=== PATIENT | female | born 1995 | race Caucasian/White ===

== ENCOUNTER → 2018-01-24 10:33 | Outpatient (CLI) | payer MEDICAID, SELFPAY ==
[2018-01-24 13:57] LABS: Hemoglobin A1c 5.6 % (4.2-6.3)
[2018-01-24 14:01] LABS: Follicle Stimulating Hormone 5.9 mIU/mL; Free T3 3.1 pg/mL (2.18-3.98); Glucose 86 mg/dL (74-106); Luteinizing Hormone 2.1 mIU/mL; Prolactin 15.2 ng/mL; T4 Free Direct 0.96 ng/dL (0.76-1.46); Thyroid Stim Hormone (TSH) 2.37 uIU/mL (0.358-3.74)
[2018-01-27 11:09] LABS: HPV Reflexed? NOT INDICATED
== END ==
PROVIDERS: Visit Provider Obstetrics & Gynecology
DX: N92.5 Other specified irregular menstruation (principal); Z12.72 Encounter for screening for malignant neoplasm of vagina
CPT/HCPCS: 36415; 82947; 83001; 83002; 83036; 84146; 84439; 84443; 84481; 88175; G0145

== ENCOUNTER → 2018-10-08 16:19 | Outpatient (CLI) | payer SELFPAY ==
[2018-10-08 17:31] LABS: Thyroid Stim Hormone (TSH) 3.19 uIU/mL (0.358-3.74)
== END ==
PROVIDERS: Visit Provider Obstetrics & Gynecology
DX: N92.6 Irregular menstruation, unspecified (principal)
CPT/HCPCS: 36415; 84443

== ENCOUNTER → 2019-01-30 09:28 | Outpatient (CLI) | payer SELFPAY | LOC: MFPLAB 09:28 → WOBLAB 02-01 16:32 | PROVIDERS: Visit Provider Obstetrics & Gynecology | DX: Z12.4 Encounter for screening for malignant neoplasm of cervix (principal) | CPT/HCPCS: 88175; G0145 ==

== ENCOUNTER → 2019-12-25 | Outpatient (CLI) | payer OTHER, SELFPAY ==
[2019-12-31 07:44] LABS: Chlamydia By Nucleic Acid AMP Negative (Negative)
[2019-12-31 08:03] LABS: Gonococcus By Nucleic Acid AMP Negative (Negative)
[2019-12-31 16:02] LABS: HPV Reflexed? NOT INDICATED
== END | disposition home or self-care (01) ==
LOC: LABSPEC 14:39
PROVIDERS: Visit Provider Obstetrics & Gynecology
DX: N39.0 Urinary tract infection, site not specified (principal); R10.30 Lower abdominal pain, unspecified; Z11.3 Encounter for screening for infections with a predominantly sexual mode of transmission; Z12.4 Encounter for screening for malignant neoplasm of cervix
CPT/HCPCS: 87086; 87088; 87491; 87591; 88175; G0145

== ENCOUNTER → 2021-11-24 | Outpatient (CLI) | payer SELFPAY | END | disposition home or self-care (01) | LOC: LABSPEC 16:06 | PROVIDERS: Visit Provider Obstetrics & Gynecology | DX: N39.0 Urinary tract infection, site not specified (principal) | CPT/HCPCS: 87086; 87088 ==

== ENCOUNTER → 2022-05-24 | Outpatient (CLI) | payer SELFPAY ==
[2022-05-31 13:38] LABS: HPV Reflexed? NOT INDICATED
== END | disposition home or self-care (01) ==
PROVIDERS: Visit Provider Obstetrics & Gynecology
DX: Z12.4 Encounter for screening for malignant neoplasm of cervix (principal)
CPT/HCPCS: 88175; G0145

== ENCOUNTER 2024-12-09 13:38 | Day surgery (SDC) | payer OTHER, SELFPAY ==
--- OUTSIDE RECORDS SUMMARY | 2024-10-11 05:23 | XMS RPT_ITS | CCD ---
Author Organization [facility] Care Team Providers Care Dial Lathe Operator Name Role Phone HOUSE JOSS JOHNSON Unavailable Unavailable NO REFERRING DR Unavailable Unavailable ZARAA, ADEL Unavailable Unavailable BRYANT, BRUCE Unavailable Unavailable BRYANT, BRUCE GALDINO Unavailable Unavailable ZARAA, ADEL SALENA Unavailable Unavailable Fabian CHIRINOS, Andrzej Narvaez Unavailable Dejon CHIRINOS, Dr. Gregory Unavailable [phone] Psychology Provider Unavailable Unavailable [facility] U navailable Jarad COMMERCIAL ILLUSTRATOR, Chari Unavailable Aristeo COMMERCIAL ILLUSTRATOR, Emmy Aceves Unavailable Unavailable Israel COMMERCIAL ILLUSTRATOR, Jeffrey Unavailable Unavailable Slick CHIRINOS, Jose Hernandez Unavailable Nickolas MOSCOSO, Galina Naylor Unavailable [phone] Niru MOSCOSO, Gilles Aceves Unavailable [phone] Greyson COMMERCIAL ILLUSTRATOR, Gayle Unavailable Unavailable Villa ANDERSEN, Galina Hernandez Unavailable Unavaila ble Megan COMMERCIAL ILLUSTRATOR, Sonali Unavailable Unavailable Yousuf COMMERCIAL ILLUSTRATOR, Aristeo Unavailable Unavailable Vamsi ANDERSEN, Ava Rodriguez Unavailable Unavailable Levar COMMERCIAL ILLUSTRATOR, Almita Unavailable Unavailable Hoang MOSCOSO, Sheridan Aguilar Unavailable Taj COMMERCIAL ILLUSTRATOR, Kelsea Velasco Unavailable Unavailab joe Sutton COMMERCIAL ILLUSTRATOR, Jenelle Snyder Unavailable Unavailab joe Gaxiola MD, Ashkan Hernandez Unavailable Hien Monroe Unavailable Unavailable Vess COMMERCIAL ILLUSTRATOR, Kandi L Unavailable Unavailable Wengerd COMMERCIAL ILLUSTRATOR, Shanda Unavailable Unavailabl e Marc COMMERCIAL ILLUSTRATOR, America N Unavailable Unavaila ble Zaugg COMMERCIAL ILLUSTRATOR, Yennifer Unavailable Unavailable Unavailable Unavailable Unavailable Primary Care Provider Unavailabl e Unavailable Primary Care Provider Unavailabl e Satinder CHIRINOS, Anju Primary Care Provider [phone] PATTI RAMOS DO Primary Care Unavailable PATTI RAMOS DO Admitting Unavailable PATTI RAMOS DO Attending Unavailable VINCENZO TIDWELL DO Attending Unavailable VINCENZO TIDWELL DO Primary Care Unavailable VINCENZO TIDWELL DO Admitting Unavailable KANCHERLA Attending Unavailable KANCHERLA Primary Care Unavailable KANAMEYALA Admitting Unavailable PATTI RAMOS DO Primary Care Unavailable PATTI RAMOS DO Admitting Unavailable PATTI RAMOS DO Attending Unavailable RAJAN, ANJU Primary Care Unavailable CHAR HENSLEY Referring Unavailable ASIF WALLACE Attending Unavailable RAJAN, ANJU Primary Care Unavailable HAURY, CHRISTOPHER Referring Unavailable RAJAN, ANJU Primary Care Unavailable YENNIFER PRUITT Attending Unavailable RAJAN, ANJU Primary Care Unavailable HAURY, CHRISTOPHER Referring Unavailable RAJAN, ANJU Primary Care Unavailable YENNIFER PRUITT Referring Unavailable RAJAN, ANJU Primary Care Unavailable SELF Referring Unavailable UMA TINSLEY Attending Unavailable RAJAN, ANJU Primary Care Unavailable FOX ABEL Attending Unavailable RAJAN, ANJU Primary Care Unavailable WISWELLSOUMYAA Referring Unavailable RAJAN, ANJU Primary Care Unavailable HAURY, CHRISTOPHER Attending Unavailable RAJAN, ANJU Primary Care Unavailable MARCI PULIDO Attending Unava ilable RAJAN, ANJU Primary Care Unavailable MARCI PULIDO Referring Unava ilable DUNIA GONGORA Attending Unavailable RAJAN, ANJU Primary Care Unavailable FOX ABEL Attending Unavailable SATINDER, ANJU Primary Care Unavailable MARCI PULIDO Attending Unava ilable RAJAN, ANJU Primary Care Unavailable FOX ABEL Attending Unavailable EVELYN FOX Referring Unavailable RAJAN, ANJU Primary Care Unavailable WISWELLFOX Attending Unavailable RAJAN, ANJU Primary Care Unavailable FOX ABEL Attending Unavailable RAJAN, ANJU Primary Care Unavailable MARCI PULIDO Attending Unava ilable RAJAN, ANJU Primary Care Unavailable SELF Referring Unavailable RADHA BUSCH Attending Unavailable RAJAN, ANJU Primary Care Unavailable GRAHAM GREEN Attending Unavailabl e Care Physician, No Primary Primary Care Unava ilable Johnson Phillip Attending Unavailable Johnson Phillip Attending Unavailable MARCI PULIDO Primary Care Unavail able Care Physician, No Primary Primary Care Unava ilable Johnson Phillip Attending Unavailable Care Physician, No Primary Primary Care Unava ilable Johnson Phillip Attending Unavailable Care Physician, No Primary Primary Care Unava ilable Johnson Phillip Attending Unavailable MARCI PULIDO Primary Care Unavail able Fox Abel Attending Unavailable Fox Abel Referring Unavailable Anju Rajan Primary Care Unavailable Fox Abel Attending Unavailable Fox Abel Referring Unavailable Medications Current Medications Medication Drug Class(es) Dates Sig (Normalized) Sig (Original) acetaminophen 500 mg oral capsule (20 sources) Acetaminophen 50 0 mg cap Take by mouth. Active take 2 tablets by mouth three ti mes daily Tylenol 325 MG Oral Tablet ; 2 tabs three times daily (325 MG) Status: Inactive 24 hr buPROPion hydrochloride 150 mg extended release oral tablet (20 sources) Aminoketone Start: 09-12-2023 take 1 tablet by mouth once daily in the morning buPROPion XL (WELLBUTRIN XL) 150 mg 24 hr tablet Take 150 mg by mouth every morning. 09/12/2023 Active Start: 07-15-2020 End: 03-29-2023 buPROPion HCL SR 200 mg tabl et,12 hr sustained-release ; 1 (one) Tablet bid for 0 days Quantity: 60 {Tablet} Refills: 5 Ordered: 29-Mar-2023 BELKIS Rubi Start: 15-Jul-2020 End: 29-Mar-2023 Status: Inactive hydrOXYzine pamoate 25 mg oral capsule (20 sources) Antihistamine Start: 06-27-2023 hydrOXYzine pa moate (VISTARIL) 25 mg capsule 06/27/2023 Active norethindrone acetate 5 mg oral tablet (20 sources) Start: 09-19-2024 norethindrone (AYGESTIN) 5 mg tablet Indications: DUB (dysfunctional uterine bleeding) Take 1 tablet by mouth as directed. one by mouth tid x 3 days, bid x 3 days, then daily 50 tablet 09/19/2024 Active Start: 08-02-2024 End: 09-17-2024 norethindrone (AYGESTIN) 5 m g tablet Indications: DUB (dysfunctional uterine bleeding) Take 1 tablet by mouth as directed. one by mouth tid x 3 days, bid x 3 days, then daily 50 tablet 08/02/2024 09/17/2024 Discontinued Start: 11-27-2023 End: 04-25-2024 norethindrone (AYGESTIN) 5 m g tablet Indications: Abnormal uterine bleeding 1 tab 3x/day until bleeding stops. 1 tab 2x/day x 2 days. 1 tab daily x 5 days 35 tablet 12/29/2023 04/25/2024 Discontinued (Other) omeprazole 20 mg delayed release oral capsule (20 sources) Proton Pump Inhibitor Start: 04-05-2024 End: 07-03-2024 take 1 capsule by mouth once daily omeprazole (PRILOSEC) 20 mg capsule Indications: Gastroesophageal reflux disease, unspecified whether esophagitis present TAKE ONE CAPSULE BY MOUTH ONCE DAILY 30 capsule 3 07/03/2024 Active Start: 09-27-2023 End: 03-28-2024 take 1 capsule by mouth once daily omeprazole (PRILOSEC) 20 mg capsule Indications: Gastroesophageal reflux disease, unspecified whether esophagitis present Take 1 capsule by mouth once daily. 30 capsule 2 12/29/2023 03/28/2024 Active phentermine hydrochloride 37.5 mg oral tablet (20 sources) Sympathomimetic Amine Anorectic Start: 06-18-2024 End: 10-30-2024 take 45-49.9 tablets by mouth once daily Phentermine HCl 37.5 mg tablet Indications: Class 3 severe obesity with body mass index (BMI) of 45.0 to 49.9 in adult, unspecified obesity type, unspecified whether serious comorbidity present (HCC) Take 1 tablet by mouth once daily for 30 days. 30 tablet 09/30/2024 10/30/2024 Active sertraline 100 mg oral tablet (20 sources) Serotonin Reuptake Inhibitor take 1 tablet by mouth twice daily sertraline (ZOLOFT) 100 mg tablet Take 100 mg by mouth two times a day. Active take 1 tablet by mouth once lindy y sertraline (ZOLOFT) 100 mg tablet Take 100 mg by mouth once daily. 0 Active Comment on above: Take 100 mg by mouth once daily. traZODone hydrochloride 50 mg oral tablet (20 sources) Serotonin Reuptake Inhibitor take 1 tablet by mouth once daily at bedtime traZODone (DESYREL) 50 mg tablet Take 50 mg by mouth daily at bedtime. Active trospium chloride 20 mg oral tablet (20 sources) Cholinergic Muscarinic Antagonist Start: 06-19-19 End: 07-17-19 take 1 tablet by mouth twice daily trospium (SANCTURA) 20 mg tablet Indications: Mixed stress and urge urinary incontinence , Urinary urgency Take 1 tablet by mouth two times a day. 60 tablet 3 07/16/2024 Active Completed/Discontinued Medications Medication Drug Class(es) Dates Sig (Normalized) Sig (Original) [id number] 200 actuat albuterol 0.09 mg/actuat metered dose inhaler (2 sources) beta2-Adrenergic Agonist Albuterol 90 MCG/ACT Inhalation Aerosol Solution ; as directed (90 MCG/ACT) Status: Inactive amoxicillin 875 mg / clavulanate 125 mg oral tablet (2 sources) Penicillin-class Antibacterial Start: 01-26-2017 End: 02-05-2017 take 1 tablet by mouth twice daily at mealtime Augmentin 875-125 MG Oral Tablet ; 1 Tab two times daily for 10 days Quantity: 20 {Tablet} Refills: 0 Ordered: 26-Jan-2017 DANIS Olmos Start: 26-Jan-2017 End: 05-Feb-2017 Status: Inactive Comments: Take with food Comment on above: Take with food azithromycin 500 mg oral tablet (4 sources) Macrolide Antimicrobial Start: 02-08-2019 End: 02-11-2019 take 1 tablet by mouth once daily Azithromycin 500 MG Oral Tablet ; 1 (one) Tablet daily for 3 days Quantity: 3 {Tablet} Refills: 0 Ordered: 25-Feb-2019 MD Jose Kruger Start: 08-Feb-2019 End: 11-Feb-2019 Status: Inactive Start: 11-27-2017 End: 02-06-2018 Zithromax Z-Woo 250 MG Oral Tablet ; 2 (two) Tabs Tabs day one, then one daily for 4 days for 0 days Quantity: 1 {Package} Refills: 0 Ordered: 06-Feb-2018 BELKIS Sutton Jenelle Snyder Start: 27-Nov-2017 End: 06-Feb-2018 Status: Inactive benzonatate 100 mg oral capsule (2 sources) Non-narcotic Antitussive Start: 02-25-2019 End: 03-18-2019 take 1 capsule by mouth three times daily as needed Tessalon Perles 100 MG Oral Capsule ; 1 (one) Cap three times daily as needed for cough for 0 days Quantity: 30 {Capsule} Refills: 0 Ordered: 18-Mar-2019 GANESH Driver Start: 25-Feb-2019 End: 18-Mar-2019 Status: Inactive Comments: Medication taken as needed. swallow whole Comment on above: Medication taken as needed. swallow whole cephalexin 500 mg oral capsule (2 sources) Cephalosporin Antibacterial Start: 08-24-2018 End: 09-03-2018 take 2 capsules by mouth twice daily Cephalexin 500 MG Oral Capsule ; 2 (two) Capsule bid for 10 days Quantity: 40 {Capsule} Refills: 0 Ordered: 24-Aug-2018 MD Andrzej Peralta Start: 24-Aug-2018 End: 03-Sep-2018 Status: Inactive codeine phosphate 2 mg/ml / promethazine hydrochloride 1.25 mg/ml oral solution (2 sources) Opioid Agonist, Phenothiazine Start: 02-08-2019 End: 02-25-2019 take 10 mL by mouth every four hours as needed for cough Promethazine-Code ine 6.25-10 MG/5ML Oral Syrup ; 10 (ten) Milliliter every 4 hours prn cough for 0 days Quantity: 120 {Milliliter} Refills: 1 Ordered: 25-Feb-2019 BELKIS Bruner Start: 08-Feb-2019 End: 25-Feb-2019 Status: Inactive Desogestrel / Ethinyl Estradiol (5 sources) Progestin, Estrogen Start: 01-08-2024 End: 04-25-2024 take 1 tablet by mouth once daily, then take 0.15 tablet by mouth once Desogestrel-Ethin yl Estradiol (APRI) 0.15-0.03 mg per tablet Take 1 tablet by mouth once daily. 30 tablet 5 01/08/2024 04/25/2024 Discontinued (Other) Start: 01-08-2024 take 1 tablet by sara th once daily, then take 0.15 tablet by mouth once Desogestrel-Ethinyl Estradiol (APRI) 0.15-0.03 mg per tablet Take 1 tablet by mouth once daily. 30 tablet 5 01/08/2024 Active ergocalciferol 1.25 mg oral capsule (14 sources) Provitamin D2 Compound Start: 06-21-2023 End: 04-25-2024 take 1 capsule by mouth every week ergocalciferol 50,000 unit capsule (VITAMIN D2, DRISDOL) Indications: Vitamin D deficiency Take 1 capsule by mouth one time a week. 12 capsule 1 06/21/2023 04/25/2024 Discontinued (Other) Ethinyl Estradiol / Norethindrone (2 sources) Estrogen Start: 08-21-2015 End: 08-24-2016 take 1 tablet by mouth once daily Loestrin 1/20 (21) 1-20 MG-MCG Oral Tablet ; 1 (one) Tablet Tablet qd for 0 days Quantity: 1 {Package} Refills: 12 Ordered: 24-Aug-2016 BELKIS Sutton Jenelle Snyder Start: 21-Aug-2015 End: 24-Aug-2016 Status: Inactive Ethinyl Estradiol / norgestimate (14 sources) Progestin, Estrogen Start: 04-24-2023 End: 09-27-2023 take 1 tablet by mouth once norgestimate 0.25 mg-ethinyl estradiol 35 mcg 0.25-35 mg-mcg per tablet Take 1 tablet by mouth every afternoon. 90 tablet 3 04/24/2023 09/27/2023 Discontinued Start: 04-24-2023 take 1 tablet by mouth once no rgestimate 0.25 mg-ethinyl estradiol 35 mcg 0.25-35 mg-mcg per tablet Take 1 tablet by mouth every afternoon. 90 tablet 3 04/24/2023 Active Start: 04-10-2023 End: 04-24-2023 take 1 tablet by mouth once norgestimate 0.25 mg-ethin yl estradiol 35 mcg 0.25-35 mg-mcg per tablet Take 1 tablet by mouth every afternoon. 28 tablet 0 04/10/2023 04/24/2023 Discontinued take 1 tablet by sara th once daily Sprintec 28 0.25-35 MG-MCG Oral Tablet ; 1 daily for 3 months (0.25-35 MG-MCG) Status: Inactive Comments: prescribed by Dr. Field Comment on above: prescribed by Dr. Wilbert hyde Take 1 tablet by sara th every afternoon. 24 hr fesoterodine fumarate 8 mg extended release oral tablet (2 sources) take 1 tablet by mouth once daily Toviaz 8 MG Oral Tablet Extended Release 24 Hour ; 1 daily (8 MG) Status: Inactive fluconazole 100 mg oral tablet (4 sources) Azole Antifungal Start: 01-25-2016 End: 02-01-2016 take 1 tablet by mouth once daily Diflucan 100 MG Oral Tablet ; 1 Tablet daily for 7 days Quantity: 7 {Tablet} Refills: 0 Ordered: 10-Feb-2016 MD Andrzej Peralta Start: 25-Jan-2016 End: 01-Feb-2016 Status: Inactive Start: 02-03-2015 End: 02-04-2015 DIFLUCAN, 150MG (Oral Tablet ) ; 1 Tablet single dose for 1 days Quantity: 1 {Tablet} Refills: 0 Ordered: 03-Feb-2015 MD Andrzej Peralta Start: 03-Feb-2015 End: 04-Feb-2015 Status: Inactive levoFLOXacin 500 mg oral tablet (2 sources) Quinolone Antimicrobial Start: 02-10-2017 End: 02-20-2017 take 1 tablet by mouth once daily Levaquin 500 MG Oral Tablet ; 1 (one) Tablet qd for 10 days Quantity: 10 {Tablet} Refills: 0 Ordered: 10-Feb-2017 MD Andrzej Peralta Start: 10-Feb-2017 End: 20-Feb-2017 Status: Inactive levonorgestrel 0.149115 mg/hr intrauterine system (20 sources) Progestin, Progestin-containi ng Intrauterine Device Start: 06-20-2023 End: 06-18-2031 levonorgestrel (MIRENA) 21 mcg/24 hours (8 yrs) 52 mg IUD 1 Each by INTRAUTERINE route as directed. 1 Each 06/20/2023 08/02/2024 Discontinued Comment on above: 1 Each by INTRAUTERI NE route as directed. methylphenidate hydrochloride 20 mg oral tablet (2 sources) Central Nervous System Stimulant take 1 tablet by mouth three times daily Ritalin 20 MG Oral Tablet ; 1 three times daily (20 MG) Status: Inactive 24 hr mirabegron 25 mg extended release oral tablet (7 sources) beta3-Adrenergic Agonist Start: 05-17-2023 End: 09-27-2023 take 1 tablet by mouth once daily mirabegron (MYRBETRIQ) 25 mg Tb24 Take 1 tablet by mouth once daily. 30 tablet 3 05/17/2023 09/27/2023 Discontinued Comment on above: Take 1 tablet by sara once daily. naproxen sodium 550 mg oral tablet (2 sources) Nonsteroidal Anti-inflammatory Drug take 1 tablet by mouth twice daily Naproxen Sodium 550 MG Oral Tablet ; 1 two times daily (550 MG) Status: Inactive oseltamivir 75 mg oral capsule (2 sources) Neuraminidase Inhibitor Start: 03-29-2023 End: 04-03-2023 Tamiflu 75 mg capsule ; 1 (one) capsule bid for 5 days Quantity: 10 {Capsule} Refills: 0 Ordered: 29-Mar-2023 MD Andrzej Peralta Start: 29-Mar-2023 End: 03-Apr-2023 Status: Inactive 24 hr oxybutynin chloride 5 mg extended release oral tablet (1 source) Cholinergic Muscarinic Antagonist End: 04-24-2023 take 1 tablet by mouth once daily oxybutynin XL (DITROPAN XL) 5 mg 24 hr tablet Take 5 mg by mouth once daily. 0 04/24/2023 Discontinued (Discontinued by Patient) Comment on above: Take 5 mg by mouth o nce daily. PARoxetine hydrochloride 20 mg oral tablet (2 sources) Serotonin Reuptake Inhibitor Start: 11-18-2016 End: 01-26-2017 take 1 tablet by mouth once daily PARoxetine HCl 20 MG Oral Tablet ; 1 (one) Tablet Tablet qd for 0 days Quantity: 30 {Tablet} Refills: 5 Ordered: 26-Jan-2017 GANESH Agustin Ava Michael Start: 18-Nov-2016 End: 26-Jan-2017 Status: Inactive 12 hr pseudoephedrine hydrochloride 120 mg extended release oral tablet (2 sources) alpha-Adrenergic Agonist Start: 12-24-2013 End: 12-30-2013 take 1 tablet by mouth twice daily as needed for congestion PSEUDOEPHEDRINE HCL ER, 120MG (Oral Tablet Extended Release 12 Hour) ; 1 (one) Tablet two times daily PRN congestion for 6 days Quantity: 12 {Tablet} Refills: 0 Ordered: 24-Dec-2013 MD Jose Kruger Start: 24-Dec-2013 End: 30-Dec-2013 Status: Inactive sulfacetamide sodium 100 mg/ml ophthalmic solution (2 sources) Sulfonamide Antibacterial Start: 07-06-2010 End: 04-01-2011 take 1-2 drop(s) into the eye(s) four times daily BLEPH-10, 10% (Ophthalmic Solution) ; 1-2 drops four times daily for 0 days Quantity: 5 {Milliliter} Refills: 0 Ordered: 01-Apr-2011 BELKIS Abraham Start: 06-Jul-2010 End: 01-Apr-2011 Status: Inactive triamcinolone acetonide 1 mg/ml topical cream (2 sources) Corticosteroid Start: 12-15-2015 End: 08-24-2016 Triamcinolone Acetonide 0.1 % External Cream ; 1 (one) Application(s) Application(s) two times daily for 0 days Quantity: 80 {gram(s)_tube} Refills: 0 Ordered: 24-Aug-2016 BELKIS Sutton Start: 15-Dec-2015 End: 24-Aug-2016 Status: Inactive 24 hr venlafaxine 37.5 mg extended release oral tablet (4 sources) Serotonin and Norepinephrine Reuptake Inhibitor Start: 12-21-2016 End: 12-31-2016 take 1 tablet by mouth once daily Venlafaxine HCl ER 37.5 MG Oral Tablet Extended Release 24 Hour ; 1 (one) Tablet ER 24HR qd for 10 days Quantity: 10 {Tablet} Refills: 0 Ordered: 17-Jan-2017 MD Andrzej Peralta Start: 21-Dec-2016 End: 31-Dec-2016 Status: Inactive Start: 12-21-2016 End: 08-30-2017 take 1 tablet by mouth every twenty-four hours, then take 1 tablet by mouth once daily Venlafaxine HCl ER 75 MG Oral Tablet Extended Release 24 Hour ; 1 (one) Tablet ER 24HR Tablet ER 24HR qd for 0 days Quantity: 30 {Tablet} Refills: 5 Ordered: 30-Aug-2017 BELKIS Sutton Start: 21-Dec-2016 End: 30-Aug-2017 Status: Inactive Problems Active Problems Problem Classification Problem Date Documented Date Episodic/Chronic Acute bronchitis (3 sources) Acute bronchitis; Translations: [Acute bronchitis, unspecified] 02-25-2019 Episodic Anxiety disorders (20 sources) Anxiety; Translations: [Anxiety disorder, unspecified] Onset: 06-13-2023 03-29-2023 Chronic Chronic obstructive pulmonary disease and bronchiectasis (5 sources) Bronchitis; Translations: [Bronchitis, not specified as acute or chronic] 02-25-2019 Episodic Contraceptive and procreative management (11 sources) Patient encounter status; Translations: [Encounter for other contraceptive management] Onset: 01-08-2024 06-12-2023 Episodic Developmental disorders (20 sources) Developmental academic disorder; Translations: [Developmental disorder of scholastic skills, unspecified] Onset: 09-27-2023 09-27-2023 Chronic E Codes: Natural/environment (3 sources) Insect bite - wound; Translations: [Bitten or stung by nonvenomous insect and other nonvenomous arthropods, initial encounter] 12-15-2015 Episodic Endometriosis (2 sources) Uterine adenomyosis; Translations: [Adenomyosis] 06-12-2023 Chronic Esophageal disorders (20 sources) Gastroesophageal reflux disease; Translations: [Gastro-esophageal reflux disease without esophagitis] Onset: 06-14-2023 06-14-2023 Chronic Fever of unknown origin (2 sources) Fever; Translations: [Fever, unspecified] 02-06-2018 Episodic Genitourinary symptoms and ill-defined conditions (20 sources) Urinary incontinence; Translations: [Unspecified urinary incontinence] Onset: 09-27-2023 03-29-2023 Chronic Genitourinary symptoms and ill-defined conditions (13 sources) Urinary symptoms ; Translations: [Unspecified symptoms and signs involving the genitourinary system] 07-24-2018 Episodic Headache; including migraine (20 sources) Refractory migraine; Translations: [Migraine, unspecified, intractable, without status migrainosus] Onset: 06-14-2023 06-14-2023 Chronic Immunizations and screening for infectious disease (6 sources) Screening examination for venereal disease; Translations: [Patient encounter status] 02-25-2019 Episodic Inflammation; infection of eye (except that caused by tuberculosis or sexually transmitteddisease) (6 sources) Acute conjunctivitis; Translations: [Unspecified acute conjunctivitis, unspecified eye] 02-25-2019 Episodic Influenza (3 sources) Influenza due to Influenza A virus; Translations: [Influenza due to other identified influenza virus with other respiratory manifestations] 03-29-2023 Episodic Malaise and fatigue (4 sources) Malaise and fatigue; Translations: [Other malaise] 02-25-2019 Episodic Menstrual disorders (5 sources) Primary physiologic amenorrhea; Translations: [Primary amenorrhea] Onset: 01-08-2024 08-24-2016 Chronic Mood disorders (9 sources) Recurrent major depressive episodes, moderate ; Translations: [Major depressive disorder, recurrent, moderate] Onset: 09-10-2024 03-29-2023 Chronic Mood disorders (1 source) Mood disorders; Translations: [Anxiety and depression] Onset: 06-13-2023 Noninfectious gastroenteritis (3 sources) Gastroenteritis; Translations: [Noninfective gastroenteritis and colitis, unspecified] 12-07-2022 Episodic Nutritional deficiencies (20 sources) Vitamin D deficiency; Translations: [Vitamin D deficiency, unspecified] Onset: 06-21-2023 06-21-2023 Chronic Other and unspecified benign neoplasm (2 sources) Melanocytic nevus; Translations: [Melanocytic nevi, unspecified] 04-24-2023 Episodic Other female genital disorders (18 sources) Abnormal uterine bleeding; Translations: [Abnormal uterine and vaginal bleeding, unspecified] 04-24-2023 Chronic Other female genital disorders (1 source) Other specified abnormal uterine and vaginal bleeding; Translations: [DUB (dysfunctional uterine bleeding)] Onset: 08-05-2024 Chronic Other female genital disorders (1 source) Abnormal uterine and vaginal bleeding, unspecified; Translations: [Abnormal uterine bleeding] Onset: 11-30-2023 Chronic Other hereditary and degenerative nervous system conditions (1 source) Restless legs; Translations: [Restless legs syndrome] 11-24-2023 Chronic Other hereditary and degenerative nervous system conditions (1 source) Restless legs syndrome; Translations: [RLS (restless legs syndrome)] Onset: 11-24-2023 Chronic Other injuries and conditions due to external causes (3 sources) Injury of lower extremity; Translations: [Unspecified injury of unspecified lower leg, initial encounter] 03-29-2023 Episodic Other lower respiratory disease (9 sources) Cough; Translations: [Cough] 03-18-2019 Episodic Other lower respiratory disease (1 source) Snoring; Translations: [Snoring] 11-24-2023 Episodic Other lower respiratory disease (1 source) Apnea; Translations: [Apnea, not elsewhere classified] 11-24-2023 Episodic Other non-traumatic joint disorders (5 sources) Pain in wrist; Translations: [Pain in right wrist] 02-25-2019 Episodic Other non-traumatic joint disorders (3 sources) Pain in unspecified knee; Translations: [Pain in joint, lower leg] 02-25-2019 Episodic Other nutritional; endocrine; and metabolic disorders (6 sources) Body mass index 40+ - severely obese; Translations: [Body mass index (BMI) 40.0-44.9, adult] 03-29-2023 Chronic Other nutritional; endocrine; and metabolic disorders (20 sources) Severe obesity; Translations: [Morbid (severe) obesity due to excess calories] Onset: 06-14-2023 06-14-2023 Chronic Other nutritional; endocrine; and metabolic disorders (3 sources) Body mass index (BMI) 45.0-49.9, adult; Translations: [Class 3 severe obesity with body mass index (BMI) of 45.0 to 49.9 in adult (HCC)] Onset: 06-14-2023 Chronic Other nutritional; endocrine; and metabolic disorders (1 source) Morbid (severe) obesity due to excess calories; Translations: [Class 3 severe obesity with body mass index (BMI) of 45.0 to 49.9 in adult, unspecified obesity type, unspecified whether serious comorbidity present (HCC)] Onset: 06-14-2023 Chronic Other nutritional; endocrine; and metabolic disorders (6 sources) Developmental delay; Translations: [Unspecified lack of expected normal physiological development in childhood] 03-29-2023 Episodic Other screening for suspected conditions (not mental disorders or infectious disease) (10 sources) Screening status; Translations: [Encounter for screening for diabetes mellitus] 02-25-2019 Episodic Other skin disorders (1 source) Skin lesion; Translations: [Disorder of the skin and subcutaneous tissue, unspecified] 10-20-2023 Episodic Other upper respiratory infections (20 sources) Acute sinusitis; Translations: [Acute sinusitis, unspecified] 02-25-2019 Episodic Residual codes; unclassified (5 sources) Daytime somnolence; Translations: [Other hypersomnia] 03-29-2023 Chronic Residual codes; unclassified (20 sources) Obstructive sleep apnea syndrome; Translations: [Obstructive sleep apnea (adult) (pediatric)] Onset: 09-27-2023 06-20-2023 Chronic Residual codes; unclassified (1 source) Dream enactment behavior; 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 disorder] 11-24-2023 Chronic Residual codes; unclassified (1 source) Obstructive sleep apnea (adult) (pediatric); Translations: [BISHNU (obstructive sleep apnea)] Onset: 09-27-2023 Chronic Residual codes; unclassified (1 source) Other hypersomnia; Translations: [Excessive daytime sleepiness] Onset: 11-24-2023 Chronic Residual codes; unclassified (1 source) REM sleep behavior disorder; Translations: [Dream enactment behavior] Onset: 11-24-2023 Chronic Residual codes; unclassified (3 sources) Influenza vaccination declined; Translations: [Immunization not carried out because of patient refusal] 02-25-2019 Episodic Residual codes; unclassified (3 sources) Edema of lower extremity; Translations: [Localized edema] 03-29-2023 Episodic Residual codes; unclassified (1 source) Frequent night waking; Translations: [Insomnia, unspecified] 11-24-2023 Episodic Residual codes; unclassified (1 source) Insomnia; Translations: [Insomnia, unspecified] 06-18-2024 Episodic Spondylosis; intervertebral disc disorders; other back problems (1 source) Other intervertebral disc displacement, lumbar region; Translations: [Other intervertebral disc displacement, lumbar region] Onset: 10-16-2023 Chronic Sprains and strains (15 sources) Sprain of elbow and forearm; Translations: [Unspecified sprain of unspecified elbow, initial encounter] 02-25-2019 Episodic Unclassified (2 sources) Edema - The onset of the edema has been acute and has been occurring in a continuous pattern for 4 months . The course of the edema has been unchanging. It affects both lower extremities. The symptoms have not been relieved by any method. Note for Edema: reviewed by [facility] 01-24-2020 Unclassified (2 sources) [ADDITIONAL REASON] Follow up for chronic condition - The patient is here for follow-up of depression. The patient always takes the prescribed medications. No side effects noted. The patient has an active lifestyle but no regular exercise program. The patient states that depression has worsened (patient recently saw Dr. Field and had depression screening done that showed increase in depression from previous times, follow up with PCP. States no suicidal thoughts/attempts. Patient states sleeping more.). Note for Chronic condition follow-up: reviewed by [facility] 01-24-2020 Unclassified (1 source) Follow up from hospital stay - Name of Hospital: [facility]. Date of Admission: 03/14/2019. Date of Discharge: same day. The patient was hospitalized for Contusion of right leg. No new medications were prescribed (instructed to take Ibuprofen or Tylenol PRN for pain). Patient did not have any consultations ordered while in the hospital. No post hospital therapies were ordered. Patient was discharged to home. Current Symptoms: continues to have pain of right foot/ankle, bruises present on the right lower leg. Note for Follow up from hospital stay: reviewed by [facility] 03-18-2019 Unclassified (1 source) [ADDITIONAL REASON] Transition into care - The patient is transitioning into care from an emergency room ([facility] 03/14/2019) and a summary of care was reviewed. 03-18-2019 Unclassified (2 sources) [ADDITIONAL REASON] Cold Symptoms - Symptoms include runny nose, sore throat, dry cough (is productive at times, feels short of breath), fever, chills, general malaise and headache (from coughing). The onset was 5 day(s) ago. The symptoms occur constantly. The patient describes this as worsening. Current treatment includes non-prescription cold medication and cough suppressants (took leftover cough medication). Note for Upper respiratory infection: Has vomited also. reviewed by [facility] 03-18-2019 Unclassified (1 source) Follow up consultation - The patient is here to follow-up after Emergency Room/Urgent Care ([facility]. Diagnosis: Reactive Airway Disease. Was given Albuterol Inhaler and course of Prednisone.) on : (05/22/16.). Current symptoms include cough. Note for Consultation follow-up: pt said has been exposed to mold in new home. moved there in september and sx started [place] [facility] was given albuterol inhaler and prenisone BID 3 days. neither helped with sx reviewed by [facility] 05-26-2017 Unclassified (1 source) [ADDITIONAL REASON] Transition into care - The patient is transitioning into care from an emergency room and a summary of care was reviewed. 05-26-2017 Unclassified (2 sources) Follow up for chronic condition - The patient is here for follow-up of anxiety. The patient always takes the prescribed medications. No side effects noted. The patient has low activity level and no regular exercise program. The patient states that mood is unchanged. Note for Chronic condition follow-up: patient said medication doesnt seem to be working, takes med at night says it makes pt very sleepy. patient wanting to know about thyroid issues, says she cant seem to stay on a diet plan and was concerned that indicates a thyroid problem 12-21-2016 Unclassified (2 sources) control (initial visit) - The patient's motivation for contraception is the prevention of (LMP 07/20/15 and periods are irregular. Pt is sexually active and currently having unprotected sex and last sexual encounter was about 2 weeks ago. Urine test was negative.). The patient is requesting oral contraceptives. No previous methods of contraception have been used. Previous pregnancies: none. Previous abortions/miscarriages : none. The patient reports symptoms of menstrual irregularities, while she denies breast discharge, headaches, jaundice, overdue menses, vaginal bleeding or vaginal discharge. Note for Contraception: reviewed by [facility] 08-21-2015 Unclassified (2 sources) Form completion physical - The patient feels well with no complaints and has good energy level. 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 Note for Form completion physical: -Has a form for mental competency determination. guardianship determination, father is in with her today 08-29-2012 Unclassified (1 source) Transition into care - The patient is transitioning into care from an emergency room ([facility] 03/14/2019) and a summary of care was reviewed. 03-18-2019 Unclassified (1 source) [ADDITIONAL REASON] Follow up from hospital stay - Name of Hospital: [facility]. Date of Admission: 03/14/2019. Date of Discharge: same day. The patient was hospitalized for Contusion of right leg. No new medications were prescribed (instructed to take Ibuprofen or Tylenol PRN for pain). Patient did not have any consultations ordered while in the hospital. No post hospital therapies were ordered. Patient was discharged to home. Current Symptoms: continues to have pain of right foot/ankle, bruises present on the right lower leg. Note for Follow up from hospital stay: reviewed by [facility] 03-18-2019 Unclassified (1 source) Transition into care - The patient is transitioning into care from an emergency room and a summary of care was reviewed. 05-26-2017 Unclassified (1 source) [ADDITIONAL REASON] Follow up consultation - The patient is here to follow-up after Emergency Room/Urgent Care ([facility]. Diagnosis: Reactive Airway Disease. Was given Albuterol Inhaler and course of Prednisone.) on : (05/22/16.). Current symptoms include cough. Note for Consultation follow-up: pt said has been exposed to mold in new home. moved there in september and sx started in [facility] was given albuterol inhaler and prenisone BID 3 days. neither helped with sx reviewed by [facility] 05-26-2017 Unclassified (1 source) Pre-Op Visit Onset: 09-30-2024 Unclassified (1 source) Class 3 severe obesity with body mass index (BMI) of 45.0 to 49.9 in adult (HCC); Translations: [Class 3 severe obesity with body mass index (BMI) of 45.0 to 49.9 in adult (HCC)] Onset: 06-14-2023 Unclassified (1 source) Class 3 severe obesity with body mass index (BMI) of 45.0 to 49.9 in adult, unspecified obesity type, unspecified whether serious comorbidity present; Translations: [Class 3 severe obesity with body mass index (BMI) of 45.0 to 49.9 in adult, unspecified obesity type, unspecified whether serious comorbidity present] Onset: 07-16-2024 Unclassified (1 source) Adenomyosis; Translations: [Adenomyosis] Onset: 01-08-2024 Unclassified (1 source) Class 3 severe obesity with body mass index (BMI) of 45.0 to 49.9 in adult, unspecified obesity type, unspecified whether serious comorbidity present (HCC); Translations: [Class 3 severe obesity with body mass index (BMI) of 45.0 to 49.9 in adult, unspecified obesity type, unspecified whether serious comorbidity present (HCC)] Onset: 06-14-2023 Past or Other Problems Problem Classification Problem Date Documented Date Episodic/Chronic Headache, including migraine (1 source) Headache; Translations: [HEADACHE] Onset: 09-30-2016 Episodic Leukemias (2 sources) Leukemias 02-08-2010 Other and unspecified benign neoplasm (1 source) Melanocytic nevi, unspecified; Translations: [Melanocytic nevus, unspecified location] Onset: 01-08-2024 Episodic Other lower respiratory disease (1 source) Snoring; Translations: [Snoring] Onset: 11-24-2023 Episodic Other lower respiratory disease (1 source) Apnea, not elsewhere classified; Translations: [Witnessed apneic spells] Onset: 11-24-2023 Episodic Other nervous system disorders (20 sources) Speech and language disorder; Translations: [Unspecified speech disturbances] Onset: 09-27-2023 09-27-2023 Episodic Other non-traumatic joint disorders (2 sources) Pain in right hip; Translations: [Pain in right hip] Onset: 10-16-2023 Episodic Residual codes; unclassified (1 source) Insomnia, unspecified; Translations: [Frequent nocturnal awakening] Onset: 11-24-2023 Episodic Unclassified (3 sources) Altered mental status, unspecified; Translations: [ALTERED MENTAL STATUS UN] Onset: 09-30-2016 Episodic Unclassified (2 sources) Cold Symptoms - Symptoms include nasal congestion, runny nose, ear pain, sore throat, dry cough, productive cough (also vomiting), general malaise (very weak), headache and facial pain. The onset was gradual 3 day(s) ago. The symptoms occur constantly. The patient describes this as mild and worsening. Current treatment includes non-prescription cold medication (nyquil, alkaselzer plus) and acetaminophen (just before she came in). The patient has been exposed to an individual with an upper respiratory infection ( and mother have bronchitis). Note for Upper respiratory infection: reviewed by [facility] 03-29-2023 Unclassified (2 sources) Gastroenteritis - The history today is reported by the patient's mother. Onset was 2 day(s) ago. Onset followed contact with illness. Symptoms include diarrhea and vomiting. The diarrhea has been brown, mucousy and watery. The diarrhea frequency has been 5 time(s) a day. Vomiting has occurred 2 time(s) a day. The liquid intake has consisted of water. The symptoms are described as moderate in severity and worsening. Associated symptoms include fatigue and headache. Current treatment includes an antiemetic. Note for Gastroenteritis: reviewed by [facility] 12-07-2022 Unclassified (2 sources) Cold Symptoms - Symptoms include sneezing, nasal congestion, runny nose (real bad for last week), scratchy throat, wheezing (for last 2 months.), general malaise and headache (3 days), but do not include ear pain, dry cough, fever (unsure) or chills. The onset was gradual 1 week(s) ago. The symptoms occur constantly. The patient describes this as mild and worsening. Current treatment includes inhaler. Risk factors do not include child in daycare or smoking. The patient has not been exposed to an individual with a cough, an individual with an upper respiratory infection, an individual with similar symptoms, an individual with strep or secondhand smoke. Patient denies history of seasonal allergies, recurrent sinusitis, recurrent strep pharyngitis, asthma, tonsillectomy or recurrent ear infections. Note for Upper respiratory infection: also has loss of taste/smell since last monday, 6 days ago. 02-25-2021 Unclassified (2 sources) Cough - The onset of the cough has been acute and has been occurring in a persistent pattern for 18 hours. The course has been constant. The cough is characterized as dry. The cough occurs all the time. Associated symptoms include sore throat, while there is no runny nose, sinus discharge, sinus pain or sinus pressure. Note for Cough: reviewed by [facility] 02-25-2019 Unclassified (2 sources) Cold Symptoms - Symptoms include nasal congestion, runny nose, sore throat, scratchy throat, hoarseness, dry cough and wheezing, but do not include sneezing, ear pain, ear fullness, fever, chills, headache or facial pain. The onset was 2 week(s) ago. The patient describes this as unchanged. The patient is not currently being treated for this problem. Note for Upper respiratory infection: Cough started today. 02-08-2019 Unclassified (2 sources) Cold Symptoms - Symptoms include nasal congestion, runny nose, sore throat, dry cough (some shortness of breath with walking), productive cough and headache, but do not include fever. The onset was sudden 5 day(s) ago. The symptoms occur constantly. The patient describes this as worsening. Current treatment includes non-prescription cold medication and Vitamin C, Vicks Vapor Rub. Risk factors do not include smoking. The patient has been exposed to an individual with an upper respiratory infection (Aunt). Note for Upper respiratory infection: reviewed by [facility] 08-24-2018 Unclassified (2 sources) control (initial visit) - The patient's motivation for contraception is the prevention of . The patient is requesting oral contraceptives (3 years ago). Previous methods of contraception have included: oral contraceptives (was on 3 months, kept forgetting to take medication). Previous pregnancies: none. Previous abortions/miscarriage s: none. The patient reports symptoms of headaches. There is no STD history pertinent to this complaint. Note for Contraception : Complains of bladder control for a couple of years. Has been taking OTC AZO daily for 6 to 7 months. reviewed by [facility] 07-25-2018 Unclassified (2 sources) Wrist pain - The pain is in the right wrist and is described as being located in the entire wrist. The onset of the wrist pain has been acute and has been occurring in an intermittent pattern for 2 days. The course has been increasing. The wrist pain is characterized as a moderate dull aching. Aggravating factors include physical activity and any movement. Note for Wrist pain: -No apparent injury. She was helping her mother move her aunt. She has not tried pain reliever or ice. 02-21-2018 Unclassified (2 sources) Cold Symptoms - Symptoms include ear pain (bilateral), ear fullness, sore throat, fever, chills, general malaise and headache, but do not include sneezing, nasal congestion, runny nose, dry cough or productive cough. The onset was sudden 2 day(s) ago. The symptoms occur constantly. The patient describes this as moderate in severity and worsening. Current treatment includes acetaminophen. Note for Upper respiratory infection: Also complains of nausea and vomiting. reviewed by [facility] 02-06-2018 Unclassified (2 sources) Cold Symptoms - Symptoms include runny nose, scratchy throat, hoarseness, dry cough and headache, but do not include sneezing, nasal congestion, ear pain, fever, chills or general malaise. The onset was sudden 1 week(s) ago. The symptoms occur constantly. The patient describes this as moderate in severity and worsening. The patient is not currently being treated for this problem. Note for Upper respiratory infection: reviewed by [facility] 11-27-2017 Unclassified (2 sources) Well Adult, female - The patient feels well with minor complaints (continues with cough and runny), has decreased energy level and is sleeping well. The first day of the last menstrual period was : (08-12-17). The patient is not using any method of contraception at this time. The patient exercises daily (walks on treadmill). The patient sleeps 9 hours per night. Note for Well Adult, female: Work physical. reviewed by [facility] 09-13-2017 Unclassified (2 sources) Cold Symptoms - Symptoms include sore throat and dry cough, but do not include sneezing, nasal congestion, runny nose, ear pain or fever. The onset was sudden 2 week(s) ago. The symptoms occur intermittently. The patient describes this as moderate in severity and worsening. 08-30-2017 Unclassified (2 sources) Wrist pain - The pain is in the left wrist and is described as being located in the radial aspect of wrist. The onset of the wrist pain has been sudden following an incident not at work and has been occurring in a persistent pattern for 2 days. The course has been worsening. The wrist pain is characterized as a moderate dull aching. There are no relieving factors. Note for Wrist pain: Pt fell getting out the shower. 06-09-2017 Unclassified (2 sources) Cold Symptoms - Symptoms include runny nose, sore throat (she feels its from coughing. Chest and ribs hurt from coughing so much. PO 99%. Pt did not get flu shot this year.), dry cough, general malaise and headache, but do not include wheezing (but feels SOB.) or fever (and temperature today 98.9). The onset was gradual 3 day(s) ago. The patient describes this as worsening. Current treatment includes non-prescription cold medication (VICKS to chest and Nyquil.). Risk factors do not include smoking. Note for Upper respiratory infection: reviewed by [facility] 05-01-2017 Unclassified (2 sources) Cold Symptoms - Symptoms include nasal congestion, runny nose, sore throat, dry cough, fever, chills and headache. The onset was sudden 1 day(s) ago. The symptoms occur constantly. The patient describes this as moderate in severity and worsening. The patient is not currently being treated for this problem. Risk factors do not include smoking. The patient has been exposed to an individual with similar symptoms. Note for Upper respiratory infection: reviewed by [facility] 04-03-2017 Unclassified (2 sources) Cold Symptoms - Symptoms include nasal congestion, runny nose, purulent discharge, ear fullness, scratchy throat, dry cough (chest discomfort), productive cough and headache, but do not include sneezing, ear pain, wheezing, fever or general malaise. The onset was gradual 1 week(s) ago. The symptoms occur constantly. The patient describes this as moderate in severity and worsening. Current treatment includes non-prescription cold medication and cough suppressants. Risk factors do not include smoking. The patient has not been exposed to an individual with similar symptoms. Patient denies history of seasonal allergies, recurrent sinusitis, asthma, tonsillectomy or recurrent ear infections. 01-26-2017 Unclassified (2 sources) Follow up consultation - The patient is here to follow-up after hospitalization ([facility] with mental status change, headaches.) on : (09-30-16 to 10-03-16). Note for Consultation follow-up: She had an thorough eval w LP as well as MRI and no abnormlaities were noted. ER doc noted that she couldn't answer basic questions but did answer some very complex ones . This hx as well as lack of other physical findings makes anxiety d/o likely. 10-24-2016 Unclassified (2 sources) [ADDITIONAL REASON] Transition into care - The patient is transitioning into care from a hospital and a summary of care was reviewed. 10-24-2016 Unclassified (2 sources) Follow up consultation - The patient is here to follow-up after Emergency Room/Urgent Care (with vaginal bleeding. Stopped oral control sometime last year, kept forgetting to take it. Hasn't had a peroid since 05-06-16. Also complained of bilateral hip and rib pain. Was given a prescription for Naproxen 550mg twice a day for pain. Pain continues with no improvement. Continues with heavy vaginal bleeding. Is changing pad every hour.) on : (08-22-16). Note for Consultation follow-up: reviewed by [facility] 08-24-2016 Unclassified (2 sources) UTI - Symptoms include dysuria, urinary frequency, urinary urgency, flank pain (both sides) and abdominal pain (all across abdomen.). There is no radiation. Onset was gradual 3 day(s) ago. There is no known event that preceded symptom onset. The patient describes this as worsening. Symptoms are not relieved by phenazopyridine, cranberry juice or non-opioid analgesics. Associated symptoms include nausea (and headache.), urinary hesitancy and vaginal discharge (creamy substance.), but do not include fever (and temp today 98.9), chills or vomiting. Note for UTI: Has had 2 UIT's since Jan 2015. She was here Nov with same sx but did NOT have UTI. 01-25-2016 Unclassified (2 sources) Rash - The onset of the rash has been acute and has been occurring in a persistent pattern for 4 days. The course has been increasing. The rash is characterized as red. The rash was first seen on the back. It spread to the upper extremity and the lower extremity. There has been associated itching and pain. Note for Rash: reviewed by [facility] 12-15-2015 Unclassified (2 sources) [ADDITIONAL REASON] UTI - Symptoms include dysuria, urinary frequency, urinary urgency and abdominal pain. Onset was sudden 1 week(s) ago. The symptoms occur constantly. The patient describes this as moderate in severity and worsening. Note for UTI: Was treated last week for UTI and was treated with Augmentin 875mg. Symptoms improved for a few days. reviewed by [facility] 12-15-2015 Unclassified (2 sources) Well Adult, female - The patient feels well with minor complaints (Pt here today for [employer] work physical. Only concern is ongoing bilateral knee pain which she has been seen before for this. States pain is on lateral aspect of knees and has been going on for couple years. 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 The first day of the last menstrual period was : (07/20/15). The patient is not using any method of contraception at this time. The patient has a balanced diet and takes no supplemental vitamins & iron. The patient exercises none (but is and will be walking a lot with her job.). The patient sleeps 6 hours per night. Note for Well Adult, female: Her main concern is depression.,She admits to a high degree of family stress. She tried cutting arm recently but admits this was niot a serious attempt on her life ( minimal scratches noted on arm today ). She denies suicidal ideation but would like to explore options for help. 07-31-2015 Unclassified (2 sources) UTI - Symptoms include dysuria, urinary frequency and urinary urgency, but do not include flank pain, abdominal pain or back pain. Onset was sudden 1 week(s) ago. The symptoms occur constantly. The patient describes this as moderate in severity and worsening. Associated symptoms do not include fever, chills, nausea or vomiting. Note for UTI: No recent diet changes. No previous UTI.She descibes pain w urination and a;lso has pain just from clothes touching perineum and with friction from walking 02-03-2015 Unclassified (2 sources) Cold Symptoms - Symptoms include runny nose (drainage is green), sore throat and dry cough, but do not include nasal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 hysterectomy at age 29 thanks Gab Campbell RN 09/19/2024 3:04 PM Signed Me TG (See [employer] message sent to Pt today) 09/19/24 3:00 PM Left message for Pt informing her that [employer] message would me sent and asked that she reply or call the office. GANESH Tobin Tara, RN 09/24/2024 3:17 PM Signed [employer] message sent to Pt on 09/19/24 (see 09/17/24 refill encounter) and Pt read on 09/19/24). Gab Campbell RN Allergies As of Date: 09/19/2024 (No Known Allergies) Date Reviewed: 09/11/2024 Reviewed by: Gab Platt MA - Fully Assessed Reason for Visit: Patient Question [1477] Prescriptions as of 09/24/2024 - norethindrone (AYGESTIN) 5 mg tablet Take 1 tablet by mouth as directed. one by mouth tid x 3 days, bid x 3 days, then daily - Phentermine HCl 37.5 mg tablet Take 1 tablet by mouth once daily for 30 days. - trospium (SANCTURA) 20 mg tablet Take 1 tablet by mouth two times a day. - omeprazole (PRILOSEC) 20 mg capsule TAKE ONE CAPSULE BY MOUTH ONCE DAILY - traZODone (DESYREL) 50 mg tablet Take 50 mg by mouth daily at bedtime. - buPROPion XL (WELLBUTRIN XL) 150 mg 24 hr tablet Take 150 mg by mouth every morning. - hydrOXYzine pamoate (VISTARIL) 25 mg capsule - Acetaminophen 500 mg cap Take by mouth. - sertraline (ZOLOFT) 100 mg tablet Take 100 mg by mouth two times a day. Problem List As Of Date 09/19/2024 Noted Resolved Anxiety and depression [F41.9, F32.A] 06/13/2023 Gastroesophageal reflux disease [K21.9] 06/14/2023 Intractable migraine without status migrainosus*06/14/2023 Class 3 severe obesity with body mass index (BM*06/14/2023 Vitamin D deficiency [E55.9] 06/21/2023 BISHNU (obstructive sleep apnea) [G47.33] 09/27/2023 Learning disability [F81.9] 09/27/2023 Speech impediment [R47.9] 09/27/2023 Mixed stress and urge urinary incontinence [N39*09/27/2023 Encounter Status:Closed by GAB CAMPBELL on 09/24/24 Normal [facility] CNOVon 09-11-2024 CNOV Office Visit (FAMDNA ) ----- ERICJEFFREY ([id number]) 1995 F Date Time Provider Department 09/11/24 7:00 AM RADHA BUSCH During your visit today, we recorded the following information about you: Temperature Pulse Respiration Blood pressure 97.2 degrees 92/minute 16/minute 112/82 Weight Height 131.8 kg 1.717 m Radha Busch MD 09/11/2024 7:27 AM Signed Jeffrey Diamond is a 29 year old female presenting for Follow Up/pre-op clearance Weight Loss Management: - Currently taking phentermine, - Weight decreased from 318 lbs in May to 290 lbs currently. - Engages in regular physical activity through work, which involves constant walking. - Denies new side effects from phentermine; has a history of sleep issues prior to medication. - Requests refill for phentermine. Hysterectomy: - Scheduled for next month at [facility]. - Indication for surgery is abnormal uterine bleeding. - Currently taking medication to manage bleeding, providing significant relief. - Has a pre-op phone call with the hospital and an in-person appointment with the OB performing the surgery. Anxiety and Depression: - Managed with Zoloft, trazodone, Wellbutrin, and hydroxyzine PRN. - Recently saw psychiatrist yesterday. - Reports stability on current medications. GERD: - Managed with omeprazole daily. - Reports occasional heartburn, with an episode last night. Urinary Issues/Incontinence - Taking Sanctura, reports effective management of symptoms. Sleep Apnea: - Suspects sleep apnea, reports lifelong history of breathing cessation during sleep. - No current use of CPAP. - Last appointment for sleep apnea evaluation was a few years ago, which was canceled. HISTORIES: PAST MEDICAL HISTORY Diagnosis Date Anxiety and depression GERD (gastroesophageal reflux disease) Learning disability Sleep apnea Speech impediment Vitamin D deficiency 05/2023 PAST SURGICAL HISTORY Procedure Laterality Date INSERTION OF IUD 06/2023 PAST SURGICAL HISTORY OF extraction of wisdom teeth FAMILY HISTORY Problem Relation Age of Onset Heart Attack Mother 60 No Known Problems Sister No Known Problems Brother Obesity Paternal Grandmother Social History: Social History Tobacco Use Smoking status: Never Passive exposure: Never Smokeless tobacco: Never Vaping Use Vaping status: Never Used Substance Use Topics Alcohol use: Yes Comment: ocassioanaly Drug use: Never Social History Socioeconomic History Marital status: Spouse name: Daniel Number of children: 0 Years of education: 12 Highest education level: High school graduate Occupational History 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 Other Topics Concerns: Sleep Concern: Yes Stress Concern: No Weight Concern: Yes Special Diet: No Exercise: Yes walking Seat Belt: Yes Social Drivers of Health Financial Resource Strain: Patient Declined (09/22/2023) Overall Financial Resource Strain (CARDIA) Difficulty of Paying Living Expenses: Patient declined Food Insecurity: Patient Declined (09/22/2023) Hunger Vital Sign Worried About Running Out of Food in the Last Year: Patient declined Ran Out of Food in the Last Year: Patient declined Transportation Needs: Unknown (09/22/2023) PRAPARE - Transportation Lack of Transportation (Medical): No Physical Activity: Insufficiently Active (09/22/2023) Exercise Vital Sign Days of Exercise per Week: 7 days Minutes of Exercise per Session: 10 min Stress: Stress Concern Present (09/22/2023) [employer] [place] [employer] - Occupational Stress Questionnaire Feeling of Stress : Very much Social Connections: Unknown (09/22/2023) Social Connection and Isolation Panel [NHANES] Frequency of Communication with Friends and Family: Once a week Frequency of Social Gatherings with Friends and Family: Once a week Attends Sabianism Services: Patient declined Active Member of Clubs or Organizations: No Attends Club or Organization Meetings: Patient declined Marital Status: Housing Stability: Low Risk (09/22/2023) Housing Stability Vital Sign Unable to Pay for Housing in the Last Year: No Number of Places Lived in the Last Year: 1 Unstable Housing in the Last Year: No Allergies: ALLERGIES No Known Allergies Medications: norethindrone (AYGESTIN) 5 mg tablet Take 1 tablet by mouth as directed. one by mouth tid x 3 days, bid x 3 days, then daily trospium (SANCTURA) 20 mg tablet Take 1 tablet by mouth two times a day. omeprazole (PRILOSEC) 20 mg cap (more content not included)... Normal [facility] 09-11-2024 CNP[facility] Telephone (FAMDNA) ----- JEFFREY DIAMOND ([id number]) 1995 F Date Time Provider Department 09/11/24 RADHA BUSHC During your visit today, we recorded the following information about you: Aure La 09/11/2024 7:29 AM Signed Patient had appt with Dr. Busch this morning. Check out notes state that patient needs virtual appt with Dr. Rajan in one month. Dr. Rajan does not have any openings or 1/2 day release appointments until November. Patient is scheduled with Graham in 1 month for now. Is this okay? Or is there somewhere we can schedule this with Dr. Rajan? Please advise, Thank you Anju Rajan MD 09/18/2024 9:02 PM Signed Ok for f/u with Graham Allergies As of Date: 09/11/2024 (No Known Allergies) Date Reviewed: 09/11/2024 Reviewed by: Gab Platt MA - Fully Assessed Reason for Visit: Appointment [186] Prescriptions as of 09/18/2024 - Phentermine HCl 37.5 mg tablet Take 1 tablet by mouth once daily for 30 days. - norethindrone (AYGESTIN) 5 mg tablet Take 1 tablet by mouth as directed. one by mouth tid x 3 days, bid x 3 days, then daily - trospium (SANCTURA) 20 mg tablet Take 1 tablet by mouth two times a day. - omeprazole (PRILOSEC) 20 mg capsule TAKE ONE CAPSULE BY MOUTH ONCE DAILY - traZODone (DESYREL) 50 mg tablet Take 50 mg by mouth daily at bedtime. - buPROPion XL (WELLBUTRIN XL) 150 mg 24 hr tablet Take 150 mg by mouth every morning. - hydrOXYzine pamoate (VISTARIL) 25 mg capsule - Acetaminophen 500 mg cap Take by mouth. - sertraline (ZOLOFT) 100 mg tablet Take 100 mg by mouth two times a day. Problem List As Of Date 09/11/2024 Noted Resolved Anxiety and depression [F41.9, F32.A] 06/13/2023 Gastroesophageal reflux disease [K21.9] 06/14/2023 Intractable migraine without status migrainosus*06/14/2023 Class 3 severe obesity with body mass index (BM*06/14/2023 Vitamin D deficiency [E55.9] 06/21/2023 BISHNU (obstructive sleep apnea) [G47.33] 09/27/2023 Learning disability [F81.9] 09/27/2023 Speech impediment [R47.9] 09/27/2023 Mixed stress and urge urinary incontinence [N39*09/27/2023 Encounter Status:Closed by AURE LA on 09/11/24 [facility] 09-10-2024 AB[facility] Telephone (OBGYWM) ----- JEFFREY DIAMOND ([id number]) 1995 F Date Time Provider Department 09/10/24 FOX ABEL During your visit today, we recorded the following information about you: aGb Campbell RN 09/10/2024 8:55 AM Signed Pt calls stating she has surgery scheduled with SW 10/11/24 and was advised to get surgical clearance from PCP; However, states she is unable to get in with PCP until next year. Advised Pt that this RN would transfer her to that office and suggested she ask to see provider who has soonest availability. Pt voiced understanding. Pt will call our office back if she is unable to get in with PCP sooner to see what SW would like Pt to do. GANESH Tobin Tara, RN 09/10/2024 5:13 PM Signed Appt with Family Practice in [place] on 09/11/24 since talking with patient this morning- appt note has been updated with pre-op added/surgical clearance with Dr. Busch. Gab Campbell RN Allergies As of Date: 09/10/2024 (No Known Allergies) Date Reviewed: 08/13/2024 Reviewed by: Marci Pulido APRN.[employer] - Fully Assessed Prescriptions as of 09/10/2024 - Phentermine HCl 37.5 mg tablet Take 1 tablet by mouth once daily for 30 days. - norethindrone (AYGESTIN) 5 mg tablet Take 1 tablet by mouth as directed. one by mouth tid x 3 days, bid x 3 days, then daily - trospium (SANCTURA) 20 mg tablet Take 1 tablet by mouth two times a day. - omeprazole (PRILOSEC) 20 mg capsule TAKE ONE CAPSULE BY MOUTH ONCE DAILY - traZODone (DESYREL) 50 mg tablet Take 50 mg by mouth daily at bedtime. - buPROPion XL (WELLBUTRIN XL) 150 mg 24 hr tablet Take 150 mg by mouth every morning. - hydrOXYzine pamoate (VISTARIL) 25 mg capsule - Acetaminophen 500 mg cap Take by mouth. - sertraline (ZOLOFT) 100 mg tablet Take 100 mg by mouth two times a day. Problem List As Of Date 09/10/2024 Noted Resolved Anxiety and depression [F41.9, F32.A] 06/13/2023 Gastroesophageal reflux disease [K21.9] 06/14/2023 Intractable migraine without status migrainosus*06/14/2023 Class 3 severe obesity with body mass index (BM*06/14/2023 Vitamin D deficiency [E55.9] 06/21/2023 BISHNU (obstructive sleep apnea) [G47.33] 09/27/2023 Learning disability [F81.9] 09/27/2023 Speech impediment [R47.9] 09/27/2023 Mixed stress and urge urinary incontinence [N39*09/27/2023 Encounter Status:Closed by GAB CAMPBELL on 09/10/24 Normal [facility] MR/BMS.BPon 09-10-2024 MR/[place] [address] OFFICE VISIT Date of Service: 09/10/24 MR#: [id number] Acct: [id number] Name: JEFFREY DIAMOND JULIANNA Rep #: [id number] : 1995 Provider: Dr. Johnson Dean se, DO Age/Sex: 29/F [place] [facility] [place]: Signed Intake Vital Signs 04/25/24 08:25 09/10/24 07:48 Height 5 ft 11 in 5 ft 11 in Weight: 310 lb 291 lb BMI 43.2 40.6 BP 130/67 H 123/89 H Blood Pressure Location Lt brachial Lt brachial Position Sitting Sitting Respiration 16 16 Pulse 84 106 H Pulse Source Monitor Monitor BP Intake Visit Reasons: follow up Accompanied by: Self Allergies No Known Allergies Allergy (Verified 09/10/24 07:51) Medications ???Medication ???Instructions ???Recorded ???Confirmed ???Type omeprazole 20 mg capsule,delayed 20 mg PO QDAY 12/07/23 09/10/24 Hi story release bupropion HCl 150 mg 24 hr tablet, 150 mg PO QAM #90 tabs 07/03/24 09/10/24 Rx extended release hydroxyzine pamoate 25 mg capsule 25 mg PO TID PRN anxiety #270 cap s 07/03/24 09/10/24 Rx (Vistaril) sertraline 100 mg tablet 200 mg (2 x 100 mg) PO DAILY #180 07/03/24 09/10/24 Rx TABLETS trazodone 50 mg tablet 50 mg PO QHS PRN sleep #90 tabs 09/10/24 Rx phentermine 37.5 mg tablet 37.5 mg PO DAILY 07/19/24 09/10/24 History trospium 20 mg tablet 20 mg PO BID 07/19/24 09/10/24 His tory norethindrone acetate 5 mg tablet mg PO 09/10/24 09/10/24 History [facility] Medical History (Updated 07/19/24 @ 13:29 by Maia Sibley) Wears contact lenses Wears glasses Depression Marijuana use Skin tear History of speech problem Heartburn Non-smoker Sleep apnea Grief MDD (major depressive disorder) PTSD (post-traumatic stress disorder) Pneumonia H/O emotional problems Bone fracture Family History Other Anxiety CVA (cerebral vascular accident) Cancer Depression Diabetes Hypertension Parkinson disease Thyroid disorder Social History Smoking Status: Never smoker alcohol intake: never substance use type: does not use what type of physical activity do you participate in: walking HPI History of Present Illness History provided by: patient HPI: Jeffrey Diamond is a 29 year old female who presents today for follow up evaluation. Patient reports that she has been busy at work. Still working at [employer] and has been enjoying. Has still been talking with someone on [employer] but has not gona again to visit them. Had a panic attack in June and subsequently went to the emergency room. Describes suddenly having sensation of feeling like she was dying and went to [facility]. Per report, she had a medical workup and Jeffrey thinks it was just a panic attack. Has been having some mini panic attack type symptoms since that time. Is scheduled to have a full hysterectomy next month through [facility]. Sleep has been pretty good lately which she attributes to being so tired from work. Relationship with brother has continued to be somewhat better. Her father recently had a mini stroke when he was in [facility], but she doesn't have much of a relationship with him. Has been taking phentermine since June of this year. This does somewhat coincide with around the time she experienced worsening anxiety. Does feel somewhat depressed, having not read any books for the last 3 months which she states is an indicator of her mood. Plans to go to the beach in December with her fake step mom who she elaborates is a family friend. Describes benefit with medications; feeling like they do help mitigate mood symptoms. Review of Systems Constitutional Reports: change in weight (weight loss) and fatigue Eyes Denies: change in vision or blurry vision Ears, Nose, Mouth, Throat Denies: throat pain or neck pain Cardiovascular Denies: chest pain or dyspnea Respiratory Denies: dyspnea or wheezing Gastrointestinal Denies: heartburn, diarrhea or change in bowel habits Genitourinary Denies: dysuria or urinary frequency Musculoskeletal Reports: back pain; Denies: neck pain Integumentary/Breast Denies: rash or new lesions Neurological Denies: headache(s) or confusion Endocrine Reports: fatigue Hematologic/Lymphatic Reports: easy bruising Allergic/Immunologic Denies: wheezing Exam Mental Status Exam - Psych Appearance adequately groomed and obese Attitude cooperative Activity/Motor Behavior MSE activity/motor behavior finding no adventitious movements and appropriate eye contact Speech regular rate, regular volume, regular prosody and other (Spoken with somewhat of a lisp) Mood other (up and down) Affect full range Thought Process linear and coherent Thought Cont (more content not included)... Normal [facility] CBC panel Auto (Bld)on 08-05 Erythrocyte distribution width (RBC) [Ratio] 12.9 % 11.5 - 15.0 % [facility] Hematocrit (Bld) [Volume fraction] 39.9 % 36.0 - 46.0 % [facility] Hemoglobin (Bld) [Mass/Vol] 12.8 g/dL 11.5 - 15.5 g/dL [facility] Interpretation and review of laboratory results Abnormal [facility] MCH (RBC) [Entitic mass] 26.7 pg 26.0 - 34.0 pg [facility] MCHC (RBC) [Mass/Vol] 32.1 g/dL 30.5 - 36.0 g/dL [facility] MCV (RBC) [Entitic vol] 83.1 fL 80.0 - 100.0 fL [facility] Nucleated RBC (Bld) [#/Vol] NINF [facility] Platelet mean volume (Bld) [Entitic vol] 8.9 fL Low 9.0 - 12.7 fL [facility] Platelets (Bld) [#/Vol] 256 10*3/uL [facility] RBC (Bld) [#/Vol] 4.8 10*6/uL 3.90 - 5.2 0 m/uL [facility] WBC (Bld) [#/Vol] 9.6 10*3/uL [facility] Erythrocyte distribution width (RBC) [Ratio] 12.9 % Normal 11.5-15.0 [facility] Comment on above: Order Comment: Speci men Type: BLOOD SPECIMENOrdering Facility: [facility] Address: [address] [place] [address] Performed By: #### 5 8410-2 ####[facility] IMP[facility] POINTPROSPERDavid [id number] [address] OF [facility] Hematocrit (Bld) [Volume fraction] 39.9 % Normal 36.0-46.0 [facility] Comment on above: Order Comment: Speci saul Type: BLOOD SPECIMENOrdering Facility: [facility] Address: [address] [place] [address] Performed By: #### 5 8410-2 ####[facility] IMPERIAL POINTDUNCAN [id number] [place] [address] [place] Hemoglobin (Bld) [Mass/Vol] 12.8 g/dL Normal 11.5-15.5 [facility] Comment on above: Order Comment: Speci men Type: BLOOD SPECIMENOrdering Facility: [facility] Address: [address] [place] [address] Performed By: #### 5 8410-2 ####[facility] IMPERIAL POINTNCLI [id number] [place] [address] [place] MCH (RBC) [Entitic mass] 26.7 pg Normal 26.0-34.0 [facility] Comment on above: Order Comment: Speci men Type: BLOOD SPECIMENOrdering Facility: [facility] Address: [address] [place] [address] Performed By: #### 5 8410-2 ####[facility]INTNC[facility] [id number] [place] [address] [place] MCHC (RBC) [Mass/Vol] 32.1 g/dL Normal 30.5-36.0 [facility] Comment on above: Order Comment: Speci men Type: BLOOD SPECIMENOrdering Facility: [facility] Address: [address] [place] [address] Performed By: #### 5 8410-2 ####[facility] [id number] [place] [address] [place] MCV (RBC) [Entitic vol] 83.1 fL Normal 80.0-100.0 [facility] Comment on above: Order Comment: Speci men Type: BLOOD SPECIMENOrdering Facility: [facility] Address: [address] [place] [address] Performed By: #### 5 8410-2 ####[facility] [id number] [place] [address] [place] Nucleated RBC (Bld) [#/Vol] 10*3/uL Normal <0.01 [facility] Comment on above: Order Comment: Speci men Type: BLOOD SPECIMENOrdering Facility: [facility] Address: [address] [place] [address] Performed By: #### 5 8410-2 ####[facility] [id number] [place] [address] [place] Platelet mean volume (Bld) [Entitic vol] 8.9 fL Low 9.0-12.7 [facility] Comment on above: Order Comment: Speci men Type: BLOOD SPECIMENOrdering Facility: [facility] Address: [address] [place] [address] Performed By: #### 5 8410-2 ####[facility] LUCA ADILSONNCLIA [id number] [place] [address] [facility] [place] Platelets (Bld) [#/Vol] 256 10*3/uL Normal 150-400 [facility] Comment on above: Order Comment: Speci men Type: BLOOD SPECIMENOrdering Facility: [facility] Address: [address] [place] [address] Performed By: #### 5 8410-2 ####[facility] MINALTaylorNCLIA [id number] [place] [address] [place] RBC (Bld) [#/Vol] 4.80 10*6/uL Normal 3.90-5.20 [facility] Comment on above: Order Comment: Speci men Type: BLOOD SPECIMENOrdering Facility: [facility] Address: [address] [place] [address] Performed By: #### 5 8410-2 ####[facility] IMPERIAL POINTNCLIA [id number] [place] [address] [place] WBC (Bld) [#/Vol] 9.60 10*3/uL Normal 3.70-11.00 [facility] Comment on above: Order Comment: Speci men Type: BLOOD SPECIMENOrdering Facility: [facility] Address: [address] [place] [address] Performed By: #### 5 8410-2 ####[facility] IMPERIAL POINTNCLIA [id number] [address] CNOVon 08-05-2024 CNOV Office Visit (OBGYWM ) ----- JEFFREY DIAMOND ([id number]) 1995 F Date Time Provider Department 08/05/24 2:50 PM FOX ABEL OBGYWRod During your visit today, we recorded the following information about you: Blood pressure Weight 106/70 137 kg Fox Abel MD 08/09/2024 12:59 PM Addendum Jeffrey Diamond is a 28 year old female who presents for follow up. HPI: Still having daily vaginal bleeding. She is having to change a pad q 2-3 hours. No lightheadedness or dizziness. Still desires a hysterectomy. Sexually active. Started the Aygestin today but took it on her way into the office. OB History Gravida1 Para0 Term0 Preterm0 AB1 Living0 SAB0 IAB0 Ectopic0 Multiple0 Live Births0 [employer] History LMP: 06/10/2024 (Within Days), Having periods Age at Menarche: Age at First : Age at Menopause: [employer] History Comments: Sexual Activity: Yes; Male Contraception: I.U.D. PAST MEDICAL HISTORY Diagnosis Date Anxiety and depression GERD (gastroesophageal reflux disease) Learning disability Sleep apnea Speech impediment Vitamin D deficiency 05/2023 PAST SURGICAL HISTORY Procedure Laterality Date INSERTION OF IUD 06/2023 PAST SURGICAL HISTORY OF extraction of wisdom teeth FAMILY HISTORY Problem Relation Age of Onset Heart Attack Mother 60 No Known Problems Sister No Known Problems Brother Obesity Paternal Grandmother Social History Tobacco Use Smoking status: Never Passive exposure: Never Smokeless tobacco: Never Vaping Use Vaping status: Never Used Substance Use Topics Alcohol use: Yes Comment: ocassioanaly Drug use: Never Current Outpatient Medications Medication Sig norethindrone (AYGESTIN) 5 mg tablet Take 1 tablet by mouth as directed. one by mouth tid x 3 days, bid x 3 days, then daily Phentermine HCl 37.5 mg tablet Take 1 tablet by mouth once daily for 30 days. trospium (SANCTURA) 20 mg tablet Take 1 tablet by mouth two times a day. omeprazole (PRILOSEC) 20 mg capsule TAKE ONE CAPSULE BY MOUTH ONCE DAILY traZODone (DESYREL) 50 mg tablet Take 50 mg by mouth daily at bedtime. buPROPion XL (WELLBUTRIN XL) 150 mg 24 hr tablet Take 150 mg by mouth every morning. hydrOXYzine pamoate (VISTARIL) 25 mg capsule Acetaminophen 500 mg cap Take by mouth. sertraline (ZOLOFT) 100 mg tablet Take 100 mg by mouth two times a day. No current facility-administered medications for this visit. Allergies As of Date: 08/05/2024 (No Known Allergies) Fully Assessed 08/05/2024 REVIEW OF SYSTEMS Expanded ROS: N/A Allergies and current medication updated:Yes SENSITIVE EXAM: Sensitive exam not performed. EXAM: BP 106/70 Wt 302 lb (137.0kg) LMP 06/10/2024 GENERAL: pleasant, female in no apparent distress HEENT: Normocephalic and atraumatic NECK: full range of motion CHEST: Normal inspiratory effort NEURO: exam grossly non-focal EXTREMITIES: normal ASSESSMENT AND PLAN: Assessment AND Plan DUB (dysfunctional uterine bleeding) Orders: COMPLETE BLOOD COUNT; Future Check CBC today. Discussed with patient to take Aygestin TID x 3 days, BID x 3 days and then once daily. Reviewed bleeding pre cautions and reasons to call. Patient states she took 3 pills at once today, and did not understand instructions. Reviewed instructions with her again. Patient does not desire future and desires hysterectomy. Discussed may need [facility] referral based on BMI and will discuss with partners. Discussed needs clearance from PCP prior to any surgical intervention. EMB in process. Fox Abel DO Medical Decision Making: Problems: Moderate: 1+ chronic illnesses with change Data: Unique test(s) ordered: 1 Risk: Minimal: Minimal risk from testing/treatment Medical Decision Making Level: 2 - Straightforward Allergies As of Date: 08/05/2024 (No Known Allergies) Date Reviewed: 08/05/2024 Reviewed by: Sonali Jacobson MA - Fully Assessed Reason for Visit: Contraception [26] Primary Visit Diagnosis:DUB (dysfunctional uterine bleeding) [N93.8] Order(s):COMPLETE BLOOD COUNT [SQCBC] Order #: [id number] FUTURE Prescriptions as of 08/09/2024 - norethindrone (AYGESTIN) 5 mg tablet Take 1 tablet by mouth as directed. one by mouth tid x 3 days, bid x 3 days, then daily - Phentermine HCl 37.5 mg tablet Take 1 tablet by mouth once daily for 30 days. - trospium (SANCTURA) 20 mg tablet Take 1 tablet by mouth two times a day. - omeprazole (PRILOSEC) 20 mg capsule TAKE ONE CAPSULE BY MOUTH ONCE DAILY - traZODone (DESYREL) 50 mg tablet Take 50 mg by mouth daily at bedtime. - buPROPion XL (WELLBUTRIN XL) 150 mg 24 hr tablet Take 150 mg by mouth every morning. - hydrOXYzine pamoate (VISTARIL) 25 mg capsule - Acetaminophen 500 mg cap Take by mouth. - sertraline (ZOLOFT) 100 mg tablet Take 100 mg by mouth two times a day. Problem List As Of Date (more content not included)... Normal [facility] CNOVon 08-02-2024 CNOV Office Visit (OBGYWM ) ----- JEFFREY DIAMOND ([id number]) 1995 F Date Time Provider Department 08/02/24 11:40 AM FOX ABEL During your visit today, we recorded the following information about you: Blood pressure Weight 120/82 138.6 kg Fox Abel MD 08/02/2024 3:08 PM Signed Help Desk Support Specialist offered: Patient accepts, visit chaperoned by Sonali Jacobson MA. Jeffrey presents for removal of IUD due to irregular bleeding. Jeffrey desires IUD removal due to irregular bleeding for 1 year with the IUD. She was scheduled for a hysteroscopy, DANMA, IUD removal however forgot to stop her weight loss medication prior to surgery. Surgery for today was cancelled and she came into the office for below procedure. Jeffrey desires a hysterectomy. She states she has had irregular bleeding with the control pill and with the IUD. UNIVERSAL PROTOCOL / SAFETY CHECKLIST Procedure to be Performed: IUD Removal Sign In: A Moment of CARE was completed. Appropriate PPE (Personal Protective Equipment) worn by all providers involved with the procedure. Special equipment not required. Patient/Surrogate Stated/Verified: Patient name, Date of , Relevant allergies, and The intended procedure Time Out: Relevant labs, photos, and/or imaging studies have been reviewed. Intended patient and procedure match the source document(s) (e.g. consent, HANDP, associated studies [imaging, pathology]) match the intended patient and procedure. Consent obtained and matches the intended procedure. Yes. Correct side/site is not applicable. Medications required for this procedure are verified. Fire risk assessed and is not applicable. Implants: are not applicable. Sign Out: Specimens are all correctly labeled and sent. All instruments, equipment, possible retained foreign bodies are accounted for. Yes. The post-procedure plan of care has been communicated to the patient or surrogate. PROCEDURE: Speculum placed in vagina, IUD string visualized and grasped with ring forceps. ASSESSMENT/PLAN: IUD removed without difficulty, intact, and patient tolerated procedure well. Contraception plans: Patient undecided. Schedule follow up. Fox DO Jeffrey Abel is a 28 year old who presents today for an endometrial biopsy for abnormal uterine bleeding. test: negative UNIVERSAL PROTOCOL / SAFETY CHECKLIST Procedure to be Performed: Endometrial Biopsy with Possible Endosee Sign In: A Moment of CARE was completed. Appropriate PPE (Personal Protective Equipment) worn by all providers involved with the procedure. Special equipment not required. Patient/Surrogate Stated/Verified: Patient name, Date of , Relevant allergies, and The intended procedure Time Out: Relevant labs, photos, and/or imaging studies have been reviewed. Intended patient and procedure match the source document(s) (e.g. consent, HANDP, associated studies [imaging, pathology]) match the intended patient and procedure. Consent obtained and matches the intended procedure. Yes. Correct side/site is not applicable. Medications required for this procedure are verified. are not applicable. Fire risk assessed and is not applicable. Implants: are not applicable. Sign Out: Specimens are all correctly labeled and sent. All instruments, equipment, possible retained foreign bodies are accounted for. Yes. The post-procedure plan of care has been communicated to the patient or surrogate. PROCEDURE: EXTERNAL GENITALIA: Normal in appearance without lesions VAGINA: Normal in appearance without lesions BIOPSY: Speculum placed into the vagina with excellent visualization of the cervix. Cervix cleaned with betadine. Anterior lip of cervix grasped with single toothed tenaculum. Uterus sounded to 7 cm. Pipelle inserted into the uterus without difficulty and endometrial biopsy obtained. Procedure Summary: Patient tolerated procedure well. ASSESSMENT: abnormal uterine bleeding PLAN: Specimens labeled and sent to Pathology. Will notify patient of results in 1-2 weeks. Post-procedure instructions reviewed and written material given to the patient. DO Jeffrey Madrigal presents for hysteroscopy. Indication: Irregular Bleeding. Age: [age] year old LMP: Patient's last menstrual period was 06/10/2024 (within days). Contraception: Mirena IUD test: negative VS: BP 120/82 Wt 305 lb 9.6 oz (138.6kg) LMP 06/10/2024 UNIVERSAL PROTOCOL / SAFETY CHECKLIST Procedure to be Performed: Endosee Sign In: A Moment of CARE was completed. Appropriate PPE (Personal Protective Equipment) worn by all providers involved with the procedure. Special equipment not required. Patient/Surrogate Stated/Verified: Patient name, Date of , Relevant allergies, and The intended procedure Time Out: Relevant labs, photos, and/or imag (more content not included)... [facility] JEFFREY DIAMOND ([id number]) 1995 F Date Time Provider Department 08/02/24 FOX ABEL OBGYWM During your visit today, we recorded the following information about you: Fox Abel MD 08/02/2024 8:47 AM Signed Patient is scheduled for surgery today for [facility]. Recommended yesterday that we just proceed with in office IUD removal, EMB, Endosee. Patient was not sure if she completed PAT yesterday and had been taking Phentermine. Patient was instructed to call [facility] and discussed that surgery may be cancelled as she has not been holding her Phentermine. Patient called [facility] in waiting room and was told she completed it. Would recommend cancelling surgery today as patient has been taking Phentermine and typically hold it for 3 days. She can come into office today for EMB with Endosee and IUD removal if she can tolerate it Arielle Hahn RN 08/02/2024 9:04 AM Signed Patient notified and voiced understanding of below. Patient agreeable to come into the office to attempt IUD removal, EMB and endosee. [facility] called and surgery cancelled. Please file order for IUD removal and EMB. Arielle Hahn RN Allergies As of Date: 08/02/2024 (No Known Allergies) Date Reviewed: 08/01/2024 Reviewed by: Fox Abel MD - Fully Assessed Reason for Visit: Patient Update [1234] Primary Visit Diagnosis:Encounter for IUD removal [Z30.432] Other Visit Diagnoses:DUB (dysfunctional uterine bleeding) [N93.8] Abnormal uterine bleeding (AUB) [N93.9] Order(s):REMOVE INTRAUTERINE DEVICE [1079953] Order #: [id number] ENDOMETRIAL BIOPSY [1993105] Order #: [id number] Prescriptions as of 08/02/2024 - Phentermine HCl 37.5 mg tablet Take 1 tablet by mouth once daily for 30 days. - trospium (SANCTURA) 20 mg tablet Take 1 tablet by mouth two times a day. - omeprazole (PRILOSEC) 20 mg capsule TAKE ONE CAPSULE BY MOUTH ONCE DAILY - traZODone (DESYREL) 50 mg tablet Take 50 mg by mouth daily at bedtime. - buPROPion XL (WELLBUTRIN XL) 150 mg 24 hr tablet Take 150 mg by mouth every morning. - hydrOXYzine pamoate (VISTARIL) 25 mg capsule - Acetaminophen 500 mg cap Take by mouth. - levonorgestrel (MIRENA) 21 mcg/24 hours (8 yrs) 52 mg IUD 1 Each by INTRAUTERINE route as directed. - sertraline (ZOLOFT) 100 mg tablet Take 100 mg by mouth two times a day. Problem List As Of Date 08/02/2024 Noted Resolved Anxiety and depression [F41.9, F32.A] 06/13/2023 Gastroesophageal reflux disease [K21.9] 06/14/2023 Intractable migraine without status migrainosus*06/14/2023 Class 3 severe obesity with body mass index (BM*06/14/2023 Vitamin D deficiency [E55.9] 06/21/2023 BISHNU (obstructive sleep apnea) [G47.33] 09/27/2023 Learning disability [F81.9] 09/27/2023 Speech impediment [R47.9] 09/27/2023 Mixed stress and urge urinary incontinence [N39*09/27/2023 Encounter Status:Closed by ARIELLE HAHN on 08/02/24 Normal [facility] Pathology biopsy report Paul (Tiss)on 08-02-2024 AP DISCLAIMER Normal [facility] Comment on above: Order Comment: Speci men Type: TISSUE SPECIMENOrdering Facility: [facility] Address: [address] [place] [address] Result Comment: Marie charles Developed Test (LDT) Disclaimer: Performance characteristics of immunohistochemical, immunofluorescent, and chromogenic in-situ hybridization tests have been determined by the performing laboratory within [facility] Pathology and Laboratory Medicine Department ([facility], [facility], [facility], [facility], [facility], [facility], or [facility]) in a manner consistent with CLIA requirements. One or more of these tests may not have been cleared or approved by the FDA. [facility] is regulated under CLIA as qualified to perform high-complexity testing. These tests are used for clinical purposes. These should not be regarded as investigational or for research. Positive and negative controls stain appropriately. Performed By: #### 6 6121-5 ####[facility] [id number] [place] [address] [place] CASE REPORT Normal [facility] Comment on above: Order Comment: Speci men Type: TISSUE SPECIMENOrdering Facility: [facility] Address: [address] [place] [address] Result Comment: Surg ica Pathology Report Case: [id number] Authorizing Provider: Fox Abel MD Collected: 08/02/2024 12:37 PM Ordering Location: OB/Gynecology Received: 08/02/2024 05:03 PM Pathologist: Emelina Zepeda MD Specimen: Endometrium, Biopsy Performed By: #### 6 6121-5 ####[facility] [id number] [address] [place] [address] [place] CLINICAL HISTORY DUB Normal [facility] Comment on above: Order Comment: Speci men Type: TISSUE SPECIMENOrdering Facility: [facility] Address: [address] [place] [address] Performed By: #### 6 6121-5 ####[facility] [id number] [address] [place] [address] [place] FINAL DIAGNOSIS Normal [facility] Comment on above: Order Comment: Speci men Type: TISSUE SPECIMENOrdering Facility: [facility] Address: [address] [place] [address] Result Comment: A. E ndometrium, biopsy: - Benign endometrium with changes consistent with exogenous progestin effect. - Fragments of benign endocervical epithelium. at 1236 EDT Performed By: #### 6 6121-5 ####[facility] [id number] [place] [address] [place] FINAL PERFORMING LAB Normal [facility] Comment on above: Order Comment: Speci men Type: TISSUE SPECIMENOrdering Facility: [facility] Address: [address] [place] [address] Result Comment: Diag nostic interpretation performed at: [facility], [address] [place] [address] CLIA# [id number] Photonics Technician: Trenton Hunter MD Performed By: #### 6 6121-5 ####[facility] [id number] [address] [address] [place] GROSS DESCRIPTION Normal [facility] Comment on above: Order Comment: Speci men Type: TISSUE SPECIMENOrdering Facility: [facility] Address: [address] [place], [place] [address] Result Comment: A. E ndometrium, Biopsy Received in formalin are multiple brown-carver, soft feathery segments of tissue mixed with hemorrhagic material aggregating to 2.4 x 1.7 x 0.4 cm. Totally submitted in one cassette. CL August 03, 2024 3:53 AM Gross examination performed at [facility], [address] [place] [address] Performed By: #### 6 6121-5 ####[facility] [id number] [address] [place] ,Urineon 08-02-2024 Beta HCG ( test) Ql (U) Normal [facility] Comment on above: Result Comment: SDC CANCELLED Performed By: #### L 400.7600 #### [facility] [address] [facility] [place] [place], [address] INTERNAL QC OK? Normal [facility] Comment on above: Result Comment: SDC CANCELLED Performed By: #### L 400.7600 #### [facility] [address] [facility] [place], [address] RECORD KIT LOT# Normal [facility] Comment on above: Result Comment: SDC CANCELLED Performed By: #### L 400.7600 #### [facility] [address] [facility] [place] [place], [address] UA DIP,URINE HCG (POC)on Beta HCG ( test) Ql (U) Negative Negative [facility] Comment on above: Location:[facility], [address], [place], [address] Senior Partner (POCT) Internal QC OK [facility] Location:[facility], [address], [place], [address] [facility] POINT OF CARE [facility] CNOVon 08-01-2024 CNOV Office Visit (OBGYWM ) ----- JEFFREY DIAMOND ([id number]) 1995 F Date Time Provider Department 08/01/24 10:20 AM FOX ABEL During your visit today, we recorded the following information about you: Pulse Respiration Blood pressure Weight 82/minute 16/minute 116/80 140.1 kg Height 1.717 m Fox Abel MD 08/01/2024 12:37 PM Signed DATE OF SERVICE: August 01, 2024 PROBLEM: pre op, DUB, IUD in place DIAGNOSIS: as above PAST SURGICAL HISTORY: PAST SURGICAL HISTORY Procedure Laterality Date INSERTION OF IUD 06/2023 PAST SURGICAL HISTORY OF extraction of wisdom teeth PAST MEDICAL HISTORY: PAST MEDICAL HISTORY Diagnosis Date Anxiety and depression GERD (gastroesophageal reflux disease) Learning disability Sleep apnea Speech impediment Vitamin D deficiency 05/2023 SUBJECTIVE: Patient doing well and offers no new complaints. No persistent CP. Currently no CP, SOB, syncope. Did go to the ER with CP and workup was negative. She attributes this all to stress from upcoming surgery. She has since been asymptomatic. SOCIAL HISTORY: Social History Tobacco Use Smoking status: Never Passive exposure: Never Smokeless tobacco: Never Vaping Use Vaping status: Never Used Substance Use Topics Alcohol use: Yes Comment: ocassioanaly Drug use: Never ALLERGIES No Known Allergies Current Outpatient Medications on File Prior to Visit Medication Sig Phentermine HCl 37.5 mg tablet Take 1 tablet by mouth once daily for 30 days. trospium (SANCTURA) 20 mg tablet Take 1 tablet by mouth two times a day. omeprazole (PRILOSEC) 20 mg capsule TAKE ONE CAPSULE BY MOUTH ONCE DAILY traZODone (DESYREL) 50 mg tablet Take 50 mg by mouth daily at bedtime. buPROPion XL (WELLBUTRIN XL) 150 mg 24 hr tablet Take 150 mg by mouth every morning. hydrOXYzine pamoate (VISTARIL) 25 mg capsule Acetaminophen 500 mg cap Take by mouth. levonorgestrel (MIRENA) 21 mcg/24 hours (8 yrs) 52 mg IUD 1 Each by INTRAUTERINE route as directed. sertraline (ZOLOFT) 100 mg tablet Take 100 mg by mouth two times a day. No current facility-administered medications on file prior to visit. OBJECTIVE: VITALS: BP 116/80 Pulse 82 Resp 16 Ht 171.7 cm (5' 7.58) Wt (!) 140.1 kg (308 lb 12.8 oz) LMP 06/10/2024 (Within Days) BMI 47.54 kg/m? HEENT: Normocephalic, atraumatic, Mucus membranes moist without lesions. SKIN: No lesions. CHEST: Clear to auscultation. No wheezes or rales. Good air exchange. HEART: Regular rate and rhythm No S3 or S4. No gallops or rubs. BACK: Nontender. LOWER EXTREMITIES: There was no pitting edema and no skin changes. ASSESSMENT: pre op PLAN: 1) Discussed r/b/a IUD removal, hysteroscopy, DANDC. Recommend in office IUD removal, Endosee and EMB. Patient states in office procedures are painful for her and she would like to proceed to OR. Discussed importance of pre admission testing, and number given for her to call today. Discussed surgery could be cancelled if she does not complete PAT. The rationale for the proposed surgery was discussed in addition to risks, benefits, and alternatives. General pre- and post-operative care was reviewed. Questions were answered. After discussion, the patient indicated a desire to proceed with the planned surgery. Fox Abel DO Medical Decision Making: Problems: Moderate: 1+ chronic illnesses with change Risk: Moderate: Decision on minor surgery w/ risk factors Medical Decision Making Level: 4 - Moderate Allergies As of Date: 08/01/2024 (No Known Allergies) Date Reviewed: 08/01/2024 Reviewed by: Fox Abel MD - Fully Assessed Reason for Visit: Pre-Op Visit [1235] Primary Visit Diagnosis:DUB (dysfunctional uterine bleeding) [N93.8] Other Visit Diagnoses:IUD (intrauterine device) in place [Z97.5] Visit for pre-operative examination [Z01.818] Prescriptions as of 08/01/2024 - Phentermine HCl 37.5 mg tablet Take 1 tablet by mouth once daily for 30 days. - trospium (SANCTURA) 20 mg tablet Take 1 tablet by mouth two times a day. - omeprazole (PRILOSEC) 20 mg capsule TAKE ONE CAPSULE BY MOUTH ONCE DAILY - traZODone (DESYREL) 50 mg tablet Take 50 mg by mouth daily at bedtime. - buPROPion XL (WELLBUTRIN XL) 150 mg 24 hr tablet Take 150 mg by mouth every morning. - hydrOXYzine pamoate (VISTARIL) 25 mg capsule - Acetaminophen 500 mg cap Take by mouth. - levonorgestrel (MIRENA) 21 mcg/24 hours (8 yrs) 52 mg IUD 1 Each by INTRAUTERINE route as directed. - sertraline (ZOLOFT) 100 mg tablet Take 100 mg by mouth two times a day. Problem List As Of Date 08/01/2024 Noted Resolved Anxiety and depression [F41.9, F32.A] 06/13/2023 Gastroesophageal reflux disease [K21.9] 06/14/2023 Intractable migraine without status migrainosus*06/14/2023 Class 3 severe obesity with body mass index (BM*06/14/2023 Vitamin D deficiency [E55.9 (more content not included)... Normal [facility] HISTORY PHYSICALon HISTORY PHYSICAL HNO ID: [id number] Author: FOX ABEL MD Service: ? Author Type: Physician Type: H&P Filed: 08/01/2024 12:37 Note Text: DATE OF SERVICE: August 01, 2024 PROBLEM: pre op, DUB, IUD in place DIAGNOSIS: as above PAST SURGICAL HISTORY: PAST SURGICAL HISTORY Procedure Laterality Date INSERTION OF IUD 06/2023 PAST SURGICAL HISTORY OF extraction of wisdom teeth PAST MEDICAL HISTORY: PAST MEDICAL HISTORY Diagnosis Date Anxiety and depression GERD (gastroesophageal reflux disease) Learning disability Sleep apnea Speech impediment Vitamin D deficiency 05/2023 SUBJECTIVE: Patient doing well and offers no new complaints. No persistent CP. Currently no CP, SOB, syncope. Did go to the ER with CP and workup was negative. She attributes this all to stress from upcoming surgery. She has since been asymptomatic. SOCIAL HISTORY: Social History Tobacco Use Smoking status: Never Passive exposure: Never Smokeless tobacco: Never Vaping Use Vaping status: Never Used Substance Use Topics Alcohol use: Yes Comment: ocassioanaly Drug use: Never ALLERGIES No Known Allergies Current Outpatient Medications on File Prior to Visit Medication Sig Phentermine HCl 37.5 mg tablet Take 1 tablet by mouth once daily for 30 days. trospium (SANCTURA) 20 mg tablet Take 1 tablet by mouth two times a day. omeprazole (PRILOSEC) 20 mg capsule TAKE ONE CAPSULE BY MOUTH ONCE DAILY traZODone (DESYREL) 50 mg tablet Take 50 mg by mouth daily at bedtime. buPROPion XL (WELLBUTRIN XL) 150 mg 24 hr tablet Take 150 mg by mouth every morning. hydrOXYzine pamoate (VISTARIL) 25 mg capsule Acetaminophen 500 mg cap Take by mouth. levonorgestrel (MIRENA) 21 mcg/24 hours (8 yrs) 52 mg IUD 1 Each by INTRAUTERINE route as directed. sertraline (ZOLOFT) 100 mg tablet Take 100 mg by mouth two times a day. No current facility-administered medications on file prior to visit. OBJECTIVE: VITALS: BP 116/80 Pulse 82 Resp 16 Ht 171.7 cm (5' 7.58) Wt (!) 140.1 kg (308 lb 12.8 oz) LMP 06/10/2024 (Within Days) BMI 47.54 kg/m? HEENT: Normocephalic, atraumatic, Mucus membranes moist without lesions. SKIN: No lesions. CHEST: Clear to auscultation. No wheezes or rales. Good air exchange. HEART: Regular rate and rhythm No S3 or S4. No gallops or rubs. BACK: Nontender. LOWER EXTREMITIES: There was no pitting edema and no skin changes. ASSESSMENT: pre op PLAN: 1) Discussed r/b/a IUD removal, hysteroscopy, DANDC. Recommend in office IUD removal, Endosee and EMB. Patient states in office procedures are painful for her and she would like to proceed to OR. Discussed importance of pre admission testing, and number given for her to call today. Discussed surgery could be cancelled if she does not complete PAT. The rationale for the proposed surgery was discussed in addition to risks, benefits, and alternatives. General pre- and post-operative care was reviewed. Questions were answered. After discussion, the patient indicated a desire to proceed with the planned surgery. Fox Abel, Medical Decision Making: Problems: Moderate: 1+ chronic illnesses with change Risk: Moderate: Decision on minor surgery w/ risk factors Medical Decision Making Level: 4 - Moderate Normal [facility] 07-24-2024 [facility] Telephone (OBGYWM) ----- JEFFREY DIAMOND ([id number]) 1995 F Date Time Provider Department 07/24/24 FOX ABEL OBGYWM During your visit today, we recorded the following information about you: Dione Sanchez RN 07/24/2024 12:59 PM Signed Patient currently scheduled for hysteroscopy, DANDC, IUD removal 08/02/24. Patient called in to reschedule pre op appointment and also let provider know she did go to [place] [facility] for chest pain earlier this week. Asking if she can still proceed with surgery. Requested ER records from [place]. Aware is back in tomorrow. GANESH Agosto Jennifer, RN 07/24/2024 1:38 PM Signed [place] [facility] records to to review. GANESH Dyson Sara, MD 07/26/2024 1:55 PM Signed ER records reviewed. Ok to proceed with surgery as long as symptoms are not persistent or worsening Arielle Hahn RN 07/26/2024 2:10 PM Signed Patient notified and voiced understanding. Denies persistent or worsening symptoms. Arielle Hahn RN Allergies As of Date: 07/24/2024 (No Known Allergies) Date Reviewed: 07/16/2024 Reviewed by: Marci Pulido APRN.[employer] - Fully Assessed Reason for Visit: Patient Update [1234] Prescriptions as of 07/26/2024 - Phentermine HCl 37.5 mg tablet Take 1 tablet by mouth once daily for 30 days. - trospium (SANCTURA) 20 mg tablet Take 1 tablet by mouth two times a day. - omeprazole (PRILOSEC) 20 mg capsule TAKE ONE CAPSULE BY MOUTH ONCE DAILY - traZODone (DESYREL) 50 mg tablet Take 50 mg by mouth daily at bedtime. - buPROPion XL (WELLBUTRIN XL) 150 mg 24 hr tablet Take 150 mg by mouth every morning. - hydrOXYzine pamoate (VISTARIL) 25 mg capsule - Acetaminophen 500 mg cap Take by mouth. - levonorgestrel (MIRENA) 21 mcg/24 hours (8 yrs) 52 mg IUD 1 Each by INTRAUTERINE route as directed. - sertraline (ZOLOFT) 100 mg tablet Take 100 mg by mouth two times a day. Problem List As Of Date 07/24/2024 Noted Resolved Anxiety and depression [F41.9, F32.A] 06/13/2023 Gastroesophageal reflux disease [K21.9] 06/14/2023 Intractable migraine without status migrainosus*06/14/2023 Class 3 severe obesity with body mass index (BM*06/14/2023 Vitamin D deficiency [E55.9] 06/21/2023 BISHNU (obstructive sleep apnea) [G47.33] 09/27/2023 Learning disability [F81.9] 09/27/2023 Speech impediment [R47.9] 09/27/2023 Mixed stress and urge urinary incontinence [N39*09/27/2023 Encounter Status:Closed by ARIELLE HAHN on 07/26/24 Normal [facility] ED MED ADMINISTRATION DETAIL on 07-22-2024 ED MED ADMINISTRATION DETAIL [employer] Salesperson Medication Administration Record [address] [place] [address] [id number] 07/21/2024 Patient: JEFFREY DIAMOND Sex: Female : 1995 Age: 28y MEASUREMENTS: Wt: 138.8 kg, Ht/Rogelio: 71.0 in, BMI: 42.68 ALLERGIES: No known drug allergies Medication Ordered Medication Administration Date/Time Aspirin PO Chew 22:29 07/21 Aspirin PO Chew 324 mg given. Allergies verified and Given 324 mg (NOW x1) confirmed 5 rights. Information reviewed with patient including 22:29 07/21/2024 reason for taking this medication. Verbalizes understanding. - Megan Garcia R.N. 22:30 Megan Garcia R.N. Scanned KetorOLAC 23:16 0504 KetorOLAC (Toradol) IVP 30 mg given over 1 Given (Toradol) IVP 30 mg minute(s) via Site# 1. Allergies verified and confirmed 5 rights. IV 23:16 07/21/2024 (NOW x1) patency established. IV site checked: no pain, redness, or swelling. Megan Garcia R.N. IV flushed thoroughly pre-medication administration. Information Scanned reviewed with patient including reason for taking this medication. Verbalizes understanding. (10/10 cp upper chest sharp, constant). - 23:18 Megan Garcia R.N. KetorOLAC 00:21 05 KetorOLAC (Toradol) IVP 15 mg given via Site# 1. Given (Toradol) IVP 15 mg Allergies verified and confirmed 5 rights. IV patency established. IV 00:21 07/22/2024 (NOW x1) site checked: no pain, redness, or swelling. IV flushed thoroughly Ann Pinto R.N. pre-medication administration. Information reviewed with patient Scanned including reason for taking this medication, signs of allergic reaction and precautions. Verbalizes understanding. (chest pain 10/10). Medication Wastage: 15 mg wasted. - 00:24 Ann Pinto R.N. 1 of 1 Normal [facility] ED NURSES CLINICAL NOTEon ED NURSES CLINICAL NOTE Nurse Narrative Nurse Clinical Narrative [address] [place] [address] [id number] 07/21/2024 21:49:00 Patient: JEFFREY DIAMOND Sex: Female : 1995 Age: 28y Disposition: Discharge to Home Disposition Decision Time: 00:50 07/22/2024 Departure Time: 01:00 07/22/2024 TRIAGE Arrived by private vehicle. Historian: (patient). Primary physician ([facility]). Triage time: 21:57 07/21/2024. Chief Complaint: CHEST PAIN. This started today. Onset. (1999). ( Mid chest radiating over to left side of chest. Bilateral arm numbness and numbness to face from her nose upward.). The patient has had difficulty breathing and nausea. -- 22:04 07/21/24 EDT Khadijah Lambert R.N. Acuity: LEVEL 3. 22:07/21/24. SEPSIS SCREEN: NEGATIVE. SIRS criteria negative: heart rate greater than 90. -- :07/21/24 SUMIT Lambert R.N. 22:07/21/24. BP: 150/110 MAP: 123. HR: 92. RR: 16. O2 saturation: 100% on room air. Temperature: 97.6 F. Pain level now 10/10. Describes the pain as pressure and throbbing. (Chest). -- 22:07/21/24 SUMIT Lambert R.N. Measurements: 22:07/21/24 Wt: 138.8 kg, Ht/Rogelio: 71.0 in, BMI: 42.68 -- :07/21/24 SUMIT Lambert R.N. 1 of 5 Nurse Narrative Medications: bupropion HCl XL 150 mg 24 hr tablet, extended release: TAKE ONE TABLET BY MOUTH EVERY MORNING -- :07/21/24 SUMIT Lambert R.N. trospium 20 mg tablet: TAKE ONE TABLET BY MOUTH TWICE DAILY -- :07/21/24 SUMIT Lambert R.N. trazodone 50 mg tablet: TAKE ONE TABLET BY MOUTH AT BEDTIME NEEDED for SLEEP -- 07/21/24 SUMIT Lambert R.N. omeprazole 20 mg capsule,delayed release: TAKE ONE CAPSULE BY MOUTH ONCE DAILY -- :07/21/24 SUMIT Lambert R.N. phentermine 37.5 mg tablet: TAKE ONE TABLET BY MOUTH ONCE DAILY -- 22:07/21/24 SUMIT Lambert R.N. sertraline 100 mg tablet: TAKE TWO TABLETS BY MOUTH DAILY -- :07/21/24 SUMIT Lambert R.N. trazodone 50 mg tablet: TAKE ONE TABLET BY MOUTH AT BEDTIME NEEDED for SLEEP -- :07/21/24 SUMIT Lambert R.N. omeprazole 20 mg capsule,delayed release: TAKE ONE CAPSULE BY MOUTH ONCE DAILY -- :07/21/24 SUMIT Lambert R.N. phentermine 37.5 mg tablet: TAKE ONE TABLET BY MOUTH ONCE DAILY -- 22:07/21/24 SUMIT Lambert R.N. hydroxyzine pamoate 25 mg capsule: TAKE ONE CAPSULE BY MOUTH THREE TIMES DAILY NEEDED FOR ANXIETY -- 22:07/21/24 SUMIT Lambert R.N. bupropion HCl XL 150 mg 24 hr tablet, extended release: TAKE ONE TABLET BY MOUTH EVERY MORNING -- :07/21/24 SUMIT Lambert R.N. trospium 20 mg tablet: TAKE ONE TABLET BY MOUTH TWICE DAILY -- :07/21/24 SUMIT Lambert R.N. hydroxyzine pamoate 25 mg capsule: TAKE ONE CAPSULE BY MOUTH THREE TIMES DAILY NEEDED FOR ANXIETY -- :07/21/24 SUMIT Lambert R.N. sertraline 100 mg tablet: TAKE TWO TABLETS BY MOUTH DAILY -- :07/21/24 SUMIT Lambert R.N. Allergies: no known drug allergies -- 22:00 07/21/24 SUMIT Lambert R.N. Problems: Migraine Headache -- :07/21/24 SUMIT Lambert R.N. 2 of 5 Nurse Narrative ADDITIONAL SURGERIES: Dental Surgery -- 22:07/21/24 SUMIT Lambert R.N. History 22:09 07/21/24. PAST MEDICAL HX: Other immunizations: up-to-date. Denies current . SOCIAL HX: Never smoker. No alcohol use or drug use. The patient has not traveled outside the [place] Infectious disease exposure: No infectious disease exposure. ABUSE ASSESSMENT: The patient answered yes to the question(s) Do you feel safe in your home? and no to the question(s) Are you afraid to go home?. SELF HARM ASSESSMENT: Self harm assessment was performed. The patient answered no to the question(s) Have you recently felt down, depressed, or hopeless? and Do you have thoughts of harming or killing yourself?. FALL RISK ASSESSMENT: Fall risk assessment completed. No risk factors identified. -- 22:11 07/21/24 EDT Khadijah Lambert R.N. Interventions 22:09 07/21/24. Advanced care plan discussed with patient. Patient does not have advanced directive. -- 22:11 07/21/24 EDT Khadijah Lambert R.N. PHYSICAL ASSESSMENT 22:38 07/21/24. Ambulatory to room. Patient gowned. GENERAL / NEURO / PSYCH: Alert. Oriented X 4. Appears anxious. HEENT: Mucous membranes are pink. RESPIRATORY: Respirations not labored. Chest nontender. Breath sounds within normal limits. CVS: Normal sinus rhythm noted. Heart sounds within normal limits. Pulses within normal limits. Capillary refill less than 2 seconds. GI / : Abdomen soft and nontender. 3 of 5 Nurse Narrative EXTREMITIES: No lower extremity edema. SKIN: Skin is warm and dry. Normal skin turgor. Skin is non-tender. -- 22:38 07/21/24 EDT Megan Garcia R.N. NURSING PROGRESS NOTES 21:57 07/21/24. Sit (more content not included)... Normal [facility] ED ORDER SHEET (CPOE ONLY)on 07-22-2024 ED ORDER SHEET (CPOE ONLY) Order Sheet Order Sheet [address] [place] [address] [id number] 07/21/2024 Patient: JEFFREY DIAMOND Sex: Female : 1995 Age: 28y MEASUREMENTS: Wt: 138.8 kg, Ht/Rogelio: 71.0 in, BMI: 42.68 ALLERGIES: No known drug allergies MEDICATION/IV/DRIP/FLUID ORDERS Order Description Priority Entered Acknowledged Completed Aspirin PO [id number] mg (NOW 22:23 07/21/2024 22:25 22:30 x1) Patti Ramos D.O. 07/21/2024 07/21/2024 Daphnie Hodge R.N. Reason for ordering with alerts: Clinical consideration given --22:23 07/21/2024 Patti Ramos D.O. KetorOLAC (Toradol) IVP30 mg 23:01 07/21/2024 23:14 23:18 (NOW x1) Patti Ramos D.O. 07/21/2024 07/21/2024 Daphnie Hodge, RMarkNMark Reason for ordering with alerts: Clinical consideration given --23:01 07/21/2024 Patti Ramos D.O. KetorOLAC (Toradol) IVP15 mg 00:05 07/22/2024 00:24 (NOW x1) Patti Ramos D.O. 07/22/2024 Ann Pinto R.N. Reason for ordering with alerts: Clinical consideration given --00:05 07/22/2024 Patti Ramos D.O. 1 of 3 Order Sheet LAB ORDERS Order Description Priority Entered Acknowledged Collected Completed CBC w Diff Stat Stat 22:23 07/21/2024 22:25 07/21/2024 22:26 07/21/2024 Ashli Garcia R.N. Anne Rutt, R.N. BNP Stat Stat 22:23 07/21/2024 22:25 07/21/2024 22:26 07/21/2024 Ashli Garcia R.N. Anne Rutt, R.NMark CMP Stat Stat 22:23 07/21/2024 22:25 07/21/2024 22:26 07/21/2024 Ashli Garcia R.N. Anne Rutt, R.N. D-Dimer Stat Stat 22:23 07/21/2024 22:25 07/21/2024 22:26 07/21/2024 Ashli Garcia R.N. Anne Rutt, R.N. EKG - ED Stat Stat 22:23 07/21/2024 22:25 07/21/2024 22:26 07/21/2024 Ashli Garcia R.N. Anne Rutt, R.N. Troponin-I Protocol Stat 22:23 07/21/2024 22:25 07/21/2024 22:26 07/21/2024 (STAT 1hr) (Sched: q1h Ashli Garcia R.N. Megan Rutt, R.N. X2); Stat 1 of 2 Troponin-I Protocol Stat 22:23 07/21/2024 23:35 07/21/2024 00:45 07/22/2024 (STAT 1hr) (Sched: q1h Ashli Garcia, Daphnie Garcia, R.N. X2); Stat 2 of 2 HCG, Qual Serum Stat Stat 22:23 07/21/2024 22:25 07/21/2024 22:26 07/21/2024 Ashli Garcia, Daphnie Garcia R.N. Lipase Stat Stat 22:27 07/21/2024 22:32 07/21/2024 22:32 07/21/2024 Ashli Garcia, Daphnie Garcia, R.N. 2 of 3 Order Sheet DIAGNOSTIC STUDY ORDERS Order Description Priority Entered Acknowledged Completed Chest 1V Stat Stat 22:23 07/21/2024 22:25 23:35 Patti Ramos D.O. 07/21/2024 07/21/2024 Daphnie Hodge, R.N. Reason for Study: Chest Pain STAFF ORDERS Order Description Priority Entered Acknowledged Collected Completed Engineering Specialist Technician 22:23 07/21/2024 22:25 07/21/2024 22:26 07/21/2024 Ashli Garcia R.N. Anne Rutt, R.N. Vital signs every 15 22:23 07/21/2024 22:25 07/21/2024 22:26 07/21/2024 minutes Ashli Garcia R.N. Anne Rutt RMarkN. IV Saline Lock 22:23 07/21/2024 22:25 07/21/2024 22:26 07/21/2024 Ashli Garcia R.N. Anne Rutt, R.N. Oxygen titrate to 92% 22:23 07/21/2024 22:25 07/21/2024 22:26 07/21/2024 Ashli Garcia R.N. Anne Rutt, R.N. Obtain Old EKG 22:23 07/21/2024 22:25 07/21/2024 22:26 07/21/2024 Ashli Garcia R.N. Anne Rutt, R.N. Vitals - Orthostatic 22:23 07/21/2024 22:25 07/21/2024 23:14 07/21/2024 Ashli Garcia R.N. Anne Rutt, R.N. [Electronically signed by Patti Ramos D.O. (07/22/2024 01:55 EDT)] 3 of 3 Normal [facility] ED PHYSICIAN CLINICAL REPORT on 07-22-2024 ED PHYSICIAN CLINICAL REPORT Narrative Physician Clinical Narrative [address] [address] [id number] 07/21/2024 21:49:00 Patient: JEFFREY DIAMOND Sex: Female : 1995 Age: 28y Disposition: Discharge to Home Disposition Decision Time: 00:50 07/22/2024 Departure Time: 01:00 07/22/2024 Measurements Wt: 138.8 kg, Ht/Rogelio: 71.0 in, BMI: 42.68 Initial Vital Sign Measured Time BP MAP HR RR O2Sat ETCO2 Temp Pain GCS RTS 22:09 07/21/2024 150/110 123 92 16 100% RA 97.6 F 10 Time Seen: 22:06 07/21/2024. Arrived- By private vehicle. Historian- patient. HISTORY OF PRESENT ILLNESS Chief Complaint: CHEST PAIN. It is described as located in the central chest area and radiating to the left chest. This started today and is still present. At its maximum, severity described as moderate. When seen in the E.D., severity described as mild. (Bilateral arm numbness. Intermittent dizziness.). The patient has had difficulty breathing. Similar symptoms previously. None. Recent medical care: Not recently seen/assessed. REVIEW OF SYSTEMS of 11 Narrative SKIN: No skin rash. : No difficulty with urination. GI: No abdominal pain or black stools. MUSCULOSKELETAL: No joint pain. THROAT: No sore throat. NEUROLOGICAL: No fainting episodes or headache. CVS: No pedal edema or calf pain. RESPIRATORY: No cough. CONSTITUTIONAL: No fever or chills. ENDO/HEME/LYMPH: No enlarged lymph nodes. EYES: No blurred vision. PAST HISTORY See nurses notes. Migraine Headache Surgeries: Dental Surgery Medications: bupropion HCl XL 150 mg 24 hr tablet, extended release: TAKE ONE TABLET BY MOUTH EVERY MORNING bupropion HCl XL 150 mg 24 hr tablet, extended release: TAKE ONE TABLET BY MOUTH EVERY MORNING hydroxyzine pamoate 25 mg capsule: TAKE ONE CAPSULE BY MOUTH THREE TIMES DAILY NEEDED FOR ANXIETY hydroxyzine pamoate 25 mg capsule: TAKE ONE CAPSULE BY MOUTH THREE TIMES DAILY NEEDED FOR ANXIETY omeprazole 20 mg capsule,delayed release: TAKE ONE CAPSULE BY MOUTH ONCE DAILY omeprazole 20 mg capsule,delayed release: TAKE ONE CAPSULE BY MOUTH ONCE DAILY phentermine 37.5 mg tablet: TAKE ONE TABLET BY MOUTH ONCE DAILY phentermine 37.5 mg tablet: TAKE ONE TABLET BY MOUTH ONCE DAILY sertraline 100 mg tablet: TAKE TWO TABLETS BY MOUTH DAILY sertraline 100 mg tablet: TAKE TWO TABLETS BY MOUTH DAILY trazodone 50 mg tablet: TAKE ONE TABLET BY MOUTH AT BEDTIME NEEDED for SLEEP trazodone 50 mg tablet: TAKE ONE TABLET BY MOUTH AT BEDTIME NEEDED for SLEEP trospium 20 mg tablet: TAKE ONE TABLET BY MOUTH TWICE DAILY trospium 20 mg tablet: TAKE ONE TABLET BY MOUTH TWICE DAILY Allergies: no known drug allergies SOCIAL HISTORY Never smoker. No alcohol use or drug use. 2 of 11 Narrative ADDITIONAL NOTES The nursing notes have been reviewed. PHYSICAL EXAM Appearance: Alert. Oriented X3. No acute distress. Eyes: Pupils equal, round and reactive to light. ENT: Nose normal. Pharynx normal. Neck: Normal inspection. Neck supple. CVS: Normal heart rate and rhythm. Heart sounds normal. Pulses normal. Respiratory: No respiratory distress. Chest pain reproducible with palpation of the anterior chest wall and with deep breathing. Breath sounds normal. Abdomen: Soft and nontender. Bowel sounds normal. No organomegaly. No mass. Skin: Skin warm and dry. No rash. Extremities: Extremities exhibit normal ROM. No lower extremity edema. Neuro: Oriented X 3. No motor deficit. No sensory deficit. LABS, X-RAYS, AND EKG 12-LEAD EKG: EKG time: 21:53 07/21/2024. Normal sinus rhythm. Rate: 91. Normal P waves. Normal QRS complex. Normal ST and T waves. The study has been interpreted contemporaneously by me. The EKG appears to be a good tracing. Artifact present. Interpretation time: 21:54 07/21/2024. Chest X-ray: No acute disease. Views: PA. Technique: good. The X-rays were independently viewed by me. Interpretation time: 00:29 07/22/2024. Laboratory Tests: CBC + DIFF Final OUMAR: 07/21/2024 22:00:00 EDT MsgRcvd: 07/21/2024 22:53 EDT Lab Test Result Reference Status Received Comments 07/21/2024 22:53 CBC-COMPLETE CBC + DIFF Final EDT BLOOD COUNT 3 of 11 Narrative Lab Test Result Reference Status Received Comments 07/21/2024 22:53 WBC 9.3 x 10/UL 4.5 - 10.8 Final EDT 07/21/2024 22:53 RBC 4.52 x 10/UL 4.10 - 5.30 Final EDT 07/21/2024 22:53 HEMOGLOBIN 12.4 g/dl 12.0 - 16.0 Final EDT 07/21/2024 22:53 HEMATOCRIT 37.2 % 34.0 - 46.0 Final EDT 07/21/2024 22:53 MCV 82 fl 80 - 99 Final EDT 07/21/2024 22:53 MCH 27 pg 27 - 33 Final EDT 07/21/2024 22:53 MCHC 33 X10 3 32 - 36 Final EDT 07/21/2024 22:53 RDW/CV 14.5 % 12.0 - 15.6 Final EDT 07/21/2024 22:53 PLATELET 320 x10/UL 150 - 450 Final EDT 07/21/2024 22: (more content not included)... Normal [facility] ED [facility] [address] [place] [address] [id number] 07/21/2024 Patient: JEFFREY DIAMOND Sex: Female : 1995 Age: 28y Facility Professional Category Item Description Code Code Quantity Fee Total Nurse/E/M EMERGENCY 356616 1 $0.00 $0.00 DEPT VISIT HIGH SEVERITYFUNCJ (99495-43) Nurse/IV/IM/Infusions IVP initial (90979) 369753 1 $0.00 $0.00 Nurse/IV/IM/Infusions IVP same med 806218 1 $0.00 $0.00 (31 min apart) (04516) Grand $0.00 Total Providers Patti Ramos D.O. Chief Complaint CHEST PAIN. Principal Diagnosis 1 of 2 Superbill Atypical chest pain ICD-10 Codes R07.89: Other chest pain 2 of 2 Normal [facility] ED VISIT SUMMARYon ED VISIT SUMMARY Visit Overview Visit Overview [address] [address] [id number] 07/21/2024 Patient: JEFFREY DIAMOND Sex: Female : 1995 Age: 28y 07/22/2024 01:55 AM EDT ED Arrival:21:49 07/21/2024 EDT Status:not Recent Travel:no Language:eng Adv Directive:No Isolation Status: Ethnicity:N Fall Risk:no risk Infectious Disease Exposure:no Measurements:5'11 / 180.3 Self-Harm Status:risk Sepsis Screen:negative cm 306.0 lb / 138.8 kg Chief Complaint:CHEST PAIN, (2000), ([facility]), and (Mid chest radiating over to left side of chest. Bilateral arm numbness and numbness to face from her nose upward.) ALLERGIES No Known Drug Allergies HOME MEDICATIONS bupropion HCl XL 150 mg 24 hr tablet, extended release: TAKE ONE TABLET BY MOUTH EVERY MORNING 1 4 Visit Overview bupropion HCl XL 150 mg 24 hr tablet, extended release: TAKE ONE TABLET BY MOUTH EVERY MORNING hydroxyzine pamoate 25 mg capsule: TAKE ONE CAPSULE BY MOUTH THREE TIMES DAILY NEEDED FOR ANXIETY hydroxyzine pamoate 25 mg capsule: TAKE ONE CAPSULE BY MOUTH THREE TIMES DAILY NEEDED FOR ANXIETY omeprazole 20 mg capsule,delayed release: TAKE ONE CAPSULE BY MOUTH ONCE DAILY omeprazole 20 mg capsule,delayed release: TAKE ONE CAPSULE BY MOUTH ONCE DAILY phentermine 37.5 mg tablet: TAKE ONE TABLET BY MOUTH ONCE DAILY phentermine 37.5 mg tablet: TAKE ONE TABLET BY MOUTH ONCE DAILY sertraline 100 mg tablet: TAKE TWO TABLETS BY MOUTH DAILY sertraline 100 mg tablet: TAKE TWO TABLETS BY MOUTH DAILY trazodone 50 mg tablet: TAKE ONE TABLET BY MOUTH AT BEDTIME NEEDED for SLEEP trazodone 50 mg tablet: TAKE ONE TABLET BY MOUTH AT BEDTIME NEEDED for SLEEP trospium 20 mg tablet: TAKE ONE TABLET BY MOUTH TWICE DAILY trospium 20 mg tablet: TAKE ONE TABLET BY MOUTH TWICE DAILY PAST MEDICAL HISTORY / PROBLEMS Migraine Headache Other immunizations: up-to-date See nurses notes PAST SURGICAL HISTORY Dental Surgery SOCIAL HISTORY Smoking status: No Alcohol use: No Drug use: No ED COURSE MEDICATIONS GIVEN IN EMERGENCY DEPARTMENT 22:29 07/21/24 Aspirin PO Chew 324 mg 23:16 07/21/24 KetorOLAC (Toradol) IVP 30 mg over 1 minute(s) 2 of 4 Visit Overview 00:21 07/22/24 KetorOLAC (Toradol) IVP 15 mg IV SITE INFORMATION INTAKE OUTPUT REASSESMENT (most recent) 22:38 07/21/24. Ambulatory to room. Patient gowned. GENERAL / NEURO / PSYCH: Alert. Oriented X 4. Appears anxious. HEENT: Mucous membranes are pink. RESPIRATORY: Respirations not labored. Chest nontender. Breath sounds within normal limits. CVS: Normal sinus rhythm noted. Heart sounds within normal limits. Pulses within normal limits. Capillary refill less than 2 seconds. GI / : Abdomen soft and nontender. EXTREMITIES: No lower extremity edema. SKIN: Skin is warm and dry. Normal skin turgor. Skin is non-tender. VITAL SIGNS First Vitals Last Vitals Temp 22:07/21/24 97.6 F Temp 00:07/22/24 97.5 F BP 22:07/21/24 150/110 BP 00:07/22/24 HR 22:07/21/24 92 HR 00:07/22/24 RR 22:07/21/24 16 RR 00:07/22/24 O2 Sat 22:07/21/24 100% RA O2 Sat 00:25 Pain 22:09 07/21/24 10 Pain 00:58 07/22/24 ETCO2 22:09 07/21/24 ETCO2 00:58 07/22/24 GCS 22:09 07/21/24 GCS 00:58 07/22/24 RTS 22:09 07/21/24 RTS 00:58 07/22/24 PROCEDURES NURSING INTERVENTIONS LABS / STUDIES LABS / STUDIES ORDERED BNP CBC w Diff Chest 1V CMP 3 of 4 Visit Overview D-Dimer EKG - ED HCG, Qual Serum Lipase Troponin-I Protocol (STAT 1hr) Troponin-I Protocol (STAT 1hr) CLINICAL IMPRESSION ATYPICAL CHEST PAIN 4 of 4 Normal [facility] ED VITALS FLOW SHEETon 07-22 ED VITALS FLOW SHEET Vitals Vital Sign Flow Sheet [address] [address] [id number] 07/21/2024 Patient: JEFFREY DIAMOND Sex: Female : 1995 Age: 28y Measurements Wt: 138.8 kg, Ht/Rogelio: 71.0 in, BMI: 42.68 Measured Time BP MAP HR RR O2Sat ETCO2 Temp Pain GCS RTS 00:58 07/22/2024 97.5 F 23:05 07/21/2024 127/73 91 (Orthostatic lying) 23:06 07/21/2024 127/89 102 (Orthostatic sitting) 23:07 07/21/2024 127/87 100 (Orthostatic standing) 22:09 07/21/2024 150/110 123 92 16 100% RA 97.6 F 10 1 of 1 Normal [facility] TROPONINon 07-22-2024 HS TROPONIN <4.0 Normal 0.0 - 51.4 [facility] Comment on above: Performed By: #### [id number] #### [facility],[address] [place] [id number] CBC + DIFFon 07-21-2024 Baso # 0.04 x10EE3/UL Normal 0.00 - 0.10 [facility] Comment on above: Performed By: #### 2 [id number] #### [facility],[address] [place] [address] [id number] Basophils/100 WBC (Bld) 0.4 % Normal 0.0 - 2.0 [facility] Comment on above: Performed By: #### 2 [id number] #### [facility],[address] [place] [address] CBC + DIFF Normal [facility] Comment on above: Result Comment: CBC- COMPLETE BLOOD COUNT Performed By: #### [id number] #### [facility],[address] [place] [address] EO # 0.10 x10EE3/UL Normal 0.00 - 0.50 [facility] Comment on above: Performed By: #### 2 [id number] #### [facility],[address] [place] [address] Eosinophils/100 WBC (Bld) 1.0 % Normal 0.0 - 7.0 [facility] Comment on above: Performed By: #### 2 [id number] #### [facility],[address] [place] [address] Erythrocyte distribution width (RBC) [Ratio] 14.5 % Normal 12.0 - 15.6 [facility] Comment on above: Performed By: #### 2 [id number] #### [facility],[address] [place] [address] Hematocrit (Bld) [Volume fraction] 37.2 % Normal 34.0 - 46.0 [facility] Comment on above: Performed By: #### 2 [id number] #### [facility],[address] [place], [place] [id number] Hemoglobin (Bld) [Mass/Vol] 12.4 g/dL Normal 12.0 - 16.0 [facility] Comment on above: Performed By: #### 2 06515 #### [facility],[address] [place] [address] Lymph # 2.52 x10EE3/UL Normal 0.80 - 2.80 [facility] Comment on above: Performed By: #### 2 97489 #### [facility],[address] [place] [address] 03523 Lymphocytes/100 WBC (Bld) 27.1 % Normal 20.0 - 45.0 [facility] Comment on above: Performed By: #### 2 18809 #### [facility],[address] [place] [address] 32165 MANUAL DIFF N/A Normal [facility] Comment on above: Performed By: #### 2 43568 #### [facility],[address] [place] [address] 33046 MCH (RBC) [Entitic mass] 27 pg Normal 27 - 33 [facility] Comment on above: Performed By: #### 2 41871 #### [facility],[address] [place] [address] 18672 MCHC 33 X10 3 Normal 32 - 36 [facility] Comment on above: Performed By: #### 2 47343 #### [facility],[address] [place] [address] 19717 MCV (RBC) [Entitic vol] 82 fL Normal 80 - 99 [facility] Comment on above: Performed By: #### 2 27209 #### [facility],[address] [place] [address] 98664 Isabela # 0.49 x10EE3/UL Normal 0.20 - 1.00 [facility] Comment on above: Performed By: #### 2 53943 #### [facility],[address] [place] [address] 73460 MONOS % 5.3 % Normal 0.0 - 10.0 [facility] Comment on above: Performed By: #### 2 85473 #### [facility],[address] [place] [address] 10942 Morphology Paul (Bld) [Interp] N/A Normal [facility] Comment on above: Performed By: #### 2 94969 #### [facility],[address] [place] [address] 05231 Neut # 6.16 x10EE3/UL Normal 1.50 - 7.10 [facility] Comment on above: Performed By: #### 2 62791 #### [facility],[address] [place] [address] 13510 Neutrophils/100 WBC (Bld) 66.2 % Normal 46.0 - 76.0 [facility] Comment on above: Performed By: #### 2 73047 #### [facility],[address] [place] [address] 13715 PLATELET 320 x10EE3/UL Normal 150 - 450 [facility] Comment on above: Performed By: #### 2 19387 #### [facility],[address] [place] [address] 45294 Platelet mean volume (Bld) [Entitic vol] 7.2 fL Normal 6.6 - 10.5 [facility] Comment on above: Result Comment: AUTO MATED DIFFERENTIAL Performed By: #### 2 71065 #### [facility],[address] [place] [address] 50124 RBC 4.52 x 10EE6/UL Normal 4.10 - 5.30 [facility] Comment on above: Performed By: #### 2 79201 #### [facility],[address] [place] [address] 21065 WBC 9.3 x 10EE3/UL Normal 4.5 - 10.8 [facility] Comment on above: Performed By: #### 2 85003 #### [facility],[address] [place] [address] 25882 CHEST 1 VIEWon 07-21-2024 CHEST 1 VIEW [place] [address] Patient: JEFFREY DIAMONDMark Phone#: : [phone] Age: 28 Gender: F Pt. Type: ER Account: [id number] Location: [id number] Ordering: PATTI RAMOS Exam Date: 07/21/2024/23:33 Family Phys: Charge Code: [id number] Physician: Rankin Order #: [id number] Dose#: PROCEDURE: X-RAY CHEST 1 VIEW COMPARISON: None. INDICATIONS: Chest pain. FINDINGS: Study limited by patient body habitus. LUNGS: Normal. No significant pulmonary parenchymal abnormalities. VASCULATURE: Normal. Unremarkable pulmonary vasculature. CARDIAC: Normal. No cardiac silhouette abnormality or cardiomegaly. MEDIASTINUM: Normal. No visible mass or adenopathy. PLEURA: Normal. No effusion or pleural thickening. 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 OTHER: Monitoring leads project across the thorax CONCLUSION: No acute disease. Dictated by: Antonieta Wheeler MD on 07/22/2024 at 9:07 Approved by: Antonieta Wheeler MD on 07/22/2024 at 9:08 Normal [facility] CMP with eGFRon 07-21-2024 AGE 28 years Normal [facility] Comment on above: Performed By: #### 2 02205 #### [address] [address] Albumin [Mass/Vol] 4.2 g/dL Normal 3.4 - 5.0 [facility] Comment on above: Performed By: #### 2 60296 #### [facility],[address] [place] [address] 71657 Albumin/Globulin [Mass ratio] 1.3 {ratio} Normal 0.9 - 1.6 [facility] Comment on above: Performed By: #### 2 68455 #### [facility],[address] [place] [address] 11658 ALK PHOS 77 U/L Normal 46 - 116 [facility] Comment on above: Performed By: #### 2 69266 #### [facility],[address] [place] [address] 34773 ALT [Catalytic activity/Vol] 32 U/L Normal 16 - 63 [facility] Comment on above: Performed By: #### 2 07524 #### [facility],[address] [place] [address] 01422 Anion gap [Moles/Vol] 14 mmol/L Normal 10 - 20 [facility] Comment on above: Performed By: #### 2 87158 #### [facility],[address] [place] [address] 39571 AST [Catalytic activity/Vol] 17 U/L Normal 13 - 39 [facility] Comment on above: Performed By: #### 2 27026 #### [facility],[address] [place] [address] 79461 B/C RATIO 13 ratio Normal 0 - 30 [facility] Comment on above: Performed By: #### 2 95645 #### [facility],[address] [place] [address] 15830 Bilirubin [Mass/Vol] 0.5 mg/dL Normal 0.2 - 1.0 [facility] Comment on above: Performed By: #### 2 28028 #### [facility],[address] [place] [address] 73424 Calcium [Mass/Vol] 9.1 mg/dL Normal 8.5 - 10.1 [facility] Comment on above: Performed By: #### 2 98636 #### [facility],[address] [place] [address] 84065 Chloride [Moles/Vol] 102 mmol/L Normal 98 - 107 [facility] Comment on above: Performed By: #### 2 53028 #### [facility],[address] [place] [address] 30282 CMP with eGFR Normal [facility] Comment on above: Result Comment: COMP REHENSIVE METABOLIC PANEL Performed By: #### 2 23219 #### [facility],[address] [place] [address] 35481 CO2 [Moles/Vol] 28.3 mmol/L Normal 21.0 - 32.0 [facility] Comment on above: Performed By: #### 2 61656 #### [facility],[address] [place] [address] 00872 Creatinine [Mass/Vol] 0.85 mg/dL Normal 0.55 - 1.02 [facility] Comment on above: Performed By: #### 2 85065 #### [facility],[address] [place] [address] 22172 GFR/1.73 sq M.predicted among non-blacks MDRD (S/P/Bld) [Vol rate/Area] mL/min/{1.73_m2} Normal 60 - 999 [facility] Comment on above: Performed By: #### 2 02198 #### [facility],[address] [place] [address] 96361 Result Comment: ACCO RDING TO THE NATIONAL KIDNEY DISEASE EDUCATION PROGRAM(NKDE), A NORMAL eGFR IS A VALUE GREATER THAN OR EQUAL TO 60 ML/MIN/1.73 SQ METERS. CHRONIC KIDNEY DISEASE: <60mL/MIN/1.73 SQ METERS KIDNEY FAILURE: <15mL/MIN/1.73 SQ METERS THIS TEST SHOULD ONLY BE USED FOR PATIENTS 18 YEARS OF AGE AND OLDER. Globulin (S) [Mass/Vol] 3.2 g/dL Normal 1.5 - 3.8 [facility] Comment on above: Performed By: #### 2 87274 #### [facility],[address] [place] [address] 33052 Glucose [Mass/Vol] 92 mg/dL Normal 74 - 106 [facility] Comment on above: Performed By: #### 2 21263 #### [facility],[address] [place] [address] 84478 Potassium [Moles/Vol] 3.0 mmol/L Low 3.5 - 5.1 [facility] Comment on above: Performed By: #### 2 68591 #### [facility],[address] [place] [address] 75385 Protein [Mass/Vol] 7.4 g/dL Normal 6.4 - 8.2 [facility] Comment on above: Performed By: #### 2 00521 #### [facility],[address] [place] [address] 91457 Sodium [Moles/Vol] 141 mmol/L Normal 136 - 145 [facility] Comment on above: Performed By: #### 2 58127 #### [facility],[address] [place] [address] 97301 Urea nitrogen [Mass/Vol] 11 mg/dL Normal 7 - 18 [facility] Comment on above: Performed By: #### 2 72260 #### [facility],[address] [place] [address] 68977 D-DIMER, QUANTITATIVEon D-DIMER QUANT <200 Normal 0 - 230 [facility] Comment on above: Result Comment: ==== FOLLOWING RESULTS REPORTED IN ERROR DD] D-DIMER QUANT 208 <-- *Previously reported in error 07/21/24.2313.LZ . .ACLT Performed By: #### 2 66382 #### [facility],[address] [place] [address] 64871 D-DIMER, QUANTITATIVE Normal [facility] Comment on above: Result Comment: CORRECTED REPORT QUANT D-DIMER Performed By: #### 2 37716 #### [facility],[address] [place] [address] 58944 ERROR DUE TO QC ERROR;RPTD Normal [facility] Comment on above: Performed By: #### 2 30621 #### [facility],[address] [place] [address] 90485 LIPASEon 07-21-2024 Lipase [Catalytic activity/Vol] 15.0 U/L Normal 15.0 - 78.0 [facility] Comment on above: Result Comment: *PLE ASE NOTE THAT RANGES FOR LIPASE HAVE CHANGED OF 03/17/23 DUE TO AN ASSAY UPDATE BY THE CHECK SCALER.THE NEW ASSAY RANGE IS 6-250 U/L, WITH A REFERENCE RANGE OF 16-77 U/L. Performed By: #### 2 25938 #### [facility],[address] [place] [address] NT-proBNPon 07-21-2024 Natriuretic peptide B (Bld) [Mass/Vol] 142 pg/mL High 0 - 125 [facility] Comment on above: Performed By: #### 2 17546 #### [facility],[address] [place] [address] SERUM QUALon 07-21 EXTERNAL QC DONE? YES Normal [facility] Comment on above: Performed By: #### 2 02551 #### [facility],[address] [place] [address] INTERNAL QC PASS Normal [facility] Comment on above: Performed By: #### 2 45808 #### [facility],[address] [place] [address] SER Negative Normal NEGATIVE [facility] Comment on above: Performed By: #### 2 19930 #### [facility],[address] [place] [address] TROPONINon 07-21-2024 HS TROPONIN <4.0 Normal 0.0 - 51.4 [facility] Comment on above: Performed By: #### 2 37347 #### [facility],[address] [place] [address] CNOVon 07-16-2024 CNOV Office Visit (FAMDNA ) ----- JEFFREY DIAMOND ([id number]) 1995 F Date Time Provider Department 07/16/24 3:20 PM MARCI PULIDO During your visit today, we recorded the following information about you: Temperature Pulse Blood pressure Weight 97.5 degrees 93/minute 130/85 138.9 kg Marci Pulido, JERONIMO.[employer] 07/16/2024 3:26 PM Signed Patient presents with: Follow Up Weight Management: - Taking Adipex (phentermine); reports initial side effect of shakiness, attributed to concurrent consumption of [employer] energy drinks. - Lost 12 lbs in the past month; reports decreased appetite. - Diet: Primarily consumes one meal per day (lunch); significantly reduced portion sizes and eliminated snacking. - Exercise: Walks over 2 miles daily, including walking her dog. - Hydration: Drinks plenty of water. - Upcoming surgery scheduled for the of next month at [facility]. ROS: Constitutional: (+) weight loss PE: BP 130/85 Pulse 93 Temp 36.4 ?C (97.5 ?F) Wt (!) 138.9 kg (306 lb 1.7 oz) LMP 06/10/2024 (Within Days) SpO2 97% BMI 46.54 kg/m? GENERAL: NAD, alert and oriented LUNGS: Clear to auscultation bilaterally, no wheezes/rhonchi/rales. HEART: Regular rate and rhythm, no murmurs. No ectopy. EXTREMITIES: Normal, No deformities, No skin discoloration, No edema. NEURO: Awake, alert and oriented x3, cranial nerves II-XII grossly intact, normal gait, no involuntary motions Assessment and Plan: 1. Class 3 severe obesity with body mass index (BMI) of 45.0 to 49.9 in adult, unspecified obesity type, unspecified whether serious comorbidity present (E66.813) - Significant weight loss of 12 lbs in the last month with phentermine therapy; no major side effects reported. - Notable decrease in appetite; patient engaging in regular physical activity and consuming smaller portions. - Refilled phentermine prescription and transmitted to [facility]. - Scheduled follow-up in 4 weeks; patient to monitor weight at home and attend a virtual visit due to variable work schedule and upcoming surgery on the of next month. The patient consented to the use of [employer] software for draft documentation of the visit consistent with [facility]?s Notice of Privacy Practices. Marci Barron APRN.[facility] Patient Instructions: Continue taking Adipex (phentermine) as prescribed; the refill has been sent to [facility]. Maintain your current diet and exercise routine; continue with one main meal at lunch, minimal snacking, and daily walking. For your follow-up in 4 weeks, please schedule a virtual visit and weigh yourself at home before the appointment. Allergies As of Date: 07/16/2024 (No Known Allergies) Date Reviewed: 07/16/2024 Reviewed by: Marci Pulido APRN.[employer] - Fully Assessed Reason for Visit: Follow Up [171] Visit Diagnosis:Class 3 severe obesity with body mass index (BMI) of 45.0 to 49.9 in adult, unspecified obesity type, unspecified whether serious comorbidity present [E66.813, Z68.42] Order(s):Phentermine HCl 37.5 mg tabletTake 1 tablet by mouth once daily for 30 days.Disp: 30 tabletRfl: 0 Prescriptions as of 07/16/2024 - Phentermine HCl 37.5 mg tablet Take 1 tablet by mouth once daily for 30 days. - omeprazole (PRILOSEC) 20 mg capsule TAKE ONE CAPSULE BY MOUTH ONCE DAILY - trospium (SANCTURA) 20 mg tablet Take 1 tablet by mouth two times a day. - traZODone (DESYREL) 50 mg tablet Take 50 mg by mouth daily at bedtime. - buPROPion XL (WELLBUTRIN XL) 150 mg 24 hr tablet Take 150 mg by mouth every morning. - hydrOXYzine pamoate (VISTARIL) 25 mg capsule - Acetaminophen 500 mg cap Take by mouth. - levonorgestrel (MIRENA) 21 mcg/24 hours (8 yrs) 52 mg IUD 1 Each by INTRAUTERINE route as directed. - sertraline (ZOLOFT) 100 mg tablet Take 100 mg by mouth two times a day. Problem List As Of Date 07/16/2024 Noted Resolved Anxiety and depression [F41.9, F32.A] 06/13/2023 Gastroesophageal reflux disease [K21.9] 06/14/2023 Intractable migraine without status migrainosus*06/14/2023 Class 3 severe obesity with body mass index (BM*06/14/2023 Vitamin D deficiency [E55.9] 06/21/2023 BISHNU (obstructive sleep apnea) [G47.33] 09/27/2023 Learning disability [F81.9] 09/27/2023 Speech impediment [R47.9] 09/27/2023 Mixed stress and urge urinary incontinence [N39*09/27/2023 Prescriptions ordered this encounter Disp Refills Start End PHENTERMINE 37.5 MG TABLET 30 t* 0 07/16/2024 08/15/2024 Route: ORAL Sig: Take 1 tablet by mouth once daily for 30 days. Medications Discontinued During This Encounter Prescriptions - Phentermine HCl 37.5 mg tablet (Discontinued) Take 1 tablet by mouth once daily for 30 days. Level of Service: OFFICE/OUTPATIENT ESTABLISHED LOW MDM 20 MIN [95697] Additional (more content not included)... Normal [facility] CNOVon 06-28-2024 CNOV Office Visit (OBGYWM ) ----- JEFFREY DIAMOND ([id number]) 1995 F Date Time Provider Department 06/28/24 3:20 PM FOX ABEL OBGYWM During your visit today, we recorded the following information about you: Blood pressure Weight 120/80 140.4 kg Fox Abel MD 06/28/2024 3:44 PM Signed Jeffrey Diamond is a 28 year old female who presents for DUB. HPI: Here to discuss hysterectomy. She reports being on control pill in the past for years with no improvement in her bleeding. Stopped the control pill 02/2024 and she reports bleeding is daily since then. Changing a pad q 1 hour daily and she describes the bleeding as dark red with small clots. No pain or cramping. Menarche at age 10. Currently sexually active with . Not planning on future . From note 04/25/2024: Previously took continuous OCP with occasional breakthrough bleeding 04/24/23 Seen for heavy breakthrough bleeding. US showed adenomyosis and recommend changing to IUD. At that time declined because breakthrough bleeding decreased. 06/12/23 follow up for AUB and decided to get IUD. 06/20/23 IUD inserted 10/20/23 returned for heavy bleeding and asked for hysterectomy 11/27/23 Took Aygestin taper and no improvements 12/29/23 Took Aygestin taper and no improvements. 01/08/24 started Apri and no improvements Pelvic US 01/12/24: Indication breakthrough bleeding with IUD Impression Normal appearing anteverted uterus that measures 84 mm x 41 mm x 61 mm. Endometrium measures 7.3 mm. 3D rendering of the uterus confirms the proper location of the IUD within the endometrial cavity. Normal appearing right ovary. Left ovary contains a 33 x 30 x 37 mm unilocular simple cyst. No adnexal masses were observed. There is no free fluid visualized in the peritoneal cavity. Recommendations O-RADS 2 left ovarian simple cyst, almost certainly benign. No follow up imaging is needed. Pap test up to date and normal TSH and CBC completed Mirena IUD inserted 06/20/[address] OB History Gravida1 Para0 Term0 Preterm0 AB1 Living0 SAB0 IAB0 Ectopic0 Multiple0 Live Births0 [employer] History LMP: 06/10/2024 (Within Days), IUD Age at Menarche: Age at First : Age at Menopause: [employer] History Comments: Sexual Activity: Yes; Male Contraception: I.U.D. PAST MEDICAL HISTORY Diagnosis Date Anxiety and depression GERD (gastroesophageal reflux disease) Learning disability Sleep apnea Speech impediment Vitamin D deficiency 05/2023 PAST SURGICAL HISTORY Procedure Laterality Date INSERTION OF IUD 06/2023 PAST SURGICAL HISTORY OF extraction of wisdom teeth FAMILY HISTORY Problem Relation Age of Onset Heart Attack Mother 60 No Known Problems Sister No Known Problems Brother Obesity Paternal Grandmother Social History Tobacco Use Smoking status: Never Passive exposure: Never Smokeless tobacco: Never Vaping Use Vaping status: Never Used Substance Use Topics Alcohol use: Yes Comment: ocassioanaly Drug use: Never Current Outpatient Medications Medication Sig Phentermine HCl 37.5 mg tablet Take 1 tablet by mouth once daily for 30 days. trospium (SANCTURA) 20 mg tablet Take 1 tablet by mouth two times a day. traZODone (DESYREL) 50 mg tablet Take 50 mg by mouth daily at bedtime. buPROPion XL (WELLBUTRIN XL) 150 mg 24 hr tablet Take 150 mg by mouth every morning. hydrOXYzine pamoate (VISTARIL) 25 mg capsule Acetaminophen 500 mg cap Take by mouth. levonorgestrel (MIRENA) 21 mcg/24 hours (8 yrs) 52 mg IUD 1 Each by INTRAUTERINE route as directed. sertraline (ZOLOFT) 100 mg tablet Take 100 mg by mouth two times a day. omeprazole (PRILOSEC) 20 mg capsule Take 1 capsule by mouth once daily. No current facility-administered medications for this visit. Allergies As of Date: 06/28/2024 (No Known Allergies) Fully Assessed 06/28/2024 REVIEW OF SYSTEMS Expanded ROS: N/A Allergies and current medication updated:Yes SENSITIVE EXAM: Sensitive exam not performed. EXAM: BP 120/80 Wt 309 lb 9.6 oz (140.4kg) LMP 06/10/2024 GENERAL: pleasant, female in no apparent distress HEENT: Normocephalic and atraumatic NECK: full range of motion CHEST: Normal inspiratory effort NEURO: exam grossly non-focal EXTREMITIES: normal ASSESSMENT AND PLAN: Assessment AND Plan DUB (dysfunctional uterine bleeding) IUD (intrauterine device) in place Class 3 severe obesity with body mass index (BMI) of 45.0 to 49.9 in adult, unspecified obesity type, unspecified whether serious comorbidity present (HCC) DUB despite OCP and Mirena IUD. Discussed possible etiologies for irregular bleeding. Discussed risks with obesity. Recommend endometrial sampling given BMI 47 and continued irregular bleeding. Discussed r/b/a in office Endosee, IUD removal, EMB vs hysteroscopy, DANDC, IUD removal. Patient elec (more content not included)... Normal [facility] CNOVon 06-18-2024 CNOV Office Visit (UROLMD ) ----- JEFFREY DIAMOND ([id number]) 1995 F Date Time Provider Department 06/18/24 2:40 PM DUNIA GONGORA UROLUKAS During your visit today, we recorded the following information about you: Weight Height 144.2 kg 1.727 m Alex Eckert MA 06/18/2024 3:22 PM Signed 0 mL of urine in the bladder after voiding Dunia Gongora, [employer] 06/18/2024 3:22 PM Signed Jeffrey Diamond is a 28 year old female who presents today for evaluation of Patient presents with: Urinary Incontinence: Mixed stress and urge urinary incontinence CHIEF COMPLAINT AND HISTORY OF PRESENT ILLNESS CC: follow up 28 year old female with a history of anxiety, depression, urinary urgency, PRITI presents for follow up, she continues to have PRITI, no PFPT is near her home, mirabegron was too expensive, denies recent uti, gross hematuria. Leakage upon standing after voiding Denies prior urological surgeries Offered botox by a provider in [place] but insurance did not cover Denies constipation PVR 0 cc DTF:varies NTF:varies on fluid intake URGENCY:yes UUI:yes SLADE:yes STRAINING:at times COMPLETE EMPTYING:unsure PADS PER DAY: one padded underwear per day FLUID INTAKE: 2-3 liter per day Not working at this time Past Urological History: Stones:no Surgery:no Tumors:no Infections:no VITALS: Height 172.7 cm (5' 8), weight (!) 144.2 kg (318 lb), last menstrual period 06/10/2024. ALLERGIES: Patient has no known allergies. MEDICATIONS: Current Outpatient Medications Medication Sig Dispense Refill Phentermine HCl 37.5 mg tablet Take 1 tablet by mouth once daily for 30 days. 30 tablet 0 omeprazole (PRILOSEC) 20 mg capsule Take 1 capsule by mouth once daily. 30 capsule 0 traZODone (DESYREL) 50 mg tablet Take 50 mg by mouth daily at bedtime. buPROPion XL (WELLBUTRIN XL) 150 mg 24 hr tablet Take 150 mg by mouth every morning. hydrOXYzine pamoate (VISTARIL) 25 mg capsule Acetaminophen 500 mg cap Take by mouth. levonorgestrel (MIRENA) 21 mcg/24 hours (8 yrs) 52 mg IUD 1 Each by INTRAUTERINE route as directed. 1 Each 0 sertraline (ZOLOFT) 100 mg tablet Take 100 mg by mouth two times a day. No current facility-administered medications for this visit. SOCIAL HISTORY: Social History Tobacco Use Smoking status: Never Passive exposure: Never Smokeless tobacco: Never Vaping Use Vaping status: Never Used Substance Use Topics Alcohol use: Yes Comment: ocassioanaly Drug use: Never PAST MEDICAL HISTORY: PAST MEDICAL HISTORY Diagnosis Date Anxiety and depression GERD (gastroesophageal reflux disease) Learning disability Sleep apnea Speech impediment Vitamin D deficiency 05/2023 PAST SURGICAL HISTORY: PAST SURGICAL HISTORY Procedure Laterality Date INSERTION OF IUD 06/2023 PAST SURGICAL HISTORY OF extraction of wisdom teeth FAMILY HISTORY: FAMILY HISTORY Problem Relation Age of Onset Heart Attack Mother 60 No Known Problems Sister No Known Problems Brother Obesity Paternal Grandmother All histories reviewed on this date 06/18/2024: Yes REVIEW OF SYSTEMS: CONSTITUTIONAL: Patient reports no recent fever or weight loss ENDOCRINE: Negative for cold or heat intolerance, polyuria, polydipsia and goiter All other systems reviewed and are negative other than HPI. PHYSICAL EXAM: constitutional: appears healthy in no acute distress, overweight Extremities: Extremities normal. No deformities, edema, or skin discoloration. Good capillary refill. Neuro: Gait normal. Sensation grossly intact. RADIOLOGY REPORTS REVIEWED: Yes LAB RESULTS REVIEWED: Yes Latest Ref Rng 06/18/2024 GLUCOSE UA (POCT) Negative mg/dL Negative BILIRUBIN UA (POCT) Negative Negative KETONE UA (POCT) Negative mg/dL Negative SPECIFIC GRAVITY UA (POCT) 1.005 - 1.030 >=1.030 HEMOGLOBIN/BLOOD UA (POCT) Negative Negative PH UA (POCT) 4.5 - 8.0 6.0 PROTEIN UA (POCT) Negative mg/dL Negative UROBILINOGEN UA (POCT) Normal E.U./dL 0.2 NITRITE UA (POCT) Negative Negative LEUKOCYTES UA (POCT) Negative Negative COLOR UA (POCT) Yellow CLARITY UA (POCT) Slightly Cloudy IMAGING STUDIES INDEPENDENTLY REVIEWED: Yes OLD RECORDS REVIEWED: Yes: Extensive: No ASSESSMENT/PLAN: 1. Mixed stress and urge urinary incontinence - ICD9: 788.33, ICD10: N39.46 (primary diagnosis) -stopped mirabegron due to cost -start trospium 20 mg po bid, side effects discussed -PVR 0 cc -discussed bulkamid and bladder sling - UA DIP, URINE (POC) - BLADDER SCAN - TROSPIUM 20 MG TABLET 2. Urinary urgency - ICD9: 788.63, ICD10: R39.15 - TROSPIUM 20 MG TABLET Patient is instructed to schedule a follow up in 6 weeks ok for a virtual visit Dunia Gongora APRN.[employer] Referring Provider: MARCI PULIDO [[id number]] Allergies As of Date: 06/18/2024 (No Known Allergies) Date Reviewed: 06/18/2024 Reviewed by: Param (more content not included)... Normal [facility] Office Visit (FAMDNA ) ----- JEFFREY DIAMOND ([id number]) 1995 F Date Time Provider Department 06/18/24 1:00 PM MARCI PULIDO FAMDNA During your visit today, we recorded the following information about you: Temperature Pulse Respiration Blood pressure 98.1 degrees 69/minute 16/minute 131/80 Weight Height Last Period 144.4 kg 1.727 m 06/10/24 Taylor Shannon MA 06/18/2024 1:07 PM Signed Patient presents with: Weight Loss Bladder leakage Hepatitis B Vaccine(1 of 3 - 19+ 3-dose series) Never done Influenza Vaccine(1) due on 11/19/2023 Covid-19 Vaccine( season) due on 11/19/2023 Last 3 Encounter BP Readings: Date: BP: 06/18/2024 131/80 01/08/2024 128/78 11/24/2023 132/81 LDL Cholesterol (mg/dL) Date Value 06/20/2023 126 HBA1C: Hemoglobin A1C (%) Date Value 04/24/2023 5.4 No results found for: UALBCR, UPROT, UCR, UCRR, UALB Diabetic Foot and Retinal Eye Exam not Overdue Marci Pulido, JERONIMO.[employer] 06/18/2024 1:07 PM Signed Patient presents with: Weight Loss Bladder leakage Weight Loss Management: - Interested in starting phentermine for weight loss; friend reported positive results. - Currently taking Wellbutrin 150 mg daily. - Has made dietary changes over the past 3 years, including eliminating fast food, fried foods, and soda. - Drinks only water; previously consumed large amounts of Mountain Dew. 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 - Does not feel the need for additional nutritional counseling. Urinary Incontinence: - History of stress and urge incontinence; last seen by urology a few years ago. - No physical therapy due to lack of local services. - Interested in revisiting urology for further management. Can not complete pelvic floor PT in her region. Anxiety and Depression: - Managed by MH specialist. - Currently taking Zoloft 100 mg BID and trazodone 50 mg at bedtime. - Mood has been low recently; upcoming 1-year anniversary of mother's passing. - Scheduled follow-up with Dr. Welch next month; plans to see him sooner due to current emotional state. - No recent suicidal ideation or self-harm; has a support plan in place with friends. Bed Bug Bites: - Experiencing itching and scabbing from bed bug bites at home. - Bites disrupt sleep; often stays up reading until morning to avoid bites. - Previous extermination efforts were unsuccessful. ROS: Genitourinary: (+) urinary incontinence Skin: (+) itching, (+) scabs Psychiatric: (+) depression, (+) anxiety, (+) sleep disturbance PE: BP 131/80 Pulse 69 Temp 36.7 ?C (98.1 ?F) (Axillary) Resp 16 Ht 172.7 cm (5' 8) Wt (!) 144.4 kg (318 lb 5.5 oz) LMP 06/10/2024 (Within Days) SpO2 100% BMI 48.40 kg/m? GENERAL: NAD, alert and oriented. SKIN: Multiple small scabs noted on arms, no rash or skin lesions. No signs of infection. Assessment and Plan: 1. Mixed stress and urge urinary incontinence (N39.46) - Referred to urology for further evaluation and management. 2. Class 3 severe obesity with body mass index (BMI) of 45.0 to 49.9 in adult, unspecified obesity type, unspecified whether serious comorbidity present (HCC) (E66.813) - Initiated phentermine, to be taken once daily in the morning. - Educated on potential side effects including increased blood pressure, heart rate, anxiety, insomnia, dry mouth, constipation, and diarrhea. - Scheduled monthly follow-ups for the first 3 months to monitor weight loss, blood pressure, heart rate, and side effects. - Must achieve at least 5% weight loss of baseline weight within 3 months to continue medication. - Advised to inform mental health provider about starting phentermine and monitor mood closely. 3. Anxiety and depression (F41.9) - Currently managed with Wellbutrin 150 mg daily and Zoloft 100 mg twice daily. - Discussed potential increase in Wellbutrin dosage with mental health provider to aid in weight loss and improve mood. - Follow-up with mental health provider scheduled next month; advised to consider an earlier appointment if needed. - No recent suicidal ideation or self-harm; patient has a safety plan in place. 4. Insomnia, unspecified type (G47.00) - Currently taking trazodone 50 mg at bedtime. - Discussed potential worsening of insomnia with phentermine; advised to monitor and report any changes. 5. Bedbug bite, initial encounter (W57.XXXA) - Recommended svsj-fld-xqqujgv antihistamines such as Vinita or Zyrtec to reduce itching. - Advised use of [id number] cortisone cream to alleviate inflammatory response and itching. - Discussed the importance of treating the bedbug infestation; advised seeking a second opinion for pest control. The patient consented to the use of [employer] software for draft documentation of the visit consistent with [facility]?s Notice of Pr (more content not included)... Normal [facility] UA DIP, URINE (POC)on 2024 BILIRUBIN UA (POCT) Negative Negative [facility] CLARITY UA (POCT) Slightly Cloudy [facility] COLOR UA (POCT) Yellow [facility] GLUCOSE UA (POCT) Negative Negative mg/dL [facility] Hemoglobin Ql (U) Negative Negative [facility] KETONE UA (POCT) Negative Negative mg/dL [facility] LEUKOCYTES UA (POCT) Negative Negative [facility] NITRITE UA (POCT) Negative [facility] PH UA (POCT) 6 4.5 - 8.0 [facility] Protein Ql (U) Negative Negative mg/dL [facility] SPECIFIC GRAVITY UA (POCT) >=1.030 1.005 - 1.030 [facility] UROBILINOGEN UA (POCT) 0.2 Normal E.U./dL [facility] Location:[facility], [address], [place], [address] [place] [address] POINT OF CARE [facility] CNOVon 04-25-2024 CNOV Office Visit (OBGYWM ) ----- LEAJEFFREY HUA ([id number]) 1995 F Date Time Provider Department 04/25/24 2:45 PM UMA TINSLEY OBGYWM During your visit today, we recorded the following information about you: Weight 142.4 kg Uma Tinsley, JERONIMO.[employer] 04/25/2024 3:10 PM Signed Jeffrey Diamond is a 28 year old female who presents for continued bleeding HPI: still having bleeding daily, using pad and period underwear. When using a pad she needs to change it every hr due the pad being fully saturated. No cramping. She stopped taking OCP in February because there was no difference in the bleeding. Patient is still asking for a hysterectomy. She is not interested in carrying a herself. is 73 yo Previously took continuous OCP with occasional breakthrough bleeding 04/24/23 Seen for heavy breakthrough bleeding. US showed adenomyosis and recommend changing to IUD. At that time declined because breakthrough bleeding decreased. 06/12/23 follow up for AUB and decided to get IUD. 06/20/23 IUD inserted 10/20/23 returned for heavy bleeding and asked for hysterectomy 11/27/23 Took Aygestin taper and no improvements 12/29/23 Took Aygestin taper and no improvements. 01/08/24 started Apri and no improvements Seen Char Hensley on 06/13/33 for weight management but states she was upset since she was told to limit fried foods. Referral to bariatric clinic for surgical intervention, which she is interested in pursing, but uncertain if covered by current insurance. 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 PAST MEDICAL HISTORY Diagnosis Date Anxiety and depression GERD (gastroesophageal reflux disease) Learning disability Sleep apnea Speech impediment Vitamin D deficiency 05/2023 PAST SURGICAL HISTORY Procedure Laterality Date INSERTION OF IUD 06/2023 PAST SURGICAL HISTORY OF extraction of wisdom teeth FAMILY HISTORY Problem Relation Age of Onset Heart Attack Mother 60 No Known Problems Sister No Known Problems Brother Obesity Paternal Grandmother Social History Tobacco Use Smoking status: Never Passive exposure: Never Smokeless tobacco: Never Vaping Use Vaping status: Never Used Substance Use Topics Alcohol use: Yes Comment: ocassioanaly Drug use: Never Current Outpatient Medications Medication Sig omeprazole (PRILOSEC) 20 mg capsule Take 1 capsule by mouth once daily. traZODone (DESYREL) 50 mg tablet Take 50 mg by mouth daily at bedtime. buPROPion XL (WELLBUTRIN XL) 150 mg 24 hr tablet Take 150 mg by mouth every morning. hydrOXYzine pamoate (VISTARIL) 25 mg capsule Acetaminophen 500 mg cap Take by mouth. levonorgestrel (MIRENA) 21 mcg/24 hours (8 yrs) 52 mg IUD 1 Each by INTRAUTERINE route as directed. sertraline (ZOLOFT) 100 mg tablet Take 100 mg by mouth two times a day. No current facility-administered medications for this visit. Allergies As of Date: 04/25/2024 (No Known Allergies) Fully Assessed 04/25/2024 REVIEW OF SYSTEMS Abdomen: No bloating, early satiety, indigestion, or increased flatulence. No abdominal pain, nausea, vomiting, diarrhea, or constipation. Expanded ROS: N/A Allergies and current medication updated:Yes SENSITIVE EXAM: Sensitive exam not performed. EXAM: Wt 314 lb (142.4kg) LMP 01/01/2024 GENERAL: pleasant, female in no apparent distress HEENT: Normocephalic, atraumatic, mucus membranes moist, and no lesions CHEST: Normal inspiratory effort NEURO: alert and oriented x3,exam grossly non-focal EXTREMITIES: normal 01/12/24 Impression Normal appearing anteverted uterus that measures 84 mm x 41 mm x 61 mm. Endometrium measures 7.3 mm. 3D rendering of the uterus confirms the proper location of the IUD within the endometrial cavity. Normal appearing right ovary. Left ovary contains a 33 x 30 x 37 mm unilocular simple cyst. No adnexal masses were observed. There is no free fluid visualized in the peritoneal cavity. ASSESSMENT/PLAN: 1. Abnormal uterine bleeding (AUB) - ICD9: 626.9, ICD10: N93.9 Follow up with doctor to discuss possible hysteroscopy [facility] Tinsley, JERONIMO.[employer] Medical Decision Making: Problems: Low: Acute, uncomplicated illness or injury Risk: Low: Low risk from testing/treatment Medical Decision Making Level: 3 - Low Referring Provider: SELF [[id number]] Allergies As of Date: 04/25/2024 (No Known Allergies) Date Reviewed: 04/25/2024 Reviewed by: Nadia Perera MA - Fully Assessed Reason for Visit: Discussion [[id number]] Cmt: BLEEDING- STOPPED THE BIRTHCONTROL PILL IN FEBRUARY- WAS NOT HELPING Primary Visit Diagnosis:Abnormal uterine bleeding (AUB) [N93.9] Prescriptions as of (more content not included)... Normal [facility] MR/BMS.BPon 04-25-2024 MR/BMS.BP [address], [address] [place] [id number] OFFICE VISIT Date of Service: 04/25/24 MR#: [id number] Acct: [id number] Name: JEFFREY DIAMOND Rep #: [id number] : 1995 Provider: Dr. Johnson Dean se, DO Age/Sex: 28/F [place] [facility] [place]: Signed Intake Vital Signs 12/07/23 13:59 04/25/24 08:25 Height 5 ft 11 in 5 ft 11 in Weight: 317 lb 310 lb BMI 44.1 43.2 BP 120/87 H 130/67 H Blood Pressure Location Lt brachial Position Sitting Respiration 18 16 Pulse 82 84 Pulse Source Monitor Pulse Oximetry (%) 98 BP Intake Visit Reasons: Follow up Accompanied by: Self Allergies No Known Allergies Allergy (Verified 04/25/24 08:28) Medications ???Medication ???Instructions ???Recorded ???Confirmed ???Type omeprazole 20 mg capsule,delayed 20 mg PO QDAY 12/07/23 04/25/24 Hi story release bupropion HCl 150 mg 24 hr tablet, 150 mg PO QAM #90 tabs 04/25/24 04/25/24 Rx extended release hydroxyzine pamoate 25 mg capsule 25 mg PO TID PRN anxiety #270 cap s 04/25/24 04/25/24 Rx (Vistaril) sertraline 100 mg tablet 200 mg (2 x 100 mg) PO DAILY #180 04/25/24 04/25/24 Rx TABLETS trazodone 50 mg tablet 50 mg PO QHS PRN sleep #90 tabs 04/25/24 Rx PFSH Medical History Grief MDD (major depressive disorder) PTSD (post-traumatic stress disorder) Pneumonia H/O emotional problems Bone fracture Family History Other Anxiety CVA (cerebral vascular accident) Cancer Depression Diabetes Hypertension Parkinson disease Thyroid disorder Social History Smoking Status: Never smoker alcohol intake: never substance use type: does not use what type of physical activity do you participate in: walking HPI History of Present Illness History provided by: patient HPI: Jeffrey Diamond is a 28 year old female who presents today for follow up evaluation. Patient reports that she has been working at [employer] nearly every day. Recently even got a raise. Has been enjoying working there. Things have been doing better at home. Recently they got a side a side and has been enjoying riding it. Has been spending more time with her which has been a positive. Was sick most of the fall which has put a damper on her holidays. Sleep has been so-so. Has been having some difficulties with staying asleep. Part of this is secondary to sometimes working morning shift and sometimes afternoon shift. Has recently been talking to her brother and their relationship has been improving. Denies any SI/HI or AVH. Does have some regular anxiety. Does have some intermittent dreams that someone might be trying to kill her. Doesn't have any real concerns of safety. Does also worry about her health, specifically about something like having diabetes. Has been trying to improve her health by eating better and walking some more. Feels like medication has been helpful to this point. Denies any significant side effects. Has been taking hydroxyzine at work which helps manage her anxiety. Recently went to meet someone she met on [employer], and got 3 more states off her bucket list. Review of Systems Constitutional Reports: fatigue Eyes Denies: change in vision or blurry vision Ears, Nose, Mouth, Throat Denies: throat pain or neck pain Cardiovascular Denies: chest pain or dyspnea Respiratory Denies: dyspnea or wheezing Gastrointestinal Denies: heartburn, diarrhea or change in bowel habits Genitourinary Denies: dysuria or urinary frequency Musculoskeletal Reports: back pain; Denies: neck pain Integumentary/Breast Denies: rash or new lesions Neurological Denies: headache(s) or confusion Endocrine Reports: fatigue Hematologic/Lymphatic Reports: easy bruising Allergic/Immunologic Denies: wheezing Exam Mental Status Exam - Psych Appearance adequately groomed and obese Attitude withdrawn Activity/Motor Behavior MSE activity/motor behavior finding no adventitious movements and appropriate eye contact Speech regular rate, regular volume, regular prosody and other (Spoken with somewhat of a lisp) Mood other (up and down) Affect full range Thought Process linear and coherent Thought Content no delusions and no hallucinations Suicidal Ideation passive; Not active and No intent Homicidal Ideation none Attention intact Concentration intact Sensorium/Orientation awake, alert and oriented x3 Memory/Cognition impaired (likely lower than average for stated age) Insight fair Judgement questionable Assessment Plan Assessment Plan (1) PTSD (post-traumatic stress disorder): Plan: - Continue Wellbutrin and s (more content not included)... Normal [facility] 04-15-2024 ABILIO Telephone (OBGYWM) ----- JEFFREY DIAMOND ([id number]) 1995 F Date Time Provider Department 04/15/24 UMA TINSLEY OBHUBER During your visit today, we recorded the following information about you: Gab Campbell RN 04/15/2024 9:13 AM Signed Called Pt to reschedule appt for today as RM had to leave office this AM d/t medical emergency. Pt states she will check her work schedule and will call back to reschedule. Gab Campbell RN Allergies As of Date: 04/15/2024 (No Known Allergies) Date Reviewed: 01/08/2024 Reviewed by: Thiago Norman MA - Fully Assessed Reason for Visit: Appointment [[id number]] Prescriptions as of 04/15/2024 - omeprazole (PRILOSEC) 20 mg capsule Take 1 capsule by mouth once daily. - traZODone (DESYREL) 50 mg tablet Take 50 mg by mouth daily at bedtime. - Desogestrel-Ethinyl Estradiol (APRI) 0.15-0.03 mg per tablet Take 1 tablet by mouth once daily. - norethindrone (AYGESTIN) 5 mg tablet 1 tab 3x/day until bleeding stops. 1 tab 2x/day x 2 days. 1 tab daily x 5 days - buPROPion XL (WELLBUTRIN XL) 150 mg 24 hr tablet Take 150 mg by mouth every morning. - hydrOXYzine pamoate (VISTARIL) 25 mg capsule - Acetaminophen 500 mg cap Take by mouth. - ergocalciferol 50,000 unit capsule (VITAMIN D2, DRISDOL) Take 1 capsule by mouth one time a week. - levonorgestrel (MIRENA) 21 mcg/24 hours (8 yrs) 52 mg IUD 1 Each by INTRAUTERINE route as directed. - sertraline (ZOLOFT) 100 mg tablet Take 100 mg by mouth two times a day. Problem List As Of Date 04/15/2024 Noted Resolved Anxiety and depression [F41.9, F32.A] 06/13/2023 Gastroesophageal reflux disease [K21.9] 06/14/2023 Intractable migraine without status migrainosus*06/14/2023 Class 3 severe obesity with body mass index (BM*06/14/2023 Vitamin D deficiency [E55.9] 06/21/2023 BISHNU (obstructive sleep apnea) [G47.33] 09/27/2023 Learning disability [F81.9] 09/27/2023 Speech impediment [R47.9] 09/27/2023 Mixed stress and urge urinary incontinence [N39*09/27/2023 Encounter Status:Closed by DIONE SANCHEZ on 04/15/24 Normal [facility] US [facility] 01-15-2024 Indication breakthrough bleeding with IUD Impression Normal appearing anteverted uterus that measures 84 mm x 41 mm x 61 mm. Endometrium measures 7.3 mm. 3D rendering of the uterus confirms the proper location of the IUD within the endometrial cavity. Normal appearing right ovary. Left ovary contains a 33 x 30 x 37 mm unilocular simple cyst. No adnexal masses were observed. There is no free fluid visualized in the peritoneal cavity. Recommendations O-RADS 2 left ovarian simple cyst, almost certainly benign. No follow up imaging is needed. Menstrual History Cycle: LMP date not known Method Transabdominal, transvaginal, 3D ultrasound examination, Color Doppler examination. View: Adequate visualization Uterus Uterus: Visualized Uterus position: anteverted Description of uterine malformations: none Myometrium: normal Endometrium: normal Cervix details: cystic lesions identified suggesting superficial Nabothian cysts Uterus length 84 mm Uterus width 61 mm Uterus height 41 mm Uterus Vol 111.6 cm Endometrial thickness, total 7.3 mm Fibroids: No fibroids identified Polyps: No polyps identified IUCD Position control IUCD type: Mirena intrauterine system. Location: positioned correctly at the fundus of the uterus Right Ovary Rt ovary: Visualized Rt ovary morphology: premenopausal normal follicular Rt ovary D1 18 mm Rt ovary D2 12 mm Rt ovary D3 28 mm Rt ovary Vol 3.1 cm Left Ovary Lt ovary: Visualized Lt ovary D1 43 mm Lt ovary D2 34 mm Lt ovary D3 43 mm Lt ovary Vol 32.9 cm Lt ovarian cyst(s): Cysts identified Lt ovarian cyst D1 33 mm Lt ovarian cyst D2 30 mm Lt ovarian cyst D3 37 mm Lt ovarian cyst mean 33.3 mm Lt ovarian cyst vol 19.179 cm Lt ovarian cyst findings: Unilocular simple cyst Cul de Sac Visualized. no free fluid visualized Performed By: Ban Richards RDMS Read By: Eunice Rondon M.D. MATERNAL MEDICINE [facility] US [facility] 01-12-2024 Radiology Study observation (narrative) [facility] CNOVon 01-08-2024 CNOV Office Visit (OBGYWM ) ----- JEFFREY DIAMOND ([id number]) 1995 F Date Time Provider Department 01/08/24 9:30 AM YENNIFER PRUITT OBALEEWRod During your visit today, we recorded the following information about you: Blood pressure Weight Last Period 128/78 142.9 kg 01/01/24 Yennifer Pruitt APRN.CNM 01/08/2024 3:43 PM Signed Help Desk Support Specialist offered: Patient declines. Jeffrey Diamond is a 28 year old female who presents for problem visit breakthrough bleeding with Mirena HPI: Mirena placed 06/20/23. Continued heavy bleeding. Not bleeding. Bleeding 1- 2 weeks at a time. Bleeding is heavy during this time and fills a pad saturated within 15 minutes and lasts for the duration of bleeding. Intermittent cramping but not pain. Was supposed to see physician but rescheduled. States had miscarriage in the past and was told in the ED that she wouldn't be able to have children. Asking about hysterectomy. Denies concerns with STD, and declines testing. Has migraines but no Aura. Seen Char Hensley on 06/13/33 for weight management but states she was upset since she was told to limit fried foods. Referral to bariatric clinic for surgical intervention, which she is interested in pursing, but uncertain if covered by current insurance. Previously took continuous OCP with occasional breakthrough bleeding 04/24/23 Seen for heavy breakthrough bleeding. US showed adenomyosis and recommend changing to IUD. At that time declined because breakthrough bleeding decreased. 06/12/23 follow up for AUB and decided to get IUD. 06/20/23 IUD inserted 10/20/23 returned for heavy bleeding and asked for hysterectomy 11/27/23 Took Aygestin taper and no improvements 12/29/23 Took Aygestin taper and no improvements. 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 PAST MEDICAL HISTORY Diagnosis Date Anxiety and depression GERD (gastroesophageal reflux disease) Learning disability Sleep apnea Speech impediment Vitamin D deficiency 05/2023 PAST SURGICAL HISTORY Procedure Laterality Date PAST SURGICAL HISTORY OF extraction of wisdom teeth FAMILY HISTORY Problem Relation Age of Onset No Known Problems Mother No Known Problems Sister No Known Problems Brother Obesity Paternal Grandmother Social History Tobacco Use Smoking status: Never Passive exposure: Never Smokeless tobacco: Never Vaping Use Vaping status: Never Used Substance Use Topics Alcohol use: Yes Comment: ocassioanaly Drug use: Never Current Outpatient Medications Medication Sig traZODone (DESYREL) 50 mg tablet Take 50 mg by mouth daily at bedtime. omeprazole (PRILOSEC) 20 mg capsule Take 1 capsule by mouth once daily. norethindrone (AYGESTIN) 5 mg tablet 1 tab 3x/day until bleeding stops. 1 tab 2x/day x 2 days. 1 tab daily x 5 days buPROPion XL (WELLBUTRIN XL) 150 mg 24 hr tablet Take 150 mg by mouth every morning. hydrOXYzine pamoate (VISTARIL) 25 mg capsule Acetaminophen 500 mg cap Take by mouth. levonorgestrel (MIRENA) 21 mcg/24 hours (8 yrs) 52 mg IUD 1 Each by INTRAUTERINE route as directed. sertraline (ZOLOFT) 100 mg tablet Take 100 mg by mouth two times a day. ergocalciferol 50,000 unit capsule (VITAMIN D2, DRISDOL) Take 1 capsule by mouth one time a week. (Patient not taking: Reported on 01/08/2024) No current facility-administered medications for this visit. Allergies As of Date: 01/08/2024 (No Known Allergies) Fully Assessed 01/08/2024 REVIEW OF SYSTEMS Abdomen: No bloating, early satiety, indigestion, or increased flatulence. No abdominal pain, nausea, vomiting, diarrhea, or constipation. Bladder: No dysuria, gross hematuria, urinary frequency, urinary urgency, or incontinence. Breast: No breast lumps, nipple d/c, overlying skin changes, redness or skin retraction. Expanded ROS: N/A Allergies and current medication updated:Yes SENSITIVE EXAM: The sensitive examination was discussed with the Patient or Patient's Authorized Forming Operator. As applicable, any other physician, advance practice provider, medical student, or other health professional student that will be observing or involved in the sensitive examination for educational or training purposes was discussed with the Patient or Authorized Forming Operator. The Patient or Authorized Forming Operator has agreed to proceed with the sensitive examination. (Sensitive examination includes inspection and/or palpation of the breasts, pelvis, prostate and anorectal regions). EXAM: BP 128/78 Wt 315 lb (142.9kg) LMP 01/01/2024 GENERAL: pleasant, female in no apparent distress HEENT: Normocephalic and atraumatic NECK: Supple and full range of motion (more content not included)... [facility] JEFFREY DIAMOND ([id number]) 1995 F Date Time Provider Department 01/08/24 YENNIFER PRUITT During your visit today, we recorded the following information about you: Yennifer Pruitt APRN.CNM 01/08/2024 11:32 AM Signed Can you please call patient and let her know I would like her to get pelvic ultrasound to confirm IUD position. Then I would like her to try adding combined control pill to see if this will help the breakthrough bleeding for 4-6 months. If she is open to this I will send the prescription to the pharmacy. Thanks, AUDELIA Villasenor Tara, RN 01/08/2024 11:59 AM Signed Pt notified. Pt open to getting pelvic u/s completed as well as trying OCP-[place] [facility] [place]. Transferred to [facility] to get pelvic u/s scheduled. GANESH Tobin Jessica, APRN.CNM 01/08/2024 12:49 PM Signed Will try Apri for 4 cycles. Previously on Sprintec with issues. Will add Apri to Mirena and see if decreased bleeding. Thanks, AUDELIA Villasenor Tara, RN 01/08/2024 1:53 PM Signed Left message for patient that since we were unable to reach her via phone [employer] message would be sent and to call the office if she has any questions/concerns. Gab Campbell RN Allergies As of Date: 01/08/2024 (No Known Allergies) Date Reviewed: 01/08/2024 Reviewed by: Thiago Norman MA - Fully Assessed Reason for Visit: Need for Pelvic u/s [Other] Order(s):Desogestrel-Ethi nyl Estradiol (APRI) 0.15-0.03 mg per tabletTake 1 tablet by mouth once daily.Disp: 30 tabletRfl: 5 Prescriptions as of 01/08/2024 - traZODone (DESYREL) 50 mg tablet Take 50 mg by mouth daily at bedtime. - Desogestrel-Ethinyl Estradiol (APRI) 0.15-0.03 mg per tablet Take 1 tablet by mouth once daily. - omeprazole (PRILOSEC) 20 mg capsule Take 1 capsule by mouth once daily. - norethindrone (AYGESTIN) 5 mg tablet 1 tab 3x/day until bleeding stops. 1 tab 2x/day x 2 days. 1 tab daily x 5 days - buPROPion XL (WELLBUTRIN XL) 150 mg 24 hr tablet Take 150 mg by mouth every morning. - hydrOXYzine pamoate (VISTARIL) 25 mg capsule - Acetaminophen 500 mg cap Take by mouth. - ergocalciferol 50,000 unit capsule (VITAMIN D2, DRISDOL) Take 1 capsule by mouth one time a week. - levonorgestrel (MIRENA) 21 mcg/24 hours (8 yrs) 52 mg IUD 1 Each by INTRAUTERINE route as directed. - sertraline (ZOLOFT) 100 mg tablet Take 100 mg by mouth two times a day. Problem List As Of Date 01/08/2024 Noted Resolved Anxiety and depression [F41.9, F32.A] 06/13/2023 Gastroesophageal reflux disease [K21.9] 06/14/2023 Intractable migraine without status migrainosus*06/14/2023 Class 3 severe obesity with body mass index (BM*06/14/2023 Vitamin D deficiency [E55.9] 06/21/2023 BISHNU (obstructive sleep apnea) [G47.33] 09/27/2023 Learning disability [F81.9] 09/27/2023 Speech impediment [R47.9] 09/27/2023 Mixed stress and urge urinary incontinence [N39*09/27/2023 Prescriptions ordered this encounter Disp Refills Start End APRI 0.15 MG-0.03 MG TABLET 30 t* 5 01/08/2024 Route: ORAL Sig: Take 1 tablet by mouth once daily. Encounter Status:Closed by GAB CAMPBELL on 01/08/24 [facility] MR/BMS.BPon 12-07-2023 MR/BMS.BP [address], [place] [address] OFFICE VISIT Date of Service: 12/07/23 MR#: [id number] Acct: [id number] Name: JEFFREY DIAMOND David Rep #: [id number] : 1995 Provider: Dr. Johnson Dean se, DO Age/Sex: 28/F [place] [facility] [place]: Signed Intake Vital Signs 10/18/23 08:57 12/07/23 13:56 12/07/23 13:59 Height 5 ft 11 in 5 ft 5 ft 11 in Weight: 108 lb 317 lb BMI 21.1 44.1 BP 125/82 H 120/87 H Respiration 15 18 Pulse 96 82 Pulse Oximetry (%) 100 98 BP Intake Visit Reasons: 2 M FU Accompanied by: Self Allergies No Known Allergies Allergy (Verified 12/07/23 14:18) Medications ???Medication ???Instructions ???Recorded ???Confirmed ???Type acetaminophen 500 mg oral powder 500 mg PO Q6H PRN 12/07/23 12/07/23 History packet (Tylenol Extra Strength) bupropion HCl 150 mg tablet,12 hr 150 mg PO QAM 12/07/23 12/07/23 History sustained-release (Wellbutrin SR) cholecalciferol (vitamin D3) 50 50 mcg PO QDAY 12/07/23 12/07/23 History mcg (2,000 unit) capsule hydroxyzine pamoate 25 mg capsule 25 mg PO QHS 12/07/23 12/07/23 History (Vistaril) omeprazole 20 mg capsule,delayed 20 mg PO QDAY 12/07/23 12/07/23 History release sertraline 100 mg tablet (Zoloft) 100 mg PO QDAY 12/07/23 12/07/23 History PFSH Medical History Grief MDD (major depressive disorder) PTSD (post-traumatic stress disorder) Pneumonia H/O emotional problems Bone fracture Family History Other Anxiety CVA (cerebral vascular accident) Cancer Depression Diabetes Hypertension Parkinson disease Thyroid disorder Social History Smoking Status: Never smoker alcohol intake: never substance use type: does not use what type of physical activity do you participate in: walking HPI History of Present Illness History provided by: patient HPI: Jeffrey Diamond is a 28 year old female who presents today for follow up evaluation. 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 Has been enjoying new job. Things have been up and down. Still missing mom. Having trouble with sleep, getting to bed around 5 am and up around 10 am. Will stay up late painting on her iPad or reading. has been spending more time with essentially a girlfriend and has been staying there a couple times per week. He frequently insults her or belittles her. Part of the reason for getting a new job is to help support herself. Has not seen dad or step mom since her birthday. Still see's her friend Cinthia at [facility] regularly. Denies any SI/HI or AVH. Denies any thoughts of self harm. Has gained about 17 lbs in a month. Has been eating more uncrustables. Has been having panic attacks somewhat regularly. Review of Systems Constitutional Reports: fatigue Eyes Denies: change in vision or blurry vision Ears, Nose, Mouth, Throat Denies: throat pain or neck pain Cardiovascular Reports: chest pain (with anxiety); Denies: dyspnea Respiratory Denies: dyspnea or wheezing Gastrointestinal Denies: heartburn, diarrhea or change in bowel habits Genitourinary Denies: dysuria or urinary frequency Musculoskeletal Reports: back pain; Denies: neck pain Integumentary/Breast Denies: rash or new lesions Neurological Denies: headache(s) or confusion Endocrine Reports: fatigue Hematologic/Lymphatic Reports: easy bruising Allergic/Immunologic Denies: wheezing Exam Mental Status Exam - Psych Appearance adequately groomed and obese Attitude withdrawn Activity/Motor Behavior MSE activity/motor behavior finding no adventitious movements and appropriate eye contact Speech regular rate, regular volume, regular prosody and other (Spoken with somewhat of a lisp) Mood sad Affect full range Thought Process linear and coherent Thought Content no delusions and no hallucinations Suicidal Ideation passive; Not active and No intent Homicidal Ideation none Attention intact Concentration intact Sensorium/Orientation awake, alert and oriented x3 Memory/Cognition impaired (likely lower than average for stated age) Insight fair Judgement fair Assessment Plan Assessment Plan (1) PTSD (post-traumatic stress disorder): Plan: - Continue Wellbutrin and sertraline as previously prescribed ??? Additional psychotherapy as below (2) MDD (major depressive disorder): Plan: ??? See above Visit Details Comments: Spent 25 minutes outside of [facility] providing additional psychotherapy today. Again discussed patient's current psychosocial s (more content not included)... Normal [facility] CBC panel Auto (Bld)on 11-29 Erythrocyte distribution width (RBC) [Ratio] 12.5 % Normal 11.5-15.0 [facility] Comment on above: Order Comment: Speci men Type: BLOOD SPECIMENOrdering Facility: [facility] Address: [address] [id number] Performed By: #### 5 8410-2 ####[facility] MILLTOWNCLIA [id number] [place]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 IMPRESSION: Within normal limits for the patient's age as described above. Normal [facility] TSH Reflexon 09-30-2016 Thyroid stimulating hormone (TSH) 4.160 uIU/mL High 0.358-3.740 [facility] Comment on above: Result Comment: Free T4 reflexed if TSH is less than or greater than the reference range. Performed By: #### T SHR ####[place] [address] Laboratory - Chemistry and C hemistry - challengeon 08-24-2016 Beta HCG ( test) Ql (U) Negative Normal [facility].; [facility]. Laboratory - Chemistry and C hemistry - challengeon 08-23-2016 TSH Qn 1.97 m[IU]/L Normal 0.34 - 5.60 {uIU/ml} [facility].; [facility]. Laboratory - Chemistry and C hemistry - challengeon 01-25-2016 Bilirubin Ql (U) Negative Normal [facility].; [facility]. Ketones Ql (U) Negative Normal [facility].; [facility]. pH (U) 5.5 [pH] Normal [facility].; [facility]. Specific gravity (U) [Rel density] >=1.030 Normal [facility]. Urobilinogen Qn (U) 0.2 mg/dL Normal [facility]. Laboratory - Hematology and Cell countson 01-25-2016 Hemoglobin Ql (U) Trace, non-hemolyzed Abnormal [employer]; [facility]. Laboratory - Microbiology an d Antimicrobial susceptibilityon 01-25-2016 Bacteria identified Cx Nom (U) CULTURE URINE Normal [employer]; [facility]. Laboratory - Specimen inform ationon 01-25-2016 Appearance (U) Cloudy Abnormal [facility].; [facility]. Color (U) Yellow Normal [employer]; [facility]. Laboratory - Urinalysison Glucose Test strip (U) [Mass/Vol] Negative Normal [facility] [employer].; [facility]. Leukocyte esterase Test strip Ql (U) Negative Normal [facility].; [employer], [employer]. Nitrite Ql (U) Negative Normal [facility].; [employer], [employer]. Protein Ql (U) Negative Normal [facility].; [facility]. Laboratory - Chemistry and C hemistry - challengeon 12-15-2015 Bilirubin Ql (U) Negative Normal [employer].; [employer]. Ketones Ql (U) Negative Normal [employer].; [facility]. pH (U) 5.5 [pH] Normal [employer].; [employer], [employer]. Specific gravity (U) [Rel density] 1.025 Normal [employer].; [facility]. Urobilinogen Qn (U) .2 mg/dL Normal [facility].; [facility]. Laboratory - Hematology and Cell countson 12-15-2015 Hemoglobin Ql (U) Negative Normal [employer].; [facility]. Laboratory - Specimen inform ationon 12-15-2015 Appearance (U) Cloudy Abnormal [employer].; [employer], [employer]. Color (U) yellow Normal [employer].; [facility]. Laboratory - Urinalysison Glucose Test strip (U) [Mass/Vol] Negative Normal [employer].; [employer], [employer]. Leukocyte esterase Test strip Ql (U) small Abnormal [facility] [employer].; [employer], [employer]. Nitrite Ql (U) Negative Normal [employer].; [employer], [employer]. Protein Ql (U) Negative Normal [employer].; [employer], [employer]. Laboratory - Chemistry and C hemistry - challengeon 08-21-2015 Beta HCG ( test) Ql (U) Negative Normal [employer].; [employer]. Bilirubin Ql (U) Negative Normal [facility].; [facility]. Ketones Ql (U) Negative Normal [facility].; [facility]. pH (U) 5.5 [pH] Normal [facility].; [facility]. Specific gravity (U) [Rel density] 1.030 Abnormal [facility].; [facility]. Urobilinogen Qn (U) 0.2 mg/dL Normal [facility].; [facility]. Laboratory - Cytologyon Microscopic observation Cyto stain Nom (Cvx) Normal [employer].; [facility]. Laboratory - Hematology and Cell countson 08-21-2015 Hemoglobin Ql (U) Negative Normal [facility].; [facility]. Laboratory - Specimen inform ationon 08-21-2015 Appearance (U) Clear Normal [facility].; [facility]. Color (U) Yellow Normal [facility].; [facility]. Laboratory - Urinalysison Glucose Test strip (U) [Mass/Vol] Negative Normal [facility].; [facility]. Leukocyte esterase Test strip Ql (U) Negative Normal [facility].; [facility]. Nitrite Ql (U) Negative Normal [facility].; [facility]. Protein Ql (U) Negative Normal [facility].; [facility]. Laboratory - Chemistry and C hemistry - challengeon 02-03-2015 Bilirubin Ql (U) Negative Normal [facility].; [facility]. Ketones Ql (U) Negative Normal [facility].; [facility]. pH (U) 6.0 [pH] Normal [facility].; [facility]. Specific gravity (U) [Rel density] 1.010 Normal [facility].; [facility]ire. Urobilinogen Qn (U) .2 mg/dL Normal [facility].; [facility]. Laboratory - Hematology and Cell countson 02-03-2015 Hemoglobin Ql (U) Negative Normal [employer].; [facility]. Laboratory - Specimen inform ationon 02-03-2015 Appearance (U) Clear Normal [place] [facility] [employer].; [employer]. Color (U) yellow Normal [facility] [employer].; [facility]. Laboratory - Urinalysison Glucose Test strip (U) [Mass/Vol] Negative Normal [employer].; [facility]. Leukocyte esterase Test strip Ql (U) Negative Normal [employer].; [employer]. Nitrite Ql (U) Negative Normal [employer].; [employer]. Protein Ql (U) Negative Normal [employer].; [facility]. Laboratory - Microbiology an d Antimicrobial susceptibilityon 12-24-2013 S. pyogenes Ag EIA Ql (Throat) Negative Normal [facility].; [facility]. Laboratory - Chemistry and C hemistry - challengeon 08-29-2012 Albumin [Mass/Vol] 4.7 g/dL Normal 3.6 - 5.1 g/dL [place] [facility].; [employer], [employer]. Albumin/Globulin [Mass ratio] 1.8 {ratio} Normal 1.0 - 2.5 [place] [facility] [employer].; [employer]. ALP [Catalytic activity/Vol] 64 U/L Normal 47 - 176 U/L [facility].; [employer]. ALT [Catalytic activity/Vol] 11 U/L Normal 5 - 32 U/L [facility].; [employer]. AST [Catalytic activity/Vol] 14 U/L Normal 12 - 32 U/L [employer].; [employer]. Bilirubin [Mass/Vol] 0.5 mg/dL Normal 0.2 - 1 .1 mg/dL [facility].; [employer]. Calcium [Mass/Vol] 9.6 mg/dL Normal 8.9 - 10. 4 mg/dL [facility].; [employer]. Chloride [Moles/Vol] 107 mmol/L Normal 98 - 11 0 mmol/L [facility].; [facility], [facility]. CO2 [Moles/Vol] 23 mmol/L Normal 19 - 30 mmol/L [facility].; [facility], [facility] Creatinine [Mass/Vol] 0.69 mg/dL Normal 0.50 - 1.00 mg/dL [facility], [facility].; [facility], [facility] GFR/1.73 sq M.predicted among blacks MDRD (S/P/Bld) [Vol rate/Area] SEE NOTE Normal [facility], [facility].; [facility], [facility]. GFR/1.73 sq M.predicted MDRD (S/P/Bld) [Vol rate/Area] SEE NOTE Normal [facility], [facility].; [place] [facility], [facility]. Globulin (S) [Mass/Vol] 2.7 g/dL Normal 2.0 - 3.8 g/dL [facility].; [facility], [facility]. Glucose [Mass/Vol] 81 mg/dL Normal 65 - 99 mg/dL [facility].; [facility], [facility]. Potassium [Moles/Vol] 4.3 mmol/L Normal 3.8 - 5.1 mmol/L [facility].; [facility], [facility]. Protein [Mass/Vol] 7.4 g/dL Normal 6.3 - 8.2 g/dL [facility], [facility].; [facility], [facility]. Sodium [Moles/Vol] 140 mmol/L Normal 135 - 146 mmol/L [facility].; [place] [facility], [facility]. TSH Qn 1.52 m[IU]/L Normal 0.50 - 4.30 {mIU/L} [facility].; [facility], [facility]. Urea nitrogen [Mass/Vol] 16 mg/dL Normal 7 - 20 mg/dL [facility], [facility].; [facility], [facility]. Urea nitrogen/Creatinine [Mass ratio] 22.6 mg/mg Abnormal 6 - 22 [facility].; [place] [facility], [facility] Laboratory - Hematology and Cell countson 08-29-2012 Erythrocyte distribution width (RBC) [Ratio] 16.0 % Abnormal 11.0 - 15.0 % [facility].; [facility] Hematocrit (Bld) [Volume fraction] 36.8 % Normal 34.0 - 46.0 % [facility]; [facility], [facility] Hemoglobin (Bld) [Mass/Vol] 12.1 g/dL Normal 11.5 - 15.3 g/dL [facility]; [facility] MCH (RBC) [Entitic mass] 28.0 pg Normal 25.0 - 35.0 PG [facility]; [facility] MCHC (RBC) [Mass/Vol] 32.9 g/dL Normal 31.0 - 36.0 g/dL [facility]; [facility], [facility]. MCV (RBC) [Entitic vol] 85.0 fL Normal 78.0 - 98.0 fL [facility]; [facility] Platelets (Bld) [#/Vol] 169 10*3/uL Normal 140 - 400 10*3/uL [facility]; [facility] [facility] RBC (Bld) [#/Vol] 4.33 10*6/uL Normal 3.80 - 5.1 0 10*6/uL [facility], [facility]. WBC (Bld) [#/Vol] 5.3 10*3/uL Normal 4.5 - 13.0 10*3/uL [facility].; [place] [facility] - Microbiology an d Antimicrobial susceptibilityon 04-01-2011 Bacteria identified Anaer cx Nom (Unsp spec) SEE NOTE Normal [facility]; [facility]. Bacteria identified Cx Nom (Unsp spec) SEE NOTE Normal [facility]; [facility]. HIV 1+2 Ab IA Ql Non-Reactive Normal [facility]; [place] [facility] Microscopic observation Gram stain Nom (Unsp spec) SEE NOTE Normal [facility]; [facility] - Specimen inform ationon 04-01-2011 Specimen source Nom (Unsp spec) WOUND-ORAL/PHARYNGEAL Normal [facility] - Chemistry and C hemistry - challengeon 02-08-2010 Albumin [Mass/Vol] 4.8 g/dL Normal 3.6 - 5.1 g/dL [facility], [facility]. Albumin/Globulin [Mass ratio] 1.9 {ratio} Normal 1.0 - 2.1 [facility], [facility]. ALP [Catalytic activity/Vol] 66 U/L Normal 41 - 244 U/L [facility], [facility]. ALT [Catalytic activity/Vol] 9 U/L Normal 6 - 19 U/L [facility], [facility]. AST [Catalytic activity/Vol] 13 U/L Normal 12 - 32 U/L [facility], [facility]. Bilirubin [Mass/Vol] 0.5 mg/dL Normal 0.2 - 1 .1 mg/dL [facility].; [facility]. Calcium [Mass/Vol] 10.1 mg/dL Normal 8.9 - 10. 4 mg/dL [facility], [facility].; [facility], [facility]. Chloride [Moles/Vol] 105 mmol/L Normal 98 - 11 0 mmol/L [facility], [facility]. CO2 [Moles/Vol] 24 mmol/L Normal 21 - 33 mmol/L [facility].; [facility], [facility]. Creatinine [Mass/Vol] 0.63 mg/dL Normal 0.54 - 0.95 mg/dL [facility].; [facility], [facility]. GFR/1.73 sq M.predicted among blacks MDRD (S/P/Bld) [Vol rate/Area] SEE NOTE Normal [facility], [facility].; [facility], [facility]. GFR/1.73 sq M.predicted MDRD (S/P/Bld) [Vol rate/Area] SEE NOTE Normal [facility], [facility].; [facility], [facility]. Globulin (S) [Mass/Vol] 2.4 g/dL Normal 2.0 - 3.8 g/dL [facility].; [facility]. Glucose [Mass/Vol] 81 mg/dL Normal 65 - 99 mg/dL [facility].; [facility], [facility]. Potassium [Moles/Vol] 3.9 mmol/L Normal 3.8 - 5.1 mmol/L [facility] Protein [Mass/Vol] 7.2 g/dL Normal 6.3 - 8.2 g/dL [facility].; [facility], [facility] Sodium [Moles/Vol] 140 mmol/L Normal 135 - 146 mmol/L [facility].; [facility]. TSH Qn 2.17 m[IU]/L Normal 0.50 - 4.30 {mIU/L} [facility], [facility] Urea nitrogen [Mass/Vol] 12 mg/dL Normal 7 - 20 mg/dL [facility].; [facility], [facility]. Urea nitrogen/Creatinine [Mass ratio] 18.3 mg/mg Normal 6 - 22 [facility].; [facility] - Hematology and Cell countson 02-08-2010 Basophils (Bld) [#/Vol] 30 {Cells}/uL Normal 0 - 200 {Cells}/uL [facility].; [facility], [facility]. Basophils/100 WBC (Bld) 0 % Normal 0 - 2 % [facility].; [facility], [facility]. Eosinophils (Bld) [#/Vol] 260 {Cells}/uL Normal 15 - 500 {Cells}/uL [facility].; [facility] Eosinophils/100 WBC (Bld) 4 % Normal 0 - 6 % [facility].; [facility], [facility] Erythrocyte distribution width (RBC) [Ratio] 13.7 % Normal 11.0 - 15.0 % [facility].; [place] [facility] Hematocrit (Bld) [Volume fraction] 37.3 % Normal 34.0 - 46.0 % [facility].; [facility], [facility] Hemoglobin (Bld) [Mass/Vol] 12.5 g/dL Normal 11.5 - 15.3 g/dL [facility], [facility].; [facility], [facility]. Lymphocytes (Bld) [#/Vol] 2030 {Cells}/uL Normal 1200 - 5200 {Cells}/uL [facility], [facility].; [facility] Lymphocytes/100 WBC (Bld) 28 % Normal 20 - 60 % [facility], [facility].; [facility], [facility]. MCH (RBC) [Entitic mass] 30.2 pg Normal 25.0 - 35.0 PG [facility], [facility].; [facility], [facility]. MCHC (RBC) [Mass/Vol] 33.6 g/dL Normal 31.0 - 36.0 g/dL [facility], [facility].; [facility], [facility]. MCV (RBC) [Entitic vol] 89.8 fL Normal 78.0 - 98.0 fL [facility], [facility].; [facility], [facility]. Monocytes (Bld) [#/Vol] 500 {Cells}/uL Normal 200 - 900 {Cells}/uL [facility].; [facility], [facility]. Monocytes/100 WBC (Bld) 7 % Normal 0 - 10 % [facility].; [facility], [facility]. Neutrophils (Bld) [#/Vol] 4360 {Cells}/uL Normal 1800 - 8000 {Cells}/uL [facility], [facility].; [place] [employer] Neutrophils/100 WBC (Bld) 61 % Normal 40 - 70 % [facility], [facility].; [facility], [facility]. Platelets (Bld) [#/Vol] 163 10*3/uL Normal 140 - 400 10*3/uL [facility], [facility].; [place] [employer] Platelets LM Ql (Bld) NORMAL Normal [facility].; [facility], [facility]. RBC (Bld) [#/Vol] 4.16 10*6/uL Normal 3.80 - 5.1 0 10*6/uL [facility], [facility].; [place] [employer] RBC morphology finding Nom (Bld) NORMAL Normal [facility], [facility].; [facility] WBC (Bld) [#/Vol] 7.2 10*3/uL Normal 4.5 - 13.0 10*3/uL [facility], [facility].; [facility], [facility]. Culture, urine Bacteria identified Cx Nom (U) Mixed Gram Pos & Gram Neg [facility] Work Phone: Vital Signs Date Time Vital Sign Value Performing Clinician Facility 09-30-2024 15:30-0400 Body height 172.7 cm Fox Abel MD Work Phone: [facility] 09-30-2024 15:30-0400 Body mass index (BMI) [Ratio] 43.43 kg/m2 Fox Abel MD Work Phone: [facility] 09-30-2024 15:30-0400 Body weight 129.55 kg Fox Abel MD Work Phone: [facility] 09-30-2024 15:30-0400 Diastolic blood pressure 84 mm[Hg] Fox Abel MD Work Phone: [facility] 09-30-2024 15:30-0400 Heart rate 86 /min Fox Abel MD Work Phone: [facility] 09-30-2024 15:30-0400 Respiratory rate 20 /min Fox Abel MD Work Phone: [facility] 09-30-2024 15:30-0400 Systolic blood pressure 120 mm[Hg] Fox Abel MD Work Phone: [facility] 09-11-2024 06:59-0400 Body height 171.7 cm Radha Busch MD Work Phone: [facility] 09-11-2024 06:59-0400 Body mass index (BMI) [Ratio] 44.73 kg/m2 Radha Busch MD Work Phone: [facility] 09-11-2024 06:59-0400 Body temperature 97.2 [degF] Radha Busch MD Work Phone: [facility] 09-11-2024 06:59-0400 Body weight 131.8 kg Radha Busch MD Work Phone: [facility] 09-11-2024 06:59-0400 Diastolic blood pressure 82 mm[Hg] Radha Busch MD Work Phone: [facility] 09-11-2024 06:59-0400 Heart rate 92 /min Radha Busch MD Work Phone: [facility] 09-11-2024 06:59-0400 Respiratory rate 16 /min Radha Busch MD Work Phone: [facility] 09-11-2024 06:59-0400 SaO2% (BldA) [Mass fraction] 98 % Radha Busch MD Work Phone: [facility] 09-11-2024 06:59-0400 Systolic blood pressure 112 mm[Hg] Radha Busch MD Work Phone: [facility] 08-13-2024 13:23-0400 Body mass index (BMI) [Ratio] 46.18 kg/m2 Marci Barron [employer] Work Phone: [facility] 08-13-2024 13:23-0400 Body weight 136.08 kg Marci Barron [employer] Work Phone: [facility] 08-05-2024 14:55-0400 Body mass index (BMI) [Ratio] 46.49 kg/m2 Fox Abel MD Work Phone: [facility] 08-05-2024 14:55-0400 Body weight 136.99 kg Fox Abel MD Work Phone: [facility] 08-05-2024 14:55-0400 Diastolic blood pressure 70 mm[Hg] Fox Abel MD Work Phone: [facility] 08-05-2024 14:55-0400 Systolic blood pressure 106 mm[Hg] Fox Abel MD Work Phone: [facility] 08-02-2024 11:56-0400 Body mass index (BMI) [Ratio] 47.05 kg/m2 Fox Abel MD Work Phone: [facility] 08-02-2024 11:56-0400 Body weight 138.62 kg Fox Abel MD Work Phone: [facility] 08-02-2024 11:56-0400 Diastolic blood pressure 82 mm[Hg] Fox Abel MD Work Phone: [facility] 08-02-2024 11:56-0400 Systolic blood pressure 120 mm[Hg] Fox Abel MD Work Phone: [facility] 08-01-2024 10:13-0400 Body height 171.7 cm Fox Abel MD Work Phone: [facility] 08-01-2024 10:13-0400 Body mass index (BMI) [Ratio] 47.54 kg/m2 Fox Abel MD Work Phone: [facility] 08-01-2024 10:13-0400 Body weight 140.07 kg Fox Abel MD Work Phone: [facility] 08-01-2024 10:13-0400 Diastolic blood pressure 80 mm[Hg] Fox Abel MD Work Phone: [facility] 08-01-2024 10:13-0400 Heart rate 82 /min Fox Abel MD Work Phone: [facility] 08-01-2024 10:13-0400 Respiratory rate 16 /min Fox Abel MD Work Phone: [facility] 08-01-2024 10:13-0400 Systolic blood pressure 116 mm[Hg] Fox Abel MD Work Phone: [facility] 07-16-2024 15:15-0400 Body mass index (BMI) [Ratio] 46.54 kg/m2 Marci Barron APRN.[employer] Work Phone: [facility] 07-16-2024 15:15-0400 Body temperature 97.5 [degF] Marci Barron APRN.[employer] Work Phone: [facility] 07-16-2024 15:15-0400 Body weight 138.85 kg Marci Barron [employer] Work Phone: [facility] 07-16-2024 15:15-0400 Diastolic blood pressure 85 mm[Hg] Marci Barron [employer] Work Phone: [facility] 07-16-2024 15:15-0400 Heart rate 93 /min Marci Barron [employer] Work Phone: [facility] 07-16-2024 15:15-0400 SaO2% (BldA) [Mass fraction] 97 % Marci Barron [employer] Work Phone: [facility] 07-16-2024 15:15-0400 Systolic blood pressure 130 mm[Hg] Marci Barron [employer] Work Phone: [facility] 06-28-2024 15:09-0400 Body mass index (BMI) [Ratio] 47.07 kg/m2 Fox Abel MD Work Phone: [facility] 06-28-2024 15:09-0400 Body weight 140.43 kg Fox Abel MD Work Phone: [facility] 06-28-2024 15:09-0400 Diastolic blood pressure 80 mm[Hg] Fox Abel MD Work Phone: [facility] 06-28-2024 15:09-0400 Systolic blood pressure 120 mm[Hg] Fox Abel MD Work Phone: [facility] 06-18-2024 14:23-0400 Body height 172.7 cm Dunia Gongora [employer] Work Phone: [facility] 06-18-2024 14:23-0400 Body mass index (BMI) [Ratio] 48.35 kg/m2 Dunia Gongora [employer] Work Phone: [facility] 06-18-2024 14:23-0400 Body weight 144.24 kg Dunia Gongora [employer] Work Phone: [facility] 06-18-2024 12:39-0400 Body height 172.7 cm Marci Barron [employer] Work Phone: [facility] 06-18-2024 12:39-0400 Body mass index (BMI) [Ratio] 48.4 kg/m2 Marci Barron [employer] Work Phone: [facility] 06-18-2024 12:39-0400 Body temperature 98.1 [degF] Marci Barron [employer] Work Phone: [facility] 06-18-2024 12:39-0400 Body weight 144.4 kg Marci Barron [employer] Work Phone: [facility] 06-18-2024 12:39-0400 Diastolic blood pressure 80 mm[Hg] Marci Barron [employer] Work Phone: [facility] 06-18-2024 12:39-0400 Heart rate 69 /min Marci Barron [employer] Work Phone: [facility] 06-18-2024 12:39-0400 Respiratory rate 16 /min Marci Barron [employer] Work Phone: [facility] 06-18-2024 12:39-0400 SaO2% (BldA) [Mass fraction] 100 % Marci Barron [employer] Work Phone: [facility] 06-18-2024 12:39-0400 Systolic blood pressure 131 mm[Hg] Marci Barron [employer] Work Phone: [facility] 04-25-2024 14:32-0500 Body mass index (BMI) [Ratio] 48.45 kg/m2 Uma Tinsley [employer] Work Phone: [facility] 04-25-2024 14:32-0500 Body weight 142.43 kg Uma Tinsley [employer] Work Phone: [facility] Comment on above: per pt 01-08-2024 09:26-0400 Body mass index (BMI) [Ratio] 48.61 kg/m2 Yennifer Pruitt [employer].CNM Work Phone: [facility] 01-08-2024 09:26-0400 Body weight 142.88 kg Yennifer Pruitt [employer].CNM Work Phone: [facility] 01-08-2024 09:26-0400 Diastolic blood pressure 78 mm[Hg] Yennifer Pruitt [employer].CNM Work Phone: [facility] 01-08-2024 09:26-0400 Systolic blood pressure 128 mm[Hg] Yennifer Pruitt [employer].CNM Work Phone: [facility] 11-24-2023 15:01-0400 Body mass index (BMI) [Ratio] 47.46 kg/m2 Asif Madison [employer] Work Phone: [facility] 11-24-2023 15:01-0400 Body weight 139.5 kg Asif Madison [employer] Work Phone: [facility] 11-24-2023 15:01-0400 Diastolic blood pressure 81 mm[Hg] Asif Madison [employer] Work Phone: [facility] 11-24-2023 15:01-0400 Heart rate 92 /min Asif Madison [employer] Work Phone: [facility] 11-24-2023 15:01-0400 Respiratory rate 16 /min Asif Madison [employer] Work Phone: [facility] 11-24-2023 15:01-0400 SaO2% (BldA) [Mass fraction] 98 % Asif Madison [employer] Work Phone: [facility] 11-24-2023 15:01-0400 Systolic blood pressure 132 mm[Hg] Asif Wallace APRN.CNP Work Phone: [facility] 09-27-2023 08:37-0400 Body height 171.5 cm Anju Rajan MD Work Phone: [facility] 09-27-2023 08:37-0400 Body mass index (BMI) [Ratio] 46.91 kg/m2 Anju Rajan MD Work Phone: [facility] 09-27-2023 08:37-0400 Body temperature 98.1 [degF] Anju Rajan MD Work Phone: [facility] 09-27-2023 08:37-0400 Body weight 137.9 kg Anju Rajan MD Work Phone: [facility] 09-27-2023 08:37-0400 Diastolic blood pressure 81 mm[Hg] Anju Rajan MD Work Phone: [facility] 09-27-2023 08:37-0400 Heart rate 79 /min Anju Rajan MD Work Phone: [facility] 09-27-2023 08:37-0400 Respiratory rate 16 /min Anju Rajan MD Work Phone: [facility] 09-27-2023 08:37-0400 SaO2% (BldA) [Mass fraction] 96 % Anju Rajan MD Work Phone: [facility] 09-27-2023 08:37-0400 Systolic blood pressure 118 mm[Hg] Anju Rajan MD Work Phone: [facility] 06-20-2023 10:42-0400 Body height 171.[address] [facility] 06-20-2023 10:42-0400 Body weight 135.[address] [facility] 06-20-2023 10:07-0400 Body weight 135.63 kg Asif Roman MD Work Phone: [facility] 06-20-2023 10:07-0400 Diastolic blood pressure 80 mm[Hg] Asif Roman MD Work Phone: [facility] 06-20-2023 10:07-0400 Heart rate 75 /min Asif Roman MD Work Phone: [facility] 06-20-2023 10:07-0400 SaO2% (BldA) [Mass fraction] 99 % Asif Roman MD Work Phone: [facility] 06-20-2023 10:07-0400 Systolic blood pressure 126 mm[Hg] Asif Roman MD Work Phone: [facility] 06-12-2023 15:01-0400 Body weight 135.9 kg Christopher Haury [employer] Work Phone: [facility] 06-12-2023 15:01-0400 Diastolic blood pressure 80 mm[Hg] Christopher Haury [employer] Work Phone: [facility] 06-12-2023 15:01-0400 Systolic blood pressure 120 mm[Hg] Christopher Haury [employer] Work Phone: [facility] 05-17-2023 13:46-0500 Body height 171.5 cm Dunia Coyner [employer] Work Phone: [facility] 05-17-2023 13:46-0500 Body weight 134.72 kg Dunia Coyner [employer] Work Phone: [facility] 04-24-2023 12:32-0500 Body height 172.1 cm Christopher Haury [employer] Work Phone: [facility] 04-24-2023 12:32-0500 Body weight 132.9 kg Christopher Haury [employer] Work Phone: [facility] 04-24-2023 12:32-0500 Diastolic blood pressure 64 mm[Hg] Christopher Haury [employer] Work Phone: [facility] 04-24-2023 12:32-0500 Systolic blood pressure 100 mm[Hg] Christopher Haury [employer] Work Phone: [facility] 03-29-2023 11:05-0500 Body height 173.99 cm Gayel Rubi LPN [facility], [facility].; [facility]. 03-29-2023 11:05-0500 Body mass index (BMI) [Ratio] 43.3 kg/m2 Gayle Rubi LPN [facility], [facility].; [facility], [facility]. 03-29-2023 11:05-0500 Body surface area Derived from formula 2.4 m2 Gayle Rubi LPN [facility], [facility].; [facility], [facility]. 03-29-2023 11:05-0500 Body temperature 100.9 [degF] Gayle Rubi LPN [facility], [facility].; [place] [employer] Comment on above: Method: Tympanic 03-29-2023 11:05-0500 Body weight 131.09 kg Gayle Rubi LPN [facility], [facility].; [place] [facility] 03-29-2023 11:05-0500 Diastolic blood pressure 72 mm[Hg] Gayle Rubi LPN [facility].; [place] [employer]. Comment on above: Patient Position: Sitting; Cuff Location : Left Arm; Cuff Size: Standard 03-29-2023 11:05-0500 Heart rate 128 /min Gayle Rubi LPN [facility], [facility].; [employer] Comment on above: Pattern: Regular 03-29-2023 11:05-0500 Inhaled oxygen concentration 20 % Gayle Rubi LPN [facility], [facility].; [employer] Comment on above: Room air 03-29-2023 11:05-0500 SaO2% (BldA) [Mass fraction] 97 % Gayle Rubi [employer]CIAL [employer] [facility], [facility].; [place] [employer]. 03-29-2023 11:05-0500 Systolic blood pressure 113 mm[Hg] Gayle Rubi LPN [facility], [facility].; [employer], [employer]. Comment on above: Patient Position: Sitting; Cuff Location : Left Arm; Cuff Size: Standard 12-07-2022 11:09-0400 Body temperature 97.3 [degF] Aristeo To LPN [facility], [facility].; [facility], [facility]. 12-07-2022 11: Body weight 138.8 kg [facility].; [facility], [employer]. 12-07-2022 11:090400 Diastolic blood pressure 75 mm[Hg] Aristeo To [facility], [facility].; [facility], [employer]. Comment on above: Patient Position: Sitting; Cuff Location : Left Arm; Cuff Size: Standard 12-07-2022 11: Heart rate 77 /min Aristeo To [facility], [facility].; [facility], [employer]. Comment on above: Pattern: Regular 12-07-2022 11:09040 Inhaled oxygen concentration 20 % Aristeo To [facility], [facility].; [facility], [employer]. Comment on above: Room air 12-07-2022 11:040 SaO2% (BldA) [Mass fraction] 98 % Aristeo To [facility], [facility].; [facility], [employer]. 12-07-2022 11:09040 Systolic blood pressure 110 mm[Hg] [facility], [facility].; [facility], [employer]. Comment on above: Patient Position: Sitting; Cuff Location : Left Arm; Cuff Size: Standard 02-25-2021 13:050 Body height 173.99 cm Andrzej Peralta MD Work Phone: [facility].; [facility] [employer] 02-25-2021 13:050 Body mass index (BMI) [Ratio] 44.5 kg/m2 Andrzej Peralta MD Work Phone: [facility].; [place] [facility] 02-25-2021 13:050 Body surface area Derived from formula 2.43 m2 Andrzej Peralta MD Work Phone: [facility].; [place] [facility] 02-25-2021 13:050 Body temperature 98.7 [degF] Andrzej Peralta MD Work Phone: [facility]; [employer]. Comment on above: Method: Tympanic 02-25-2021 13:19-0500 Body weight 134.72 kg Andrzej Peralta MD Work Phone: [facility]; [employer]. 02-25-2021 13:19-0500 Diastolic blood pressure 55 mm[Hg] Andrzej Peralta MD Work Phone: [place] [facility]; [employer]. Comment on above: Patient Position: Sitting; Cuff Location : Left Arm; Cuff Size: Standard 02-25-2021 13:19-0500 Heart rate 73 /min Andrzej Peralta MD Work Phone: [place] [facility]; [employer]. Comment on above: Pattern: Regular 02-25-2021 13:19-0500 Inhaled oxygen concentration 20 % Andrzej Peralta MD Work Phone: [place] [facility]; [employer]. Comment on above: Room air 02-25-2021 13:19-0500 SaO2% (BldA) [Mass fraction] 96 % Andrzej Peralta MD Work Phone: [place] [facility]; [employer]. 02-25-2021 13:19-0500 Systolic blood pressure 105 mm[Hg] Andrzej Peralta MD Work Phone: [place] [facility]; [employer]. Comment on above: Patient Position: Sitting; Cuff Location : Left Arm; Cuff Size: Standard 01-24-2020 09:00-0500 Body height 173.99 cm Sonali Guzman LPN [facility].; [employer]. 01-24-2020 09:00-0500 Body mass index (BMI) [Ratio] 43.45 kg/m2 Sonali Guzman LPN [facility], Inc.; [employer]. 01-24-2020 09:00-0500 Body surface area Derived from formula 2.41 m2 Sonali Guzman LPN [facility], [facility].; [facility], [facility]. 01-24-2020 09:00-0500 Body temperature 97.9 [degF] Sonali Meaganmichael [facility].; [facility], Inc[facility] 01-24-2020 09:00-0500 Body weight 131.54 kg Sonali Meaganmichael [facility], [facility].; [place] [employer] 01-24-2020 09:00-0500 Diastolic blood pressure 80 mm[Hg] Sonali Tomaszjalil [facility].; [place] [employer], [employer]. Comment on above: Patient Position: Sitting; Cuff Location : Left Arm; Cuff Size: Standard 01-24-2020 09:00-0500 Heart rate 109 /min [facility]onal[facility], [facility].; [facility] [employer], [employer]. Comment on above: Pattern: Regular 01-24-2020 09:00-0500 Systolic blood pressure 117 mm[Hg] Sonali Plainfieldneldamichael [facility].; [place] [facility], [facility] Comment on above: Patient Position: Sitting; Cuff Location : Left Arm; Cuff Size: Standard 03-18-2019 13:20-0500 Body height 173.99 cm Andrzej Peralta MD Work Phone: [facility].; [place] [employer] 03-18-2019 13:20-0500 Body temperature 100.1 [degF] Andrzej Peralta MD Work Phone: [facility].; [place] [employer]. Comment on above: Method: Tympanic 03-18-2019 13:20-0500 Diastolic blood pressure 83 mm[Hg] Andrzej Peralta MD Work Phone: [facility].; [place] [employer]. Comment on above: Patient Position: Sitting; Cuff Location : Left Arm; Cuff Size: Large 03-18-2019 13:20-0500 Heart rate 90 /min Andrzej Peralta MD Work Phone: [facility] HospitalPre[facility].; [employer]. Comment on above: Pattern: Regular 03-18-2019 13:20-0500 Inhaled oxygen concentration 20 % Andrzej Peralta MD Work Phone: [employer].; [employer]. Comment on above: Room air 03-18-2019 13:20-0500 SaO2% (BldA) [Mass fraction] 98 % Andrzej Peralta MD Work Phone: [employer].; [employer]. 03-18-2019 13:20-0500 Systolic blood pressure 113 mm[Hg] Andrzej Peralta MD Work Phone: [employer].; [employer]. Comment on above: Patient Position: Sitting; Cuff Location : Left Arm; Cuff Size: Large 02-25-2019 15:31-0500 Body height 173.99 cm Yennifer Mottelvis COMMERCIAL ILLUSTRATOR [employer], [employer].; [employer]. 02-25-2019 15:31-0500 Body mass index (BMI) [Ratio] 42.1 kg/m2 Yennifernicholas Mottelvis COMMERCIAL ILLUSTRATOR [employer], [employer].; [employer]. 02-25-2019 15:31-0500 Body surface area Derived from formula 2.37 m2 Yennifernicholas Mottelvis COMMERCIAL ILLUSTRATOR [employer], [employer].; [employer]. 02-25-2019 15:31-0500 Body temperature 99.5 [degF] Yennifernicholas Mottelvis COMMERCIAL ILLUSTRATOR [employer], [employer].; [employer]. Comment on above: Method: Tympanic 02-25-2019 15:31-0500 Body weight 127.46 kg Yennifer Zohreh TAMAYO [employer]. 02-25-2019 15:31-0500 Diastolic blood pressure 81 mm[Hg] Yennifer Zohreh COMMERCIAL ILLUSTRATOR [employer], [employer].; [employer]. Comment on above: Patient Position: Sitting; Cuff Location : Left Arm; Cuff Size: Standard 02-25-2019 15:31-0500 Heart rate 93 /min Yennifer Bruner LPN [employer]. Comment on above: Pattern: Regular 02-25-2019 15:31-0500 Inhaled oxygen concentration 20 % Yennifer Bruner LPN [facility] [employer], [employer]. Comment on above: Room air 02-25-2019 15:31-0500 SaO2% (BldA) [Mass fraction] 97 % Yennifer Bruner [facility] [employer], [employer]. 02-25-2019 15:31-0500 Systolic blood pressure 125 mm[Hg] Yennifer Bruner LPN [employer]. Comment on above: Patient Position: Sitting; Cuff Location : Left Arm; Cuff Size: Standard 02-08-2019 16:09-0500 Body height 173.99 cm Yennifer Bruner COMMERCIAL ILLUSTRATOR [employer], [employer]. 02-08-2019 16:09-0500 Body mass index (BMI) [Ratio] 41.8 kg/m2 [facility]ennifer [facility]er [facility] [employer], [employer]. 02-08-2019 16:09-0500 Body surface area Derived from formula 2.37 m2 Yennifer Bruner COMMERCIAL ILLUSTRATOR [facility] [employer], [employer]. 02-08-2019 16:09-0500 Body temperature 99.9 [degF] Yennifer Bruner [facility], [employer].; [employer], [employer]. Comment on above: Method: Tympanic 02-08-2019 16:09-0500 Body weight 126.55 kg Yennifer Bruner COMMERCIAL ILLUSTRATOR [employer], [employer]. 02-08-2019 16:09-0500 Diastolic blood pressure 81 mm[Hg] Yennifer Bruner LPN [employer], [employer].; [employer]. Comment on above: Patient Position: Sitting; Cuff Location : Left Arm; Cuff Size: Standard 02-08-2019 16:09-0500 Heart rate 101 /min Yennifer Bruner LPN [employer]. Comment on above: Pattern: Regular 02-08-2019 16:09-0500 Inhaled oxygen concentration 20 % Yennifer Bruner COMMERCIAL ILLUSTRATOR [employer], [employer].; [employer]. Comment on above: Room air 02-08-2019 16:09-0500 SaO2% (BldA) [Mass fraction] 96 % Yennifer Bruner LPN [employer].; [employer]. 02-08-2019 16:09-0500 Systolic blood pressure 117 mm[Hg] Yennifer Bruner LPN [employer].; [employer]. Comment on above: Patient Position: Sitting; Cuff Location : Left Arm; Cuff Size: Standard 08-24-2018 09:29-0400 Body height 173.99 cm Galina Driver RN [employer].; [employer]. 08-24-2018 09:29-0400 Body mass index (BMI) [Ratio] 41.35 kg/m2 Galina Driver RN [employer].; [employer]. 08-24-2018 09:290400 Body surface area Derived from formula 2.36 m2 Galina Driver RN [employer].; [employer]. 08-24-2018 09:29-0400 Body temperature 99.2 [degF] Galina Driver RN [employer].; [employer]. Comment on above: Method: Tympanic 08-24-2018 09:290400 Body weight 125.19 kg Galina Driver RN [employer].; [employer]. 08-24-2018 09:29-0400 Diastolic blood pressure 85 mm[Hg] Galina Driver RN [employer].; [employer]. Comment on above: Patient Position: Sitting; Cuff Location : Left Arm; Cuff Size: Large 08-24-2018 09:29-0400 Heart rate 88 /min Galina Driver RN [employer].; [employer]. Comment on above: Pattern: Regular 08-24-2018 09:29-0400 Inhaled oxygen concentration 20 % Galina Driver RN [employer].; [employer]. Comment on above: Room air 08-24-2018 09:29-0400 SaO2% (BldA) [Mass fraction] 99 % Galina Driver RN [place] [employer], [employer].; [employer]. 08-24-2018 09:29-0400 Systolic blood pressure 119 mm[Hg] Galina Driver RN [place] [facility], [employer].; [employer]. Comment on above: Patient Position: Sitting; Cuff Location : Left Arm; Cuff Size: Large 07-25-2018 08:49-0400 Body height 173.99 cm Jenelle Sutton LPN [place] [facility], [employer].; [employer]. 07-25-2018 08:49-0400 Body mass index (BMI) [Ratio] 41.35 kg/m2 JoannaLillian Sutton LPN [employer], [employer].; [employer]. 07-25-2018 08:49-0400 Body surface area Derived from formula 2.36 m2 Joanna Herman COMMERCIAL ILLUSTRATOR [facility], [employer].; [employer]. 07-25-2018 08:49-0400 Body weight 125.19 kg Jenelle Sutton LPN [employer], [employer].; [employer]. 07-25-2018 08:49-0400 Diastolic blood pressure 75 mm[Hg] Jenelle Sutton LPN [facility], [employer].; [employer]. Comment on above: Patient Position: Sitting; Cuff Location : Left Arm; Cuff Size: Large 07-25-2018 08:49-0400 Heart rate 63 /min Jenelle Sutton LPN [facility], [employer].; [employer]. Comment on above: Pattern: Regular 07-25-2018 08:49-0400 Systolic blood pressure 111 mm[Hg] JoannaLillian Sutton COMMERCIAL ILLUSTRATOR [employer], [employer].; [employer]. Comment on above: Patient Position: Sitting; Cuff Location : Left Arm; Cuff Size: Large 02-21-2018 16:28-0500 Body height 173.99 cm Chari Abraham BELKIS Work Phone: [employer].; [employer]. 02-21-2018 16:28-0500 Body mass index (BMI) [Ratio] 41.06 kg/m2 Chari Abraham LPN Work Phone: [employer].; [employer]. 02-21-2018 16:28-0500 Body surface area Derived from formula 2.35 m2 Chari Abraham LPN Work Phone: [employer].; [employer]. 02-21-2018 16:28-0500 Body weight 124.29 kg Chari Abraham LPN Work Phone: [employer].; [employer]. 02-21-2018 16:28-0500 Diastolic blood pressure 79 mm[Hg] Chari Abraham LPN Work Phone: [employer].; [employer]. Comment on above: Patient Position: Sitting; Cuff Location : Left Arm; Cuff Size: Large 02-21-2018 16:28-0500 Heart rate 68 /min Chari Abraham LPN Work Phone: [employer]; [employer]. Comment on above: Pattern: Regular 02-21-2018 16:28-0500 Systolic blood pressure 117 mm[Hg] Chari Abraham LPN Work Phone: [employer].; [employer]. Comment on above: Patient Position: Sitting; Cuff Location : Left Arm; Cuff Size: Large 02-06-2018 10:33-0500 Body height 173.99 cm [facility] [employer]. 02-06-2018 10:33-0500 Body mass index (BMI) [Ratio] 41.2 kg/m2 [facility].; [employer]. 02-06-2018 10:33-0500 Body surface area Derived from formula 2.35 m2 [facility], [employer].; [employer]. 02-06-2018 10:33-0500 Body temperature 101.6 [degF] [facility].; [employer]. Comment on above: Method: Tympanic 02-06-2018 10:33-0500 Body weight 124.74 kg Jenelle Sutton COMMERCIAL ILLUSTRATOR [facility], [facility].; [employer]. 02-06-2018 10:33-0500 Diastolic blood pressure 78 mm[Hg] Jenelle Sutton [facility], [facility].; [employer]. Comment on above: Patient Position: Sitting; Cuff Location : Left Arm; Cuff Size: Large 02-06-2018 10:33-0500 Heart rate 118 /min Jenelle Sutton [facility], [facility].; [employer]. Comment on above: Pattern: Regular 02-06-2018 10:33-0500 Inhaled oxygen concentration 20 % JoannaLillian Sutton [facility], [facility].; [employer]. Comment on above: Room air 02-06-2018 10:33-0500 SaO2% (BldA) [Mass fraction] 97 % Joanna Herman [facility], [facility].; [employer]. 02-06-2018 10:33-0500 Systolic blood pressure 128 mm[Hg] Jenelle Sutton [facility], [employer].; [employer], [employer]. Comment on above: Patient Position: Sitting; Cuff Location : Left Arm; Cuff Size: Large 11-27-2017 13:38-0400 Body height 173.99 cm Jenelle Sutton [facility], [facility].; [employer]. 11-27-2017 13:38-0400 Body mass index (BMI) [Ratio] 41.06 kg/m2 Joanna Herman [facility], [facility].; [employer], [employer]. 11-27-2017 13:38-0400 Body surface area Derived from formula 2.35 m2 [facility] Herman [facility], [facility].; [employer], [employer]. 11-27-2017 13:38-0400 Body temperature 99.5 [degF] JoannaLillian Sutton [facility], [employer].; [employer]. Comment on above: Method: Tympanic 11-27-2017 13:38-0400 Body weight 124.29 kg Jenelle Sutton COMMERCIAL ILLUSTRATOR [facility], [facility].; [employer], [employer]. 11-27-2017 13:38-0400 Diastolic blood pressure 70 mm[Hg] Jenelle Sutton LPN [facility], [facility].; [employer]. Comment on above: Patient Position: Sitting; Cuff Location : Left Arm; Cuff Size: Large 11-27-2017 13:38-0400 Heart rate 112 /min Jenelle Sutton [facility], [facility].; [employer]. Comment on above: Pattern: Regular 11-27-2017 13:38-0400 Inhaled oxygen concentration 20 % JoannaLillian Sutton [facility], [facility].; [employer]. Comment on above: Room air 11-27-2017 13:38-0400 SaO2% (BldA) [Mass fraction] 98 % Jenelle Sutton [facility], [facility].; [employer], [employer]. 11-27-2017 13:38-0400 Systolic blood pressure 117 mm[Hg] Jenelle Sutton [facility], [facility].; [employer], [employer]. Comment on above: Patient Position: Sitting; Cuff Location : Left Arm; Cuff Size: Large 09-13-2017 10:49-0400 Body height 173.99 cm Jenelle Sutton COMMERCIAL ILLUSTRATOR [facility], [facility].; [employer], [employer]. 09-13-2017 10:49-0400 Body mass index (BMI) [Ratio] 41.35 kg/m2 Jenelle Sutton [facility], [facility].; [employer], [employer]. 09-13-2017 10:49-0400 Body surface area Derived from formula 2.36 m2 Joanna Herman [facility], [facility].; [employer]. 09-13-2017 10:49-0400 Body temperature 99.3 [degF] Jenelle Sutton [facility].; [employer]. Comment on above: Method: Tympanic 09-13-2017 10:49-0400 Body weight 125.19 kg Jenelle Sutton LPN [facility], [facility].; [employer]. 09-13-2017 10:49-0400 Diastolic blood pressure 69 mm[Hg] Jenelle Sutton [facility].; [employer]. Comment on above: Patient Position: Sitting; Cuff Location : Left Arm; Cuff Size: Large 09-13-2017 10:49-0400 Heart rate 65 /min Jenelle Sutton [facility], [facility].; [employer]. Comment on above: Pattern: Regular 09-13-2017 10:49-0400 Inhaled oxygen concentration 20 % [facility] Herman [facility], [facility].; [employer], [employer]. Comment on above: Room air 09-13-2017 10:49-0400 SaO2% (BldA) [Mass fraction] 97 % [facility] Herman [facility], [facility].; [employer], [employer]. 09-13-2017 10:49-0400 Systolic blood pressure 116 mm[Hg] Jenelle Sutton [facility].; [employer]. Comment on above: Patient Position: Sitting; Cuff Location : Left Arm; Cuff Size: Large 08-30-2017 10:55-0400 Body height 173.99 cm Jenelle Sutton [facility], [facility].; [employer], [employer]. 08-30-2017 10:55-0400 Body mass index (BMI) [Ratio] 41.35 kg/m2 Joanna Herman [facility], [facility].; [employer]. 08-30-2017 10:55-0400 Body surface area Derived from formula 2.36 m2 [facility] Herman [facility], [facility].; [employer]. 08-30-2017 10:55-0400 Body temperature 98.4 [degF] JoannaLillian Sutton [facility].; [employer]. Comment on above: Method: Tympanic 08-30-2017 10:55-0400 Body weight 125.19 kg Jenelle Sutton [facility].; [employer]. 08-30-2017 10:55-0400 Diastolic blood pressure 72 mm[Hg] Jenelle Sutton BELKIS [facility].; [employer]. Comment on above: Patient Position: Sitting; Cuff Location : Left Arm; Cuff Size: Large 08-30-2017 10:55-0400 Heart rate 72 /min Jenelle Snyder Herman COMMERCIAL ILLUSTRATOR [facility].; [employer]. Comment on above: Pattern: Regular 08-30-2017 10:55-0400 Inhaled oxygen concentration 20 % Joanna [place] [facility], [facility].; [employer], [employer]. Comment on above: Room air 08-30-2017 10:55-0400 SaO2% (BldA) [Mass fraction] 98 % Jenelle Powersuckey COMMERCIAL ILLUSTRATOR [facility], [facility].; [employer]. 08-30-2017 10:55-0400 Systolic blood pressure 147 mm[Hg] Jenelle Sutton COMMERCIAL ILLUSTRATOR [place] [facility].; [employer]. Comment on above: Patient Position: Sitting; Cuff Location : Left Arm; Cuff Size: Large 06-07-2017 08:00-0400 Body height 173.99 cm Kelsea Vang [facility], [facility].; [employer]. 06-07-2017 08:00-0400 Body mass index (BMI) [Ratio] 40.76 kg/m2 Kelsea Vang [facility], [facility].; [employer]. 06-07-2017 08:00-0400 Body surface area Derived from formula 2.34 m2 Kelsea Vang COMMERCIAL ILLUSTRATOR [place] [facility].; [employer]. 06-07-2017 08:00-0400 Body weight 123.38 kg Kelsea Vang [facility], [facility].; [employer]. 06-07-2017 08:00-0400 Diastolic blood pressure 71 mm[Hg] Kelsea Vang COMMERCIAL ILLUSTRATOR [place] [facility].; [employer]. Comment on above: Patient Position: Sitting; Cuff Location : Right Arm; Cuff Size: Standard 06-07-2017 08:00-0400 Heart rate 64 /min Kelsea Duenaslabach [facility] [employer]. Comment on above: Pattern: Regular 06-07-2017 08:00-0400 Systolic blood pressure 116 mm[Hg] Kelsea Duenaslabach [facility] [employer] Comment on above: Patient Position: Sitting; Cuff Location : Right Arm; Cuff Size: Standard 05-26-2017 09:37-0500 Body height 173.99 cm Jeffrey Wood LPN [facility] [employer]. 05-26-2017 09:37-0500 Body mass index (BMI) [Ratio] 41.35 kg/m2 Jeffrey Wood [facility] [employer] 05-26-2017 09:37-0500 Body surface area Derived from formula 2.36 m2 Jeffrey Wood COMMERCIAL ILLUSTRATOR [facility] [employer] 05-26-2017 09:37-0500 Body temperature 98 [degF] Jeffrey [facility] [employer]. 05-26-2017 09:37-0500 Body weight 125.19 kg Jeffrey Wood [facility] [employer] 05-26-2017 09:37-0500 Inhaled oxygen concentration 20 % Jeffrey Wood [facility].; [employer]. Comment on above: Room air 05-26-2017 09:37-0500 SaO2% (BldA) [Mass fraction] 97 % Jeffrey Wood LPN [employer]. 05-01-2017 14:52-0500 Body temperature 98.9 [degF] Emmy Alberts [facility] [employer] 05-01-2017 14:52-0500 Body weight 122.02 kg Emmy Alberts COMMERCIAL ILLUSTRATOR [facility] [employer]. 05-01-2017 14:52-0500 Diastolic blood pressure 71 mm[Hg] Emmy Alberts COMMERCIAL ILLUSTRATOR [facility], [facility].; [employer]. Comment on above: Patient Position: Sitting; Cuff Location : Left Arm; Cuff Size: Standard 05-01-2017 14:52-0500 Heart rate 94 /min [facility]isteo [facility] [employer], [employer]. Comment on above: Pattern: Regular 05-01-2017 14:52-0500 Inhaled oxygen concentration 20 % Emmy E Aristeo [facility], [facility].; [employer]. Comment on above: Room air 05-01-2017 14:52-0500 SaO2% (BldA) [Mass fraction] 99 % Emmy Alberts [facility], [facility].; [employer], [employer]. 05-01-2017 14:52-0500 Systolic blood pressure 104 mm[Hg] Emmy E Aristeo [facility], [facility].; [employer], [employer]. Comment on above: Patient Position: Sitting; Cuff Location : Left Arm; Cuff Size: Standard 04-03-2017 15:35-0500 Body height 173.99 cm Jeffrey Wood LPN [facility], [facility].; [employer], [employer]. 04-03-2017 15:35-0500 Body mass index (BMI) [Ratio] 40.46 kg/m2 Jeffrey Wood [facility].; [employer], [employer]. 04-03-2017 15:35-0500 Body surface area Derived from formula 2.33 m2 Jeffrey Wood [facility].; [employer], [employer]. 04-03-2017 15:35-0500 Body temperature 99 [degF] Jeffrey Wood [facility].; [employer], [employer]. 04-03-2017 15:35-0500 Body weight 122.47 kg Jeffrey Wood COMMERCIAL ILLUSTRATOR [facility], [facility].; [employer], [employer]. 04-03-2017 15:35-0500 Inhaled oxygen concentration 20 % Jeffrey Wood [facility], [facility].; [employer], [employer]. Comment on above: Room air 04-03-2017 15:35-0500 SaO2% (BldA) [Mass fraction] 98 % Jeffrey Wood [facility].; [employer]. 01-26-2017 14:44-0500 Body height 173.99 cm Ava Agustin RN [facility] [employer].; [employer]. 01-26-2017 14:44-0500 Body mass index (BMI) [Ratio] 40.13 kg/m2 Ava Agustin RN [employer].; [employer]. 01-26-2017 14:44-0500 Body surface area Derived from formula 2.33 m2 Ava Agustin RN [employer].; [employer]. 01-26-2017 14:44-0500 Body temperature 99.2 [degF] Ava Agustin RN [employer].; [employer]. Comment on above: Method: Tympanic 01-26-2017 14:44-0500 Body weight 121.47 kg Ava Agustin RN [employer].; [employer]. 01-26-2017 14:44-0500 Diastolic blood pressure 79 mm[Hg] Ava Agustin RN [employer].; [employer]. Comment on above: Patient Position: Sitting; Cuff Location : Left Arm; Cuff Size: Standard 01-26-2017 14:44-0500 Heart rate 93 /min Ava Agustin RN [employer].; [employer]. Comment on above: Pattern: Regular 01-26-2017 14:44-0500 Inhaled oxygen concentration 20 % Ava Agustin RN [employer].; [employer]. Comment on above: Room air 01-26-2017 14:44-0500 SaO2% (BldA) [Mass fraction] 98 % Ava Agustin RN [employer].; [employer]. 01-26-2017 14:44-0500 Systolic blood pressure 135 mm[Hg] Ava Agustin RN [employer].; [employer]. Comment on above: Patient Position: Sitting; Cuff Location : Left Arm; Cuff Size: Standard 12-21-2016 10:44-0400 Body weight 118.39 kg Jeffrey Wood LPN [facility] 12-21-2016 10:44-0400 Diastolic blood pressure 78 mm[Hg] Jeffrey Wood BELKIS [facility] [employer], [employer]. Comment on above: Patient Position: Sitting; Cuff Location : Left Arm; Cuff Size: Standard 12-21-2016 10:44-0400 Heart rate 76 /min Jeffrey Israel TAMAYO [facility] [employer], [employer] Comment on above: Pattern: Regular 12-21-2016 10:44-0400 Systolic blood pressure 114 mm[Hg] Jeffrey Wood BELKIS [facility] [employer], [employer]. Comment on above: Patient Position: Sitting; Cuff Location : Left Arm; Cuff Size: Standard 10-24-2016 10:27-0400 Body height 173.99 cm Jenelle Sutton BELKIS [facility] [employer], [employer] 10-24-2016 10:27-0400 Body mass index (BMI) [Ratio] 38.66 kg/m2 Jenelle Snyder Herman [facility] [employer], [employer] 10-24-2016 10:27-0400 Body surface area Derived from formula 2.29 m2 Joanna Herman COMMERCIAL ILLUSTRATOR [facility] [employer], [employer] 10-24-2016 10:27-0400 Body weight 117.03 kg Jenelle Powersuckey BELKSI [facility] [employer], [employer] 10-24-2016 10:27-0400 Diastolic blood pressure 77 mm[Hg] Jenelle Snyder [place] BELKIS [facility] [employer], [employer]. Comment on above: Patient Position: Sitting; Cuff Location : Left Arm; Cuff Size: Large 10-24-2016 10:27-0400 Heart rate 90 /min Jenelle Powersuckey COMMERCIAL ILLUSTRATOR [facility] [employer], [employer]. Comment on above: Pattern: Regular 10-24-2016 10:27-0400 Systolic blood pressure 122 mm[Hg] Jenelle Powersuckey BELKIS [facility] [employer], [employer]. Comment on above: Patient Position: Sitting; Cuff Location : Left Arm; Cuff Size: Large 08-24-2016 07:27-0400 Body height 173.99 cm Jenelle Sutton COMMERCIAL ILLUSTRATOR [facility] [employer], [employer]. 08-24-2016 07:27-0400 Body mass index (BMI) [Ratio] 38.21 kg/m2 Jenelle Sutton [facility] [employer], [employer]. 08-24-2016 07:27-0400 Body surface area Derived from formula 2.28 m2 Jenelle Sutton COMMERCIAL ILLUSTRATOR [facility] [employer], [employer]. 08-24-2016 07:27-0400 Body weight 115.67 kg Jenelle Sutton COMMERCIAL ILLUSTRATOR [facility] [employer], [employer]. 08-24-2016 07:27-0400 Diastolic blood pressure 88 mm[Hg] Jenelle Sutton [facility] [employer], [employer]. Comment on above: Patient Position: Sitting; Cuff Location : Left Arm; Cuff Size: Large 08-24-2016 07:27-0400 Heart rate 65 /min Jenelle Sutton [facility] [employer], [employer]. Comment on above: Pattern: Regular 08-24-2016 07:27-0400 Systolic blood pressure 126 mm[Hg] Jenelle Sutton [facility] [employer], [employer]. Comment on above: Patient Position: Sitting; Cuff Location : Left Arm; Cuff Size: Large 01-25-2016 15:27-0500 Body temperature 98.9 [degF] Emmy Alberts [facility] [employer], [employer]. 01-25-2016 15:27-0500 Body weight 111.59 kg Emmy Alberts [facility] [employer], [employer]. 01-25-2016 15:27-0500 Diastolic blood pressure 81 mm[Hg] Emmy Alberts [facility] [employer], [employer]. Comment on above: Patient Position: Sitting; Cuff Location : Left Arm; Cuff Size: Standard 01-25-2016 15:27-0500 Heart rate 101 /min Emmy Yola Aristeo COMMERCIAL ILLUSTRATOR [facility], [employer]. Comment on above: Pattern: Regular 01-25-2016 15:27-0500 Systolic blood pressure 124 mm[Hg] Emmy Yola Aristeo [facility], [employer]. Comment on above: Patient Position: Sitting; Cuff Location : Left Arm; Cuff Size: Standard 12-15-2015 10:42-0400 Body height 173.99 cm Jenelle Sutton [facility], [employer]. 12-15-2015 10:42-0400 Body mass index (BMI) [Ratio] 36.56 kg/m2 Joanna Herman [facility], [facility].; [place] [facility], [employer]. 12-15-2015 10:42-0400 Body surface area Derived from formula 2.24 m2 [facility] Herman [facility], [facility].; [place] [facility], [employer]. 12-15-2015 10:42-0400 Body temperature 99 [degF] JoannaLillian Sutton [facility] [employer], [employer]. Comment on above: Method: Tympanic 12-15-2015 10:42-0400 Body weight 110.68 kg Jenelle Sutton [facility] 12-15-2015 10:42-0400 Diastolic blood pressure 75 mm[Hg] JoannaLillian Sutton [facility] [employer], [employer]. Comment on above: Patient Position: Sitting; Cuff Location : Left Arm; Cuff Size: Large 12-15-2015 10:42-0400 Heart rate 109 /min JoannaLillian uStton [facility] [employer], [employer]. Comment on above: Pattern: Regular 12-15-2015 10:42-0400 Systolic blood pressure 124 mm[Hg] Jenelle Sutton [facility] [employer]. Comment on above: Patient Position: Sitting; Cuff Location : Left Arm; Cuff Size: Large 08-21-2015 14:44-0400 Body weight 98.43 kg Emmy Alberts BELKIS [place] [facility] [employer], [employer]. 08-21-2015 14:44-0400 Diastolic blood pressure 68 mm[Hg] Emmy Alberts BELKIS [facility] [employer], [employer]. Comment on above: Patient Position: Sitting; Cuff Location : Left Arm; Cuff Size: Standard 08-21-2015 14:44-0400 Heart rate 64 /min Emmy Alberts BELKIS [facility] [employer], [employer]. Comment on above: Pattern: Regular 08-21-2015 14:44-0400 Systolic blood pressure 103 mm[Hg] Emmy Alberts COMMERCIAL ILLUSTRATOR [place] [facility] [employer], [employer]. Comment on above: Patient Position: Sitting; Cuff Location : Left Arm; Cuff Size: Standard 07-31-2015 08:09-0400 Body height 173.99 cm Emmy Yola Alberts LPN [facility] [employer] 07-31-2015 08:09-0400 Body mass index (BMI) [Ratio] 31.17 kg/m2 Emmy Alberts BELKIS [facility] [employer], [employer]. 07-31-2015 08:09-0400 Body surface area Derived from formula 2.09 m2 Emmy Yola Alberts LPN [facility] [employer], [employer]. 07-31-2015 08:09-0400 Body weight 94.35 kg Emmyjacinto Alberts BELKIS [facility] [employer], [employer] 07-31-2015 08:09-0400 Diastolic blood pressure 65 mm[Hg] Emmyjacinto Alberts BELKIS [place] [facility] [employer], [employer]. Comment on above: Patient Position: Sitting; Cuff Location : Left Arm; Cuff Size: Standard 07-31-2015 08:09-0400 Heart rate 71 /min Emmy Alberts BELKIS [facility] [employer]. Comment on above: Pattern: Regular 07-31-2015 08:09-0400 Systolic blood pressure 115 mm[Hg] Emmy Aceves Aristeo BELKIS [facility] [employer]. Comment on above: Patient Position: Sitting; Cuff Location : Left Arm; Cuff Size: Standard 02-03-2015 08:24-0500 Body height 173.99 cm Jenelle Sutton COMMERCIAL ILLUSTRATOR [facility], [employer]. 02-03-2015 08:24-0500 Body mass index (BMI) [Ratio] 30.87 kg/m2 Jenelle Sutton [facility] [place] [facility] 02-03-2015 08:24-0500 Body surface area Derived from formula 2.08 m2 Jenelle Sutton [facility], [facility].; [facility], [employer]. 02-03-2015 08:24-0500 Body temperature 97.9 [degF] Jenelle Sutton [facility], [facility].; [employer], [employer]. Comment on above: Method: Tympanic 02-03-2015 08:24-0500 Body weight 93.44 kg Jenelle Sutton [facility] 02-03-2015 08:24-0500 Diastolic blood pressure 75 mm[Hg] Jenelle Sutton [facility] [employer], [employer]. Comment on above: Patient Position: Sitting; Cuff Location : Left Arm; Cuff Size: Large 02-03-2015 08:24-0500 Heart rate 74 /min Jenelle Sutton [facility] [employer], [employer]. Comment on above: Pattern: Regular 02-03-2015 08:24-0500 Systolic blood pressure 117 mm[Hg] Jenelle Sutton [facility] [employer], [employer]. Comment on above: Patient Position: Sitting; Cuff Location : Left Arm; Cuff Size: Large 12-25-2014 10:54-0400 Body height 173.99 cm Shanda Hatch COMMERCIAL ILLUSTRATOR [facility] [employer], [employer]. 12-25-2014 10:54-0400 Body mass index (BMI) [Ratio] 30.02 kg/m2 Shanda Hatch [facility] [employer], [employer]. 12-25-2014 10:54-0400 Body surface area Derived from formula 2.06 m2 [facility].; [place] [facility], [employer]. 12-25-2014 10:54-0400 Body temperature 99.4 [degF] Shanda Atkinsvinijamie [facility], [facility].; [employer], [employer]. Comment on above: Method: Tympanic 12-25-2014 10:54-0400 Body weight 90.89 kg Shanda Welazaro [facility], [facility].; [employer]. 12-25-2014 10:54-0400 Diastolic blood pressure 75 mm[Hg] Shanda Welazaro [facility], [facility].; [place] [employer], [employer]. Comment on above: Patient Position: Sitting; Cuff Location : Left Arm; Cuff Size: Standard 12-25-2014 10:54-0400 Heart rate 68 /min Shanda Wilbertlazaro [facility], [facility].; [place] [employer]. Comment on above: Pattern: Regular 12-25-2014 10:54-0400 Inhaled oxygen concentration 20 % Shanda Welazaro [facility], [facility].; [employer], [employer]. Comment on above: Room air 12-25-2014 10:54-0400 SaO2% (BldA) [Mass fraction] 99 % Shanda Welazaro [facility], [facility].; [employer], [employer]. 12-25-2014 10:54-0400 Systolic blood pressure 111 mm[Hg] Shanda Welazaro [facility], [facility].; [employer]. Comment on above: Patient Position: Sitting; Cuff Location : Left Arm; Cuff Size: Standard 12-24-2013 15:34-0400 Body height 173.99 cm America Tran LPN [facility], [facility].; [place] [employer]. 12-24-2013 15:34-0400 Body mass index (BMI) [Percentile] Per age and sex 90 % America Tran [facility] [place] [employer]. 12-24-2013 15:34-0400 Body mass index (BMI) [Ratio] 27.87 kg/m2 America Tran COMMERCIAL ILLUSTRATOR [facility] [employer], [employer] 12-24-2013 15:34-0400 Body surface area Derived from formula 1.99 m2 America Tran COMMERCIAL ILLUSTRATOR [facility] [employer], [employer] 12-24-2013 15:34-0400 Body temperature 99.1 [degF] America Tran COMMERCIAL ILLUSTRATOR [place] [employer], [employer].; [employer], [employer]. Comment on above: Method: Tympanic 12-24-2013 15:34-0400 Body weight 84.37 kg [facility] [employer], [employer] 08-29-2012 09:55-0400 Body height 173.99 cm Chari Abraham COMMERCIAL ILLUSTRATOR Work Phone: [employer].; [employer], [employer]. 08-29-2012 09:55-0400 Body mass index (BMI) [Percentile] Per age and sex 89 % Chari Jarad COMMERCIAL ILLUSTRATOR Work Phone: [employer].; [employer], [employer] 08-29-2012 09:55-0400 Body mass index (BMI) [Ratio] 26.97 kg/m2 Chari Abraham COMMERCIAL ILLUSTRATOR Work Phone: [employer].; [employer], [employer] 08-29-2012 09:55-0400 Body surface area Derived from formula 1.96 m2 Chari Jarad COMMERCIAL ILLUSTRATOR Work Phone: [employer].; [employer], [employer]. 08-29-2012 09:55-0400 Body weight 81.65 kg Chari Jarad COMMERCIAL ILLUSTRATOR Work Phone: [employer].; [employer], [employer]. 08-29-2012 09:55-0400 Diastolic blood pressure 60 mm[Hg] Chari Jarad COMMERCIAL ILLUSTRATOR Work Phone: [employer].; [employer]. Comment on above: Patient Position: Sitting; Cuff Location : Left Arm; Cuff Size: Standard 08-29-2012 09:55-0400 Heart rate 50 /min Chari Abraham LPN Work Phone: [facility], [employer].; [employer]. Comment on above: Pattern: Regular 08-29-2012 09:55-0400 Systolic blood pressure 106 mm[Hg] Chari Abraham LPN Work Phone: [facility], [employer].; [employer]. Comment on above: Patient Position: Sitting; Cuff Location : Left Arm; Cuff Size: Standard 05-20-2011 14:21-0500 Body height 172.72 cm Emmy Alberts LPN [facility] [employer], [employer]. 05-20-2011 14:21-0500 Body mass index (BMI) [Percentile] Per age and sex 88 % Emmy Alberts LPN [facility] [employer], [employer]. 05-20-2011 14:21-0500 Body mass index (BMI) [Ratio] 25.7 kg/m2 Emmy Alberts LPN [facility], [facility].; [employer], [employer]. 05-20-2011 14:21-0500 Body surface area Derived from formula 1.9 m2 Emmy Alberts LPN [facility] [employer], [employer]. 05-20-2011 14:21-0500 Body temperature 98.4 [degF] Emmy Alberts LPN [facility] [employer], [employer]. 05-20-2011 14:21-0500 Body weight 76.66 kg Emmy Alberts LPN [place] [facility], [facility].; [employer], [employer]. 04-01-2011 10:50-0500 Body height 173.99 cm Chari Abraham COMMERCIAL ILLUSTRATOR Work Phone: [employer], [employer].; [employer]. 04-01-2011 10:50-0500 Body mass index (BMI) [Percentile] Per age and sex 88 % Chari Abraham LPN Work Phone: [facility], [employer].; [employer]. 04-01-2011 10:50-0500 Body mass index (BMI) [Ratio] 25.92 kg/m2 Chari Abraham LPN Work Phone: [employer].; [employer]. 04-01-2011 10:50-0500 Body surface area Derived from formula 1.93 m2 Chari Abraham LPN Work Phone: [employer].; [employer]. 04-01-2011 10:50-0500 Body weight 78.47 kg Chari Abraham LPN Work Phone: [employer].; [employer]. 04-01-2011 10:50-0500 Diastolic blood pressure 68 mm[Hg] Chari Abraham LPN Work Phone: [employer].; [employer]. Comment on above: Patient Position: Sitting; Cuff Location : Left Arm; Cuff Size: Standard 04-01-2011 10:50-0500 Heart rate 58 /min Chari Abraham LPN Work Phone: [employer]; [employer]. Comment on above: Pattern: Regular 04-01-2011 10:50-0500 Systolic blood pressure 110 mm[Hg] Chari Abraham LPN Work Phone: [employer].; [employer]. Comment on above: Patient Position: Sitting; Cuff Location : Left Arm; Cuff Size: Standard 07-06-2010 08:06-0400 Body height 170.18 cm Neilee L Vess COMMERCIAL ILLUSTRATOR [employer].; [employer]. 07-06-2010 08:06-0400 Body mass index (BMI) [Percentile] Per age and sex 87 % Neilee L Vess COMMERCIAL ILLUSTRATOR [employer].; [employer]. 07-06-2010 08:06-0400 Body mass index (BMI) [Ratio] 25.06 kg/m2 Neilee L Vess COMMERCIAL ILLUSTRATOR [employer].; [employer]. 07-06-2010 08:06-0400 Body surface area Derived from formula 1.84 m2 Neilee L Vess COMMERCIAL ILLUSTRATOR [place] [facility], [facility].; [employer]. 07-06-2010 08:06-0400 Body temperature 97.5 [degF] Dalyilee L Vess COMMERCIAL ILLUSTRATOR [facility], [facility].; [employer], [employer]. 07-06-2010 08:06-0400 Body weight 72.58 kg Newendie L Vess COMMERCIAL ILLUSTRATOR [place] [facility], [facility].; [facility] [facility]. 04-01-2010 14:56-0500 Body weight 73.03 kg Neilee L Vess COMMERCIAL ILLUSTRATOR [facility], [facility].; [employer]. 04-01-2010 14:56-0500 Diastolic blood pressure 63 mm[Hg] Neilee L Vess COMMERCIAL ILLUSTRATOR [place] [facility].; [employer]. Comment on above: Patient Position: Sitting; Cuff Location : Left Arm; Cuff Size: Standard 04-01-2010 14:56-0500 Heart rate 59 /min Dalyilee L Vess COMMERCIAL ILLUSTRATOR [place] [facility], [employer].; [employer]. Comment on above: Pattern: Regular 04-01-2010 14:56-0500 Systolic blood pressure 114 mm[Hg] Neilee L Vess COMMERCIAL ILLUSTRATOR [facility]. Comment on above: Patient Position: Sitting; Cuff Location : Left Arm; Cuff Size: Standard 02-08-2010 15:09-0500 Body temperature 99 [degF] Kelsea Vang COMMERCIAL ILLUSTRATOR [place] [facility], [employer].; [employer]. Comment on above: Method: Tympanic 02-08-2010 15:09-0500 Body weight 72.12 kg Kelsea Vang LPN [place] [facility], [employer].; [employer]. 02-08-2010 15:09-0500 Diastolic blood pressure 71 mm[Hg] Kelsea Vang COMMERCIAL ILLUSTRATOR [facility].; [employer]. Comment on above: Patient Position: Sitting; Cuff Location : Left Arm; Cuff Size: Standard 02-08-2010 15:09-0500 Heart rate 67 /min Kelsea Vnag LPN [place] [facility] Comment on above: Pattern: Regular 02-08-2010 15:09-0500 Systolic blood pressure 107 mm[Hg] [facility], [employer].; [employer]. Comment on above: Patient Position: Sitting; Cuff Location : Left Arm; Cuff Size: Standard 12-08-2009 08:26-0400 Body height 146.05 cm Neilee L Vess COMMERCIAL ILLUSTRATOR [employer]. 12-08-2009 08:26-0400 Body mass index (BMI) [Percentile] Per age and sex 98 % Neilee L Vess COMMERCIAL ILLUSTRATOR [employer], [employer].; [employer]. 12-08-2009 08:26-0400 Body mass index (BMI) [Ratio] 33.39 kg/m2 Neilee L Vess COMMERCIAL ILLUSTRATOR [employer].; [employer]. 12-08-2009 08:26-0400 Body surface area Derived from formula 1.63 m2 Neilee L Vess COMMERCIAL ILLUSTRATOR [employer].; [employer]. 12-08-2009 08:26-0400 Body temperature 98.9 [degF] Tnilee L Vess COMMERCIAL ILLUSTRATOR [employer].; [employer]. Comment on above: Method: Tympanic 12-08-2009 08:26-0400 Body weight 71.22 kg Neilee L Vess COMMERCIAL ILLUSTRATOR [employer].; [employer]. Encounters Encounter Date Encounter Type Care Provider Facility Start: 10-11-2024 ambulatory Anju Rajan Facility:[facility] Start: 10-10-2024 Encounter for other preprocedural examination Fox Abel [facility] Start: 10-07-2024 End: 10-07-2024 ambulatory Fox Abel MD Work Phone: OB/Gynecology Start: 10-01-2024 End: 10-01-[address] [facility] Start: 09-30-2024 End: 09-30-2024 Patient encounter procedure Fox Abel MD Work Phone: OB/Gynecology Comment on above: DUB (dysfunctional u terine bleeding) (Primary Dx); Pre-op evaluation Start: 09-30-2024 End: 09-30-2024 Preprocedural examination done Fox Abel MD Work Phone: [facility] Start: 09-30-2024 End: 09-30-2024 ambulatory ANJU RAJAN Facility:[facility] Start: 09-30-2024 End: 10-01-2024 Telephone encounter Fox Abel MD Work Phone: OB/Gynecology Comment on above: Off Work note for dozier leo Start: 09-30-2024 End: 09-30-2024 Telemedicine consultation with patient Graham Mckeonos [employer] Work Phone: Internal [facility] Start: 09-30-2024 End: 09-30-2024 ambulatory Graham Mckeonos [employer] Work Phone: [facility] Comment on above: Class 3 severe obesi ty with body mass index (BMI) of 45.0 to 49.9 in adult, unspecified obesity type, unspecified whether serious comorbidity present (HCC) Start: 09-19-2024 End: 09-24-2024 Telephone encounter Fox Abel MD Work Phone: OB/Gynecology Comment on above: Patient Question Start: 09-18-2024 End: 09-18-2024 Admission to same day surgery center [facility]Gynecology Comment on above: surgery confirmation Start: 09-18-2024 End: 09-18-2024 E-mail encounter from caregiver [facility] OB/Gynecology Start: 09-17-2024 End: 09-19-2024 Refill Fox Abel MD Work Phone: OB/Gynecology Comment on above: Refill Request Start: 09-11-2024 End: 09-11-2024 Telephone encounter Radha Busch MD Work Phone: [facility] Comment on above: Appointment Start: 09-11-2024 End: 09-11-2024 Office outpatient visit 25 minutes Radha Busch MD Work Phone: [facility] Comment on above: Pre-op exam (Primary Dx); DUB (dysfunctional uterine bleeding); Class 3 severe obesity with body mass index (BMI) of 45.0 to 49.9 in adult (HCC); Anxiety and depression; Gastroesophageal reflux disease, unspecified whether esophagitis present; Mixed stress and urge urinary incontinence; Class 3 severe obesity with body mass index (BMI) of 45.0 to 49.9 in adult, unspecified obesity type, unspecified whether serious comorbidity present ([facility]); BISHNU (obstructive sleep apnea) Start: 09-11-2024 End: 09-11-2024 Preprocedural examination done Radha Busch MD Work Phone: [facility] Work Phone: Start: 09-11-2024 End: 09-11-2024 ambulatory ANJU RAJAN Facility:[facility] Start: 09-11-2024 Encounter for other preprocedural examination RADHA BUSCH [facility] Start: 09-10-2024 End: 09-10-2024 Telephone encounter Fox Abel MD Work Phone: OB/Gynecology Start: 09-10-2024 End: 09-10-2024 ambulatory Johnson Phillip [place] Start: 08-13-2024 End: 08-13-2024 ambulatory Marci Barron APRN.[employer] Work Phone: [facility] Comment on above: Class 3 severe obesi ty with body mass index (BMI) of 45.0 to 49.9 in adult, unspecified obesity type, unspecified whether serious comorbidity present Start: 08-13-2024 End: 08-13-2024 Telemedicine consultation with patient Marci Barron APRN.[employer] Work Phone: [facility] Start: 08-08-2024 End: 10-08-2024 Follow-up encounter Fox Abel MD Work Phone: OB/Gynecology Start: 08-05-2024 End: 08-05-2024 will RAJAN Facility:[facility] Start: 08-05-2024 End: 08-05-2024 Patient encounter procedure Fox Abel MD Work Phone: OB/Gynecology Comment on above: DUB (dysfunctional u terine bleeding) (Primary Dx) Start: 08-05-2024 End: 08-05-2024 ambulatory ANJU RAJAN Facility:[facility] Start: 08-05-2024 End: 10-05-2024 Follow-up encounter Fox Abel MD Work Phone: OB/Gynecology Start: 08-02-2024 End: 08-02-2024 Telephone encounter Fox Abel MD Work Phone: OB/Gynecology Comment on above: Patient Update Start: 08-02-2024 ambulatory MARCI BARRON Facility:[facility] Start: 08-02-2024 End: 08-02-2024 Patient encounter procedure Fox Abel MD Work Phone: OB/Gynecology Comment on above: DUB (dysfunctional u terine bleeding) (Primary Dx); Encounter for IUD removal; IUD (intrauterine device) in place Start: 08-02-2024 End: 08-02-2024 ambulatory FOX ABEL Facility:[facility] Start: 08-01-2024 End: 08-01-2024 Patient encounter procedure Fox Abel MD Work Phone: OB/Gynecology Comment on above: DUB (dysfunctional u terine bleeding) (Primary Dx); IUD (intrauterine device) in place; Visit for pre-operative examination Start: 08-01-2024 End: 08-01-2024 Preprocedural examination done Fox Abel MD Work Phone: [facility] Start: 08-01-2024 End: 08-01-2024 ambulatory ANJU RAJAN Facility:[facility] Start: 07-30-2024 ambulatory No Primary Car e Physician [place]: 07-24-2024 End: 07-26-2024 Telephone encounter Fox Abel MD Work Phone: OB/Gynecology Comment on above: Patient Update Start: 07-21-2024 End: 07-22-2024 Emergency department patient visit PATTI COUCH [facility] Start: 07-16-2024 End: 07-16-2024 Office outpatient visit 15 minutes Marci Barron [employer] Work Phone: [facility] Comment on above: Class 3 severe obesi ty with body mass index (BMI) of 45.0 to 49.9 in adult, unspecified obesity type, unspecified whether serious comorbidity present Start: 07-16-2024 End: 07-16-2024 Refill Dunia Gongora [employer] Work Phone: Urology Comment on above: Refill Request Start: 07-03-2024 End: 07-03-2024 Refill Azra Canada [employer] Work Phone: [facility] Comment on above: Refill Request Start: 06-28-2024 End: 06-28-2024 Patient encounter procedure Fox Abel MD Work Phone: OB/Gynecology Comment on above: DUB (dysfunctional u terine bleeding) (Primary Dx); IUD (intrauterine device) in place; Class 3 severe obesity with body mass index (BMI) of 45.0 to 49.9 in adult, unspecified obesity type, unspecified whether serious comorbidity present (HCC) Start: 06-28-2024 End: 06-28-2024 will RAJAN Facility:[facility] Start: 06-18-2024 End: 06-18-2024 will RAJAN Facility:[facility] Start: 06-18-2024 End: 06-18-2024 Office outpatient visit 25 minutes Marci Barron APRN.[facility] Work Phone: [facility] Comment on above: Mixed stress and urg e urinary incontinence (Primary Dx); Class 3 severe obesity with body mass index (BMI) of 45.0 to 49.9 in adult, unspecified obesity type, unspecified whether serious comorbidity present (HCC); Anxiety and depression; Insomnia, unspecified type; Bedbug bite, initial encounter Mixed stress and urg e urinary incontinence (Primary Dx); Urinary urgency Start: 05-27-2024 End: 05-28-2024 Refill Anju Rajan MD Work Phone: [facility] Comment on above: Refill Request Start: 04-29-2024 End: 04-30-2024 Refill Marci Barron APRN.CNP Work Phone: [facility] Comment on above: Refill Request Start: 04-25-2024 End: 04-25-2024 ambulatory ANJU RAJAN Facility:[facility] Start: 04-25-2024 End: 04-25-2024 Patient encounter procedure Uma Tinsley APRN.[employer] Work Phone: OB/Gynecology Comment on above: Abnormal uterine ble eding (AUB) (Primary Dx) Start: 04-25-2024 End: 04-25-2024 ambulatory No Primary Care Physician [facility] Start: 04-15-2024 End: 04-15-2024 Telephone encounter Uma Tinsley APRN.[employer] Work Phone: OB/Gynecology Comment on above: Appointment Start: 04-04-2024 End: 04-05-2024 Refill Marci Barron APRN.[employer] Work Phone: [facility] Comment on above: Refill Request Start: 01-12-2024 End: 01-12-2024 ambulatory Nuclear Radiologist [employer] Work Phone: OB/Gynecology Start: 01-12-2024 End: 01-12-2024 Patient encounter procedure Nuclear Radiologist [employer] Work Phone: OB/Gynecology Start: 01-08-2024 End: 01-08-2024 Telephone encounter Yennifer Pruitt APRN.[employer] Work Phone: OB/Gynecology Comment on above: Need for Pelvic u/s Start: 01-08-2024 End: 01-08-2024 ambulatory ANJU [facility] Facility:[facility] Start: 01-08-2024 End: 01-08-2024 Patient encounter procedure Yennifer Pruitt APRN.CNM Work Phone: OB/Gynecology Comment on above: Breakthrough bleedin g with IUD (Primary Dx); Adenomyosis; Class 3 severe obesity with body mass index (BMI) of 45.0 to 49.9 in adult, unspecified obesity type, unspecified whether serious comorbidity present (HCC); Melanocytic nevus, unspecified location Start: 12-29-2023 End: 12-29-2023 Refill Anju Rajan MD Work Phone: [facility] [place] Comment on above: Refill Request Start: 12-29-2023 End: 01-01-2024 Refill Anju Rajan MD Work Phone: [facility] [place] Comment on above: Refill Request Start: 12-07-2023 End: 12-07-2023 ambulatory No Primary Care Physician [place] Start: 11-30-2023 End: 11-30-2023 ambulatory ANJU RAJAN Facility:[facility] Start: 11-24-2023 End: 11-24-2023 Patient encounter procedure Asif Wallace APRN.[employer] Work Phone: Neurology Comment on above: Excessive daytime sl eepiness (Primary Dx); Dream enactment behavior; Snoring; Witnessed apneic spells; Frequent nocturnal awakening; RLS (restless legs syndrome); Class 3 severe obesity with body mass index (BMI) of 45.0 to 49.9 in adult, unspecified obesity type, unspecified whether serious comorbidity present (HCC) Start: 11-24-2023 End: 11-27-2023 ambulatory Christopher Landers APRN.[employer] Work Phone: OB/Gynecology Comment on above: Ruddy Start: 10-30-2023 End: 10-30-2023 ambulatory VINCENZO THOMAS [facility] Start: 10-20-2023 End: 10-20-2023 Patient encounter procedure Christopher Landers APRN.[employer] Work Phone: OB/Gynecology Comment on above: Abnormal uterine ble eding (Primary Dx); Skin lesion Start: 10-20-2023 End: 10-20-2023 ambulatory ANJU RAJAN Facility:[facility] Start: 10-18-2023 End: 10-18-2023 ambulatory No Primary Care Physician [facility] Start: 10-16-2023 End: 10-16-2023 [facility] Start: 09-27-2023 End: 09-27-2023 Office outpatient new 45 minutes Anju Rajan MD Work Phone: [facility] [place] Comment on above: Gastroesophageal ref lux disease, unspecified whether esophagitis present (Primary Dx); Anxiety and depression; Vitamin D deficiency; Class 3 severe obesity with body mass index (BMI) of 45.0 to 49.9 in adult, unspecified obesity type, unspecified whether serious comorbidity present (HCC); BISHNU (obstructive sleep apnea); Mixed stress and urge urinary incontinence Start: 08-16-2023 ambulatory Christopher DOSS RN.[employer] Work Phone: OB/Gynecology Comment on above: Back pain Start: 06-20-2023 End: 06-20-2023 Patient encounter procedure Asif Roman MD Work Phone: OB/Gynecology Comment on above: Encounter for IUD in sertion (Primary Dx) Start: 06-20-2023 End: 06-20-[address] OB/Gynecology Comment on above: Assessment; Patient Education Start: 06-12-2023 End: 06-12-2023 Patient encounter procedure Christopher Landers APRN.[employer] Work Phone: OB/Gynecology Comment on above: Encounter for other contraceptive management (Primary Dx); Adenomyosis; Need for vaccination Start: 06-12-2023 ambulatory Christopher DOSS RN.[employer] Work Phone: OB/Gynecology Comment on above: 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 Start: 05-17-2023 End: 05-17-2023 Patient encounter procedure Dunia Gongora APRN.[employer] Work Phone: Urology Comment on above: Mixed stress and urg e urinary incontinence (Primary Dx); Urinary urgency Start: 05-08-2023 Telephone encounter Christopher rodriguez APRN.CNP Work Phone: OB/Gynecology Comment on above: Results Start: 05-05-2023 End: 05-05-2023 Subsequent hospital visit by physician [facility] [employer] [facility] Work Phone: Radiology Comment on above: Abnormal uterine ble eding [N93.9] Start: 04-26-2023 Telephone encounter Christopher rodriguez APRN.CNP Work Phone: OB/Gynecology Comment on above: Results Start: 04-24-2023 End: 04-24-2023 Patient encounter procedure Christopher Landers APRN.[employer] Work Phone: OB/Gynecology Comment on above: Encounter for gyneco logical examination (general) (routine) with abnormal findings (Primary Dx); Screening for cervical cancer; Encounter for screening for human papillomavirus (HPV); Abnormal uterine bleeding; Mixed incontinence; Screening for STD (sexually transmitted disease); Melanocytic nevus, unspecified location Start: 04-24-2023 End: 04-24-2023 Patient encounter status Christopher Landers APRN.[employer] Work Phone: [facility] Work Phone: Start: 03-29-2023 End: 03-29-2023 Office outpatient visit 15 minutes Andrzej Peralta MD Work Phone: [facility] Start: 12-07-2022 End: 12-07-2022 Office outpatient visit 15 minutes Andrzej Peralta MD Work Phone: [employer] Start: 05-24-2022 End: 05-24-2022 ambulatory [facility] Work Phone: Start: 05-24-2022 End: 05-24-2022 Patient encounter procedure [facility] , Specimen Start: 11-24-2021 End: 11-24-2021 ambulatory [facility] Work Phone: Start: 11-24-2021 End: 11-24-2021 Patient encounter procedure [facility] , Specimen Start: 03-04-2021 End: 03-04-2021 Orders Andrzej Peralta MD Work Phone: [facility] Start: 02-25-2021 End: 02-25-2021 Office outpatient visit 10 minutes Andrzej Peralta MD Work Phone: [employer] Start: 01-24-2020 End: 01-24-2020 Patient encounter procedure Andrzej Peralta MD Work Phone: [employer] Start: 03-19-2019 End: 03-19-2019 Telephone follow-up Andrzej Peralta MD Work Phone: [facility] Start: 03-18-2019 End: 03-18-2019 Office outpatient visit 15 minutes Andrzej Peralta MD Work Phone: [facility]. Start: 02-25-2019 End: 02-25-2019 Office outpatient visit 15 minutes Andrzej Peralta MD Work Phone: [facility]. Start: 02-08-2019 End: 02-08-2019 Office outpatient visit 15 minutes Andrzej Peralta MD Work Phone: [facility]. Start: 11-06-2018 End: 11-06-2018 Telephone follow-up Andrzej Peralta MD Work Phone: [facility]. Start: 08-24-2018 End: 08-24-2018 Office outpatient visit 15 minutes Andrzej Peralta MD Work Phone: [facility]. Start: 07-25-2018 End: 07-25-2018 Office outpatient visit 15 minutes Andrzej Peralta MD Work Phone: [facility]. Start: 07-25-2018 End: 07-25-2018 Patient encounter status Andrzej Peralta MD Work Phone: [facility] [employer] Start: 02-22-2018 End: 02-22-2018 Orders Andrzej Peralta MD Work Phone: [facility]. Start: 02-22-2018 End: 02-22-2018 Phone Encounter Andrzej Peralta MD Work Phone: [facility]. Start: 02-21-2018 End: 02-21-2018 Patient encounter procedure Andrzej Peralta MD Work Phone: [facility]. Start: 02-06-2018 End: 02-06-2018 Office outpatient visit 15 minutes Andrzej Peralta MD Work Phone: [facility]. Start: 11-27-2017 End: 11-27-2017 Office outpatient visit 15 minutes Andrzej Peralta MD Work Phone: [facility]. Start: 09-13-2017 End: 09-13-2017 Office outpatient visit 15 minutes Andrzej Peralta MD Work Phone: [facility]. Start: 09-13-2017 End: 09-13-2017 Patient encounter status Andrzej Peralta MD Work Phone: [facility] [employer] Start: 08-30-2017 End: 08-30-2017 Office outpatient visit 15 minutes Andrzej Peralta MD Work Phone: [facility]. Start: 07-28-2017 End: 07-28-2017 Telephone follow-up Andrzej Peralta MD Work Phone: [facility]. Start: 06-15-2017 End: 06-15-2017 Orders Andrzej Peralta MD Work Phone: [facility]. Start: 06-07-2017 End: 06-09-2017 Office outpatient visit 15 minutes Andrzej Peralta MD Work Phone: [facility]. Start: 05-26-2017 End: 05-26-2017 Office outpatient visit 15 minutes Andrzej Peralta MD Work Phone: [facility]. Start: 05-25-2017 End: 05-25-2017 Telephone follow-up Andrzej Peralta MD Work Phone: [facility]. Start: 05-01-2017 End: 05-01-2017 Office outpatient visit 15 minutes Andrzej Peralta MD Work Phone: [facility]. Start: 04-03-2017 End: 04-03-2017 Office outpatient visit 15 minutes Andrzej Peralta MD Work Phone: [facility]. Start: 02-10-2017 End: 02-10-2017 Medication Andrzej Peralta MD Work Phone: [facility]. Start: 01-26-2017 End: 01-26-2017 Office outpatient visit 25 minutes Andrzej Peralta MD Work Phone: [facility]. Start: 12-21-2016 End: 12-21-2016 Office outpatient visit 15 minutes Andrzej Peralta MD Work Phone: [facility]. Start: 10-24-2016 End: 10-24-2016 Office outpatient visit 15 minutes Andrzej Peralta MD Work Phone: [facility]. Start: 09-30-2016 End: 10-03-2016 [facility] Facility:[facility] Start: 08-24-2016 End: 08-24-2016 Office outpatient visit 15 minutes Andrzej Peralta MD Work Phone: [facility]. Start: 01-25-2016 End: 01-25-2016 Orders Andrzej Peralta MD Work Phone: [facility]. Start: 01-25-2016 End: 01-25-2016 Office outpatient visit 15 minutes Andrzej Peralta MD Work Phone: [facility]. Start: 12-15-2015 End: 12-15-2015 Office outpatient visit 15 minutes Andrzej Peralta MD Work Phone: [facility]. Start: 08-21-2015 End: 08-21-2015 Office outpatient visit 15 minutes Andrzej Peralta MD Work Phone: [facility]. Start: 08-21-2015 End: 08-21-2015 Physical examination Andrzej Peralta MD Work Phone: [facility] [employer] Start: 07-31-2015 End: 07-31-2015 Office outpatient visit 15 minutes Andrzej Peralta MD Work Phone: [facility]. Start: 07-31-2015 End: 07-31-2015 Patient encounter status Andrzej Peralta MD Work Phone: [facility] [employer] Start: 02-03-2015 End: 02-03-2015 Office outpatient visit 15 minutes Andrzej Peralta MD Work Phone: [facility]. Start: 12-25-2014 End: 12-25-2014 Patient encounter procedure Andrzej Peralta MD Work Phone: [facility]. Start: 12-24-2013 End: 12-24-2013 Office outpatient visit 15 minutes Andrzej Peralta MD Work Phone: [facility] Start: 08-29-2012 End: 08-29-2012 Orders Andrzej Peralta MD Work Phone: [employer] Start: 08-29-2012 End: 08-29-2012 Patient encounter procedure Andrzej Peralta MD Work Phone: [employer] Start: 05-20-2011 End: 05-20-2011 Patient encounter procedure Andrzej Peralta MD Work Phone: [employer] Start: 04-01-2011 End: 04-01-2011 Patient encounter procedure Andrzej Peralta MD Work Phone: [facility] Start: 07-06-2010 End: 07-06-2010 Patient encounter procedure Andrzej Peralta MD Work Phone: [employer] Start: 04-01-2010 End: 04-01-2010 Patient encounter procedure Andrzej Peralta MD Work Phone: [facility] Start: 02-08-2010 End: 02-08-2010 Patient encounter procedure Andrzej Peralta MD Work Phone: [facility] Start: 12-08-2009 End: 12-08-2009 Patient encounter procedure Andrzej Peralta MD Work Phone: [facility] Patient encounter status Yennifer Bruner LP N [facility] Procedures Date Procedure Procedure Detail Performing Clinician Start: 08-02-2024 UA DIP,URINE HCG (POC) Fox Abel MD Work Phone: Start: 06-18-2024 Urnls dip stick/tabl et rgnt auto w/o microscopy Dunia Gongora [employer] Work Phone: Start: 01-12-2024 Us pelvic nonobstetr ic real-time image complete Yennifer Pruitt APRN.CNM Work Phone: Start: 06-20-2023 UA DIP,URINE HCG (POC) Kimberly Giron MD Work Phone: Start: 05-17-2023 Urnls dip stick/tabl et rgnt auto w/o microscopy Dunia Gongora [employer] Work Phone: Start: 07-25-2018 End: 07-25-2018 Depression screening Andrzej Peralta MD Work Phone: Start: 07-25-2018 End: 07-25-2018 Pos clin depres scrn f/u doc Andrzej Peralta MD Work Phone: Start: 02-22-2018 End: 03-29-2018 Who cock-up nonmolde pre ots Ashkan Gaxiola MD Work Phone: Start: 02-21-2018 End: 02-22-2018 Radex wrist complete minimum 3 views Ashkan Gaxiola MD Work Phone: Start: 06-15-2017 End: 06-19-2017 Radex wrist complete minimum 3 views Jose Kruger MD Work Phone: Start: 06-07-2017 End: 06-07-2017 Body mass index documented Jose Kruger MD Work Phone: Start: 06-07-2017 End: 06-12-2017 Radex wrist complete minimum 3 views Jose Kruger MD Work Phone: Start: 06-07-2017 End: 06-23-2017 Ct upper extremity w/o contrast material Jose Kruger MD Work Phone: Start: 01-26-2017 End: 01-26-2017 Body mass index documented Galina dewitt PA-C Work Phone: Start: 10-24-2016 End: 12-30-2016 Polysom 6/>yrs sleep 4/> addl kaley attnd Andrzej Peralta MD Work Phone: Start: 04-02-2010 End: 04-02-2010 Radex wrist 2 views Ashkan Naylor Work Phone: Start: 04-01-2010 End: 09-01-2010 Radex elbow complete minimum 3 views Ashkan Gaxiola MD Work Phone: Comment on above: right Urine culture Plan of Treatment Date Care Activity Detail Author Start: 06-11-2033 Urine microalbumin profile DTaP,Tdap,Td Vaccine (2 - Td or Tdap) [facility] Start: 04-24-2026 Screening for malign ant neoplasm of cervix [facility] Start: 11-18-2024 Influenza vaccination [facility] Start: 10-18-2024 End: 10-18-2024 Patient encounter procedure 10/18/2024 11:30 AM EDT Office Visit OB/Gynecology [address] [place] [address] Fox Abel MD [address] [facility] [place] [place] [address] 1 week post-op OB/Gynecology Comment on above: 1 week post-op Start: 09-30-2024 End: 09-30-2024 Patient encounter procedure 09/30/2024 3:40 PM EDT Office Visit OB/Gynecology [address] [place] [address] Fox Abel MD [address] [place] [address] surgery 10/11/24 OB/Gynecology Comment on above: surgery 10/11/24 Start: 09-30-2024 End: 09-30-2024 Follow-up encounter 09/30/2024 11:40 AM EDT [facility] [place] [address] [address] Graham Green APRN.[employer] [address] [place] [address] 1 mo follow up [facility] [place] Comment on above: 1 mo follow up Start: 09-11-2024 End: 09-11-2024 Patient encounter procedure 09/11/2024 7:00 AM EDT Office Visit Family Medicine [place] [address] [address] Radha Busch MD [address] [facility] [address] [place] [address] Follow-up and pre op [facility] [place] Comment on above: Follow-up and pre op Start: 08-13-2024 End: 08-13-2024 ambulatory 08/13/2024 1:20 PM EDT [facility] [address] [place] [address] Marci Pulido, [employer] [address] [place] [address] Return in about 4 weeks (around 08/13/2024) for Weight f/u, can be VV. [facility] [place] Comment on above: Return in about 4 we eks (around 08/13/2024) for Weight f/u, can be VV. Start: 08-09-2024 End: 08-09-2024 Patient encounter procedure 08/09/2024 2:00 PM EDT Office Visit OB/Gynecology [address] [place] [id number] Fox Abel MD [address] [place] [address] surgery 08/16 @[facility] OB/Gynecology Comment on above: surgery 08/16 @[facility] Start: 08-05-2024 End: 08-05-2024 Patient encounter procedure 08/05/2024 2:50 PM EDT Office Visit OB/Gynecology [address] [place] [id number] Fox Abel MD [address] [place] [id number] Discuss contraception OB/Gynecology Comment on above: Discuss contraceptio n Start: 08-01-2024 End: 08-01-2024 Patient encounter procedure 08/01/2024 10:20 AM EDT Office Visit OB/Gynecology [address] [place] [address] Fox Abel MD [address] [place], [place] [id number] surgery 08/02 @[facility] OB/Gynecology Comment on above: surgery 08/02 @[facility] Start: 07-25-2024 End: 07-25-2024 Patient encounter procedure 07/25/2024 2:00 PM EDT Office Visit OB/Gynecology [address] [place] [address] Fox Abel MD [address] [place], [place] [id number] surgery 08/02 @[facility] OB/Gynecology Comment on above: surgery 08/02 @[facility] Start: 07-16-2024 End: 07-16-2024 Patient encounter procedure 07/16/2024 3:20 PM EDT Office Visit [facility] [address] [address] Marci Pulido, [employer] [address] [place] [address] 4 week follow up [facility] Comment on above: 4 week follow up Start: 06-28-2024 End: 06-28-2024 Patient encounter procedure 06/28/2024 3:20 PM EDT Office Visit OB/Gynecology [address] [place], [place] [id number] Fox Abel MD [address] [place] [address] Consult for hysteroscopy D&C OB/Gynecology Comment on above: Consult for hysteros copy D&C Start: 05-13-2024 End: 05-13-2024 Patient encounter procedure 05/13/2024 4:00 PM EST Office Visit OB/Gynecology [address] [place], [place] [id number] Fox Abel MD [address] [place] [address] Consult for hysteroscopy D&C OB/Gynecology Comment on above: Consult for hysteros copy D&C Start: 04-25-2024 End: 04-25-2024 Patient encounter procedure 04/25/2024 2:45 PM EST Office Visit OB/Gynecology [address] [place] [address] Uma Tinsley APRN.[employer] [address] [place] [address] Bleeding OB/Gynecology Comment on above: Bleeding Start: 04-24-2024 End: 04-24-2024 Patient encounter procedure 04/24/2024 1:00 PM EST Office Visit OB/Gynecology [address] [place] [address] Christopher Landers APRN.[employer] [address] [place] [address] annual OB/Gynecology Comment on above: annual Start: 04-15-2024 End: 04-15-2024 Patient encounter procedure 04/15/2024 1:45 PM EST Office Visit OB/Gynecology [address] [place] [address] Uma Tinsley, [employer] [address] [place] [address] Bleeding OB/Gynecology Comment on above: Bleeding Start: 03-19-2024 End: 03-19-2024 Patient encounter procedure 03/19/2024 2:20 PM EST Office Visit [facility] [place] [address] [address] Anju Rajan MD [address] [place] [address] wellness [facility] [place] Comment on above: wellness Start: 02-22-2024 End: 02-22-2024 Patient encounter procedure 02/22/2024 2:00 PM EST Office Visit Dermatology [address] [place] [address] James Rock PA-C [address] [place], [place] [id number] Skin lesion [L98.9] Dermatology Comment on above: Skin lesion [L98.9] Start: 02-08-2024 End: 02-08-2024 Patient encounter procedure 02/08/2024 9:30 AM EST Office Visit Neurology [address] [place] [address] Asif Wallace, JERONIMO.[employer] [address] [place] [address] follow up after sleep study Neurology Comment on above: follow up after slee p study Start: 01-15-2024 End: 01-15-2024 Patient encounter procedure 01/15/2024 9:05 PM EDT Office Visit Neurology [address] [place] [address] Excessive daytime sleepiness [G47.19]; Class 3 severe obesity with body mass index (BMI) of 45.0 to 49.9 in adult, unspecified obesity type, unspecified whether serious comorbidity present (HCC) [E66.01, Z68.42]; Dream enactment behavior [G47.52]; Snoring [R06.83]; Witnessed apneic spells [R06.81]; Frequent nocturnal awakening [G47.00] Neurology Comment on above: Excessive daytime sl eepiness [G47.19]; Class 3 severe obesity with body mass index (BMI) of 45.0 to 49.9 in adult, unspecified obesity type, unspecified whether serious comorbidity present (HCC) [E66.01, Z68.42]; Dream enactment behavior [G47.52]; Snoring [R06.83]; Witnessed apneic spells [R06.81]; Frequent nocturnal awakening [G47.00] Start: 01-12-2024 End: 01-12-2024 ambulatory 01/12/2024 11:30 AM EDT Procedure OB/Gynecology [address] [place] [address] Remote, Nuclear Radiologist [employer] [address] [place] [address] ]Breakthrough bleeding with IUD [N92.1, Z97.5 OB/Gynecology Comment on above: ]Breakthrough bleedi ng with IUD [N92.1, Z97.5 Start: 01-08-2024 End: 01-07-2025 US Pelvis PELVIC US [facility] Anc Imaging Routine Breakthrough bleeding with IUD Expected: 01/08/2024, Expires: 01/07/2025 [facility] Work Phone: Comment on above: Expected: 01/08/2024 , Expires: 01/07/2025 Start: 01-05-2024 End: 01-05-2024 Patient encounter procedure 01/05/2024 11:10 AM EDT Office Visit OB/Gynecology [address] [place] [address] Fox Abel MD [address] [place] [address] Heavy bleeding plan of care OB/Gynecology Comment on above: Heavy bleeding plan of care Start: 11-28-2023 End: 11-28-2023 Follow-up encounter 11/28/2023 4:00 PM EDT [facility] [place] [address] [address] Anju Rajan MD [address] [place] [address] Return in about 2 months (around 11/28/2023) for Virtual ok follow up for GERD . [facility] [place] Comment on above: Return in about 2 mo nths (around 11/28/2023) for Virtual ok follow up for GERD . Start: 11-27-2023 End: 02-26-2024 CBC panel - Blood by Automated count COMPLETE BLOOD COUNT Lab Routine Abnormal uterine bleeding Expected: 11/27/2023, Expires: 02/26/2024 [facility] Work Phone: Comment on above: Expected: 11/27/2023 , Expires: 02/26/2024 Start: 11-24-2023 End: 11-24-2023 Patient encounter procedure 11/24/2023 3:00 PM EDT Office Visit Neurology [address] [facility] [place] [address] Asif Wallace, JERONIMO.[employer] [address] [place] [address] Observed sleep apnea [G47.30] Neurology Comment on above: Observed sleep apnea [G47.30] Start: 11-19-2023 Covid-19 Vaccine ( season) Covid-19 Vaccine ( season) [facility] Start: 11-19-2023 Covid-19 Vaccine ( season) Covid-19 Vaccine () [facility] Start: 11-19-2023 Influenza vaccination [facility] Start: 09-26-2023 End: 09-26-2023 ambulatory 09/26/2023 3:45 PM EDT Results Only [facility] [address] [place] [address] [facility] Start: 09-01-2023 End: 09-01-2023 Patient encounter procedure 09/01/2023 8:40 AM EDT Office Visit [facility] [place] [address] [address] Anju Rajan MD [address] [place] [address] primary care [facility] [place] Comment on above: primary care Start: 08-28-2023 End: 08-28-2023 Patient encounter procedure 08/28/2023 9:00 AM EDT Office Visit Neurology [address] [facility] [place] [address] Asif Wallace, JERONIMO.[employer] [address] [place] [address] Observed sleep apnea [G47.30] Neurology Comment on above: Observed sleep apnea [G47.30] Start: 04-24-2023 End: 07-24-2023 Hemoglobin A1c in Blood [facility] Work Phone: Comment on above: Expected: 04/24/2023 , Expires: 07/24/2023 Start: 04-24-2023 End: 07-24-2023 Hepatitis B virus core IgM Ab [Presence] in Serum [facility] Work Phone: Comment on above: Expected: 04/24/2023 , Expires: 07/24/2023 Start: 04-24-2023 End: 07-24-2023 HIV 1+2 Ab [Presence] in Serum or Plasma by Immunoassay [facility] Work Phone: Comment on above: Expected: 04/24/2023 , Expires: 07/24/2023 Start: 04-24-2023 End: 07-24-2023 SYPHILIS TOTAL W/REFLEX [facility] Work Phone: Comment on above: Expected: 04/24/2023 , Expires: 07/24/2023 Start: 04-24-2023 End: 07-24-2023 Thyrotropin [Units/volume] in Serum or Plasma [facility] Work Phone: Comment on above: Expected: 04/24/2023 , Expires: 07/24/2023 Start: 04-24-2023 End: 07-24-2023 Thyroxine (T4) free [Mass/volume] in Serum or Plasma [facility] Work Phone: Comment on above: Expected: 04/24/2023 , Expires: 07/24/2023 Start: 03-20-2023 Depression Assessment Depression Ass essment [facility] Start: 11-18-2022 Covid-19 Vaccine () Covid-19 Vaccine () [facility] Start: 11-18-2022 Influenza vaccination Influenza Vacc ine (#1) [facility] Start: 09-08-2015 Screening for malign ant neoplasm of cervix Pap Testing [facility] Start: 2013 Hepatitis B Vaccine (1 of 3 - 19+ 3-dose series) Hepatitis B Vaccine (1 of 3 - 19+ 3-dose series) [facility] Start: 2013 Urine microalbumin profile DTaP,Tdap,Td Vaccine (1 - Tdap) [facility] Start: 2012 Hepatitis C screening Hepatitis C Sc reening [facility] Start: 2012 HIV screening HIV Screening [facility] Start: 1994 Hepatitis B Vaccine (1 of 3 - 3-dose series) Hepatitis B Vaccine (1 of 3 - 3-dose series) [facility] BLADDER SCAN BLADDER SCAN Pro cedures Routine Mixed stress and urge urinary incontinence Ordered: 06/18/2024 [facility] Comment on above: Ordered: 06/18/2024 Chlamydia trachomatis+Neisseria gonorrhoeae DNA [Presence] in Unspecified specimen by JANAE with probe detection GONORRHEA/CHLAMYDIA NAAT Lab Routine Screening for STD (sexually transmitted disease) 04/24/2023 1:28 PM [employer] [facility] Work Phone: Endometrial bx w/wo endocervix bx w/o dilat spx ENDOMETRIAL BIOPSY Procedures Routine DUB (dysfunctional uterine bleeding) Abnormal uterine bleeding (AUB) Ordered: 08/02/2024 [facility] Comment on above: Ordered: 08/02/2024 Endometrial bx w/wo endocervix bx w/o dilat spx ENDOMETRIAL BIOPSY Procedures Routine DUB (dysfunctional uterine bleeding) Ordered: 08/02/2024 [facility] Comment on above: Ordered: 08/02/2024 Insertion intrauteri ne device iud INSERT INTRAUTERINE DEVICE Procedures Routine Encounter for other contraceptive management Adenomyosis Ordered: 06/12/2023 [facility] Work Phone: Comment on above: Ordered: 06/12/2023 PAP TEST PAP TEST Lab Gali pascal Encounter for gynecological examination (general) (routine) with abnormal findings Screening for cervical cancer Encounter for screening for human papillomavirus (HPV) 04/24/2023 1:28 PM [employer] [facility] Work Phone: End: 11-23-2024 Polysomnogram POLYSOMNOGRAM (PSG) Procedures Routine Excessive daytime sleepiness Class 3 severe obesity with body mass index (BMI) of 45.0 to 49.9 in adult, unspecified obesity type, unspecified whether serious comorbidity present (HCC) Dream enactment behavior Snoring Witnessed apneic spells Frequent nocturnal awakening 1 Occurrences starting 11/24/2023 until 11/23/2024 [facility] Work Phone: Comment on above: 1 Occurrences starti ng 11/24/2023 until 11/23/2024 Removal intrauterine device iud REMOVE INTRAUTERINE DEVICE Procedures Routine Encounter for IUD removal Ordered: 08/02/2024 [facility] Work Phone: Comment on above: Ordered: 08/02/2024 Removal intrauterine device iud REMOVE INTRAUTERINE DEVICE Procedures Routine Encounter for IUD removal Ordered: 08/02/2024 [facility] Work Phone: Comment on above: Ordered: 08/02/2024 Tissue Pathology bio psy report SURGICAL PATHOLOGY Lab Routine DUB (dysfunctional uterine bleeding) 08/02/2024 12:37 PM EDT [facility] TRICHOMONAS VAGINALI S NAAT TRICHOMONAS VAGINALIS NAAT Lab Routine Screening for STD (sexually transmitted disease) 04/24/2023 1:28 PM EST [facility] Work Phone: UA DIP, URINE (POC) UA DIP, URIN E (POC) Lab Routine Mixed stress and urge urinary incontinence Ordered: 06/18/2024 [facility] Work Phone: Comment on above: Ordered: 06/18/2024 US Pelvis transvaginal US FEMALE PELVIS TRANSVAG Radiology Routine Abnormal uterine bleeding 05/05/2023 12:32 PM EST [facility] Work Phone: End: 05-23-2024 Us transvaginal US FEMALE PELVIS TRANSVAG Radiology Routine Abnormal uterine bleeding 1 Occurrences starting 04/24/2023 until 05/23/2024 [facility] Work Phone: Comment on above: 1 Occurrences starti ng 04/24/2023 until 05/23/2024 COVID-Moderna (1 00 MCG/0.5 ML) Scheduled for Administration Intent [facility], [facility]. [facility] Immunizations Immunization Date Immunization Notes Care Provider Gely pham 06-12-2023 tetanus toxoid, redu mar diphtheria toxoid, and acellular pertussis vaccine, adsorbed Christopher Landers APRN.[employer] Work Phone: [facility] 01-29-2021 COVID-Moderna (100 MCG/0.5 ML) Andrzej Peralta MD Work Phone: [facility]; [facility] 05-01-2017 influenza, injectabl e, quadrivalent, contains preservative Andrzej Peralta MD Work Phone: [facility]; [facility] Comment on above: Site: Right DeltoidV IS Given: * Influenza - Inactivated (10/24/14) 05-01-2017 influenza virus vaccine, unspecified formulation Christopher Landers APRN.[employer] Work Phone: [facility] Payers Date Payer Category Payer Private Health Insurance [id number] 2024 Private Health Insurance [employer] [id number] 2024 Unknown [id number] 2023 Self-pay [id number] 2023 Unknown [id number] 2021 Government (not Medi care or Medicaid) [id number] 2021 Medicare [id number] 1994 Unknown [id number] 51 1994 Unknown [id number] 51 1994 Unknown [id number] 51 1994 Unknown [id number] 51 Private Health Insurance [facility] [id number] Unknown [id number] Unknown COMMERCIAL OTHER [id number] Unknown [id number] 62 Unknown [id number] 62 Unknown [id number] 62 Unknown [id number] 62 Unknown [id number] 62 Unknown [id number] 62 Unknown [id number] 62 Social History Date Type Detail Facility Tobacco smoking status SCIS Unknown if ever smoked [facility] Work Phone: Start: 1995 Sex Assigned At Female W [facility] Alcohol Use: Alcohol Use: ; None. [facility] [employer] Start: 04-24-2023 End: 06-20-2023 No Caffeine Use No Caffeine Use [facility] [employer] Tobacco Use: Tobacco Use: ; N ever smoker. [employer] Tobacco/Smoke Exposure: Tobacco/Smoke Exposure: ; Family members smoke outdoors only. [employer] Start: 04-24-2023 Never smoked tobacco [facility] Family members s moke outdoors only [employer]; [employer] Work Phone: Start: 04-24-2023 Tobacco use and exposure Smokeless tobacco non-user [facility] Start: 04-24-2023 End: 08-05-2024 Alcohol intake Current drinker of alcohol (finding) [facility] Start: 04-24-2023 End: 06-20-2023 Tobacco use panel [facility] Start: 04-24-2023 Education 13 [facility] Start: 04-24-2023 Alcohol Comment [facility] Start: 1995 Sex Assigned At Not on file C [facility] Adult Depression Screening Assessment 6 [facility] Has the Polyplus-transfection, oil, or water Roamler threatened to shut off services in your home in past 12Mo No [facility] Are you now , , , , never or living with a partner? [facility] How often to you hav e a drink containing alcohol? 2-4 times a month [facility] How often do you hav e 6 or more drinks on 1 occasion? Never [facility] Do you feel stress - tense, restless, nervous, or anxious, or unable to sleep at night because your mind is troubled all the time - these days [OSQ] Very much [facility] How often to you hav e a drink containing alcohol? Monthly or less [facility] How many standard drinks containing alcohol do you have on a typical day? 1 or 2 [facility] NEGATED: Highlighted rowStart: EDWARDOF History of tobacco use Passive smoker [facility] Functional Status Date Assessment Result Facility 09-29-2024 Total score [AUDIT-C] 1 09/30/19 25 8:50 PM EDT User, Allan [facility] 09-29-2024 How often to you hav e a drink containing alcohol? Monthly or less 09/29/2024 8:50 PM EDT User, Mychart Monthly or less [facility] 09-29-[address] inks containing alcohol do you have on a typical day? 1 or 2 09/29/2024 8:50 PM EDT User, Mychart 1 or 2 [facility] 09-29-2024 How often do you hav e 6 or more drinks on 1 occasion? Never 09/29/2024 8:50 PM EDT User, Mychart Never [facility] Clinical Notes 05-24-2022 to 10-07-2024 Fox Abel MD - 10/07/2024 5:49 PM EDTFox Abel MD - 09/30/2024 5:32 PM EDTFox Abel MD - 09/30/2024 5:32 PM EDTTelephone Encounter - Fox Abel MD - 09/30/2024 4:51 PM EDT Note Date & Type Note Facility 10-07-2024 Note HNO ID: [id number] Author: FOX ABEL MD Service: ? Author Type: Physician Type: Progress Notes Filed: 10/07/2024 17:53 Note Text: Patient wanted to discuss advanced directives rashaad operatively. Recommended that patient see her PCP for this. Patient received pre operative clearance through her PCP office. Message sent to PCP to see if advanced directives was discussed, and it was not at the time of her visit. Called placed to [facility] medical bioethics and discussed patient. They will call the patient to go over advanced directives further and provide assistance with this. They will call the patient 10/08/24 prior to surgery [facility] 10-07-2024 History of Presen t illness Narrative Patient wanted to discuss advanced directives rashaad operatively. Recommended that patient see her PCP for this. Patient received pre operative clearance through her PCP office. Message sent to PCP to see if advanced directives was discussed, and it was not at the time of her visit. Called placed to [facility] medical bioethics and discussed patient. They will call the patient to go over advanced directives further and provide assistance with this. They will call the patient 10/08/24 prior to surgery documented in this encounter [facility] 10-01-2024 Note HNO ID: [id number] Author: ?, ?, ? Service: ? Author Type: ? Type: Progress Notes Filed: 10/01/2024 09:48 Note Text: Called left LOUISA [facility] 09-30-2024 History and physical note DATE OF SERVICE: September 30, 2024 PROBLEM: DUB, failed medical management DIAGNOSIS: as above PAST SURGICAL HISTORY: PAST SURGICAL HISTORY Procedure Laterality Date INSERTION OF IUD 06/2023 PAST SURGICAL HISTORY OF extraction of wisdom teeth PAST MEDICAL HISTORY: PAST MEDICAL HISTORY Diagnosis Date Anxiety and depression GERD (gastroesophageal reflux disease) Learning disability Sleep apnea Speech impediment Vitamin D deficiency 05/2023 SUBJECTIVE: Patient states Aygestin daily initially controlled her bleeding but she is now again having irregular and bothersome bleeding for her. She strongly desires a hysterectomy. She states this is something she has wanted for awhile, and she feels she has researched her options well. She is 100% certain she does not desire to ever carry a . She does not want a of her own. She wishes to proceed with a hysterectomy. SOCIAL HISTORY: Social History Tobacco Use Smoking status: Never Passive exposure: Never Smokeless tobacco: Never Vaping Use Vaping status: Never Used Substance Use Topics Alcohol use: Yes Comment: ocassioanaly Drug use: Never ALLERGIES No Known Allergies Current Outpatient Medications on File Prior to Visit Medication Sig norethindrone (AYGESTIN) 5 mg tablet Take 1 tablet by mouth as directed. one by mouth tid x 3 days, bid x 3 days, then daily trospium (SANCTURA) 20 mg tablet Take 1 tablet by mouth two times a day. omeprazole (PRILOSEC) 20 mg capsule TAKE ONE CAPSULE BY MOUTH ONCE DAILY traZODone (DESYREL) 50 mg tablet Take 50 mg by mouth daily at bedtime. buPROPion XL (WELLBUTRIN XL) 150 mg 24 hr tablet Take 150 mg by mouth every morning. hydrOXYzine pamoate (VISTARIL) 25 mg capsule Acetaminophen 500 mg cap Take by mouth. sertraline (ZOLOFT) 100 mg tablet Take 100 mg by mouth two times a day. No current facility-administered medications on file prior to visit. Pelvic US: Impression Normal appearing anteverted uterus that measures 84 mm x 41 mm x 61 mm. Endometrium measures 7.3 mm. 3D rendering of the uterus confirms the proper location of the IUD within the endometrial cavity. Normal appearing right ovary. Left ovary contains a 33 x 30 x 37 mm unilocular simple cyst. No adnexal masses were observed. There is no free fluid visualized in the peritoneal cavity. Recommendations O-RADS 2 left ovarian simple cyst, almost certainly benign. No follow up imaging is needed. EMB: Component FINAL DIAGNOSIS A. Endometrium, biopsy: - Benign endometrium with changes consistent with exogenous progestin effect. - Fragments of benign endocervical epithelium. Pap normal 2023 OBJECTIVE: VITALS: BP 120/84 Pulse 86 Resp 20 Ht 172.7 cm (5' 8) Wt 129.5 kg (285 lb 9.6 oz) LMP 06/10/2024 (Within Days) BMI 43.43 kg/m HEENT: Normocephalic, atraumatic, Mucus membranes moist without lesions. SKIN: No lesions. CHEST: Clear to auscultation. No wheezes or rales. Good air exchange. HEART: Regular rate and rhythm No S3 or S4. No gallops or rubs. BACK: Nontender. ABDOMEN: Soft, non-tender, non-distended, no masses, no hepatosplenomegaly. LOWER EXTREMITIES: There was no pitting edema, no palpable cords and no skin changes. ASSESSMENT: pre op PLAN: 1) Patient continues to having irregular and bothersome bleeding despite medical management. She states she has wanted a hysterectomy for awhile, and this is something that she has thought about and researched for awhile. She strongly desires a hysterectomy and understands this procedure is removing her uterus. She understands she cannot carry a . She states she has always known she does not desire to carry a . She has received medical clearance from her PCP. Discussed r/b/a TLH, BS, cystoscopy in detail with patient. The rationale for the proposed surgery was discussed in addition to risks, benefits, and alternatives. General pre- and post-operative care was reviewed. Questions were answered. After discussion, the patient indicated a desire to proceed with the planned surgery. Fox Abel, Medical Decision Making: Problems: Moderate: 1+ chronic illnesses with change Risk: High: Decision on elective major surgery w/ risk factors Medical Decision Making Level: 4 - Moderate [facility] 09-30-2024 History and physical note DATE OF SERVICE: September 30, 2024 PROBLEM: DUB, failed medical management DIAGNOSIS: as above PAST SURGICAL HISTORY: PAST SURGICAL HISTORY Procedure Laterality Date INSERTION OF IUD 06/2023 PAST SURGICAL HISTORY OF extraction of wisdom teeth PAST MEDICAL HISTORY: PAST MEDICAL HISTORY Diagnosis Date Anxiety and depression GERD (gastroesophageal reflux disease) Learning disability Sleep apnea Speech impediment Vitamin D deficiency 05/2023 SUBJECTIVE: Patient states Aygestin daily initially controlled her bleeding but she is now again having irregular and bothersome bleeding for her. She strongly desires a hysterectomy. She states this is something she has wanted for awhile, and she feels she has researched her options well. She is 100% certain she does not desire to ever carry a . She does not want a of her own. She wishes to proceed with a hysterectomy. SOCIAL HISTORY: Social History Tobacco Use Smoking status: Never Passive exposure: Never Smokeless tobacco: Never Vaping Use Vaping status: Never Used Substance Use Topics Alcohol use: Yes Comment: ocassioanaly Drug use: Never ALLERGIES No Known Allergies Current Outpatient Medications on File Prior to Visit Medication Sig norethindrone (AYGESTIN) 5 mg tablet Take 1 tablet by mouth as directed. one by mouth tid x 3 days, bid x 3 days, then daily trospium (SANCTURA) 20 mg tablet Take 1 tablet by mouth two times a day. omeprazole (PRILOSEC) 20 mg capsule TAKE ONE CAPSULE BY MOUTH ONCE DAILY traZODone (DESYREL) 50 mg tablet Take 50 mg by mouth daily at bedtime. buPROPion XL (WELLBUTRIN XL) 150 mg 24 hr tablet Take 150 mg by mouth every morning. hydrOXYzine pamoate (VISTARIL) 25 mg capsule Acetaminophen 500 mg cap Take by mouth. sertraline (ZOLOFT) 100 mg tablet Take 100 mg by mouth two times a day. No current facility-administered medications on file prior to visit. Pelvic US: Impression Normal appearing anteverted uterus that measures 84 mm x 41 mm x 61 mm. Endometrium measures 7.3 mm. 3D rendering of the uterus confirms the proper location of the IUD within the endometrial cavity. Normal appearing right ovary. Left ovary contains a 33 x 30 x 37 mm unilocular simple cyst. No adnexal masses were observed. There is no free fluid visualized in the peritoneal cavity. Recommendations O-RADS 2 left ovarian simple cyst, almost certainly benign. No follow up imaging is needed. EMB: Component FINAL DIAGNOSIS A. Endometrium, biopsy: - Benign endometrium with changes consistent with exogenous progestin effect. - Fragments of benign endocervical epithelium. Pap normal 2023 OBJECTIVE: VITALS: BP 120/84 Pulse 86 Resp 20 Ht 172.7 cm (5' 8) Wt 129.5 kg (285 lb 9.6 oz) LMP 06/10/2024 (Within Days) BMI 43.43 kg/m HEENT: Normocephalic, atraumatic, Mucus membranes moist without lesions. SKIN: No lesions. CHEST: Clear to auscultation. No wheezes or rales. Good air exchange. HEART: Regular rate and rhythm No S3 or S4. No gallops or rubs. BACK: Nontender. ABDOMEN: Soft, non-tender, non-distended, no masses, no hepatosplenomegaly. LOWER EXTREMITIES: There was no pitting edema, no palpable cords and no skin changes. ASSESSMENT: pre op PLAN: 1) Patient continues to having irregular and bothersome bleeding despite medical management. She states she has wanted a hysterectomy for awhile, and this is something that she has thought about and researched for awhile. She strongly desires a hysterectomy and understands this procedure is removing her uterus. She understands she cannot carry a . She states she has always known she does not desire to carry a . She has received medical clearance from her PCP. Discussed r/b/a TLH, BS, cystoscopy in detail with patient. The rationale for the proposed surgery was discussed in addition to risks, benefits, and alternatives. General pre- and post-operative care was reviewed. Questions were answered. After discussion, the patient indicated a desire to proceed with the planned surgery. Fox Abel DO Medical Decision Making: Problems: Moderate: 1+ chronic illnesses with change Risk: High: Decision on elective major surgery w/ risk factors Medical Decision Making Level: 4 - Moderate documented in this encounter [facility] 09-30-2024 Telephone encounter Note Discussed with patient at visit today, and she was to talk with her employer. Recommend 6 weeks off if she cannot adhere to lifting restrictions of no lifting greater than 10 pounds. If employer is okay with her returning to work with lifting restrictions, can return to work at 3-4 weeks post op with restrictions of no lifting greater than 10 pounds. Then after her 6 week post op visit if she is doing well, will be able to return to work without restrictions. Also please notify patient to stop Phentermine 7 days before surgery. [facility] 09-30-2024 Miscellaneous Notes Discussed with patient at visit today, and she was to talk with her employer. Recommend 6 weeks off if she cannot adhere to lifting restrictions of no lifting greater than 10 pounds. If employer is okay with her returning to work with lifting restrictions, can return to work at 3-4 weeks post op with restrictions of no lifting greater than 10 pounds. Then after her 6 week post op visit if she is doing well, will be able to return to work without restrictions. Also please notify patient to stop Phentermine 7 days before surgery. Pt calls stating she needs a note faxed to her employer: [employer] # [phone] stating how long Pt will be off work with surgery & postop. Please advise and will draft letter to fax. Gab Campbell RN documented in this encounter [facility] 09-30-2024 Telephone encounter Note Pt calls stating she needs a note faxed to her employer: [employer] # [phone] stating how long Pt will be off work with surgery & postop. Please advise and will draft letter to fax. Gab Campbell RN [facility] 09-30-2024 Note HNO ID: [id number] Author: ?, ?, ? Service: ? Author Type: ? Type: Progress Notes Filed: 09/30/2024 13:15 Note Text: Mc sent [facility] 09-30-2024 History of Presen t illness Narrative Mc sent VIRTUAL VISIT PROGRESS NOTE This is a virtual visit using [employer] Video Visit. It required patient-provider interaction for the medical decision making as documented below. I have communicated my name and active licensure. The patient's identity and physical location were verified at the time of this visit. Either the patient or their legal textile designs sales representative has been informed of the risks and benefits of -- and alternatives to -- treatment through a remote evaluation and consents to proceed with the evaluation remotely. Jeffrey Diamond is a 29 year old female seen for follow up. Phentermine Tolerating well Denies CP, tachycardia,insomnia, palpitations Current weight 288 lbs Has upcoming surgery. HISTORY REVIEWED (electronic chart updated): PAST MEDICAL HISTORY Diagnosis Date Anxiety and depression GERD (gastroesophageal reflux disease) Learning disability Sleep apnea Speech impediment Vitamin D deficiency 05/2023 PAST SURGICAL HISTORY Procedure Laterality Date INSERTION OF IUD 06/2023 PAST SURGICAL HISTORY OF extraction of wisdom teeth FAMILY HISTORY Problem Relation Age of Onset Heart Attack Mother 60 No Known Problems Sister No Known Problems Brother Obesity Paternal Grandmother Social History Tobacco Use Smoking status: Never Passive exposure: Never Smokeless tobacco: Never Vaping Use Vaping status: Never Used Substance Use Topics Alcohol use: Yes Comment: ocassioanaly Drug use: Never Current Outpatient Medications Medication Sig Phentermine HCl 37.5 mg tablet Take 1 tablet by mouth once daily for 30 days. norethindrone (AYGESTIN) 5 mg tablet Take 1 tablet by mouth as directed. one by mouth tid x 3 days, bid x 3 days, then daily trospium (SANCTURA) 20 mg tablet Take 1 tablet by mouth two times a day. omeprazole (PRILOSEC) 20 mg capsule TAKE ONE CAPSULE BY MOUTH ONCE DAILY traZODone (DESYREL) 50 mg tablet Take 50 mg by mouth daily at bedtime. buPROPion XL (WELLBUTRIN XL) 150 mg 24 hr tablet Take 150 mg by mouth every morning. hydrOXYzine pamoate (VISTARIL) 25 mg capsule Acetaminophen 500 mg cap Take by mouth. sertraline (ZOLOFT) 100 mg tablet Take 100 mg by mouth two times a day. No current facility-administered medications for this visit. ALLERGIES No Known Allergies REVIEW OF SYSTEMS: GENERAL: feeling well without fatigue, no recent change in weight PHYSICAL EXAMINATION: VIDEO EXAM: (if completed, performed via video enabled technology) No exam performed. Speaking full clear sentences, well appearing ASSESSMENT: (E66.813, Z68.42) Class 3 severe obesity with body mass index (BMI) of 45.0 to 49.9 in adult, unspecified obesity type, unspecified whether serious comorbidity present (HCC) Morbid Obesity Class 3 PLAN: -Continue phentermine. Denies side effects. Advised to ask surgeon/anesthesia when should stop phentermine prior to surgery. Follow up in 3 months. Script sent. PDMP website checked and validated. All prescriptions have been APPROPRIATELY filled. No suspicious activity was identified. There are no Patient Instructions on file for this visit. I spent a total of 15 minutes on the date of the service which included preparing to see the patient, [id number] patient care, and completing clinical documentation Graham Green APRN.CNP documented in this encounter [facility] 09-30-2024 Note HNO ID: [id number] Author: GRAHAM GREEN APRN.CNP Service: ? Author Type: Nurse Practitioner Type: Progress Notes Filed: 09/30/2024 12:18 Note Text: VIRTUAL VISIT PROGRESS NOTE This is a virtual visit using [employer] and [employer] Video Visit. It required patient-provider interaction for the medical decision making as documented below. I have communicated my name and active licensure. The patient's identity and physical location were verified at the time of this visit. Either the patient or their legal textile designs sales representative has been informed of the risks and benefits of -- and alternatives to -- treatment through a remote evaluation and consents to proceed with the evaluation remotely. Jeffrey Diamond is a 29 year old female seen for follow up. Phentermine Tolerating well Denies CP, tachycardia,insomnia, palpitations Current weight 288 lbs Has upcoming surgery. HISTORY REVIEWED (electronic chart updated): PAST MEDICAL HISTORY Diagnosis Date Anxiety and depression GERD (gastroesophageal reflux disease) Learning disability Sleep apnea Speech impediment Vitamin D deficiency 05/2023 PAST SURGICAL HISTORY Procedure Laterality Date INSERTION OF IUD 06/2023 PAST SURGICAL HISTORY OF extraction of wisdom teeth FAMILY HISTORY Problem Relation Age of Onset Heart Attack Mother 60 No Known Problems Sister No Known Problems Brother Obesity Paternal Grandmother Social History Tobacco Use Smoking status: Never Passive exposure: Never Smokeless tobacco: Never Vaping Use Vaping status: Never Used Substance Use Topics Alcohol use: Yes Comment: ocassioanaly Drug use: Never Current Outpatient Medications Medication Sig Phentermine HCl 37.5 mg tablet Take 1 tablet by mouth once daily for 30 days. norethindrone (AYGESTIN) 5 mg tablet Take 1 tablet by mouth as directed. one by mouth tid x 3 days, bid x 3 days, then daily trospium (SANCTURA) 20 mg tablet Take 1 tablet by mouth two times a day. omeprazole (PRILOSEC) 20 mg capsule TAKE ONE CAPSULE BY MOUTH ONCE DAILY traZODone (DESYREL) 50 mg tablet Take 50 mg by mouth daily at bedtime. buPROPion XL (WELLBUTRIN XL) 150 mg 24 hr tablet Take 150 mg by mouth every morning. hydrOXYzine pamoate (VISTARIL) 25 mg capsule Acetaminophen 500 mg cap Take by mouth. sertraline (ZOLOFT) 100 mg tablet Take 100 mg by mouth two times a day. No current facility-administered medications for this visit. ALLERGIES No Known Allergies REVIEW OF SYSTEMS: GENERAL: feeling well without fatigue, no recent change in weight PHYSICAL EXAMINATION: VIDEO EXAM: (if completed, performed via video enabled technology) No exam performed. Speaking full clear sentences, well appearing ASSESSMENT: (E66.813, Z68.42) Class 3 severe obesity with body mass index (BMI) of 45.0 to 49.9 in adult, unspecified obesity type, unspecified whether serious comorbidity present (HCC) Morbid Obesity Class 3 PLAN: -Continue phentermine. Denies side effects. Advised to ask surgeon/anesthesia when should stop phentermine prior to surgery. Follow up in 3 months. Script sent. PDMP website checked and validated. All prescriptions have been APPROPRIATELY filled. No suspicious activity was identified. There are no Patient Instructions on file for this visit. I spent a total of 15 minutes on the date of the service which included preparing to see the patient, [id number] patient care, and completing clinical documentation Graham Green APRN.[employer] [facility] 09-24-2024 Telephone encounter Note Any[employer]eting[employer] message sent to Pt on 09/19/24 (see 09/17/24 refill encounter) and Pt read on 09/19/24). Gab Campbell RN [facility] 09-24-2024 Miscellaneous Notes Mychart message sent to Pt on 09/19/24 (see 09/17/24 refill encounter) and Pt read on 09/19/24). Gab Campbell RN Me TG (See mychart message sent to Pt today) 09/19/24 3:00 PM Left message for Pt informing her that [place] [employer] message would me sent and asked that she reply or call the office. Gab Campbell RN Fox Abel MD 09/19/24 2:45 PM Note Filed refill. Please check on patient's bleeding. If controlled with the Aygestin would recommend continuing Aygestin rather than proceeding with hysterectomy. Can even try to decrease dose to 2.5 mg once daily. If bleeding is controlled please schedule her for virtual visit with me to discuss continuing this medication rather than hysterectomy at age 29 thanks documented in this encounter [facility] 09-19-2024 Telephone encounter Note Me TG (See mychart message sent to Pt today) 09/19/24 3:00 PM Left message for Pt informing her that mychart message would me sent and asked that she reply or call the office. Gab Campbell RN [facility] 09-19-2024 Telephone encounter Note Fox Abel MD 09/19/24 2:45 PM Note Filed refill. Please check on patient's bleeding. If controlled with the Aygestin would recommend continuing Aygestin rather than proceeding with hysterectomy. Can even try to decrease dose to 2.5 mg once daily. If bleeding is controlled please schedule her for virtual visit with me to discuss continuing this medication rather than hysterectomy at age 29 thanks [facility] 09-19-2024 Telephone encounter Note Left message for Pt informing her that mychart message would me sent and asked that she reply or call the office. Gab Campbell RN [facility] 09-19-2024 Miscellaneous Notes Left message for Pt informing her that mychart message would me sent and asked that she reply or call the office. Gab Campbell RN Filed refill. Please check on patient's bleeding. If controlled with the Aygestin would recommend continuing Aygestin rather than proceeding with hysterectomy. Can even try to decrease dose to 2.5 mg once daily. If bleeding is controlled please schedule her for virtual visit with me to discuss continuing this medication rather than hysterectomy at age 29 thanks Patient has surgery on 09/30/24. Requested Prescriptions Refused Prescriptions Disp Refills norethindrone (AYGESTIN) 5 mg tablet 50 tablet 0 Sig: Take 1 tablet by mouth as directed. one by mouth tid x 3 days, bid x 3 days, then daily Next visit in this department: 09/30/2024 Shanda Fonseca RN documented in this encounter [facility] 09-19-2024 Telephone encounter Note Filed refill. Please check on patient's bleeding. If controlled with the Aygestin would recommend continuing Aygestin rather than proceeding with hysterectomy. Can even try to decrease dose to 2.5 mg once daily. If bleeding is controlled please schedule her for virtual visit with me to discuss continuing this medication rather than hysterectomy at age 29 thanks [facility] 09-17-2024 Telephone encounter Note Patient has surgery on 09/30/24. Requested Prescriptions Refused Prescriptions Disp Refills norethindrone (AYGESTIN) 5 mg tablet 50 tablet 0 Sig: Take 1 tablet by mouth as directed. one by mouth tid x 3 days, bid x 3 days, then daily Next visit in this department: 09/30/2024 Shanda Fonseca RN [facility] 09-11-2024 Telephone encounter Note Patient had appt with Dr. Busch this morning. Check out notes state that patient needs virtual appt with Dr. Rajan in one month. Dr. Rajan does not have any openings or 1/2 day release appointments until November. Patient is scheduled with Graham in 1 month for now. Is this okay? Or is there somewhere we can schedule this with Dr. Rajan? Please advise, Thank you [facility] 09-11-2024 Miscellaneous Notes Patient had appt with Dr. Busch this morning. Check out notes state that patient needs virtual appt with Dr. Rajan in one month. Dr. Rajan does not have any openings or 1/2 day release appointments until November. Patient is scheduled with Graham in 1 month for now. Is this okay? Or is there somewhere we can schedule this with Dr. Rajan? Please advise, Thank you documented in this encounter [facility] 09-11-2024 Instructions Radha Busch MD - 09/11/2024 7:19 AM EDT Ok for surgery Continue the phentermine Keep follow up with [employer] Follow-up with PCP in 1 month documented in this encounter [facility] 09-11-2024 Note HNO ID: [id number] Author: GAB PLATT MA Service: ? Author Type: Busgirl Type: Progress Notes Filed: 09/11/2024 07:27 Note Text: Hepatitis B Vaccine(1 of 3 - 19+ 3-dose series) Never done Covid-19 Vaccine( season) due on 11/19/2023 [facility] 09-11-2024 History of Presen t illness Narrative Hepatitis B Vaccine(1 of 3 - 19+ 3-dose series) Never done Covid-19 Vaccine() due on 11/19/2023 Jeffrey Diamond is a 29 year old female presenting for Follow Up/pre-op clearance Weight Loss Management: - Currently taking phentermine, - Weight decreased from 318 lbs in May to 290 lbs currently. - Engages in regular physical activity through work, which involves constant walking. - Denies new side effects from phentermine; has a history of sleep issues prior to medication. - Requests refill for phentermine. Hysterectomy: - Scheduled for next month at [facility]. - Indication for surgery is abnormal uterine bleeding. - Currently taking medication to manage bleeding, providing significant relief. - Has a pre-op phone call with the hospital and an in-person appointment with the OB performing the surgery. Anxiety and Depression: - Managed with Zoloft, trazodone, Wellbutrin, and hydroxyzine PRN. - Recently saw psychiatrist yesterday. - Reports stability on current medications. GERD: - Managed with omeprazole daily. - Reports occasional heartburn, with an episode last night. Urinary Issues/Incontinence - Taking Sanctura, reports effective management of symptoms. Sleep Apnea: - Suspects sleep apnea, reports lifelong history of breathing cessation during sleep. - No current use of CPAP. - Last appointment for sleep apnea evaluation was a few years ago, which was canceled. HISTORIES: PAST MEDICAL HISTORY Diagnosis Date Anxiety and depression GERD (gastroesophageal reflux disease) Learning disability Sleep apnea Speech impediment Vitamin D deficiency 05/2023 PAST SURGICAL HISTORY Procedure Laterality Date INSERTION OF IUD 06/2023 PAST SURGICAL HISTORY OF extraction of wisdom teeth FAMILY HISTORY Problem Relation Age of Onset Heart Attack Mother 60 No Known Problems Sister No Known Problems Brother Obesity Paternal Grandmother Social History: Social History Tobacco Use Smoking status: Never Passive exposure: Never Smokeless tobacco: Never Vaping Use Vaping status: Never Used Substance Use Topics Alcohol use: Yes Comment: ocassioanaly Drug use: Never Social History Socioeconomic History Marital status: Spouse name: aDniel Number of children: 0 Years of education: 12 Highest education level: High school graduate Occupational History 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 Other Topics Concerns: Sleep Concern: Yes Stress Concern: No Weight Concern: Yes Special Diet: No Exercise: Yes walking Seat Belt: Yes Social Drivers of Health Financial Resource Strain: Patient Declined (09/22/2023) Overall Financial Resource Strain (CARDIA) Difficulty of Paying Living Expenses: Patient declined Food Insecurity: Patient Declined (09/22/2023) Hunger Vital Sign Worried About Running Out of Food in the Last Year: Patient declined Ran Out of Food in the Last Year: Patient declined Transportation Needs: Unknown (09/22/2023) PRAPARE - Transportation Lack of Transportation (Medical): No Physical Activity: Insufficiently Active (09/22/2023) Exercise Vital Sign Days of Exercise per Week: 7 days Minutes of Exercise per Session: 10 min Stress: Stress Concern Present (09/22/2023) [employer] [place] [employer] - Occupational Stress Questionnaire Feeling of Stress : Very much Social Connections: Unknown (09/22/2023) Social Connection and Isolation Panel [NHANES] Frequency of Communication with Friends and Family: Once a week Frequency of Social Gatherings with Friends and Family: Once a week Attends Sabianism Services: Patient declined Active Member of Clubs or Organizations: No Attends Club or Organization Meetings: Patient declined Marital Status: Housing Stability: Low Risk (09/22/2023) Housing Stability Vital Sign Unable to Pay for Housing in the Last Year: No Number of Places Lived in the Last Year: 1 Unstable Housing in the Last Year: No Allergies: ALLERGIES No Known Allergies Medications: norethindrone (AYGESTIN) 5 mg tablet Take 1 tablet by mouth as directed. one by mouth tid x 3 days, bid x 3 days, then daily trospium (SANCTURA) 20 mg tablet Take 1 tablet by mouth two times a day. omeprazole (PRILOSEC) 20 mg capsule TAKE ONE CAPSULE BY MOUTH ONCE DAILY traZODone (DESYREL) 50 mg tablet Take 50 mg by mouth daily at bedtime. buPROPion XL (WELLBUTRIN XL) 150 mg 24 hr tablet Take 150 mg by mouth every morning. hydrOXYzine pamoate (VISTARIL) 25 mg capsule Acetaminophen 500 mg cap Take by mouth. sertraline (ZOLOFT) 100 mg tablet Take 100 mg by mouth two times a day. Phentermine HCl 37.5 mg tablet Take 1 tablet by mouth once daily for 30 days. REVIEW OF SYSTEMS Constitutional: (+) weight loss Cardiovascular: (-) chest pain, (-) palpitations Respiratory: (+) phlegm production, (+) sleep-related apneic episodes, (-) wheezing, (-) coughing, (-) shortness of breath Gastrointestinal: (-) heartburn, no diarrhea, no constipation, no blood in the stools Neurological: (+) lightheadedness no visual problems, no other neurologic complaints PHYSICAL EXAMINATION: BP 112/82 Pulse 92 Temp 36.2 C (97.2 F) Resp 16 Ht 171.7 cm (5' 7.58) Wt 131.8 kg (290 lb 9.1 oz) LMP 06/10/2024 (Within Days) SpO2 98% BMI 44.73 kg/m GENERAL: NAD, alert and oriented. SKIN: Unremarkable, no rash or skin lesions. HEAD: Normocephalic. OROPHARYNX: Lips, mucosa, and tongue normal, good dentition. No oral lesions noted. NECK: Supple, no lymphadenopathy, normal thyroid, no carotid bruits. LUNGS: Clear to auscultation bilaterally, no wheezes/rhonchi/rales. HEART: Regular rate and rhythm, no murmurs. No ectopy. abdomen: Soft, nondistended, bowel sounds are normal, no rebound, no guarding EXTREMITIES: Normal, no deformities, no skin discoloration, no edema. NEURO: Awake, alert and oriented x3 ASSESSMENT AND PLAN: 1. Pre-op exam (Z01.818) - Cleared for hysterectomy scheduled next month at [facility] by Dr. Dang Abel. - Cardiopulmonary examination normal; no evidence of respiratory distress or cardiac abnormalities. - Blood pressure within normal limits. - No additional pre-operative workup required at this time. 2. DUB (dysfunctional uterine bleeding) (N93.8) - Scheduled for hysterectomy next month. - Currently on medication to manage bleeding, providing temporary relief until surgery. 3. Class 3 severe obesity with body mass index (BMI) of 45.0 to 49.9 in adult ([facility]) (E66.813) 4. Class 3 severe obesity with body mass index (BMI) of 45.0 to 49.9 in adult, unspecified obesity type, unspecified whether serious comorbidity present ([facility]) (E66.813) - Significant weight loss achieved; current weight 291 lbs, down from 318 lbs in May. - Continue phentermine therapy; prescription refilled and sent to [facility]. - Advised to schedule a virtual follow-up appointment with Dr. Rajan in one month to monitor progress and manage refills. 5. Anxiety and depression (F41.9) - Stable on current medications: Zoloft, trazodone, Wellbutrin, and hydroxyzine prn. - Recent follow-up with psychiatrist confirmed stability. 6. Gastroesophageal reflux disease, unspecified whether esophagitis present (K21.9) - Managed with omeprazole daily; effective in controlling symptoms. 7. Mixed stress and urge urinary incontinence (N39.46) - Controlled with Sanctura; patient reports satisfactory symptom management. 8. BISHNU (obstructive sleep apnea) (G47.33) - History of sleep apnea with reported episodes of apnea during sleep. - No current CPAP use; patient has not followed up on this condition for several years. discussed further evaluation of CPAP but patient did not wish to pursue that at this time Continues to work on weight loss which should help Caution with anesthesia but patient still cleared for procedure Radha Busch MD Recording using [employer] software for draft documentation of the visit was discussed with the patient/authorized textile designs sales representative; all questions welcomed and answered. Patient/authorized textile designs sales representative agreed to proceed documented in this encounter [facility] 09-11-2024 Note HNO ID: [id number] Author: RADHA BUSCH MD Service: ? Author Type: Physician Type: Progress Notes Filed: 09/11/2024 07:27 Note Text: Jeffrey Diamond is a 29 year old female presenting for Follow Up/pre-op clearance Weight Loss Management: - Currently taking phentermine, - Weight decreased from 318 lbs in May to 290 lbs currently. - Engages in regular physical activity through work, which involves constant walking. - Denies new side effects from phentermine; has a history of sleep issues prior to medication. - Requests refill for phentermine. Hysterectomy: - Scheduled for next month at [facility]. - Indication for surgery is abnormal uterine bleeding. - Currently taking medication to manage bleeding, providing significant relief. - Has a pre-op phone call with the hospital and an in-person appointment with the OB performing the surgery. Anxiety and Depression: - Managed with Zoloft, trazodone, Wellbutrin, and hydroxyzine PRN. - Recently saw psychiatrist yesterday. - Reports stability on current medications. GERD: - Managed with omeprazole daily. - Reports occasional heartburn, with an episode last night. Urinary Issues/Incontinence - Taking Sanctura, reports effective management of symptoms. Sleep Apnea: - Suspects sleep apnea, reports lifelong history of breathing cessation during sleep. - No current use of CPAP. - Last appointment for sleep apnea evaluation was a few years ago, which was canceled. HISTORIES: PAST MEDICAL HISTORY Diagnosis Date Anxiety and depression GERD (gastroesophageal reflux disease) Learning disability Sleep apnea Speech impediment Vitamin D deficiency 05/2023 PAST SURGICAL HISTORY Procedure Laterality Date INSERTION OF IUD 06/2023 PAST SURGICAL HISTORY OF extraction of wisdom teeth FAMILY HISTORY Problem Relation Age of Onset Heart Attack Mother 60 No Known Problems Sister No Known Problems Brother Obesity Paternal Grandmother Social History: Social History Tobacco Use Smoking status: Never Passive exposure: Never Smokeless tobacco: Never Vaping Use Vaping status: Never Used Substance Use Topics Alcohol use: Yes Comment: ocassioanaly Drug use: Never Social History Socioeconomic History Marital status: Spouse name: Daniel Number of children: 0 Years of education: 12 Highest education level: High school graduate Occupational History 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 Other Topics Concerns: Sleep Concern: Yes Stress Concern: No Weight Concern: Yes Special Diet: No Exercise: Yes walking Seat Belt: Yes Social Drivers of Health Financial Resource Strain: Patient Declined (09/22/2023) Overall Financial Resource Strain (CARDIA) Difficulty of Paying Living Expenses: Patient declined Food Insecurity: Patient Declined (09/22/2023) Hunger Vital Sign Worried About Running Out of Food in the Last Year: Patient declined Ran Out of Food in the Last Year: Patient declined Transportation Needs: Unknown (09/22/2023) PRAPARE - Transportation Lack of Transportation (Medical): No Physical Activity: Insufficiently Active (09/22/2023) Exercise Vital Sign Days of Exercise per Week: 7 days Minutes of Exercise per Session: 10 min Stress: Stress Concern Present (09/22/2023) [employer] [place] [employer] - Occupational Stress Questionnaire Feeling of Stress : Very much Social Connections: Unknown (09/22/2023) Social Connection and Isolation Panel [NHANES] Frequency of Communication with Friends and Family: Once a week Frequency of Social Gatherings with Friends and Family: Once a week Attends Sabianism Services: Patient declined Active Member of Clubs or Organizations: No Attends Club or Organization Meetings: Patient declined Marital Status: Housing Stability: Low Risk (09/22/2023) Housing Stability Vital Sign Unable to Pay for Housing in the Last Year: No Number of Places Lived in the Last Year: 1 Unstable Housing in the Last Year: No Allergies: ALLERGIES No Known Allergies Medications: norethindrone (AYGESTIN) 5 mg tablet Take 1 tablet by mouth as directed. one by mouth tid x 3 days, bid x 3 days, then daily trospium (SANCTURA) 20 mg tablet Take 1 tablet by mouth two times a day. omeprazole (PRILOSEC) 20 mg capsule TAKE ONE CAPSULE BY MOUTH ONCE DAILY traZODone (DESYREL) 50 mg tablet Take 50 mg by mouth daily at bedtime. buPROPion XL (WELLBUTRIN XL) 150 mg 24 hr tablet Take 150 mg by mouth every morning. hydrOXYzine pamoate (VISTARIL) 25 mg capsule Acetaminophen 500 mg cap Take by mouth. sertraline (ZOLOFT) 1 (more content not included)... [facility] 09-10-2024 Telephone encounter Note Appt with Family Practice in [place] on 09/11/24 since talking with patient this morning- appt note has been updated with pre-op added/surgical clearance with Dr. Busch. Gab Campbell RN [facility] 09-10-2024 Miscellaneous Notes Appt with Family Practice in [place] on 09/11/24 since talking with patient this morning- appt note has been updated with pre-op added/surgical clearance with Dr. Busch. Gab Campbell RN Pt calls stating she has surgery scheduled with SW 10/11/24 and was advised to get surgical clearance from PCP; However, states she is unable to get in with PCP until next year. Advised Pt that this RN would transfer her to that office and suggested she ask to see provider who has soonest availability. Pt voiced understanding. Pt will call our office back if she is unable to get in with PCP sooner to see what SW would like Pt to do. Gab Campbell RN documented in this encounter [facility] 09-10-2024 Telephone encounter Note Pt calls stating she has surgery scheduled with SW 10/11/24 and was advised to get surgical clearance from PCP; However, states she is unable to get in with PCP until next year. Advised Pt that this RN would transfer her to that office and suggested she ask to see provider who has soonest availability. Pt voiced understanding. Pt will call our office back if she is unable to get in with PCP sooner to see what SW would like Pt to do. Gab Campbell RN [facility] 08-13-2024 Note HNO ID: [id number] Author: MARCI PULIDO APRN.[employer] Service: ? Author Type: Nurse Practitioner Type: Progress Notes Filed: 08/13/2024 13:27 Note Text: VIRTUAL VISIT PROGRESS NOTE This is a virtual visit using [employer] Video Visit. It required patient-provider interaction for the medical decision making as documented below. I have communicated my name and active licensure. The patient's identity and physical location were verified at the time of this visit. Either the patient or their legal textile designs sales representative has been informed of the risks and benefits of -- and alternatives to -- treatment through a remote evaluation and consents to proceed with the evaluation remotely. Jeffrey Diamond is a 28 year old female seen for adipex f/u. Current wt 300 lbs, lost 6 more lbs. Taking adipex daily. No med AE. Walking daily, eating more fruits, less fried food. HISTORY REVIEWED (electronic chart updated): PAST MEDICAL HISTORY Diagnosis Date Anxiety and depression GERD (gastroesophageal reflux disease) Learning disability Sleep apnea Speech impediment Vitamin D deficiency 05/2023 PAST SURGICAL HISTORY Procedure Laterality Date INSERTION OF IUD 06/2023 PAST SURGICAL HISTORY OF extraction of wisdom teeth FAMILY HISTORY Problem Relation Age of Onset Heart Attack Mother 60 No Known Problems Sister No Known Problems Brother Obesity Paternal Grandmother Social History Tobacco Use Smoking status: Never Passive exposure: Never Smokeless tobacco: Never Vaping Use Vaping status: Never Used Substance Use Topics Alcohol use: Yes Comment: ocassioanaly Drug use: Never Current Outpatient Medications Medication Sig norethindrone (AYGESTIN) 5 mg tablet Take 1 tablet by mouth as directed. one by mouth tid x 3 days, bid x 3 days, then daily Phentermine HCl 37.5 mg tablet Take 1 tablet by mouth once daily for 30 days. trospium (SANCTURA) 20 mg tablet Take 1 tablet by mouth two times a day. omeprazole (PRILOSEC) 20 mg capsule TAKE ONE CAPSULE BY MOUTH ONCE DAILY traZODone (DESYREL) 50 mg tablet Take 50 mg by mouth daily at bedtime. buPROPion XL (WELLBUTRIN XL) 150 mg 24 hr tablet Take 150 mg by mouth every morning. hydrOXYzine pamoate (VISTARIL) 25 mg capsule Acetaminophen 500 mg cap Take by mouth. sertraline (ZOLOFT) 100 mg tablet Take 100 mg by mouth two times a day. No current facility-administered medications for this visit. ALLERGIES No Known Allergies REVIEW OF SYSTEMS: As noted in HPI PHYSICAL EXAMINATION: VIDEO EXAM: (if completed, performed via video enabled technology) GENERAL: alert and appropriate, in no distress, well-hydrated, well nourished, and happy, smiling, interactive ASSESSMENT: (E66.813, Z68.42) Class 3 severe obesity with body mass index (BMI) of 45.0 to 49.9 in adult, unspecified obesity type, unspecified whether serious comorbidity present PLAN: Continue adipex Discussed diet, exercise, and weight loss F/u in 4 weeks There are no Patient Instructions on file for this visit. Marci Barron APRN.[facility] 08-13-2024 History of Presen t illness Narrative VIRTUAL VISIT PROGRESS NOTE This is a virtual visit using [employer] Video Visit. It required patient-provider interaction for the medical decision making as documented below. I have communicated my name and active licensure. The patient's identity and physical location were verified at the time of this visit. Either the patient or their legal textile designs sales representative has been informed of the risks and benefits of -- and alternatives to -- treatment through a remote evaluation and consents to proceed with the evaluation remotely. Jeffrey Diamond is a 28 year old female seen for adipex f/u. Current wt 300 lbs, lost 6 more lbs. Taking adipex daily. No med AE. Walking daily, eating more fruits, less fried food. HISTORY REVIEWED (electronic chart updated): PAST MEDICAL HISTORY Diagnosis Date Anxiety and depression GERD (gastroesophageal reflux disease) Learning disability Sleep apnea Speech impediment Vitamin D deficiency 05/2023 PAST SURGICAL HISTORY Procedure Laterality Date INSERTION OF IUD 06/2023 PAST SURGICAL HISTORY OF extraction of wisdom teeth FAMILY HISTORY Problem Relation Age of Onset Heart Attack Mother 60 No Known Problems Sister No Known Problems Brother Obesity Paternal Grandmother Social History Tobacco Use Smoking status: Never Passive exposure: Never Smokeless tobacco: Never Vaping Use Vaping status: Never Used Substance Use Topics Alcohol use: Yes Comment: ocassioanaly Drug use: Never Current Outpatient Medications Medication Sig norethindrone (AYGESTIN) 5 mg tablet Take 1 tablet by mouth as directed. one by mouth tid x 3 days, bid x 3 days, then daily Phentermine HCl 37.5 mg tablet Take 1 tablet by mouth once daily for 30 days. trospium (SANCTURA) 20 mg tablet Take 1 tablet by mouth two times a day. omeprazole (PRILOSEC) 20 mg capsule TAKE ONE CAPSULE BY MOUTH ONCE DAILY traZODone (DESYREL) 50 mg tablet Take 50 mg by mouth daily at bedtime. buPROPion XL (WELLBUTRIN XL) 150 mg 24 hr tablet Take 150 mg by mouth every morning. hydrOXYzine pamoate (VISTARIL) 25 mg capsule Acetaminophen 500 mg cap Take by mouth. sertraline (ZOLOFT) 100 mg tablet Take 100 mg by mouth two times a day. No current facility-administered medications for this visit. ALLERGIES No Known Allergies REVIEW OF SYSTEMS: As noted in HPI PHYSICAL EXAMINATION: VIDEO EXAM: (if completed, performed via video enabled technology) GENERAL: alert and appropriate, in no distress, well-hydrated, well nourished, and happy, smiling, interactive ASSESSMENT: (E66.813, Z68.42) Class 3 severe obesity with body mass index (BMI) of 45.0 to 49.9 in adult, unspecified obesity type, unspecified whether serious comorbidity present PLAN: Continue adipex Discussed diet, exercise, and weight loss F/u in 4 weeks There are no Patient Instructions on file for this visit. Marci Barron APRN.[employer] documented in this encounter [facility] 08-05-2024 Note HNO ID: [id number] Author: FOX ABEL MD Service: ? Author Type: Physician Type: Progress Notes Filed: 08/09/2024 12:59 Note Text: Jeffrey Diamond is a 28 year old female who presents for follow up. HPI: Still having daily vaginal bleeding. She is having to change a pad q 2-3 hours. No lightheadedness or dizziness. Still desires a hysterectomy. Sexually active. Started the Aygestin today but took it on her way into the office. OB History Gravida1 Para0 Term0 Preterm0 AB1 Living0 SAB0 IAB0 Ectopic0 Multiple0 Live Births0 [employer] History LMP: 06/10/2024 (Within Days), Having periods Age at Menarche: Age at First : Age at Menopause: [employer] History Comments: Sexual Activity: Yes; Male Contraception: I.U.D. PAST MEDICAL HISTORY Diagnosis Date Anxiety and depression GERD (gastroesophageal reflux disease) Learning disability Sleep apnea Speech impediment Vitamin D deficiency 05/2023 PAST SURGICAL HISTORY Procedure Laterality Date INSERTION OF IUD 06/2023 PAST SURGICAL HISTORY OF extraction of wisdom teeth FAMILY HISTORY Problem Relation Age of Onset Heart Attack Mother 60 No Known Problems Sister No Known Problems Brother Obesity Paternal Grandmother Social History Tobacco Use Smoking status: Never Passive exposure: Never Smokeless tobacco: Never Vaping Use Vaping status: Never Used Substance Use Topics Alcohol use: Yes Comment: ocassioanaly Drug use: Never Current Outpatient Medications Medication Sig norethindrone (AYGESTIN) 5 mg tablet Take 1 tablet by mouth as directed. one by mouth tid x 3 days, bid x 3 days, then daily Phentermine HCl 37.5 mg tablet Take 1 tablet by mouth once daily for 30 days. trospium (SANCTURA) 20 mg tablet Take 1 tablet by mouth two times a day. omeprazole (PRILOSEC) 20 mg capsule TAKE ONE CAPSULE BY MOUTH ONCE DAILY traZODone (DESYREL) 50 mg tablet Take 50 mg by mouth daily at bedtime. buPROPion XL (WELLBUTRIN XL) 150 mg 24 hr tablet Take 150 mg by mouth every morning. hydrOXYzine pamoate (VISTARIL) 25 mg capsule Acetaminophen 500 mg cap Take by mouth. sertraline (ZOLOFT) 100 mg tablet Take 100 mg by mouth two times a day. No current facility-administered medications for this visit. Allergies As of Date: 08/05/2024 (No Known Allergies) Fully Assessed 08/05/2024 REVIEW OF SYSTEMS Expanded ROS: N/A Allergies and current medication updated:Yes SENSITIVE EXAM: Sensitive exam not performed. EXAM: BP 106/70 Wt 302 lb (137.0kg) LMP 06/10/2024 GENERAL: pleasant, female in no apparent distress HEENT: Normocephalic and atraumatic NECK: full range of motion CHEST: Normal inspiratory effort NEURO: exam grossly non-focal EXTREMITIES: normal ASSESSMENT AND PLAN: Assessment AND Plan DUB (dysfunctional uterine bleeding) Orders: COMPLETE BLOOD COUNT; Future Check CBC today. Discussed with patient to take Aygestin TID x 3 days, BID x 3 days and then once daily. Reviewed bleeding pre cautions and reasons to call. Patient states she took 3 pills at once today, and did not understand instructions. Reviewed instructions with her again. Patient does not desire future and desires hysterectomy. Discussed may need M[facility] referral based on BMI and will discuss with partners. Discussed needs clearance from PCP prior to any surgical intervention. EMB in process. Fox Abel DO Medical Decision Making: Problems: Moderate: 1+ chronic illnesses with change Data: Unique test(s) ordered: 1 Risk: Minimal: Minimal risk from testing/treatment Medical Decision Making Level: 2 - Straightforward [facility] 08-05-2024 History of Presen t illness Narrative Jeffrey Diamond is a 28 year old female who presents for follow up. HPI: Still having daily vaginal bleeding. She is having to change a pad q 2-3 hours. No lightheadedness or dizziness. Still desires a hysterectomy. Sexually active. Started the Aygestin today but took it on her way into the office. OB History Gravida1 Para0 Term0 Preterm0 AB1 Living0 SAB0 IAB0 Ectopic0 Multiple0 Live Births0 [employer] History LMP: 06/10/2024 (Within Days), Having periods Age at Menarche: Age at First : Age at Menopause: [employer] History Comments: Sexual Activity: Yes; Male Contraception: I.U.D. PAST MEDICAL HISTORY Diagnosis Date Anxiety and depression GERD (gastroesophageal reflux disease) Learning disability Sleep apnea Speech impediment Vitamin D deficiency 05/2023 PAST SURGICAL HISTORY Procedure Laterality Date INSERTION OF IUD 06/2023 PAST SURGICAL HISTORY OF extraction of wisdom teeth FAMILY HISTORY Problem Relation Age of Onset Heart Attack Mother 60 No Known Problems Sister No Known Problems Brother Obesity Paternal Grandmother Social History Tobacco Use Smoking status: Never Passive exposure: Never Smokeless tobacco: Never Vaping Use Vaping status: Never Used Substance Use Topics Alcohol use: Yes Comment: ocassioanaly Drug use: Never Current Outpatient Medications Medication Sig norethindrone (AYGESTIN) 5 mg tablet Take 1 tablet by mouth as directed. one by mouth tid x 3 days, bid x 3 days, then daily Phentermine HCl 37.5 mg tablet Take 1 tablet by mouth once daily for 30 days. trospium (SANCTURA) 20 mg tablet Take 1 tablet by mouth two times a day. omeprazole (PRILOSEC) 20 mg capsule TAKE ONE CAPSULE BY MOUTH ONCE DAILY traZODone (DESYREL) 50 mg tablet Take 50 mg by mouth daily at bedtime. buPROPion XL (WELLBUTRIN XL) 150 mg 24 hr tablet Take 150 mg by mouth every morning. hydrOXYzine pamoate (VISTARIL) 25 mg capsule Acetaminophen 500 mg cap Take by mouth. sertraline (ZOLOFT) 100 mg tablet Take 100 mg by mouth two times a day. No current facility-administered medications for this visit. Allergies As of Date: 08/05/2024 (No Known Allergies) Fully Assessed 08/05/2024 REVIEW OF SYSTEMS Expanded ROS: N/A Allergies and current medication updated:Yes SENSITIVE EXAM: Sensitive exam not performed. EXAM: BP 106/70 Wt 302 lb (137.0kg) LMP 06/10/2024 GENERAL: pleasant, female in no apparent distress HEENT: Normocephalic and atraumatic NECK: full range of motion CHEST: Normal inspiratory effort NEURO: exam grossly non-focal EXTREMITIES: normal ASSESSMENT AND PLAN: Assessment & Plan DUB (dysfunctional uterine bleeding) Orders: COMPLETE BLOOD COUNT; Future Check CBC today. Discussed with patient to take Aygestin TID x 3 days, BID x 3 days and then once daily until surgical management. Reviewed bleeding pre cautions and reasons to call. Needs clearance from PCP. She does not desire to carry , and desires a hysterectomy for failed medical management. EMB results in process. Fox Abel DO Medical Decision Making: Problems: Moderate: 1+ chronic illnesses with change Data: Unique test(s) ordered: 1 Risk: Minimal: Minimal risk from testing/treatment Medical Decision Making Level: 2 - Straightforward documented in this encounter [facility] 08-02-2024 Note HNO ID: [id number] Author: FOX ABEL MD Service: ? Author Type: Physician Type: Progress Notes Filed: 08/02/2024 15:08 Note Text: Help Desk Support Specialist offered: Patient accepts, visit chaperoned by Sonali Jacobson MA. Jeffrey presents for removal of IUD due to irregular bleeding. Jeffrey desires IUD removal due to irregular bleeding for 1 year with the IUD. She was scheduled for a hysteroscopy, DANDC, IUD removal however forgot to stop her weight loss medication prior to surgery. Surgery for today was cancelled and she came into the office for below procedure. Jeffrey desires a hysterectomy. She states she has had irregular bleeding with the control pill and with the IUD. UNIVERSAL PROTOCOL / SAFETY CHECKLIST Procedure to be Performed: IUD Removal Sign In: A Moment of CARE was completed. Appropriate PPE (Personal Protective Equipment) worn by all providers involved with the procedure. Special equipment not required. Patient/Surrogate Stated/Verified: Patient name, Date of , Relevant allergies, and The intended procedure Time Out: Relevant labs, photos, and/or imaging studies have been reviewed. Intended patient and procedure match the source document(s) (e.g. consent, HANDP, associated studies [imaging, pathology]) match the intended patient and procedure. Consent obtained and matches the intended procedure. Yes. Correct side/site is not applicable. Medications required for this procedure are verified. Fire risk assessed and is not applicable. Implants: are not applicable. Sign Out: Specimens are all correctly labeled and sent. All instruments, equipment, possible retained foreign bodies are accounted for. Yes. The post-procedure plan of care has been communicated to the patient or surrogate. PROCEDURE: Speculum placed in vagina, IUD string visualized and grasped with ring forceps. ASSESSMENT/PLAN: IUD removed without difficulty, intact, and patient tolerated procedure well. Contraception plans: Patient undecided. Schedule follow up. Fox DO Jeffrey Abel is a 28 year old who presents today for an endometrial biopsy for abnormal uterine bleeding. test: negative UNIVERSAL PROTOCOL / SAFETY CHECKLIST Procedure to be Performed: Endometrial Biopsy with Possible Endosee Sign In: A Moment of CARE was completed. Appropriate PPE (Personal Protective Equipment) worn by all providers involved with the procedure. Special equipment not required. Patient/Surrogate Stated/Verified: Patient name, Date of , Relevant allergies, and The intended procedure Time Out: Relevant labs, photos, and/or imaging studies have been reviewed. Intended patient and procedure match the source document(s) (e.g. consent, HANDP, associated studies [imaging, pathology]) match the intended patient and procedure. Consent obtained and matches the intended procedure. Yes. Correct side/site is not applicable. Medications required for this procedure are verified. are not applicable. Fire risk assessed and is not applicable. Implants: are not applicable. Sign Out: Specimens are all correctly labeled and sent. All instruments, equipment, possible retained foreign bodies are accounted for. Yes. The post-procedure plan of care has been communicated to the patient or surrogate. PROCEDURE: EXTERNAL GENITALIA: Normal in appearance without lesions VAGINA: Normal in appearance without lesions BIOPSY: Speculum placed into the vagina with excellent visualization of the cervix. Cervix cleaned with betadine. Anterior lip of cervix grasped with single toothed tenaculum. Uterus sounded to 7 cm. Pipelle inserted into the uterus without difficulty and endometrial biopsy obtained. Procedure Summary: Patient tolerated procedure well. ASSESSMENT: abnormal uterine bleeding PLAN: Specimens labeled and sent to Pathology. Will notify patient of results in 1-2 weeks. Post-procedure instructions reviewed and written material given to the patient. Fox Abel DO Jeffrey Diamond presents for hysteroscopy. Indication: Irregular Bleeding. Age: [age] year old LMP: Patient's last menstrual period was 06/10/2024 (within days). Contraception: Mirena IUD test: negative VS: BP 120/82 Wt 305 lb 9.6 oz (138.6kg) LMP 06/10/2024 UNIVERSAL PROTOCOL / SAFETY CHECKLIST Procedure to be Performed: Endosee Sign In: A Moment of CARE was completed. Appropriate PPE (Personal Protective Equipment) worn by all providers involved with the procedure. Special equipment not required. Patient/Surrogate Stated/Verified: Patient name, Date of , Relevant allergies, and The intended procedure Time Out: Relevant labs, photos, and/or imaging studies have been reviewed. Intended patient and procedure match the source document(s) (e.g. consent, HANDP, associated studies [imaging, pathology]) match the intended patient and procedure. Consent obtained and matches t (more content not included)... [facility] 08-02-2024 History of Presen t illness Narrative Help Desk Support Specialist offered: Patient accepts, visit chaperoned by Sonali Jacobson MA. Jeffrey presents for removal of IUD due to irregular bleeding. Jeffrey desires IUD removal due to irregular bleeding for 1 year with the IUD. She was scheduled for a hysteroscopy, D&C, IUD removal however forgot to stop her weight loss medication prior to surgery. Surgery for today was cancelled and she came into the office for below procedure. Jeffrey desires a hysterectomy. She states she has had irregular bleeding with the control pill and with the IUD. UNIVERSAL PROTOCOL / SAFETY CHECKLIST Procedure to be Performed: IUD Removal Sign In: A Moment of CARE was completed. Appropriate PPE (Personal Protective Equipment) worn by all providers involved with the procedure. Special equipment not required. Patient/Surrogate Stated/Verified: Patient name, Date of , Relevant allergies, and The intended procedure Time Out: Relevant labs, photos, and/or imaging studies have been reviewed. Intended patient and procedure match the source document(s) (e.g. consent, H&P, associated studies [imaging, pathology]) match the intended patient and procedure. Consent obtained and matches the intended procedure. Yes. Correct side/site is not applicable. Medications required for this procedure are verified. Fire risk assessed and is not applicable. Implants: are not applicable. Sign Out: Specimens are all correctly labeled and sent. All instruments, equipment, possible retained foreign bodies are accounted for. Yes. The post-procedure plan of care has been communicated to the patient or surrogate. PROCEDURE: Speculum placed in vagina, IUD string visualized and grasped with ring forceps. ASSESSMENT/PLAN: IUD removed without difficulty, intact, and patient tolerated procedure well. Contraception plans: Patient undecided. Schedule follow up. Fox DO Jeffrey Abel is a 28 year old who presents today for an endometrial biopsy for abnormal uterine bleeding. test: negative UNIVERSAL PROTOCOL / SAFETY CHECKLIST Procedure to be Performed: Endometrial Biopsy with Possible Endosee Sign In: A Moment of CARE was completed. Appropriate PPE (Personal Protective Equipment) worn by all providers involved with the procedure. Special equipment not required. Patient/Surrogate Stated/Verified: Patient name, Date of , Relevant allergies, and The intended procedure Time Out: Relevant labs, photos, and/or imaging studies have been reviewed. Intended patient and procedure match the source document(s) (e.g. consent, H&P, associated studies [imaging, pathology]) match the intended patient and procedure. Consent obtained and matches the intended procedure. Yes. Correct side/site is not applicable. Medications required for this procedure are verified. are not applicable. Fire risk assessed and is not applicable. Implants: are not applicable. Sign Out: Specimens are all correctly labeled and sent. All instruments, equipment, possible retained foreign bodies are accounted for. Yes. The post-procedure plan of care has been communicated to the patient or surrogate. PROCEDURE: EXTERNAL GENITALIA: Normal in appearance without lesions VAGINA: Normal in appearance without lesions BIOPSY: Speculum placed into the vagina with excellent visualization of the cervix. Cervix cleaned with betadine. Anterior lip of cervix grasped with single toothed tenaculum. Uterus sounded to 7 cm. Pipelle inserted into the uterus without difficulty and endometrial biopsy obtained. Procedure Summary: Patient tolerated procedure well. ASSESSMENT: abnormal uterine bleeding PLAN: Specimens labeled and sent to Pathology. Will notify patient of results in 1-2 weeks. Post-procedure instructions reviewed and written material given to the patient. Fox Abel DO Jeffrey Diamond presents for hysteroscopy. Indication: Irregular Bleeding. Age: [age] year old LMP: Patient's last menstrual period was 06/10/2024 (within days). Contraception: Mirena IUD test: negative VS: BP 120/82 Wt 305 lb 9.6 oz (138.6kg) LMP 06/10/2024 UNIVERSAL PROTOCOL / SAFETY CHECKLIST Procedure to be Performed: Endosee Sign In: A Moment of CARE was completed. Appropriate PPE (Personal Protective Equipment) worn by all providers involved with the procedure. Special equipment not required. Patient/Surrogate Stated/Verified: Patient name, Date of , Relevant allergies, and The intended procedure Time Out: Relevant labs, photos, and/or imaging studies have been reviewed. Intended patient and procedure match the source document(s) (e.g. consent, H&P, associated studies [imaging, pathology]) match the intended patient and procedure. Consent obtained and matches the intended procedure. Yes. Correct side/site is not applicable. Medications required for this procedure are verified. Fire risk assessed and is not applicable. Implants: are not applicable. Sign Out: Specimens not collected. All instruments, equipment, possible retained foreign bodies are accounted for. Yes. The post-procedure plan of care has been communicated to the patient or surrogate. OBJECTIVE: Cervix cleaned with betadine. A single tooth tenaculum was used to grasp cervix. Cervix was dilated. Under sterile conditions, using 60 mL normal saline as distention, ENDOSEE hysteroscopy performed without incident. No endocervical lesions seen. Endometrial lining is normal. No intrauterine lesions. Tubal ostia visualized and normal. Endometrial biopsy performed. PROCEDURE SUMMARY: Patient tolerated procedure well. ASSESMENT: Irregular Bleeding with no lesions on hysteroscopy. PLAN: Patient requesting hysterectomy. Wait for pathology results. Discussed risks and recovery with a hysterectomy. Will need follow up appointment to discuss contraception prior to hysterectomy. Patient is undecided at this time. She understands she will need medical clearance prior to a hysterectomy. She brought DNR comfort care paperwork with her. Recommend that she discuss this further with her PCP. Fox Abel DO documented in this encounter [facility] 08-02-2024 Instructions Sonali Jacobson MA - 08/02/2024 11:34 AM EDT YOUR RECOVERY After your biopsy you may have: Vaginal bleeding (less than a normal menstrual period) Mild cramping Do NOT put anything in the vagina for 1 week after your endometrial biopsy. This includes: tampons douches and refraining from having sexual intercourse If you have any discomfort, you may take an over the counter pain medication (motrin, advil, ibuprofen, tylenol, etc). If this does not relieve your discomfort, contact the office. It is okay to wear a sanitary pad until the discharge and spotting stops. RISKS Although problems seldom occur with endometrial biopsies, there can be some complications. You may feel faint during and shortly after the procedure as well as have some bleeding after the procedure. There is also a risk of infection after the procedure. These complications are rare and can be easily treated. You should contact you doctor is you have any of the following: Heavy bleeding (more than your normal period) Bleeding with clots Severe abdominal pain Fever (more than 100.4F) Foul smelling vaginal discharge RESULTS We will have the results of your biopsy in 1-2 weeks. If you do not hear the results of your biopsy after 2 weeks, please contact the office for the results. If you have any additional questions or concerns please do not hesitate to contact the office. documented in this encounter [facility] 08-02-2024 Telephone encounter Note Patient notified and voiced understanding of below. Patient agreeable to come into the office to attempt IUD removal, EMB and endosee. [facility] called and surgery cancelled. Please file order for IUD removal and EMB. Arielle Hahn RN [facility] 08-02-2024 Miscellaneous Notes Patient notified and voiced understanding of below. Patient agreeable to come into the office to attempt IUD removal, EMB and endosee. [facility] called and surgery cancelled. Please file order for IUD removal and EMB. Arielle Hahn RN Patient is scheduled for surgery today for D&C. Recommended yesterday that we just proceed with in office IUD removal, EMB, Endosee. Patient was not sure if she completed PAT yesterday and had been taking Phentermine. Patient was instructed to call [facility] and discussed that surgery may be cancelled as she has not been holding her Phentermine. Patient called [facility] in waiting room and was told she completed it. Would recommend cancelling surgery today as patient has been taking Phentermine and typically hold it for 3 days. She can come into office today for EMB with Endosee and IUD removal if she can tolerate it documented in this encounter [facility] 08-02-2024 Telephone encounter Note Patient is scheduled for surgery today for D&C. Recommended yesterday that we just proceed with in office IUD removal, EMB, Endosee. Patient was not sure if she completed PAT yesterday and had been taking Phentermine. Patient was instructed to call [facility] and discussed that surgery may be cancelled as she has not been holding her Phentermine. Patient called [facility] in waiting room and was told she completed it. Would recommend cancelling surgery today as patient has been taking Phentermine and typically hold it for 3 days. She can come into office today for EMB with Endosee and IUD removal if she can tolerate it [facility] 08-01-2024 History and physical note DATE OF SERVICE: August 01, 2024 PROBLEM: pre op, DUB, IUD in place DIAGNOSIS: as above PAST SURGICAL HISTORY: PAST SURGICAL HISTORY Procedure Laterality Date INSERTION OF IUD 06/2023 PAST SURGICAL HISTORY OF extraction of wisdom teeth PAST MEDICAL HISTORY: PAST MEDICAL HISTORY Diagnosis Date Anxiety and depression GERD (gastroesophageal reflux disease) Learning disability Sleep apnea Speech impediment Vitamin D deficiency 05/2023 SUBJECTIVE: Patient doing well and offers no new complaints. No persistent CP. Currently no CP, SOB, syncope. Did go to the ER with CP and workup was negative. She attributes this all to stress from upcoming surgery. She has since been asymptomatic. SOCIAL HISTORY: Social History Tobacco Use Smoking status: Never Passive exposure: Never Smokeless tobacco: Never Vaping Use Vaping status: Never Used Substance Use Topics Alcohol use: Yes Comment: ocassioanaly Drug use: Never ALLERGIES No Known Allergies Current Outpatient Medications on File Prior to Visit Medication Sig Phentermine HCl 37.5 mg tablet Take 1 tablet by mouth once daily for 30 days. trospium (SANCTURA) 20 mg tablet Take 1 tablet by mouth two times a day. omeprazole (PRILOSEC) 20 mg capsule TAKE ONE CAPSULE BY MOUTH ONCE DAILY traZODone (DESYREL) 50 mg tablet Take 50 mg by mouth daily at bedtime. buPROPion XL (WELLBUTRIN XL) 150 mg 24 hr tablet Take 150 mg by mouth every morning. hydrOXYzine pamoate (VISTARIL) 25 mg capsule Acetaminophen 500 mg cap Take by mouth. levonorgestrel (MIRENA) 21 mcg/24 hours (8 yrs) 52 mg IUD 1 Each by INTRAUTERINE route as directed. sertraline (ZOLOFT) 100 mg tablet Take 100 mg by mouth two times a day. No current facility-administered medications on file prior to visit. OBJECTIVE: VITALS: BP 116/80 Pulse 82 Resp 16 Ht 171.7 cm (5' 7.58) Wt (!) 140.1 kg (308 lb 12.8 oz) LMP 06/10/2024 (Within Days) BMI 47.54 kg/m HEENT: Normocephalic, atraumatic, Mucus membranes moist without lesions. SKIN: No lesions. CHEST: Clear to auscultation. No wheezes or rales. Good air exchange. HEART: Regular rate and rhythm No S3 or S4. No gallops or rubs. BACK: Nontender. LOWER EXTREMITIES: There was no pitting edema and no skin changes. ASSESSMENT: pre op PLAN: 1) Discussed r/b/a IUD removal, hysteroscopy, D&C. Recommend in office IUD removal, Endosee and EMB. Patient states in office procedures are painful for her and she would like to proceed to OR. Discussed importance of pre admission testing, and number given for her to call today. Discussed surgery could be cancelled if she does not complete PAT. The rationale for the proposed surgery was discussed in addition to risks, benefits, and alternatives. General pre- and post-operative care was reviewed. Questions were answered. After discussion, the patient indicated a desire to proceed with the planned surgery. Fox Abel DO Medical Decision Making: Problems: Moderate: 1+ chronic illnesses with change Risk: Moderate: Decision on minor surgery w/ risk factors Medical Decision Making Level: 4 - Moderate [facility] 08-01-2024 History and physical note DATE OF SERVICE: August 01, 2024 PROBLEM: pre op, DUB, IUD in place DIAGNOSIS: as above PAST SURGICAL HISTORY: PAST SURGICAL HISTORY Procedure Laterality Date INSERTION OF IUD 06/2023 PAST SURGICAL HISTORY OF extraction of wisdom teeth PAST MEDICAL HISTORY: PAST MEDICAL HISTORY Diagnosis Date Anxiety and depression GERD (gastroesophageal reflux disease) Learning disability Sleep apnea Speech impediment Vitamin D deficiency 05/2023 SUBJECTIVE: Patient doing well and offers no new complaints. No persistent CP. Currently no CP, SOB, syncope. Did go to the ER with CP and workup was negative. She attributes this all to stress from upcoming surgery. She has since been asymptomatic. SOCIAL HISTORY: Social History Tobacco Use Smoking status: Never Passive exposure: Never Smokeless tobacco: Never Vaping Use Vaping status: Never Used Substance Use Topics Alcohol use: Yes Comment: ocassioanaly Drug use: Never ALLERGIES No Known Allergies Current Outpatient Medications on File Prior to Visit Medication Sig Phentermine HCl 37.5 mg tablet Take 1 tablet by mouth once daily for 30 days. trospium (SANCTURA) 20 mg tablet Take 1 tablet by mouth two times a day. omeprazole (PRILOSEC) 20 mg capsule TAKE ONE CAPSULE BY MOUTH ONCE DAILY traZODone (DESYREL) 50 mg tablet Take 50 mg by mouth daily at bedtime. buPROPion XL (WELLBUTRIN XL) 150 mg 24 hr tablet Take 150 mg by mouth every morning. hydrOXYzine pamoate (VISTARIL) 25 mg capsule Acetaminophen 500 mg cap Take by mouth. levonorgestrel (MIRENA) 21 mcg/24 hours (8 yrs) 52 mg IUD 1 Each by INTRAUTERINE route as directed. sertraline (ZOLOFT) 100 mg tablet Take 100 mg by mouth two times a day. No current facility-administered medications on file prior to visit. OBJECTIVE: VITALS: BP 116/80 Pulse 82 Resp 16 Ht 171.7 cm (5' 7.58) Wt (!) 140.1 kg (308 lb 12.8 oz) LMP 06/10/2024 (Within Days) BMI 47.54 kg/m HEENT: Normocephalic, atraumatic, Mucus membranes moist without lesions. SKIN: No lesions. CHEST: Clear to auscultation. No wheezes or rales. Good air exchange. HEART: Regular rate and rhythm No S3 or S4. No gallops or rubs. BACK: Nontender. LOWER EXTREMITIES: There was no pitting edema and no skin changes. ASSESSMENT: pre op PLAN: 1) Discussed r/b/a IUD removal, hysteroscopy, D&C. Recommend in office IUD removal, Endosee and EMB. Patient states in office procedures are painful for her and she would like to proceed to OR. Discussed importance of pre admission testing, and number given for her to call today. Discussed surgery could be cancelled if she does not complete PAT. The rationale for the proposed surgery was discussed in addition to risks, benefits, and alternatives. General pre- and post-operative care was reviewed. Questions were answered. After discussion, the patient indicated a desire to proceed with the planned surgery. Fox Abel DO Medical Decision Making: Problems: Moderate: 1+ chronic illnesses with change Risk: Moderate: Decision on minor surgery w/ risk factors Medical Decision Making Level: 4 - Moderate documented in this encounter [facility] 07-26-2024 Telephone encounter Note Patient notified and voiced understanding. Denies persistent or worsening symptoms. Arielle Hahn RN [facility] 07-26-2024 Miscellaneous Notes Patient notified and voiced understanding. Denies persistent or worsening symptoms. Arielle Hahn RN ER records reviewed. Ok to proceed with surgery as long as symptoms are not persistent or worsening [facility] to to [facility]. Shanda Fonseca RN Patient currently scheduled for hysteroscopy, D&C, IUD removal 08/02/24. Patient called in to reschedule pre op appointment and also let provider know she did go to [place] ER for chest pain earlier this week. Asking if she can still proceed with surgery. Requested ER records from [place]. Aware SW is back in tomorrow. Dione Sanchez RN documented in this encounter [facility] 07-26-2024 Telephone encounter Note ER records reviewed. Ok to proceed with surgery as long as symptoms are not persistent or worsening [facility] 07-24-2024 Telephone encounter Note [facility] to to review. Shanda Fonseca RN [facility] 07-24-2024 Telephone encounter Note Patient currently scheduled for hysteroscopy, D&C, IUD removal 08/02/24. Patient called in to reschedule pre op appointment and also let provider know she did go to [place] ER for chest pain earlier this week. Asking if she can still proceed with surgery. Requested ER records from [place]. Aware SW is back in tomorrow. Dione Sanchez RN [facility] 07-16-2024 Note HNO ID: [id number] Author: MARCI PULIDO APRN.[employer] Service: ? Author Type: Nurse Practitioner Type: Progress Notes Filed: 07/16/2024 15:26 Note Text: Patient presents with: Follow Up Weight Management: - Taking Adipex (phentermine); reports initial side effect of shakiness, attributed to concurrent consumption of [employer] energy drinks. - Lost 12 lbs in the past month; reports decreased appetite. - Diet: Primarily consumes one meal per day (lunch); significantly reduced portion sizes and eliminated snacking. - Exercise: Walks over 2 miles daily, including walking her dog. - Hydration: Drinks plenty of water. - Upcoming surgery scheduled for the next at [facility]. ROS: Constitutional: (+) weight loss PE: BP 130/85 Pulse 93 Temp 36.4 ?C (97.5 ?F) Wt (!) 138.9 kg (306 lb 1.7 oz) LMP 06/10/2024 (Within Days) SpO2 97% BMI 46.54 kg/m? GENERAL: NAD, alert and oriented LUNGS: Clear to auscultation bilaterally, no wheezes/rhonchi/rales. HEART: Regular rate and rhythm, no murmurs. No ectopy. EXTREMITIES: Normal, No deformities, No skin discoloration, No edema. NEURO: Awake, alert and oriented x3, cranial nerves II-XII grossly intact, normal gait, no involuntary motions Assessment and Plan: 1. Class 3 severe obesity with body mass index (BMI) of 45.0 to 49.9 in adult, unspecified obesity type, unspecified whether serious comorbidity present (E66.813) - Significant weight loss of 12 lbs in the last month with phentermine therapy; no major side effects reported. - Notable decrease in appetite; patient engaging in regular physical activity and consuming smaller portions. - Refilled phentermine prescription and transmitted to [facility]. - Scheduled follow-up in 4 weeks; patient to monitor weight at home and attend a virtual visit due to variable work schedule and upcoming surgery on the next month. The patient consented to the use of [employer] software for draft documentation of the visit consistent with [facility]?s Notice of Privacy Practices. Marci Barron APRN.[employer] Patient Instructions: Continue taking Adipex (phentermine) as prescribed; the refill has been sent to [facility]. Maintain your current diet and exercise routine; continue with one main meal at lunch, minimal snacking, and daily walking. For your follow-up in 4 weeks, please schedule a virtual visit and weigh yourself at home before the appointment. [facility] 07-16-2024 History of Presen t illness Narrative Patient presents with: Follow Up Weight Management: - Taking Adipex (phentermine); reports initial side effect of shakiness, attributed to concurrent consumption of [employer] energy drinks. - Lost 12 lbs in the past month; reports decreased appetite. - Diet: Primarily consumes one meal per day (lunch); significantly reduced portion sizes and eliminated snacking. - Exercise: Walks over 2 miles daily, including walking her dog. - Hydration: Drinks plenty of water. - Upcoming surgery scheduled for the of next month at [facility]. ROS: Constitutional: (+) weight loss PE: BP 130/85 Pulse 93 Temp 36.4 C (97.5 F) Wt (!) 138.9 kg (306 lb 1.7 oz) LMP 06/10/2024 (Within Days) SpO2 97% BMI 46.54 kg/m GENERAL: NAD, alert and oriented LUNGS: Clear to auscultation bilaterally, no wheezes/rhonchi/rales. HEART: Regular rate and rhythm, no murmurs. No ectopy. EXTREMITIES: Normal, No deformities, No skin discoloration, No edema. NEURO: Awake, alert and oriented x3, cranial nerves II-XII grossly intact, normal gait, no involuntary motions Assessment and Plan: 1. Class 3 severe obesity with body mass index (BMI) of 45.0 to 49.9 in adult, unspecified obesity type, unspecified whether serious comorbidity present (E66.813) - Significant weight loss of 12 lbs in the last month with phentermine therapy; no major side effects reported. - Notable decrease in appetite; patient engaging in regular physical activity and consuming smaller portions. - Refilled phentermine prescription and transmitted to [facility]. - Scheduled follow-up in 4 weeks; patient to monitor weight at home and attend a virtual visit due to variable work schedule and upcoming surgery on the of next month. The patient consented to the use of [employer] software for draft documentation of the visit consistent with [facility] s Notice of Privacy Practices. Marci Barron APRN.[facility] Patient Instructions: Continue taking Adipex (phentermine) as prescribed; the refill has been sent to [facility]. Maintain your current diet and exercise routine; continue with one main meal at lunch, minimal snacking, and daily walking. For your follow-up in 4 weeks, please schedule a virtual visit and weigh yourself at home before the appointment. documented in this encounter [facility] 07-03-2024 Telephone encounter Note Prescription Refill Information The patient has been identified by name and date of : Yes Caregiver verified no other encounters exist for this prescription request: Yes Caregiver confirmed with patient/requestor that no other refills are due, in the near future, with this provider at this time: Yes The last office visit in the department: 06/18/2024 Does the patient have a future office visit with this provider/department: Yes 07/16/2024 Requested Prescriptions Pending Prescriptions Disp Refills omeprazole (PRILOSEC) 20 mg capsule [Pharmacy Med Name: omeprazole 20 mg capsule,delayed release] 30 capsule 3 Sig: TAKE ONE CAPSULE BY MOUTH ONCE DAILY Mima Lin LPN July 03, 2024 2:27 PM [facility] 07-03-2024 Miscellaneous Notes Prescription Refill Information The patient has been identified by name and date of : Yes Caregiver verified no other encounters exist for this prescription request: Yes Caregiver confirmed with patient/requestor that no other refills are due, in the near future, with this provider at this time: Yes The last office visit in the department: 06/18/2024 Does the patient have a future office visit with this provider/department: Yes 07/16/2024 Requested Prescriptions Pending Prescriptions Disp Refills omeprazole (PRILOSEC) 20 mg capsule [Pharmacy Med Name: omeprazole 20 mg capsule,delayed release] 30 capsule 3 Sig: TAKE ONE CAPSULE BY MOUTH ONCE DAILY Mima Lin LPN July 03, 2024 2:27 PM documented in this encounter [facility] 06-28-2024 Note HNO ID: [id number] Author: FOX ABEL MD Service: ? Author Type: Physician Type: Progress Notes Filed: 06/28/2024 15:44 Note Text: Jeffrey Diamond is a 28 year old female who presents for DUB. HPI: Here to discuss hysterectomy. She reports being on control pill in the past for years with no improvement in her bleeding. Stopped the control pill 02/2024 and she reports bleeding is daily since then. Changing a pad q 1 hour daily and she describes the bleeding as dark red with small clots. No pain or cramping. Menarche at age 10. Currently sexually active with . Not planning on future . From note 04/25/2024: Previously took continuous OCP with occasional breakthrough bleeding 04/24/23 Seen for heavy breakthrough bleeding. US showed adenomyosis and recommend changing to IUD. At that time declined because breakthrough bleeding decreased. 06/12/23 follow up for AUB and decided to get IUD. 06/20/23 IUD inserted 10/20/23 returned for heavy bleeding and asked for hysterectomy 11/27/23 Took Aygestin taper and no improvements 12/29/23 Took Aygestin taper and no improvements. 01/08/24 started Apri and no improvements Pelvic US 01/12/24: Indication breakthrough bleeding with IUD Impression Normal appearing anteverted uterus that measures 84 mm x 41 mm x 61 mm. Endometrium measures 7.3 mm. 3D rendering of the uterus confirms the proper location of the IUD within the endometrial cavity. Normal appearing right ovary. Left ovary contains a 33 x 30 x 37 mm unilocular simple cyst. No adnexal masses were observed. There is no free fluid visualized in the peritoneal cavity. Recommendations O-RADS 2 left ovarian simple cyst, almost certainly benign. No follow up imaging is needed. Pap test up to date and normal TSH and CBC completed Mirena IUD inserted 06/20/[address] OB History Gravida1 Para0 Term0 Preterm0 AB1 Living0 SAB0 IAB0 Ectopic0 Multiple0 Live Births0 [employer] History LMP: 06/10/2024 (Within Days), IUD Age at Menarche: Age at First : Age at Menopause: [employer] History Comments: Sexual Activity: Yes; Male Contraception: I.U.D. PAST MEDICAL HISTORY Diagnosis Date Anxiety and depression GERD (gastroesophageal reflux disease) Learning disability Sleep apnea Speech impediment Vitamin D deficiency 05/2023 PAST SURGICAL HISTORY Procedure Laterality Date INSERTION OF IUD 06/2023 PAST SURGICAL HISTORY OF extraction of wisdom teeth FAMILY HISTORY Problem Relation Age of Onset Heart Attack Mother 60 No Known Problems Sister No Known Problems Brother Obesity Paternal Grandmother Social History Tobacco Use Smoking status: Never Passive exposure: Never Smokeless tobacco: Never Vaping Use Vaping status: Never Used Substance Use Topics Alcohol use: Yes Comment: ocassioanaly Drug use: Never Current Outpatient Medications Medication Sig Phentermine HCl 37.5 mg tablet Take 1 tablet by mouth once daily for 30 days. trospium (SANCTURA) 20 mg tablet Take 1 tablet by mouth two times a day. traZODone (DESYREL) 50 mg tablet Take 50 mg by mouth daily at bedtime. buPROPion XL (WELLBUTRIN XL) 150 mg 24 hr tablet Take 150 mg by mouth every morning. hydrOXYzine pamoate (VISTARIL) 25 mg capsule Acetaminophen 500 mg cap Take by mouth. levonorgestrel (MIRENA) 21 mcg/24 hours (8 yrs) 52 mg IUD 1 Each by INTRAUTERINE route as directed. sertraline (ZOLOFT) 100 mg tablet Take 100 mg by mouth two times a day. omeprazole (PRILOSEC) 20 mg capsule Take 1 capsule by mouth once daily. No current facility-administered medications for this visit. Allergies As of Date: 06/28/2024 (No Known Allergies) Fully Assessed 06/28/2024 REVIEW OF SYSTEMS Expanded ROS: N/A Allergies and current medication updated:Yes SENSITIVE EXAM: Sensitive exam not performed. EXAM: BP 120/80 Wt 309 lb 9.6 oz (140.4kg) LMP 06/10/2024 GENERAL: pleasant, female in no apparent distress HEENT: Normocephalic and atraumatic NECK: full range of motion CHEST: Normal inspiratory effort NEURO: exam grossly non-focal EXTREMITIES: normal ASSESSMENT AND PLAN: Assessment AND Plan DUB (dysfunctional uterine bleeding) IUD (intrauterine device) in place Class 3 severe obesity with body mass index (BMI) of 45.0 to 49.9 in adult, unspecified obesity type, unspecified whether serious comorbidity present (HCC) DUB despite OCP and Mirena IUD. Discussed possible etiologies for irregular bleeding. Discussed risks with obesity. Recommend endometrial sampling given BMI 47 and continued irregular bleeding. Discussed r/b/a in office Endosee, IUD removal, EMB vs hysteroscopy, DANDC, IUD removal. Patient elects for hospital procedure. Surgery sheet completed. Fox Abel, I spent 20 minutes in the visit, with more than 50% of the total [id number] time of the visit in counseling / coordination of care. [facility] 06-28-2024 History of Presen t illness Narrative Jeffrey Diamond is a 28 year old female who presents for DUB. HPI: Here to discuss hysterectomy. She reports being on control pill in the past for years with no improvement in her bleeding. Stopped the control pill 02/2024 and she reports bleeding is daily since then. Changing a pad q 1 hour daily and she describes the bleeding as dark red with small clots. No pain or cramping. Menarche at age 10. Currently sexually active with . Not planning on future . From note 04/25/2024: Previously took continuous OCP with occasional breakthrough bleeding 04/24/23 Seen for heavy breakthrough bleeding. US showed adenomyosis and recommend changing to IUD. At that time declined because breakthrough bleeding decreased. 06/12/23 follow up for AUB and decided to get IUD. 06/20/23 IUD inserted 10/20/23 returned for heavy bleeding and asked for hysterectomy 11/27/23 Took Aygestin taper and no improvements 12/29/23 Took Aygestin taper and no improvements. 01/08/24 started Apri and no improvements Pelvic US 01/12/24: Indication breakthrough bleeding with IUD Impression Normal appearing anteverted uterus that measures 84 mm x 41 mm x 61 mm. Endometrium measures 7.3 mm. 3D rendering of the uterus confirms the proper location of the IUD within the endometrial cavity. Normal appearing right ovary. Left ovary contains a 33 x 30 x 37 mm unilocular simple cyst. No adnexal masses were observed. There is no free fluid visualized in the peritoneal cavity. Recommendations O-RADS 2 left ovarian simple cyst, almost certainly benign. No follow up imaging is needed. Pap test up to date and normal TSH and CBC completed Mirena IUD inserted 06/20/[address] OB History Gravida1 Para0 Term0 Preterm0 AB1 Living0 SAB0 IAB0 Ectopic0 Multiple0 Live Births0 [employer] History LMP: 06/10/2024 (Within Days), IUD Age at Menarche: Age at First : Age at Menopause: [employer] History Comments: Sexual Activity: Yes; Male Contraception: I.U.D. PAST MEDICAL HISTORY Diagnosis Date Anxiety and depression GERD (gastroesophageal reflux disease) Learning disability Sleep apnea Speech impediment Vitamin D deficiency 05/2023 PAST SURGICAL HISTORY Procedure Laterality Date INSERTION OF IUD 06/2023 PAST SURGICAL HISTORY OF extraction of wisdom teeth FAMILY HISTORY Problem Relation Age of Onset Heart Attack Mother 60 No Known Problems Sister No Known Problems Brother Obesity Paternal Grandmother Social History Tobacco Use Smoking status: Never Passive exposure: Never Smokeless tobacco: Never Vaping Use Vaping status: Never Used Substance Use Topics Alcohol use: Yes Comment: ocassioanaly Drug use: Never Current Outpatient Medications Medication Sig Phentermine HCl 37.5 mg tablet Take 1 tablet by mouth once daily for 30 days. trospium (SANCTURA) 20 mg tablet Take 1 tablet by mouth two times a day. traZODone (DESYREL) 50 mg tablet Take 50 mg by mouth daily at bedtime. buPROPion XL (WELLBUTRIN XL) 150 mg 24 hr tablet Take 150 mg by mouth every morning. hydrOXYzine pamoate (VISTARIL) 25 mg capsule Acetaminophen 500 mg cap Take by mouth. levonorgestrel (MIRENA) 21 mcg/24 hours (8 yrs) 52 mg IUD 1 Each by INTRAUTERINE route as directed. sertraline (ZOLOFT) 100 mg tablet Take 100 mg by mouth two times a day. omeprazole (PRILOSEC) 20 mg capsule Take 1 capsule by mouth once daily. No current facility-administered medications for this visit. Allergies As of Date: 06/28/2024 (No Known Allergies) Fully Assessed 06/28/2024 REVIEW OF SYSTEMS Expanded ROS: N/A Allergies and current medication updated:Yes SENSITIVE EXAM: Sensitive exam not performed. EXAM: BP 120/80 Wt 309 lb 9.6 oz (140.4kg) LMP 06/10/2024 GENERAL: pleasant, female in no apparent distress HEENT: Normocephalic and atraumatic NECK: full range of motion CHEST: Normal inspiratory effort NEURO: exam grossly non-focal EXTREMITIES: normal ASSESSMENT AND PLAN: Assessment & Plan DUB (dysfunctional uterine bleeding) IUD (intrauterine device) in place Class 3 severe obesity with body mass index (BMI) of 45.0 to 49.9 in adult, unspecified obesity type, unspecified whether serious comorbidity present (HCC) DUB despite OCP and Mirena IUD. Discussed possible etiologies for irregular bleeding. Discussed risks with obesity. Recommend endometrial sampling given BMI 47 and continued irregular bleeding. Discussed r/b/a in office Endosee, IUD removal, EMB vs hysteroscopy, D&C, IUD removal. Patient elects for hospital procedure. Surgery sheet completed. Fox Abel, I spent 20 minutes in the visit, with more than 50% of the total wpbg-po-lkvy time of the visit in counseling / coordination of care. documented in this encounter [facility] 06-18-2024 Note HNO ID: [id number] Author: DUNIA GONGORA APRN.[employer] Service: ? Author Type: Nurse Practitioner Type: Progress Notes Filed: 06/18/2024 15:22 Note Text: Jeffrey Diamond is a 28 year old female who presents today for evaluation of Patient presents with: Urinary Incontinence: Mixed stress and urge urinary incontinence CHIEF COMPLAINT AND HISTORY OF PRESENT ILLNESS CC: follow up 28 year old female with a history of anxiety, depression, urinary urgency, PRITI presents for follow up, she continues to have PRITI, no PFPT is near her home, mirabegron was too expensive, denies recent uti, gross hematuria. Leakage upon standing after voiding Denies prior urological surgeries Offered botox by a provider in [place] but insurance did not cover Denies constipation PVR 0 cc DTF:varies NTF:varies on fluid intake URGENCY:yes UUI:yes SLADE:yes STRAINING:at times COMPLETE EMPTYING:unsure PADS PER DAY: one padded underwear per day FLUID INTAKE: 2-3 liter per day Not working at this time Past Urological History: Stones:no Surgery:no Tumors:no Infections:no VITALS: Height 172.7 cm (5' 8), weight (!) 144.2 kg (318 lb), last menstrual period 06/10/2024. ALLERGIES: Patient has no known allergies. MEDICATIONS: Current Outpatient Medications Medication Sig Dispense Refill Phentermine HCl 37.5 mg tablet Take 1 tablet by mouth once daily for 30 days. 30 tablet 0 omeprazole (PRILOSEC) 20 mg capsule Take 1 capsule by mouth once daily. 30 capsule 0 traZODone (DESYREL) 50 mg tablet Take 50 mg by mouth daily at bedtime. buPROPion XL (WELLBUTRIN XL) 150 mg 24 hr tablet Take 150 mg by mouth every morning. hydrOXYzine pamoate (VISTARIL) 25 mg capsule Acetaminophen 500 mg cap Take by mouth. levonorgestrel (MIRENA) 21 mcg/24 hours (8 yrs) 52 mg IUD 1 Each by INTRAUTERINE route as directed. 1 Each 0 sertraline (ZOLOFT) 100 mg tablet Take 100 mg by mouth two times a day. No current facility-administered medications for this visit. SOCIAL HISTORY: Social History Tobacco Use Smoking status: Never Passive exposure: Never Smokeless tobacco: Never Vaping Use Vaping status: Never Used Substance Use Topics Alcohol use: Yes Comment: ocassioanaly Drug use: Never PAST MEDICAL HISTORY: PAST MEDICAL HISTORY Diagnosis Date Anxiety and depression GERD (gastroesophageal reflux disease) Learning disability Sleep apnea Speech impediment Vitamin D deficiency 05/2023 PAST SURGICAL HISTORY: PAST SURGICAL HISTORY Procedure Laterality Date INSERTION OF IUD 06/2023 PAST SURGICAL HISTORY OF extraction of wisdom teeth FAMILY HISTORY: FAMILY HISTORY Problem Relation Age of Onset Heart Attack Mother 60 No Known Problems Sister No Known Problems Brother Obesity Paternal Grandmother All histories reviewed on this date 06/18/2024: Yes REVIEW OF SYSTEMS: CONSTITUTIONAL: Patient reports no recent fever or weight loss ENDOCRINE: Negative for cold or heat intolerance, polyuria, polydipsia and goiter All other systems reviewed and are negative other than HPI. PHYSICAL EXAM: constitutional: appears healthy in no acute distress, overweight Extremities: Extremities normal. No deformities, edema, or skin discoloration. Good capillary refill. Neuro: Gait normal. Sensation grossly intact. RADIOLOGY REPORTS REVIEWED: Yes LAB RESULTS REVIEWED: Yes Latest Ref Rng 06/18/2024 GLUCOSE UA (POCT) Negative mg/dL Negative BILIRUBIN UA (POCT) Negative Negative KETONE UA (POCT) Negative mg/dL Negative SPECIFIC GRAVITY UA (POCT) 1.005 - 1.030 >=1.030 HEMOGLOBIN/BLOOD UA (POCT) Negative Negative PH UA (POCT) 4.5 - 8.0 6.0 PROTEIN UA (POCT) Negative mg/dL Negative UROBILINOGEN UA (POCT) Normal E.U./dL 0.2 NITRITE UA (POCT) Negative Negative LEUKOCYTES UA (POCT) Negative Negative COLOR UA (POCT) Yellow CLARITY UA (POCT) Slightly Cloudy IMAGING STUDIES INDEPENDENTLY REVIEWED: Yes OLD RECORDS REVIEWED: Yes: Extensive: No ASSESSMENT/PLAN: 1. Mixed stress and urge urinary incontinence - ICD9: 788.33, ICD10: N39.46 (primary diagnosis) -stopped mirabegron due to cost -start trospium 20 mg po bid, side effects discussed -PVR 0 cc -discussed bulkamid and bladder sling - UA DIP, URINE (POC) - BLADDER SCAN - TROSPIUM 20 MG TABLET 2. Urinary urgency - ICD9: 788.63, ICD10: R39.15 - TROSPIUM 20 MG TABLET Patient is instructed to schedule a follow up in 6 weeks ok for a virtual visit Dunia Gongora APRN.[facility] 06-18-2024 History of Presen t illness Narrative Jeffrey Diamond is a 28 year old female who presents today for evaluation of Patient presents with: Urinary Incontinence: Mixed stress and urge urinary incontinence CHIEF COMPLAINT & HISTORY OF PRESENT ILLNESS CC: follow up 28 year old female with a history of anxiety, depression, urinary urgency, PRITI presents for follow up, she continues to have PRITI, no PFPT is near her home, mirabegron was too expensive, denies recent uti, gross hematuria. Leakage upon standing after voiding Denies prior urological surgeries Offered botox by a provider in [place] but insurance did not cover Denies constipation PVR 0 cc DTF:varies NTF:varies on fluid intake URGENCY:yes UUI:yes SLADE:yes STRAINING:at times COMPLETE EMPTYING:unsure PADS PER DAY: one padded underwear per day FLUID INTAKE: 2-3 liter per day Not working at this time Past Urological History: Stones:no Surgery:no Tumors:no Infections:no VITALS: Height 172.7 cm (5' 8), weight (!) 144.2 kg (318 lb), last menstrual period 06/10/2024. ALLERGIES: Patient has no known allergies. MEDICATIONS: Current Outpatient Medications Medication Sig Dispense Refill Phentermine HCl 37.5 mg tablet Take 1 tablet by mouth once daily for 30 days. 30 tablet 0 omeprazole (PRILOSEC) 20 mg capsule Take 1 capsule by mouth once daily. 30 capsule 0 traZODone (DESYREL) 50 mg tablet Take 50 mg by mouth daily at bedtime. buPROPion XL (WELLBUTRIN XL) 150 mg 24 hr tablet Take 150 mg by mouth every morning. hydrOXYzine pamoate (VISTARIL) 25 mg capsule Acetaminophen 500 mg cap Take by mouth. levonorgestrel (MIRENA) 21 mcg/24 hours (8 yrs) 52 mg IUD 1 Each by INTRAUTERINE route as directed. 1 Each 0 sertraline (ZOLOFT) 100 mg tablet Take 100 mg by mouth two times a day. No current facility-administered medications for this visit. SOCIAL HISTORY: Social History Tobacco Use Smoking status: Never Passive exposure: Never Smokeless tobacco: Never Vaping Use Vaping status: Never Used Substance Use Topics Alcohol use: Yes Comment: ocassioanaly Drug use: Never PAST MEDICAL HISTORY: PAST MEDICAL HISTORY Diagnosis Date Anxiety and depression GERD (gastroesophageal reflux disease) Learning disability Sleep apnea Speech impediment Vitamin D deficiency 05/2023 PAST SURGICAL HISTORY: PAST SURGICAL HISTORY Procedure Laterality Date INSERTION OF IUD 06/2023 PAST SURGICAL HISTORY OF extraction of wisdom teeth FAMILY HISTORY: FAMILY HISTORY Problem Relation Age of Onset Heart Attack Mother 60 No Known Problems Sister No Known Problems Brother Obesity Paternal Grandmother All histories reviewed on this date 06/18/2024: Yes REVIEW OF SYSTEMS: CONSTITUTIONAL: Patient reports no recent fever or weight loss ENDOCRINE: Negative for cold or heat intolerance, polyuria, polydipsia and goiter All other systems reviewed and are negative other than HPI. PHYSICAL EXAM: constitutional: appears healthy in no acute distress, overweight Extremities: Extremities normal. No deformities, edema, or skin discoloration. Good capillary refill. Neuro: Gait normal. Sensation grossly intact. RADIOLOGY REPORTS REVIEWED: Yes LAB RESULTS REVIEWED: Yes Latest Ref Rng 06/18/2024 GLUCOSE UA (POCT) Negative mg/dL Negative BILIRUBIN UA (POCT) Negative Negative KETONE UA (POCT) Negative mg/dL Negative SPECIFIC GRAVITY UA (POCT) 1.005 - 1.030 >=1.030 HEMOGLOBIN/BLOOD UA (POCT) Negative Negative PH UA (POCT) 4.5 - 8.0 6.0 PROTEIN UA (POCT) Negative mg/dL Negative UROBILINOGEN UA (POCT) Normal E.U./dL 0.2 NITRITE UA (POCT) Negative Negative LEUKOCYTES UA (POCT) Negative Negative COLOR UA (POCT) Yellow CLARITY UA (POCT) Slightly Cloudy IMAGING STUDIES INDEPENDENTLY REVIEWED: Yes OLD RECORDS REVIEWED: Yes: Extensive: No ASSESSMENT/PLAN: 1. Mixed stress and urge urinary incontinence - ICD9: 788.33, ICD10: N39.46 (primary diagnosis) -stopped mirabegron due to cost -start trospium 20 mg po bid, side effects discussed -PVR 0 cc -discussed bulkamid and bladder sling - UA DIP, URINE (POC) - BLADDER SCAN - TROSPIUM 20 MG TABLET 2. Urinary urgency - ICD9: 788.63, ICD10: R39.15 - TROSPIUM 20 MG TABLET Patient is instructed to schedule a follow up in 6 weeks ok for a virtual visit Dunia Gongora APRN.[employer] 0 mL of urine in the bladder after voiding documented in this encounter [facility] 06-18-2024 Note HNO ID: [id number] Author: ALEX ECKERT MA Service: ? Author Type: Busgirl Type: Progress Notes Filed: 06/18/2024 15:22 Note Text: 0 mL of urine in the bladder after voiding [facility] 06-18-2024 Note HNO ID: [id number] Author: MARCI PULIDO APRN.[facility] Service: ? Author Type: Nurse Practitioner Type: Progress Notes Filed: 06/18/2024 13:07 Note Text: Patient presents with: Weight Loss Bladder leakage Weight Loss Management: - Interested in starting phentermine for weight loss; friend reported positive results. - Currently taking Wellbutrin 150 mg daily. - Has made dietary changes over the past 3 years, including eliminating fast food, fried foods, and soda. - Drinks only water; previously consumed large amounts of Mountain Dew. 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 - Does not feel the need for additional nutritional counseling. Urinary Incontinence: - History of stress and urge incontinence; last seen by urology a few years ago. - No physical therapy due to lack of local services. - Interested in revisiting urology for further management. Can not complete pelvic floor PT in her region. Anxiety and Depression: - Managed by MH specialist. - Currently taking Zoloft 100 mg BID and trazodone 50 mg at bedtime. - Mood has been low recently; upcoming 1-year anniversary of mother's passing. - Scheduled follow-up with Dr. Welch next month; plans to see him sooner due to current emotional state. - No recent suicidal ideation or self-harm; has a support plan in place with friends. Bed Bug Bites: - Experiencing itching and scabbing from bed bug bites at home. - Bites disrupt sleep; often stays up reading until morning to avoid bites. - Previous extermination efforts were unsuccessful. ROS: Genitourinary: (+) urinary incontinence Skin: (+) itching, (+) scabs Psychiatric: (+) depression, (+) anxiety, (+) sleep disturbance PE: BP 131/80 Pulse 69 Temp 36.7 ?C (98.1 ?F) (Axillary) Resp 16 Ht 172.7 cm (5' 8) Wt (!) 144.4 kg (318 lb 5.5 oz) LMP 06/10/2024 (Within Days) SpO2 100% BMI 48.40 kg/m? GENERAL: NAD, alert and oriented. SKIN: Multiple small scabs noted on arms, no rash or skin lesions. No signs of infection. Assessment and Plan: 1. Mixed stress and urge urinary incontinence (N39.46) - Referred to urology for further evaluation and management. 2. Class 3 severe obesity with body mass index (BMI) of 45.0 to 49.9 in adult, unspecified obesity type, unspecified whether serious comorbidity present ([facility]) (E66.813) - Initiated phentermine, to be taken once daily in the morning. - Educated on potential side effects including increased blood pressure, heart rate, anxiety, insomnia, dry mouth, constipation, and diarrhea. - Scheduled monthly follow-ups for the first 3 months to monitor weight loss, blood pressure, heart rate, and side effects. - Must achieve at least 5% weight loss of baseline weight within 3 months to continue medication. - Advised to inform mental health provider about starting phentermine and monitor mood closely. 3. Anxiety and depression (F41.9) - Currently managed with Wellbutrin 150 mg daily and Zoloft 100 mg twice daily. - Discussed potential increase in Wellbutrin dosage with mental health provider to aid in weight loss and improve mood. - Follow-up with mental health provider scheduled next month; advised to consider an earlier appointment if needed. - No recent suicidal ideation or self-harm; patient has a safety plan in place. 4. Insomnia, unspecified type (G47.00) - Currently taking trazodone 50 mg at bedtime. - Discussed potential worsening of insomnia with phentermine; advised to monitor and report any changes. 5. Bedbug bite, initial encounter (W57.XXXA) - Recommended fxax-wik-upfkaci antihistamines such as Vinita or Zyrtec to reduce itching. - Advised use of prbr-ffj-jefsifv cortisone cream to alleviate inflammatory response and itching. - Discussed the importance of treating the bedbug infestation; advised seeking a second opinion for pest control. The patient consented to the use of [employer] software for draft documentation of the visit consistent with [facility]?s Notice of Privacy Practices. Marci Barron APRN.[employer] Patient Instructions: - Start taking Phentermine once daily in the morning; prescription sent to [facility] in [place]. - Monitor your mood, anxiety, and sleep closely while on Phentermine. If you notice any significant changes, contact your mental health provider or me immediately. - Schedule a follow-up appointment with your mental health provider to discuss the possibility of increasing your Wellbutrin dosage. - Schedule a follow-up appointment with urology to explore additional options for managing bladder leakage. - Take an jlzs-jlt-zlxbmrh allergy pill like Vinita or Zyrtec daily to help reduce itching from bed bug bites. - Apply wptt-hsm-xoidpfm cortisone cream to bed bug bites to reduce inflammation and itching. - Seek a second opinion for bed bug treatment to address the infestation effectively. - Next fo (more content not included)... [facility] 06-18-2024 History of Presen t illness Narrative Patient presents with: Weight Loss Bladder leakage Weight Loss Management: - Interested in starting phentermine for weight loss; friend reported positive results. - Currently taking Wellbutrin 150 mg daily. - Has made dietary changes over the past 3 years, including eliminating fast food, fried foods, and soda. - Drinks only water; previously consumed large amounts of Mountain Dew. 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 - Does not feel the need for additional nutritional counseling. Urinary Incontinence: - History of stress and urge incontinence; last seen by urology a few years ago. - No physical therapy due to lack of local services. - Interested in revisiting urology for further management. Can not complete pelvic floor PT in her region. Anxiety and Depression: - Managed by MH specialist. - Currently taking Zoloft 100 mg BID and trazodone 50 mg at bedtime. - Mood has been low recently; upcoming 1-year anniversary of mother's passing. - Scheduled follow-up with Dr. Welch next month; plans to see him sooner due to current emotional state. - No recent suicidal ideation or self-harm; has a support plan in place with friends. Bed Bug Bites: - Experiencing itching and scabbing from bed bug bites at home. - Bites disrupt sleep; often stays up reading until morning to avoid bites. - Previous extermination efforts were unsuccessful. ROS: Genitourinary: (+) urinary incontinence Skin: (+) itching, (+) scabs Psychiatric: (+) depression, (+) anxiety, (+) sleep disturbance PE: BP 131/80 Pulse 69 Temp 36.7 C (98.1 F) (Axillary) Resp 16 Ht 172.7 cm (5' 8) Wt (!) 144.4 kg (318 lb 5.5 oz) LMP 06/10/2024 (Within Days) SpO2 100% BMI 48.40 kg/m GENERAL: NAD, alert and oriented. SKIN: Multiple small scabs noted on arms, no rash or skin lesions. No signs of infection. Assessment and Plan: 1. Mixed stress and urge urinary incontinence (N39.46) - Referred to urology for further evaluation and management. 2. Class 3 severe obesity with body mass index (BMI) of 45.0 to 49.9 in adult, unspecified obesity type, unspecified whether serious comorbidity present (HCC) (E66.813) - Initiated phentermine, to be taken once daily in the morning. - Educated on potential side effects including increased blood pressure, heart rate, anxiety, insomnia, dry mouth, constipation, and diarrhea. - Scheduled monthly follow-ups for the first 3 months to monitor weight loss, blood pressure, heart rate, and side effects. - Must achieve at least 5% weight loss of baseline weight within 3 months to continue medication. - Advised to inform mental health provider about starting phentermine and monitor mood closely. 3. Anxiety and depression (F41.9) - Currently managed with Wellbutrin 150 mg daily and Zoloft 100 mg twice daily. - Discussed potential increase in Wellbutrin dosage with mental health provider to aid in weight loss and improve mood. - Follow-up with mental health provider scheduled next month; advised to consider an earlier appointment if needed. - No recent suicidal ideation or self-harm; patient has a safety plan in place. 4. Insomnia, unspecified type (G47.00) - Currently taking trazodone 50 mg at bedtime. - Discussed potential worsening of insomnia with phentermine; advised to monitor and report any changes. 5. Bedbug bite, initial encounter (W57.XXXA) - Recommended uhgd-dyf-yvlihxl antihistamines such as Vinita or Zyrtec to reduce itching. - Advised use of cxdi-xcd-wjgtiua cortisone cream to alleviate inflammatory response and itching. - Discussed the importance of treating the bedbug infestation; advised seeking a second opinion for pest control. The patient consented to the use of [employer] software for draft documentation of the visit consistent with [facility] s Notice of Privacy Practices. Marci Barrno APRN.[employer] Patient Instructions: - Start taking Phentermine once daily in the morning; prescription sent to [facility] in [place]. - Monitor your mood, anxiety, and sleep closely while on Phentermine. If you notice any significant changes, contact your mental health provider or me immediately. - Schedule a follow-up appointment with your mental health provider to discuss the possibility of increasing your Wellbutrin dosage. - Schedule a follow-up appointment with urology to explore additional options for managing bladder leakage. - Take an ipjo-unc-eadgqem allergy pill like Vinita or Zyrtec daily to help reduce itching from bed bug bites. - Apply bfiw-zoi-ojfpomp cortisone cream to bed bug bites to reduce inflammation and itching. - Seek a second opinion for bed bug treatment to address the infestation effectively. - Next follow-up appointment with me in 4 weeks to monitor progress and side effects of Phentermine. Patient presents with: Weight Loss Bladder leakage Hepatitis B Vaccine(1 of 3 - 19+ 3-dose series) Never done Influenza Vaccine(1) due on 11/19/2023 Covid-19 Vaccine(2023- season) due on 11/19/2023 Last 3 Encounter BP Readings: Date: BP: 06/18/2024 131/80 01/08/2024 128/78 11/24/2023 132/81 LDL Cholesterol (mg/dL) Date Value 06/20/2023 126 HBA1C: Hemoglobin A1C (%) Date Value 04/24/2023 5.4 No results found for: UALBCR, UPROT, UCR, UCRR, UALB Diabetic Foot and Retinal Eye Exam not Overdue documented in this encounter [facility] 06-18-2024 Instructions Marci Pulido APRN.CNP - 06/18/2024 1:07 PM EDT - Start taking Phentermine once daily in the morning; prescription sent to [facility] in [place]. - Monitor your mood, anxiety, and sleep closely while on Phentermine. If you notice any significant changes, contact your mental health provider or me immediately. - Schedule a follow-up appointment with your mental health provider - Schedule a follow-up appointment with urology to explore additional options for managing bladder leakage. - Take an xoio-yry-upbnllz allergy pill like Vinita or Zyrtec daily to help reduce itching from bed bug bites. - Apply sibq-pgw-wuiozwi cortisone cream to bed bug bites to reduce inflammation and itching. - Seek a second opinion for bed bug treatment to address the infestation effectively. - Next follow-up appointment with me in 4 weeks to monitor progress and side effects of Phentermine. documented in this encounter [facility] 06-18-2024 Note HNO ID: [id number] Author: TAYLOR SHANNON MA Service: ? Author Type: Busgirl Type: Progress Notes Filed: 06/18/2024 13:07 Note Text: Patient presents with: Weight Loss Bladder leakage Hepatitis B Vaccine(1 of 3 - 19+ 3-dose series) Never done Influenza Vaccine(1) due on 11/19/2023 Covid-19 Vaccine(2023- season) due on 11/19/2023 Last 3 Encounter BP Readings: Date: BP: 06/18/2024 131/80 01/08/2024 128/78 11/24/2023 132/81 LDL Cholesterol (mg/dL) Date Value 06/20/2023 126 HBA1C: Hemoglobin A1C (%) Date Value 04/24/2023 5.4 No results found for: UALBCR, UPROT, UCR, UCRR, UALB Diabetic Foot and Retinal Eye Exam not Overdue [facility] 05-28-2024 Telephone encounter Note Prescription Refill Information The patient has been identified by name and date of : Yes Caregiver verified no other encounters exist for this prescription request: Yes Caregiver confirmed with patient/requestor that no other refills are due, in the near future, with this provider at this time: Yes The last office visit in the department: 09/27/23 Does the patient have a future office visit with this provider/department: No Requested Prescriptions Pending Prescriptions Disp Refills omeprazole (PRILOSEC) 20 mg capsule 30 capsule 0 Sig: Take 1 capsule by mouth once daily. Gab Platt MA May 28, 2024 8:28 AM [facility] 05-28-2024 Miscellaneous Notes Prescription Refill Information The patient has been identified by name and date of : Yes Caregiver verified no other encounters exist for this prescription request: Yes Caregiver confirmed with patient/requestor that no other refills are due, in the near future, with this provider at this time: Yes The last office visit in the department: 09/27/23 Does the patient have a future office visit with this provider/department: No Requested Prescriptions Pending Prescriptions Disp Refills omeprazole (PRILOSEC) 20 mg capsule 30 capsule 0 Sig: Take 1 capsule by mouth once daily. Gab Platt MA May 28, 2024 8:28 AM documented in this encounter [facility] 04-30-2024 Telephone encounter Note Prescription Refill Information The patient has been identified by name and date of : Yes Caregiver verified no other encounters exist for this prescription request: Yes Caregiver confirmed with patient/requestor that no other refills are due, in the near future, with this provider at this time: Yes The last office visit in the department: 09/27/2023 Does the patient have a future office visit with this provider/department: No Requested Prescriptions Pending Prescriptions Disp Refills omeprazole (PRILOSEC) 20 mg capsule 30 capsule 0 Sig: Take 1 capsule by mouth once daily. Manuela Vegas MA April 30, 2024 11:22 AM [facility] 04-30-2024 Miscellaneous Notes Prescription Refill Information The patient has been identified by name and date of : Yes Caregiver verified no other encounters exist for this prescription request: Yes Caregiver confirmed with patient/requestor that no other refills are due, in the near future, with this provider at this time: Yes The last office visit in the department: 09/27/2023 Does the patient have a future office visit with this provider/department: No Requested Prescriptions Pending Prescriptions Disp Refills omeprazole (PRILOSEC) 20 mg capsule 30 capsule 0 Sig: Take 1 capsule by mouth once daily. Manuela Vegas MA April 30, 2024 11:22 AM documented in this encounter [facility] 04-25-2024 Note HNO ID: [id number] Author: UMA TINSLEY APRN.[employer] Service: ? Author Type: Nurse Practitioner Type: Progress Notes Filed: 04/25/2024 15:10 Note Text: Jeffrey Diamond is a 28 year old female who presents for continued bleeding HPI: still having bleeding daily, using pad and period underwear. When using a pad she needs to change it every hr due the pad being fully saturated. No cramping. She stopped taking OCP in February because there was no difference in the bleeding. Patient is still asking for a hysterectomy. She is not interested in carrying a herself. is 73 yo Previously took continuous OCP with occasional breakthrough bleeding 04/24/23 Seen for heavy breakthrough bleeding. US showed adenomyosis and recommend changing to IUD. At that time declined because breakthrough bleeding decreased. 06/12/23 follow up for AUB and decided to get IUD. 06/20/23 IUD inserted 10/20/23 returned for heavy bleeding and asked for hysterectomy 11/27/23 Took Aygestin taper and no improvements 12/29/23 Took Aygestin taper and no improvements. 01/08/24 started Apri and no improvements Seen Char Hensley on 06/13/33 for weight management but states she was upset since she was told to limit fried foods. Referral to bariatric clinic for surgical intervention, which she is interested in pursing, but uncertain if covered by current insurance. 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 PAST MEDICAL HISTORY Diagnosis Date Anxiety and depression GERD (gastroesophageal reflux disease) Learning disability Sleep apnea Speech impediment Vitamin D deficiency 05/2023 PAST SURGICAL HISTORY Procedure Laterality Date INSERTION OF IUD 06/2023 PAST SURGICAL HISTORY OF extraction of wisdom teeth FAMILY HISTORY Problem Relation Age of Onset Heart Attack Mother 60 No Known Problems Sister No Known Problems Brother Obesity Paternal Grandmother Social History Tobacco Use Smoking status: Never Passive exposure: Never Smokeless tobacco: Never Vaping Use Vaping status: Never Used Substance Use Topics Alcohol use: Yes Comment: ocassioanaly Drug use: Never Current Outpatient Medications Medication Sig omeprazole (PRILOSEC) 20 mg capsule Take 1 capsule by mouth once daily. traZODone (DESYREL) 50 mg tablet Take 50 mg by mouth daily at bedtime. buPROPion XL (WELLBUTRIN XL) 150 mg 24 hr tablet Take 150 mg by mouth every morning. hydrOXYzine pamoate (VISTARIL) 25 mg capsule Acetaminophen 500 mg cap Take by mouth. levonorgestrel (MIRENA) 21 mcg/24 hours (8 yrs) 52 mg IUD 1 Each by INTRAUTERINE route as directed. sertraline (ZOLOFT) 100 mg tablet Take 100 mg by mouth two times a day. No current facility-administered medications for this visit. Allergies As of Date: 04/25/2024 (No Known Allergies) Fully Assessed 04/25/2024 REVIEW OF SYSTEMS Abdomen: No bloating, early satiety, indigestion, or increased flatulence. No abdominal pain, nausea, vomiting, diarrhea, or constipation. Expanded ROS: N/A Allergies and current medication updated:Yes SENSITIVE EXAM: Sensitive exam not performed. EXAM: Wt 314 lb (142.4kg) LMP 01/01/2024 GENERAL: pleasant, female in no apparent distress HEENT: Normocephalic, atraumatic, mucus membranes moist, and no lesions CHEST: Normal inspiratory effort NEURO: alert and oriented x3,exam grossly non-focal EXTREMITIES: normal 01/12/24 Impression Normal appearing anteverted uterus that measures 84 mm x 41 mm x 61 mm. Endometrium measures 7.3 mm. 3D rendering of the uterus confirms the proper location of the IUD within the endometrial cavity. Normal appearing right ovary. Left ovary contains a 33 x 30 x 37 mm unilocular simple cyst. No adnexal masses were observed. There is no free fluid visualized in the peritoneal cavity. ASSESSMENT/PLAN: 1. Abnormal uterine bleeding (AUB) - ICD9: 626.9, ICD10: N93.9 Follow up with doctor to discuss possible hysteroscopy [facility] APRN.HENRRY Medical Decision Making: Problems: Low: Acute, uncomplicated illness or injury Risk: Low: Low risk from testing/treatment Medical Decision Making Level: 3 - Low [facility] 04-25-2024 History of Presen t illness Narrative Jeffrey Diamond is a 28 year old female who presents for continued bleeding HPI: still having bleeding daily, using pad and period underwear. When using a pad she needs to change it every hr due the pad being fully saturated. No cramping. She stopped taking OCP in February because there was no difference in the bleeding. Patient is still asking for a hysterectomy. She is not interested in carrying a herself. is 73 yo Previously took continuous OCP with occasional breakthrough bleeding 04/24/23 Seen for heavy breakthrough bleeding. US showed adenomyosis and recommend changing to IUD. At that time declined because breakthrough bleeding decreased. 06/12/23 follow up for AUB and decided to get IUD. 06/20/23 IUD inserted 10/20/23 returned for heavy bleeding and asked for hysterectomy 11/27/23 Took Aygestin taper and no improvements 12/29/23 Took Aygestin taper and no improvements. 01/08/24 started Apri and no improvements Seen Char Hensley on 06/13/33 for weight management but states she was upset since she was told to limit fried foods. Referral to bariatric clinic for surgical intervention, which she is interested in pursing, but uncertain if covered by current insurance. 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 PAST MEDICAL HISTORY Diagnosis Date Anxiety and depression GERD (gastroesophageal reflux disease) Learning disability Sleep apnea Speech impediment Vitamin D deficiency 05/2023 PAST SURGICAL HISTORY Procedure Laterality Date INSERTION OF IUD 06/2023 PAST SURGICAL HISTORY OF extraction of wisdom teeth FAMILY HISTORY Problem Relation Age of Onset Heart Attack Mother 60 No Known Problems Sister No Known Problems Brother Obesity Paternal Grandmother Social History Tobacco Use Smoking status: Never Passive exposure: Never Smokeless tobacco: Never Vaping Use Vaping status: Never Used Substance Use Topics Alcohol use: Yes Comment: ocassioanaly Drug use: Never Current Outpatient Medications Medication Sig omeprazole (PRILOSEC) 20 mg capsule Take 1 capsule by mouth once daily. traZODone (DESYREL) 50 mg tablet Take 50 mg by mouth daily at bedtime. buPROPion XL (WELLBUTRIN XL) 150 mg 24 hr tablet Take 150 mg by mouth every morning. hydrOXYzine pamoate (VISTARIL) 25 mg capsule Acetaminophen 500 mg cap Take by mouth. levonorgestrel (MIRENA) 21 mcg/24 hours (8 yrs) 52 mg IUD 1 Each by INTRAUTERINE route as directed. sertraline (ZOLOFT) 100 mg tablet Take 100 mg by mouth two times a day. No current facility-administered medications for this visit. Allergies As of Date: 04/25/2024 (No Known Allergies) Fully Assessed 04/25/2024 REVIEW OF SYSTEMS Abdomen: No bloating, early satiety, indigestion, or increased flatulence. No abdominal pain, nausea, vomiting, diarrhea, or constipation. Expanded ROS: N/A Allergies and current medication updated:Yes SENSITIVE EXAM: Sensitive exam not performed. EXAM: Wt 314 lb (142.4kg) LMP 01/01/2024 GENERAL: pleasant, female in no apparent distress HEENT: Normocephalic, atraumatic, mucus membranes moist, and no lesions CHEST: Normal inspiratory effort NEURO: alert and oriented x3,exam grossly non-focal EXTREMITIES: normal 01/12/24 Impression Normal appearing anteverted uterus that measures 84 mm x 41 mm x 61 mm. Endometrium measures 7.3 mm. 3D rendering of the uterus confirms the proper location of the IUD within the endometrial cavity. Normal appearing right ovary. Left ovary contains a 33 x 30 x 37 mm unilocular simple cyst. No adnexal masses were observed. There is no free fluid visualized in the peritoneal cavity. ASSESSMENT/PLAN: 1. Abnormal uterine bleeding (AUB) - ICD9: 626.9, ICD10: N93.9 Follow up with doctor to discuss possible hysteroscopy D&C Uma Tinsley APRN.CNP Medical Decision Making: Problems: Low: Acute, uncomplicated illness or injury Risk: Low: Low risk from testing/treatment Medical Decision Making Level: 3 - Low documented in this encounter [facility] 04-15-2024 Telephone encounter Note Called Pt to reschedule appt for today as RM had to leave office this AM d/t medical emergency. Pt states she will check her work schedule and will call back to reschedule. Gab aCmpbell RN [facility] 04-15-2024 Miscellaneous Notes Called Pt to reschedule appt for today as RM had to leave office this AM d/t medical emergency. Pt states she will check her work schedule and will call back to reschedule. Gab Campbell, GANESH documented in this encounter [facility] 04-05-2024 Telephone encounter Note Please inform patient that they are due for wellness and assist in scheduling with PCP team. Thanks. [facility] 04-05-2024 Miscellaneous Notes Please inform patient that they are due for wellness and assist in scheduling with PCP team. Thanks. Prescription Refill Information The patient has been identified by name and date of : Yes Caregiver verified no other encounters exist for this prescription request: Yes Caregiver confirmed with patient/requestor that no other refills are due, in the near future, with this provider at this time: Yes The last office visit in the department: 09/27/23 Does the patient have a future office visit with this provider/department: No Requested Prescriptions Pending Prescriptions Disp Refills omeprazole (PRILOSEC) 20 mg capsule 30 capsule 2 Sig: Take 1 capsule by mouth once daily. Gab Platt MA April 05, 2024 7:40 AM documented in this encounter [facility] 04-05-2024 Telephone encounter Note Prescription Refill Information The patient has been identified by name and date of : Yes Caregiver verified no other encounters exist for this prescription request: Yes Caregiver confirmed with patient/requestor that no other refills are due, in the near future, with this provider at this time: Yes The last office visit in the department: 09/27/23 Does the patient have a future office visit with this provider/department: No Requested Prescriptions Pending Prescriptions Disp Refills omeprazole (PRILOSEC) 20 mg capsule 30 capsule 2 Sig: Take 1 capsule by mouth once daily. Gab Platt MA April 05, 2024 7:40 AM [facility] 01-15-2024 Note HNO ID: [id number] Author: EUNICE RONDON MD Service: ? Author Type: Physician Type: Progress Notes Filed: 01/15/2024 11:37 Note Text: Jeffrey Diamond is a 28 year old female who presented for scrub tech ultrasound today. Encounter Diagnosis ICD-10-CM 1. Breakthrough bleeding with IUD N92.1 Z97.5 Please see report under imaging tab. Eunice Rondon MD January 15, 2024 11:34 AM [facility] 01-15-2024 History of Presen t illness Narrative Jeffrey Diamond is a 28 year old female who presented for scrub tech ultrasound today. Encounter Diagnosis ICD-10-CM 1. Breakthrough bleeding with IUD N92.1 Z97.5 Please see report under imaging tab. Eunice Rondon MD January 15, 2024 11:34 AM documented in this encounter [facility] 01-08-2024 Telephone encounter Note Left message for patient that since we were unable to reach her via phone mychart message would be sent and to call the office if she has any questions/concerns. Gab Campbell RN [facility] 01-08-2024 Miscellaneous Notes Left message for patient that since we were unable to reach her via phone mychart message would be sent and to call the office if she has any questions/concerns. Gab Campbell RN Will try Apri for 4 cycles. Previously on Sprintec with issues. Will add Apri to Mirena and see if decreased bleeding. Thanks, Yennifer Pruitt APRN.CNM Pt notified. Pt open to getting pelvic u/s completed as well as trying OCP-[facility] [place]. Transferred to [facility] to get pelvic u/s scheduled. Gab Campbell RN Can you please call patient and let her know I would like her to get pelvic ultrasound to confirm IUD position. Then I would like her to try adding combined control pill to see if this will help the breakthrough bleeding for 4-6 months. If she is open to this I will send the prescription to the pharmacy. Yennifer Acosta APRN.CNM documented in this encounter [facility] 01-08-2024 Telephone encounter Note Will try Apri for 4 cycles. Previously on Sprintec with issues. Will add Apri to Mirena and see if decreased bleeding. Thanks, Yennifer Pruitt APRN.CNM [facility] 01-08-2024 Telephone encounter Note Pt notified. Pt open to getting pelvic u/s completed as well as trying OCP-would like sent to [facility] [place]. Transferred to [facility] to get pelvic u/s scheduled. Gab Campbell RN [facility] 01-08-2024 Telephone encounter Note Can you please call patient and let her know I would like her to get pelvic ultrasound to confirm IUD position. Then I would like her to try adding combined control pill to see if this will help the breakthrough bleeding for 4-6 months. If she is open to this I will send the prescription to the pharmacy. Thanks, Yennifer Pruitt APRN.CNM T [facility] 01-08-2024 Note HNO ID: [id number] Author: YENNIFER PRUITT APRN.CNM Service: ? Author Type: Precision Machinist Type: Progress Notes Filed: 01/08/2024 15:43 Note Text: Help Desk Support Specialist offered: Patient declines. Jeffrey Diamond is a 28 year old female who presents for problem visit breakthrough bleeding with Mirena HPI: Mirena placed 06/20/23. Continued heavy bleeding. Not bleeding. Bleeding 1- 2 weeks at a time. Bleeding is heavy during this time and fills a pad saturated within 15 minutes and lasts for the duration of bleeding. Intermittent cramping but not pain. Was supposed to see physician but rescheduled. States had miscarriage in the past and was told in the ED that she wouldn't be able to have children. Asking about hysterectomy. Denies concerns with STD, and declines testing. Has migraines but no Aura. Seen Char Hensley on 06/13/33 for weight management but states she was upset since she was told to limit fried foods. Referral to bariatric clinic for surgical intervention, which she is interested in pursing, but uncertain if covered by current insurance. Previously took continuous OCP with occasional breakthrough bleeding 04/24/23 Seen for heavy breakthrough bleeding. US showed adenomyosis and recommend changing to IUD. At that time declined because breakthrough bleeding decreased. 06/12/23 follow up for AUB and decided to get IUD. 06/20/23 IUD inserted 10/20/23 returned for heavy bleeding and asked for hysterectomy 11/27/23 Took Aygestin taper and no improvements 12/29/23 Took Aygestin taper and no improvements. 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 PAST MEDICAL HISTORY Diagnosis Date Anxiety and depression GERD (gastroesophageal reflux disease) Learning disability Sleep apnea Speech impediment Vitamin D deficiency 05/2023 PAST SURGICAL HISTORY Procedure Laterality Date PAST SURGICAL HISTORY OF extraction of wisdom teeth FAMILY HISTORY Problem Relation Age of Onset No Known Problems Mother No Known Problems Sister No Known Problems Brother Obesity Paternal Grandmother Social History Tobacco Use Smoking status: Never Passive exposure: Never Smokeless tobacco: Never Vaping Use Vaping status: Never Used Substance Use Topics Alcohol use: Yes Comment: ocassioanaly Drug use: Never Current Outpatient Medications Medication Sig traZODone (DESYREL) 50 mg tablet Take 50 mg by mouth daily at bedtime. omeprazole (PRILOSEC) 20 mg capsule Take 1 capsule by mouth once daily. norethindrone (AYGESTIN) 5 mg tablet 1 tab 3x/day until bleeding stops. 1 tab 2x/day x 2 days. 1 tab daily x 5 days buPROPion XL (WELLBUTRIN XL) 150 mg 24 hr tablet Take 150 mg by mouth every morning. hydrOXYzine pamoate (VISTARIL) 25 mg capsule Acetaminophen 500 mg cap Take by mouth. levonorgestrel (MIRENA) 21 mcg/24 hours (8 yrs) 52 mg IUD 1 Each by INTRAUTERINE route as directed. sertraline (ZOLOFT) 100 mg tablet Take 100 mg by mouth two times a day. ergocalciferol 50,000 unit capsule (VITAMIN D2, DRISDOL) Take 1 capsule by mouth one time a week. (Patient not taking: Reported on 01/08/2024) No current facility-administered medications for this visit. Allergies As of Date: 01/08/2024 (No Known Allergies) Fully Assessed 01/08/2024 REVIEW OF SYSTEMS Abdomen: No bloating, early satiety, indigestion, or increased flatulence. No abdominal pain, nausea, vomiting, diarrhea, or constipation. Bladder: No dysuria, gross hematuria, urinary frequency, urinary urgency, or incontinence. Breast: No breast lumps, nipple d/c, overlying skin changes, redness or skin retraction. Expanded ROS: N/A Allergies and current medication updated:Yes SENSITIVE EXAM: The sensitive examination was discussed with the Patient or Patient's Authorized Forming Operator. As applicable, any other physician, advance practice provider, medical student, or other health professional student that will be observing or involved in the sensitive examination for educational or training purposes was discussed with the Patient or Authorized Forming Operator. The Patient or Authorized Forming Operator has agreed to proceed with the sensitive examination. (Sensitive examination includes inspection and/or palpation of the breasts, pelvis, prostate and anorectal regions). EXAM: BP 128/78 Wt 315 lb (142.9kg) LMP 01/01/2024 GENERAL: pleasant, female in no apparent distress HEENT: Normocephalic and atraumatic NECK: Supple and full range of motion DERMATOLOGY: Normal and without lesions CHEST: Normal inspiratory effort ABDOMEN: soft, non-tender, and no masses PELVIC: external genitalia normal, normal Bartholin's glands, urethra, Cadiz's glands,no cervical lesions, good vaginal support, phys (more content not included)... [facility] 01-08-2024 History of Presen t illness Narrative Help Desk Support Specialist offered: Patient declines. Jeffrey Diamond is a 28 year old female who presents for problem visit breakthrough bleeding with Mirena HPI: Mirena placed 06/20/23. Continued heavy bleeding. Not bleeding. Bleeding 1- 2 weeks at a time. Bleeding is heavy during this time and fills a pad saturated within 15 minutes and lasts for the duration of bleeding. Intermittent cramping but not pain. Was supposed to see physician but rescheduled. States had miscarriage in the past and was told in the ED that she wouldn't be able to have children. Asking about hysterectomy. Denies concerns with STD, and declines testing. Has migraines but no Aura. Seen Char Hensley on 06/13/33 for weight management but states she was upset since she was told to limit fried foods. Referral to bariatric clinic for surgical intervention, which she is interested in pursing, but uncertain if covered by current insurance. Previously took continuous OCP with occasional breakthrough bleeding 04/24/23 Seen for heavy breakthrough bleeding. US showed adenomyosis and recommend changing to IUD. At that time declined because breakthrough bleeding decreased. 06/12/23 follow up for AUB and decided to get IUD. 06/20/23 IUD inserted 10/20/23 returned for heavy bleeding and asked for hysterectomy 11/27/23 Took Aygestin taper and no improvements 12/29/23 Took Aygestin taper and no improvements. 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 PAST MEDICAL HISTORY Diagnosis Date Anxiety and depression GERD (gastroesophageal reflux disease) Learning disability Sleep apnea Speech impediment Vitamin D deficiency 05/2023 PAST SURGICAL HISTORY Procedure Laterality Date PAST SURGICAL HISTORY OF extraction of wisdom teeth FAMILY HISTORY Problem Relation Age of Onset No Known Problems Mother No Known Problems Sister No Known Problems Brother Obesity Paternal Grandmother Social History Tobacco Use Smoking status: Never Passive exposure: Never Smokeless tobacco: Never Vaping Use Vaping status: Never Used Substance Use Topics Alcohol use: Yes Comment: ocassioanaly Drug use: Never Current Outpatient Medications Medication Sig traZODone (DESYREL) 50 mg tablet Take 50 mg by mouth daily at bedtime. omeprazole (PRILOSEC) 20 mg capsule Take 1 capsule by mouth once daily. norethindrone (AYGESTIN) 5 mg tablet 1 tab 3x/day until bleeding stops. 1 tab 2x/day x 2 days. 1 tab daily x 5 days buPROPion XL (WELLBUTRIN XL) 150 mg 24 hr tablet Take 150 mg by mouth every morning. hydrOXYzine pamoate (VISTARIL) 25 mg capsule Acetaminophen 500 mg cap Take by mouth. levonorgestrel (MIRENA) 21 mcg/24 hours (8 yrs) 52 mg IUD 1 Each by INTRAUTERINE route as directed. sertraline (ZOLOFT) 100 mg tablet Take 100 mg by mouth two times a day. ergocalciferol 50,000 unit capsule (VITAMIN D2, DRISDOL) Take 1 capsule by mouth one time a week. (Patient not taking: Reported on 01/08/2024) No current facility-administered medications for this visit. Allergies As of Date: 01/08/2024 (No Known Allergies) Fully Assessed 01/08/2024 REVIEW OF SYSTEMS Abdomen: No bloating, early satiety, indigestion, or increased flatulence. No abdominal pain, nausea, vomiting, diarrhea, or constipation. Bladder: No dysuria, gross hematuria, urinary frequency, urinary urgency, or incontinence. Breast: No breast lumps, nipple d/c, overlying skin changes, redness or skin retraction. Expanded ROS: N/A Allergies and current medication updated:Yes SENSITIVE EXAM: The sensitive examination was discussed with the Patient or Patient's Authorized Forming Operator. As applicable, any other physician, advance practice provider, medical student, or other health professional student that will be observing or involved in the sensitive examination for educational or training purposes was discussed with the Patient or Authorized Forming Operator. The Patient or Authorized Forming Operator has agreed to proceed with the sensitive examination. (Sensitive examination includes inspection and/or palpation of the breasts, pelvis, prostate and anorectal regions). EXAM: BP 128/78 Wt 315 lb (142.9kg) LMP 01/01/2024 GENERAL: pleasant, female in no apparent distress HEENT: Normocephalic and atraumatic NECK: Supple and full range of motion DERMATOLOGY: Normal and without lesions CHEST: Normal inspiratory effort ABDOMEN: soft, non-tender, and no masses PELVIC: external genitalia normal, normal Bartholin's glands, urethra, Cadiz's glands,no cervical lesions, good vaginal support, physiologic discharge present, normal appearing perineal body and perianal region.+ 1 cm flat brown/red lesion to left mons pubis, slightly irregular borders BIMANUAL: uterus normal size, shape and consistency, no adnexal masses, and non-tender NEURO: alert and oriented x3,exam grossly non-focal EXTREMITIES: normal Uterus: -Size: 7.5 x 3.4 x 5.2 cm -Orientation: Anteverted -Endometrial echo complex: Evaluation of the endometrium was adequate. No endometrial abnormality. The endometrial echo complex measured 0.4 cm. -Cervix: Unremarkable. -Adenomyosis assessment: Heterogeneous shadowing posterior myometrium -Fibroids: There are no fibroids. Right Ovary: 2.5 x 1.8 x 1.9 cm - Normal sonographic appearance with physiologic follicles. Left Ovary: Not identified. Free Fluid: No abnormal free fluid is present. Latest Ref Rng 04/24/2023 WBC 3.70 - 11.00 k/uL 8.96 RBC 3.90 - 5.20 m/uL 4.78 Hemoglobin 11.5 - 15.5 g/dL 13.3 Hematocrit 36.0 - 46.0 % 41.7 MCV 80.0 - 100.0 fL 87.2 MCH 26.0 - 34.0 pg 27.8 MCHC 30.5 - 36.0 g/dL 31.9 RDW-CV 11.5 - 15.0 % 13.8 Platelet Count 150 - 400 k/uL 283 MPV 9.0 - 12.7 fL 9.2 Absolute nRBC <0.01 k/uL <0.01 HIV 12 Combo (Ag/Ab) Nonreactive Nonreactive HIV 1/2 Ab -- HIV Interpretation -- Hemoglobin A1C 4.3 - 5.6 % 5.4 Estimated Average Glucose mg/dL 108 Syphilis Screen Result Nonreactive Nonreactive Syphilis Interpretation Cannot exclude recent Treponemal infection if specimen collected within 7-10 days after appearance of suspect lesions or 2-3 weeks after an exposure. Clinical correlation is required. TSH 0.270 - 4.200 mIU/L 2.930 Free T4 0.9 - 1.7 ng/dL 0.9 Hep B Core Ab, IgM Negative Negative Hep C Antibody IA Negative Negative Latest Ref Rng 10/20/2023 11/30/2023 WBC 3.70 - 11.00 k/uL 9.35 9.15 RBC 3.90 - 5.20 m/uL 4.31 4.46 Hemoglobin 11.5 - 15.5 g/dL 11.8 12.1 Hematocrit 36.0 - 46.0 % 36.9 37.7 MCV 80.0 - 100.0 fL 85.6 84.5 MCH 26.0 - 34.0 pg 27.4 27.1 MCHC 30.5 - 36.0 g/dL 32.0 32.1 RDW-CV 11.5 - 15.0 % 12.6 12.5 Platelet Count 150 - 400 k/uL 278 269 MPV 9.0 - 12.7 fL 8.6 (L) 8.8 (L) Absolute nRBC <0.01 k/uL <0.01 <0.01 Legend: (L) Low ASSESSMENT AND PLAN: 1. Breakthrough bleeding with IUD - ICD9: 626.6, V45.51, ICD10: N92.1, Z97.5 (primary diagnosis) -US to verify IUD position -Recommend trying add back OCP for 6 months and see if resolution. Next option is TXA. -I discussed with the patient the risks, benefits, mechanism of action and alternatives to combined hormonal contraceptive use. No medical contraindications. Reviewed risk of blood clot, stroke and heart attack with hormonal contraception. Reviewed warning signs ACHES. Discussed stopping control 4 weeks prior to scheduled surgery if will be immobile. I reviewed with her the administration options and when to start. Her questions were answered and she desired to start. 2. Adenomyosis - ICD9: 617.0, ICD10: N80.03 3. Class 3 severe obesity with body mass index (BMI) of 45.0 to 49.9 in adult, unspecified obesity type, unspecified whether serious comorbidity present (HCC) - ICD9: 278.01, V85.42, ICD10: E66.813, E66.01, Z68.42 -Referral to bariatric clinic as discussed with Char Hensley NP. Planning to schedule for spring. 4. Melanocytic nevus, unspecified location - ICD9: 216.9, ICD10: D22.9 -Cancelled referral appointment. Recommend follow up and discussed concerns due to irregular borders and color. Yennifer Pruitt APRN.CNM documented in this encounter [facility] 01-01-2024 Telephone encounter Note Patient notified. Appointment scheduled with SW to discuss other options. Shanda Fonseca RN [facility] 01-01-2024 Miscellaneous Notes Patient notified. Appointment scheduled with SW to discuss other options. Shanda Fonseca RN Left message to call office. MyChart message also sent to patient. Arielle Hahn RN Aygestin approved, but needs appointment with physician either virtually or in person to discuss further management options of heavy bleeding. Heavy bleeding persists despite IUD Christopher Landers APRN.HENRRY Last refill was 11/27/2023 documented in this encounter [facility] 01-01-2024 Telephone encounter Note Left message to call office. Nomacorchart message also sent to patient. Arielle Hahn RN [facility] 12-29-2023 Telephone encounter Note Aygestin approved, but needs appointment with physician either virtually or in person to discuss further management options of heavy bleeding. Heavy bleeding persists despite IUD Christopher Landers APRN.CNP [facility] 12-29-2023 Telephone encounter Note Last refill was 11/27/2023 [facility] 12-29-2023 Miscellaneous Notes See other refill request. Roxann Cabezas LPN documented in this encounter [facility] 12-29-2023 Telephone encounter Note See other refill request. Roxann Cabezas LPN [facility] 12-29-2023 Telephone encounter Note Prescription Refill Information The patient has been identified by name and date of : Yes Caregiver verified no other encounters exist for this prescription request: Yes Caregiver confirmed with patient/requestor that no other refills are due, in the near future, with this provider at this time: Yes The last office visit in the department: 09/27/23 Does the patient have a future office visit with this provider/department: No Requested Prescriptions Pending Prescriptions Disp Refills omeprazole (PRILOSEC) 20 mg capsule 30 capsule 2 Sig: Take 1 capsule by mouth once daily. Roxann Cabezas LPN December 29, 2023 3:07 PM [facility] 12-29-2023 Miscellaneous Notes Prescription Refill Information The patient has been identified by name and date of : Yes Caregiver verified no other encounters exist for this prescription request: Yes Caregiver confirmed with patient/requestor that no other refills are due, in the near future, with this provider at this time: Yes The last office visit in the department: 09/27/23 Does the patient have a future office visit with this provider/department: No Requested Prescriptions Pending Prescriptions Disp Refills omeprazole (PRILOSEC) 20 mg capsule 30 capsule 2 Sig: Take 1 capsule by mouth once daily. Roxann Cabezas LPN December 29, 2023 3:07 PM documented in this encounter [facility] 11-24-2023 Instructions Asif Wallace APRN.[employer] - 11/24/2023 3:45 PM EDT Images from the original note were not included. Sleep Apnea What is sleep apnea? Sleep apnea is a serious sleep disorder that occurs when a person s breathing is interrupted during sleep. People with untreated sleep apnea stop breathing repeatedly during their sleep, sometimes hundreds of times during the night. There are two types of sleep apnea: obstructive and central. Obstructive sleep apnea (BISHNU) is the more common of the two. Obstructive sleep apnea occurs as repetitive episodes of complete or partial upper airway blockage during sleep. During an apnea episode, the diaphragm and chest muscles work harder as the pressure increases to open the airway. Breathing usually resumes with a loud gasp or body jerk. These episodes can interfere with sound sleep, reduce the flow of oxygen to vital organs, and cause heart rhythm irregularities. In central sleep apnea (CSA), the airway is not blocked but the brain fails to signal the muscles to breathe due to instability in the respiratory control center. Central apnea is named as such because it is related to the function of the central nervous system. Who gets sleep apnea? Sleep apnea occurs in about 25 percent of men and nearly 10 percent of women. Sleep apnea can affect people of all ages, including babies and children and particularly people over the age of forty and those who are overweight. Certain physical traits and clinical features are common in patients with obstructive sleep apnea. These include excessive weight, large neck, and structural abnormalities reducing the diameter of the upper airway, such as nasal obstruction, a low-hanging soft palate, enlarged tonsils, or a small jaw with an overbite. The figures below illustrate the upper airway in normal sleep: (A) person is lying on back, face up, and (B) in obstructive sleep apnea. The arrows indicate complete obstruction in the back of the throat. Normal (A) Sleep apnea (B): What causes sleep apnea? Obstructive sleep apnea is caused by a blockage of the airway, usually when the soft tissues in the rear of the throat collapse during sleep. Central sleep apnea is usually observed in patients with central nervous system dysfunction, such as following a stroke or in patients with neuromuscular diseases like amyotrophic lateral sclerosis. It is also common in patients with heart failure and other forms of cardiac and pulmonary disease. What are the symptoms of sleep apnea? Often the first signs of obstructive sleep apnea are recognized not by the patient, but by the bed partner. Many of those affected have no sleep complaints. The most common symptoms of BISHNU include: Snoring Daytime sleepiness or fatigue Restlessness during sleep Sudden awakenings with a sensation of gasping or choking Dry mouth or sore throat upon awakening Intellectual impairment, such as trouble concentrating, forgetfulness, or irritability Night sweats Sexual dysfunction Headaches People with central sleep apnea more often report recurrent awakenings or insomnia, although they may also experience a choking or gasping sensation with sudden awakenings. Symptoms in children may not be as obvious and include: Poor school performance Sluggishness or sleepiness, often misinterpreted as laziness in the classroom Daytime mouth breathing and swallowing difficulty Inward movement of the ribcage when inhaling Unusual sleeping positions, such as sleeping on the hands and knees, or with the neck hyper-extended Excessive sweating at night Learning and behavioral disorders Bedwetting What are the effects of sleep apnea? If left untreated, sleep apnea can result in a number of health problems including hypertension, stroke, arrhythmias, cardiomyopathy (enlargement of the muscle tissue of the heart), congestive heart failure, diabetes, and heart attacks. In addition, untreated sleep apnea may be responsible for job impairment, work-related accidents, and motor vehicle crashes as well as academic underachievement. How is sleep apnea diagnosed? The diagnosis of sleep apnea is relatively straightforward, based on sleep history and an overnight sleep study called a polysomnogram. Polysomnogram is performed in a sleep laboratory under the direct supervision of a trained technologist. During the test, a variety of body functions, such as the electrical activity of the brain, eye movements, muscle activity, heart rate, breathing patterns, air flow, and blood oxygen levels are recorded at night during sleep. After the study is completed, the number of times breathing is impaired during sleep is tallied and the severity of sleep apnea is graded. In some cases, a multiple sleep latency test is performed on the day after the overnight test to measure the speed of falling asleep. In this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 Bartholin's glands, urethra, Cadiz's glands, no vulvar lesions, no cervical lesions, good vaginal support, physiologic discharge present, normal appearing perineal body and perianal region + IUD strings visible BIMANUAL: uterus normal size, shape and consistency, no adnexal masses, and non-tender, limited due to habitus + 1 cm flat irregular pigmentation change to left mons pubis with raised mole NEURO: alert and oriented x3,exam grossly non-focal EXTREMITIES: normal ASSESSMENT AND PLAN: 1. Abnormal uterine bleeding - ICD9: 626.9, ICD10: N93.9 (primary diagnosis) - No blood noted on exam today - To notify if bleeding picks up again - Consider hysteroscopy D+C if bleeding increases again - CBC today - Jeffrey agreeable to POC 2. Skin lesion - ICD9: 709.9, ICD10: L98.9 - Irregular borders - Patient has tried calling [facility] - Consult to [facility] Derm placed - CONSULT TO DERMATOLOGY Christopher Landers APRN.[employer] Medical Decision Making: Problems: Moderate: 1+ chronic illnesses with change Data: Unique test(s) ordered: 1 Risk: Minimal: Minimal risk from testing/treatment Medical Decision Making Level: 2 - Straightforward documented in this encounter [facility] 09-27-2023 History of Presen t illness Narrative ESTABLISHED PATIENT Jeffrey Diamond is a 28 year old female presenting for No chief complaint on file.. HISTORY OF PRESENT ILLNESS Here to establish. Former PCP Dr Andrzej Peralta - private practice Lives 1 [place]/2 hour away She had blood work yesterday ordered by SALES SERVICE EXECUTIVE Char Hensley. Had seen her for weight concerns 06/14/23. She reports weight loss surgery not covered. Consult bariatric/ metabolic institute She reports walking - walks dog. She did give up soda She had TFTs 04/24/23 with her healthcare marketer NICKOLAS Landers that was normal Reviewed BW - Vit D still low - she is continuing her 3 [place] 50907 international unit(s) per week and then advised to decrease to 2000 international unit(s) daily Last 2 Encounter Wt Readings: Date: Wt: 09/27/2023 137.9 kg (304 lb 0.2 oz) 06/20/2023 135.6 kg (299 lb) PMH: TOÑA/MDD -sees Dr Johnson Phillip psychiatrist at outside facility in [place]; currently on Wellbutrin XL, hydroxyzine, sertraline GERD - takes no medication; has daily reflux Migraines Vit D deficiency Learning disability Speech impediment BISHNU - had previous sleep study years ago but was told it was mild and thus was not advised to use CPAP; will see sleep medicine 11/24/23 for evaluation Mixed stress and urge urinary incontinence - follows with urology SALES SERVICE EXECUTIVE [facility]; advised pelvic floor PT, Myrbetriq and consider Bulkamid and bladder sling Stopped Myrbetriq as it was cost prohibitive; she has not done PT as she reports no close facility Nonsmoker Alcohol - occasionally 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 HISTORIES FAMILY HISTORY Problem Relation Age of Onset No Known Problems Mother No Known Problems Sister No Known Problems Brother Obesity Paternal Grandmother PAST MEDICAL HISTORY Diagnosis Date Anxiety and depression GERD (gastroesophageal reflux disease) Learning disability Sleep apnea Speech impediment Vitamin D deficiency 05/2023 PAST SURGICAL HISTORY Procedure Laterality Date PAST SURGICAL HISTORY OF extraction of wisdom teeth Social History Tobacco Use Smoking status: Never Passive exposure: Never Smokeless tobacco: Never Vaping Use Vaping Use: Never used Substance Use Topics Alcohol use: Yes Comment: ocassioanaly Drug use: Never Allergies: ALLERGIES No Known Allergies Medications: buPROPion XL (WELLBUTRIN XL) 150 mg 24 hr tablet Take 150 mg by mouth every morning. hydrOXYzine pamoate (VISTARIL) 25 mg capsule Acetaminophen 500 mg cap Take by mouth. ergocalciferol 50,000 unit capsule (VITAMIN D2, DRISDOL) Take 1 capsule by mouth one time a week. levonorgestrel (MIRENA) 21 mcg/24 hours (8 yrs) 52 mg IUD 1 Each by INTRAUTERINE route as directed. sertraline (ZOLOFT) 100 mg tablet Take 100 mg by mouth two times a day. REVIEW OF SYSTEMS GENERAL: No weight loss, malaise or fevers. RESPIRATORY: Negative for cough, hemoptysis, wheezing or shortness of breath. CARDIOVASCULAR: Negative for chest pain, leg swelling or palpitations. All other systems reviewed and negative other than HPI. PHYSICAL EXAM BP 118/81 Pulse 79 Temp 36.7 C (98.1 F) Resp 16 Ht 171.5 cm (5' 7.5) Wt (!) 137.9 kg (304 lb 0.2 oz) SpO2 96% BMI 46.91 kg/m General Appearance: Well appearing, alert, in no acute distress, well-hydrated, well nourished. and Morbidly obese. +speech impediment Skin: Skin color, texture, turgor normal, no suspicious rashes or lesions. Lungs: Lungs clear to auscultation. No wheezing, rhonchi, rales.. Heart: RRR without murmur, gallop, or rubs. No ectopy. Abdomen: Normal abdominal exam, Abdomen soft, non-tender. Bowel sounds normal. No masses, organomegaly. Extremities: No deformities, edema, skin discoloration, clubbing or cyanosis. Good capillary refill. . Peripheral Pulses: Normal. ASSESSMENT: ASSESSMENT/PLAN: 1. Gastroesophageal reflux disease, unspecified whether esophagitis present - ICD9: 530.81, ICD10: K21.9 (primary diagnosis) - Discussed lifestyle modifications including losing weight, limiting caffeine, no meals three hours before sleep, and head of bed elevation - Begin treatment with Prilosec 20 mg QD - OMEPRAZOLE 20 MG CAPSULE,DELAYED RELEASE Follow up 2 months 2. Anxiety and depression - ICD9: 300.00, 311, ICD10: F41.9, F32.A - stable; follows with Dr Johnson Phillip psychiatrist at outside facility in [place]; currently on Wellbutrin XL, hydroxyzine, sertraline 3. Vitamin D deficiency - ICD9: 268.9, ICD10: E55.9 - currently taking 3 month course of weekly vit D 95869 international unit(s) and will decrease to 2000 international unit(s) daily Monitored by gynecology 4. Class 3 severe obesity with body mass index (BMI) of 45.0 to 49.9 in adult, unspecified obesity type, unspecified whether serious comorbidity present (HCC) - ICD9: 278.01, V85.42, ICD10: E66.01, Z68.42 Weight increasing - Patient encourage to establish with bariatric/ weigh loss clinic for Behavioral intervention and - Pharmacological intervention 5. BISHNU (obstructive sleep apnea) - ICD9: 327.23, ICD10: G47.33 - Sleep study done years ago - per patient mild and told CPAP not necessary - With continued issues and weight gain patient to see sleep medicine - have updated sleep study 6. Mixed stress and urge urinary incontinence - ICD9: 788.33, ICD10: N39.46 - follows with urology SALES SERVICE EXECUTIVE [facility]ner - advised pelvic floor PT, ( has not done PT as she reports no close facility thus advise she discuss with our schedulers if facility in [place]) - Myrbetriq cost prohibitive thus advised patient to follow up to discuss alternative med Anju Rajan MD documented in this encounter [facility] 06-20-2023 Instructions Hien Rhodes, STEFANIE - 06/20/2023 11:16 AM EDT Work towards normal sleep/wake patterns and consistency, wake daily at 8:30. Plan on 4-5 hours between meals For breakfast; get whey protein (1.3 scoops to equal 30 grams protein ), in milk, with ice, blended, (can add vanilla and stevia, jairo seeds and flax seeds) Midday meal: have grilled chicken, salad, and a fruit NO FRIED FOODS For dinner: choose lean meats, put burger on a whole bun or a sandwich thin, a vegetable such as salad or fruit. NO Fried foods For popcorn look for healthy pop or lite pop Weather permitting, plan to walk (dog), 30 min, walk to get heart rate up Keep some food records including portions, plan for two days per week, measure portions. documented in this encounter [facility] 06-20-2023 History of Presen t illness Narrative Nutrition Therapy Initial Assessment Nutrition Diagnosis: Overweight/obesity, related to, excess energy intake and physical inactivity, as evidenced by BMI above normative standard for age and gender. RECOMMENDED MALNUTRITION DIAGNOSIS: NO MALNUTRITION IDENTIFIED NUTRITION CARE PLAN Nutrition Intervention 06/20/2023: modify type and amount of food or beverage Work towards normal sleep/wake patterns and consistency, wake daily at 8:30. Plan on 4-5 hours between meals For breakfast; get whey protein (1.3 scoops to equal 30 grams protein ), in milk, with ice, blended, (can add vanilla and stevia, jairo seeds and flax seeds) Midday meal: have grilled chicken, salad, and a fruit NO FRIED FOODS For dinner: choose lean meats, put burger on a whole bun or a sandwich thin, a vegetable such as salad or fruit. NO Fried foods For popcorn look for healthy pop or lite pop Weather permitting, plan to walk (dog), 30 min, walk to get heart rate up Keep some food records including portions, plan for two days per week, measure portions. Nutrition Monitoring & Evaluation: balanced diet, weight loss Need for Follow up: 1 month Patient presents for initial MNT as relates to class 3 obesity Body mass index is 46.14 kg/m . Other medical issues BISHNU, GERD, Anxiety/depression. Highest weight 320 lbs almost one year ago, goal weight 140 lbs (21.6 BMI) - high expectations for weight loss, realistic expectations discussed. Has irregular sleep/wake patterns, naps for 3 hours daily, poor sleeping at night due to night shane vs sleep apnea. Is interested in bariatric surgery but insurance will not cover. Intake noted for eating 1-2 meals, skips breakfast, and may skip evening meals and just have popcorn. Has frequent fried foods and high calorie foods. Does not want to eat foods that had to eat while growing up poor. Refusing and resistance to majority of recommendations. Intake absent for produce and whole grains. Water is primary beverage but does occ consume regular soda when tired of water. Very low regular exercise, mixed activity during the day. *Resistant to recommendations: Refuses vegetables - will eat some salad, fruit will be hard as does not get these. Refuses whole grains States Avoiding fried foods difficult as eats out a lot Does not like milk or milky products Unable to walk 30 min due to neighbors on [place] Patient's symptoms are: Weight Concerns: failure to lose weight Diet History: wake 8:40-9 (used to be around noon) Breakfast - no Snack - no Dinner - 2- pop corn chicken/FF/ mozz sticks; water Nap 3:40-6:40 Snack - no Dinner - may have occ, 7 p.m. -cheese burger and tator tots, water OR Snack occ - 8 bag of popcorn (microwave) Beverages - water, occ pop (5 x per month) Alcohol- occ Francisco Javier Beam (one x per month or on a bad day); Vitamins/Supplements - no Activity: Activities of Daily Living: on feet all day Additional Activity: Lightly active (Light exercise: planned physical activity 1-3 days/week) Walk dog 10 min weather permitting Anthropometrics: Height: Last 1 Encounter Ht Readings: Date: Ht: 06/20/2023 5' 7.5 (1.715 m) Current weight: Last 1 Encounter Wt Readings: Date: Wt: 06/20/2023 299 lb (135.6 kg) Body mass index is 46.14 kg/m . Resting Metabolic Rate: 2128 Malnutrition Screening Significant unintentional weight loss? No Eating less than 75% of usual intake for more than 2 weeks? No Potential Signs of Inflammation: no identifiable sources Education Materials Provided: None this visit READINESS TO LEARN Cognitive ability: Alert and oriented Motivation to learn: Interested Family support: Unable to assess - Family not present Instruction provided to: Patient Patient learns best by: Individual Instruction Factors affecting learning: None Physical limitations affecting learning: None Referred/Supervised by: Jolynn HARDY Billing Type: Initial Assess/15 min 3 units SIGNATURE: Hien Rhodes RD PATIENT NAME: Jeffrey Diamond DATE: June 20, 2023 TIME: 10:42 AM documented in this encounter [facility] 06-20-2023 History of Presen t illness Narrative Help Desk Support Specialist offered: Patient accepts, visit chaperoned by Edyta Perera mA. Jeffrey presents today for IUD insertion for menstrual dysfunction. No LMP recorded. (Menstrual status: Drug Induced Amenorrhea). GC/chlamydia: Negative on 04/24/23 test: negative Side effects including irregular bleeding were discussed with the patient. The patient understands that it should be removed in 8 years or sooner if the patient desires a . IUD source: office provided IUD lot #: [id number] Exp date: 03/2025 UNIVERSAL PROTOCOL / SAFETY CHECKLIST Procedure to be Performed: Mirena IUD insertion Sign In: A Moment of CARE was completed. Personnel directly involved with the procedure wore the appropriate PPE (Personal Protective Equipment). Patient/Surrogate Stated/Verified: PATIENT VERIFIED(optional for EMERGENT procedures): Patient name, Date of , Relevant allergies, and The intended procedure Time Out Communication: Intended patient and procedure match the source documents. Consent documented and matches the intended procedure. Implant(s) inserted: Correct implant(s) confirmed including size and side. and Expiration date(s) reviewed. Sign Out: SIGN OUT (optional for EMERGENT procedures): No specimen collected. All instruments, equipment, possible retained foreign bodies accounted for. Post-procedure follow-up management communicated and Plan of Care Visit completed when applicable. The cervix was prepped with betadine. The uterus sounded to 8 cm and the uterus is Midposition.. Using sterile technique, the Mirena IUD was inserted without difficulty and the string was cut to 2cm from the external os of the cervix. Patient tolerated procedure well. PLAN: Patient was advised to observe for signs and symptoms of infection including but not limited to fever, malodorous vaginal discharge and/or pain. The patient was told to check the string monthly for accurate placement. Bleeding expectations were reviewed. Follow up for next annual exam or sooner as needed. Asif Roman MD documented in this encounter [facility] 06-20-2023 Instructions Coby Khan MA - 06/20/2023 9:52 AM EDT POST IUD INSTRUCTIONS You may have irregular bleeding during the first 3 months of use. You may have mild-severe cramping for the next 48 hours. You may use over the counter medication (Motrin, Tylenol) as needed. Your IUD must be removed or replaced based on the following table: IUD Type Removed or replaced within: Kiya 3 years Kyleena 5 years Mirena 8 years Liletta 8 years Paragard 10 years Call the office for signs/symptoms of infection such as severe cramping, fever, or unusual bleeding. Check for string placement as instructed by your doctor. If you have any additional questions, please contact the office. documented in this encounter [facility] 06-12-2023 History of Presen t illness Narrative Occupational Health Tdap Vaccine Administration Form VIS given: YES Indication: To reduce the morbidity and mortality from tetanus,diphtheria and pertussis for those younger than age 65 with direct patient contact, with priority given to those having contact with infants younger than age 12 months. Dose schedule: Give a 1-time dose of Tdap, 0.5 ml intramuscularly (deltoid) in place of Td, at an interval as short as 2 years from last dose of Td. Contraindications: . Greater than 65 years of age: No . Severe allergic reaction (e.g, anaphylaxis) after a previous vaccine dose or to a vaccine component: No . Guillian-Solano'e Syndrome < 6 weeks after previous dose of tetanus toxoid-containing vaccine: No . Progressive or unstable neurologic disorder, uncontrolled seizures or progressive encephalopathy until a treatment regimen has been established and the condition has stabilized: No . History of arthus-type hypersensitivity reactions (local necrotic lesions) following a previous dose of tetanus toxoid-containing vaccine: No . If yes to above question was vaccine deferred for at least 10 years since the last tetanus toxoid-containing vaccine: NA . Current moderate or severe acute illness with or without fever (defer until acute illness resolves: No If the answer to any of the above was yes: defer vaccine and refer to PCP. Note: Healthcare workers needing vaccination during will be referred to their INTEGRATED CIRCUITS INSPECTOR physician. :? No Misc: . Other vaccines may be given at the same time as Tdap. Healthcare worker agrees that all information above is accurate and was answered to the best of their knowledge. YES See healthcare workers Immunization/Injection activity for vaccine administration details. Sonali Jacobson MA Jeffrey Diamond is a 27 year old female who presents for problem visit of wanting IUD. HPI: Jeffrey was seen for heavy menstrual bleeding earlier this year. Her ultrasound showed possible adenomyosis. She is on a combined OCP, but would like to trial the Mirena IUD. 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 History Comments: Sexual Activity: Yes; Male Contraception: Pill PAST MEDICAL HISTORY Diagnosis Date Anxiety and depression Learning disability Speech impediment PAST SURGICAL HISTORY Procedure Laterality Date PAST SURGICAL HISTORY OF extraction of wisdom teeth FAMILY HISTORY Problem Relation Age of Onset No Known Problems Mother No Known Problems Sister No Known Problems Brother Social History Tobacco Use Smoking status: Never Passive exposure: Never Smokeless tobacco: Never Vaping Use Vaping Use: Never used Substance Use Topics Alcohol use: Yes Comment: ocassioanaly Drug use: Never Current Outpatient Medications Medication Sig mirabegron (MYRBETRIQ) 25 mg Tb24 Take 1 tablet by mouth once daily. sertraline (ZOLOFT) 100 mg tablet Take 100 mg by mouth once daily. norgestimate 0.25 mg-ethinyl estradiol 35 mcg 0.25-35 mg-mcg per tablet Take 1 tablet by mouth every afternoon. No current facility-administered medications for this visit. 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 Encounter for other contraceptive management - ICD9: V25.8, ICD10: Z30.8 (primary diagnosis) - Reviewed r/b/a of Mirena IUD. Jeffrey verbalizes understanding. - Recommend 600-800 mg of Ibuprofen prior to procedure - To schedule IUD insertion - INSERT INTRAUTERINE DEVICE 2. Adenomyosis - ICD9: 617.0, ICD10: N80.03 - INSERT INTRAUTERINE DEVICE 3. 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 Please call [phone] or you can schedule a phone call by visiting [email or web address] Cristina Berry does pelvic floor therapy at [place]. documented in this encounter [facility] 06-12-2023 Miscellaneous Notes Patient here in office with provider documented in this encounter [facility] 05-17-2023 Instructions Dunia Gongora APRN.CNP - 05/17/2023 3:09 PM EST Images from the original note were not included. Kegel Exercises What are Kegel exercises? Kegel exercises (also called pelvic floor exercises) are done to strengthen muscles of the pelvic floor. Kegel exercises not only can help prevent urine leakage, but can be helpful for accidental passing of stool or gas, and may even help to improve orgasm. Keeping these muscles 'fit,' helps keep the uterus, urethra (tube that carries the urine from the bladder to the outside of the body), and bowel from sagging down into the vagina. If this happens, the condition is called pelvic organ prolapse. What happens if pelvic organ prolapse does occur? Urine and stool (feces) can both leak out (conditions called urinary incontinence and fecal incontinence, respectively). Loss of sexual sensitivity in the vagina can also occur. What causes pelvic organ prolapse to develop in the first place? Any health conditions that put stress on the muscles of the pelvic floor, causing them to weaken, can lead to pelvic organ prolapse. These include: and vaginal child . Being overweight/weight gain. Surgery in the pelvic area - including section (). Genetics - some people are born with a higher risk than others to develop weakness in the tissues that support the muscles of the pelvic floor. Natural aging process - the muscles of the pelvic floor, as well as muscles in the rectum and anus, naturally weaken with age. Loss of estrogen also weakens muscles in this area. Frequent bouts of sneezing, coughing, laughing Exercises (especially jumping, running and other jarring' exercises; heavy weight lifting); and contact sports. How do I find my pelvic floor muscles? It's pretty simple: Try stopping the flow of your urine when you are sitting on the toilet. Only do this until you learn how it feels (otherwise this stopping and starting of urine flow can lead to other health problems). You can also insert a finger into your vagina and squeeze the muscles in your vagina around it. You should feel pressure around your finger. The muscles you feel lifting' inside of you when you are trying these activities are the same ones you strengthen during Kegel exercises. How do I perform Kegel exercises? Kegel exercises consist of lifting and holding and then relaxing the pelvic floor muscles. Start by doing a small number of exercises (ie, lifts/squeezes, holds, and relaxes) over a short period of time, then gradually increase both the length of time and the number of exercises you are doing in each session' (which is called a set). You should perform at least two sets of the exercises a day. Start by lifting and holding for 3 seconds then relaxing for 3 seconds. Repeat this 10 times in a row - this would be one set. (If 10 times in a row is too high to start with, reduce this number.) Do this set of exercises at least twice a day. As you improve, increase all of these numbers. In other words, increase the length of time you are lifting, holding and relaxing; the number of exercises making up a set and the number times per day you are doing these exercises. For example, instead of holding for 3 seconds and relaxing for 3 seconds, hold and relax for 4 seconds each, then up to 5 seconds each. Increase the number of exercises in a set to 10 in a row (if not already there). Finally, increase the number of times you do these exercises from twice a day to three times a day. Biofeedback and other techniques. For women who have trouble doing Kegel exercises, two techniques can help - biofeedback training and electric stimulation of the pelvic floor muscles. Biofeedback is done to help determine if the correct muscles are being squeezed; electrical stimulation recreates the sensation of what a properly done Kegel exercise should feel like. Biofeedback training (done by a health progressive care unit registered nurse) involves inserting a probe into the vagina. When instructed to perform a Kegel exercise, a monitor shows if the correct muscles are being squeezed. With electrical stimulation, the pelvic floor muscles are touched with a small, painless amount of electric current. This causes these muscles to squeeze. This sensation mimics what a Kegel muscle exercise should feel like if done properly. Kegel Exercise Tips You can do the Kegel exercises lying down or while sitting or standing. If your pelvic muscles are weak, you may want to do them laying down at first. A few minutes in the morning and again before bedtime are good times to start the exercise program. When starting out, only do the number of Kegel exercises that are fairly easy for you to do (eg, 5 Kegels for 3 seconds each twice a day). Slowly increase these numbers as you gain strength and endurance. Do not hold your breath while doing the exercises - breathe out. Also, be careful not to bear down or squeeze the muscles of your inner thighs, back, buttocks, or stomach. Squeezing these muscles means you are not doing the exercise correctly. There's no need to purchase Kegel muscle strengthening equipment. Although it may help, some equipment may not work as advertised. When can I expect to see improvement? Most women say they notice less urine leakage within 12 weeks after starting - and sticking with - a Kegel exercise routine. Did you know that Kegel exercises are also helpful for men? It's true. Men with certain health and sexual health issues can also benefit from doing Kegel exercises. In men, these exercises can: Help improve incontinence (depending on the cause) Help manage prostate pain and swelling that occurs with prostatitis and benign prostatic hyperplasia (BPH) Increase men's sexual pleasure through greater control of ejaculation and improved orgasm sensation References The National [place] [employer] and [employer]estive and Kidney Diseases. Kegel Exercise Tips Accessed 12/17/2014. [employer]. What are Pelvic Floor Muscle (Kegel) Exercises? Accessed 12/17/2014. Copyright 8809-7523 The [facility]. All rights reserved documented in this encounter [facility] 05-17-2023 History of Presen t illness Narrative Jeffrey Diamond is a 27 year old female who presents today for evaluation of Patient presents with: New Patient: Bladder leakage Consultation requested by Christopher Landers CNP for an opinion regarding mixed urinary incontinence My final recommendations will be communicated back to the requesting physician by way of shared medical record or letter via US mail' CHIEF COMPLAINT & HISTORY OF PRESENT ILLNESS CC: leakage 27 year old female with a history of anxiety, depression, presents for urinary leakage all the time, onset 2015, wearing special underwear, leakage with coughing, laughing and after voiding. She reports urgency and UUi. Leakage upon standing after voiding Denies prior urological surgeries Offered botox by a provider in [place] but insurance did not cover Denies frequent uti, gross hematuria Denies constipation PVR 0 cc DTF:varies NTF:varies on fluid intake URGENCY:yes UUI:yes SLADE:yes STRAINING:at times COMPLETE EMPTYING:unsure PADS PER DAY: one padded underwear per day FLUID INTAKE: 2-3 liter per day Not working at this time Past Urological History: Stones:no Surgery:no Tumors:no Infections:no VITALS: Height 171.5 cm (5' 7.5), weight 134.7 kg (297 lb). ALLERGIES: Patient has no known allergies. MEDICATIONS: Current Outpatient Medications Medication Sig Dispense Refill sertraline (ZOLOFT) 100 mg tablet Take 100 mg by mouth once daily. norgestimate 0.25 mg-ethinyl estradiol 35 mcg 0.25-35 mg-mcg per tablet Take 1 tablet by mouth every afternoon. 90 tablet 3 No current facility-administered medications for this visit. SOCIAL HISTORY: Social History Tobacco Use Smoking status: Never Passive exposure: Never Smokeless tobacco: Never Vaping Use Vaping Use: Never used Substance Use Topics Alcohol use: Yes Comment: ocassioanaly Drug use: Never PAST MEDICAL HISTORY: PAST MEDICAL HISTORY Diagnosis Date Anxiety and depression Learning disability Speech impediment PAST SURGICAL HISTORY: PAST SURGICAL HISTORY Procedure Laterality Date PAST SURGICAL HISTORY OF extraction of wisdom teeth FAMILY HISTORY: FAMILY HISTORY Problem Relation Age of Onset No Known Problems Mother No Known Problems Sister No Known Problems Brother All histories reviewed on this date 05/17/2023: Yes REVIEW OF SYSTEMS: CONSTITUTIONAL: Patient reports no recent fever or weight loss CARDIOVASCULAR: Negative for chest pain. RESPIRATORY: Negative for cough, hemoptysis, wheezing, COPD, dyspnea or shortness of breath GI: No nausea, vomiting, or diarrhea MUSCULOSKELETAL: chronic back discomfort SKIN: Negative for lesions, rash, and itching PSYCH: Negative for sleep disturbance, mood disorder and recent psychosocial stressors. ENDOCRINE: Negative for cold or heat intolerance, polyuria, polydipsia and goiter All other systems reviewed and are negative other than HPI. PHYSICAL EXAM: constitutional: appears healthy in no acute distress, overweight cardiovascular: normal femoral pulses to palpate respiratory: normal respiratory motion gi: abdomen soft, non-tender without masses, hernia or organomegaly gu: external genitalia: Normal Urethal meatus: normal size and location, no lesions or prolapse. urethra: normal size and location, no lesions or prolapse. bladder: not palpable, no tenderness. vagina: normal general appearance, estrogen effect no discharge, cystocele or rectocele. , pelivc floor weakness and discomfort on left side during exam cervix: normal general appearence, no lesions, normal discharge. skin: no rashes or bruises noted. Extremities: Extremities normal. No deformities, edema, or skin discoloration. Good capillary refill. Neuro: Gait normal. Sensation grossly intact. RADIOLOGY REPORTS REVIEWED: Yes LAB RESULTS REVIEWED: Yes Component Latest Ref Rng & Units 05/17/2023 GLUCOSE UA (POCT) Negative mg/dL Negative BILIRUBIN UA (POCT) Negative Negative KETONE UA (POCT) Negative mg/dL Negative SPECIFIC GRAVITY UA (POCT) 1.005 - 1.030 >=1.030 HEMOGLOBIN/BLOOD UA (POCT) Negative Negative PH UA (POCT) 4.5 - 8.0 6.5 PROTEIN UA (POCT) Negative mg/dL Negative UROBILINOGEN UA (POCT) Normal E.U./dL 0.2 NITRITE UA (POCT) Negative Negative LEUKOCYTES UA (POCT) Negative Small (A) COLOR UA (POCT) Yellow CLARITY UA (POCT) Clear IMAGING STUDIES INDEPENDENTLY REVIEWED: Yes OLD RECORDS REVIEWED: Yes: Extensive: No ASSESSMENT/PLAN: 1. Mixed stress and urge urinary incontinence - ICD9: 788.33, ICD10: N39.46 (primary diagnosis) -start PFPT that was ordered by scrub tech, we will try to move this up from July -start kegels at home -timed voiding -PVR 0 cc -discussed Bulkamid and bladder sling at her request for surgery, I encouraged her to lose weight, start PFPT 2. Urinary urgency - ICD9: 788.63, ICD10: R39.15 -start PFPT -start mirabegron 25 mg po daily Patient is instructed to schedule a follow up in 6 weeks ok for a virtual visit Dunia Gongora APRN.CNP documented in this encounter [facility] 05-17-2023 Nurse Note Post void bladder scan completed. 0 ml residual remaining. Results reported to Dunia Gongora CNP documented in this encounter [facility] 05-08-2023 Miscellaneous Notes Called patient to explain ultrasound results - possible adenomyosis. Would recommend Mirena IUD for heavy or painful periods. Currently on OCP and reports she has not experienced the heavy bleeding lately. Wants to stay on continuous OCP at this time and will notify if heavy bleeding start again. Christopher Landers APRN.CNP documented in this encounter [facility] 05-05-2023 History of Presen t illness Narrative Radiology Service Progress Note PATIENT NAME: Jeffrey Diamond DATE OF SERVICE: May 05, 2023 TIME: 1:54 PM PATIENT IDENTITY VERIFICATION COMPLETED USING TWO (2) IDENTIFIERS: Name and Date of confirmed by patient verbally. FALL SCREENING: Has the patient had 2 falls in the last year or 1 fall with injury or currently using an Ambulatory Assistive Device (Walker, Cane, Wheelchair, Crutches, etc.)? No PATIENT GENDER DATA: Female. status: : No status: NO. PATIENT RELEVANT IMPLANT DATA REVIEWED: Not Applicable PATIENT PRESENTS WITH AN IMPLANTABLE OR ATTACHED IMAGE CONSULTANT: No RADIOLOGY DEPARTMENT: Ultrasound PERIPHERAL IV DATA: Not applicable SIGNED BY: Ema Shoemaker RDMS May 05, 2023 1:54 PM documented in this encounter [facility] 04-26-2023 Miscellaneous Notes Patient notified and voiced understanding. Arielle Hahn RN Please notify patient: Labs are WNL, negative for infection. Vaginal cultures are also negative for infection. Will be in touch after pelvic ultrasound. Christopher Landers APRN.CNP documented in this encounter [facility] 04-24-2023 Instructions Christopher Landers APRN.CNP - 04/24/2023 12:55 PM EST Please contact a Patient Collections Director regarding insurance questions. Please call [phone] or you can schedule a phone call by visiting [email or web address] To avoid breakthrough bleeding, take the entire week of the placebo (green pill) week every 3-4 months. For an appointment call: [place]: [phone]. [facility]: [phone], Option 1. Gardasil Gardasil is a vaccine to protect against Human Papillomavirus (HPV) types 6, 11, 16, 18, 31,33,45, 52, 58. These viruses cause cancer and precancerous lesions on the cervix (opening between vagina and uterus), in the vagina and on the vulva (skin around the outside of the vagina) as well as genital warts. The vaccine cannot cause these diseases and cannot treat them if already present. Gardasil works best if given before contact with HPV. Most people are exposed to HPV soon after starting sexual activity. The vaccine is recommended between the ages of 9 and 45. Gardasil does not protect against all strains of HPV. Women who receive the vaccine still need to have regular pelvic exams and cervical cancer screening with the pap smear. You should ask your doctor if Gardasil is right for you if you have a weakened immune system, a bleeding disorder, plan to become soon or have a current illness causing fever. Gardasil is not recommended for women. You should be sure your doctor is aware of any allergies you have and all medications and herbal supplements you take. Gardasil is given to those ages 9-14 in 2 doses at 0 and 8 months. In ages 15-45, three injections are given at 0,2,6 months. Common side effects include pain, redness, itching and swelling at the injection site, nausea, fever, dizziness and fainting. Rare but potentially serious reactions have been reported. These include allergic reaction, swollen glands, joint and muscle pain, weakness and Guillain-Lovelady syndrome. documented in this encounter [facility] 04-24-2023 History of Presen t illness Narrative Help Desk Support Specialist offered: Patient declinesMark Barreto is a 27 year old who presents for an annual gynecologic exam with complaints, heavy menstrual bleeding/breakthrough bleeding . Menses: no menses - continuous OCPs. Occasional breakthrough bleeding. Contraception: combined hormonal contraceptives HPV vaccine: No Last Pap: unknown HPV: unknown History of abnormal pap: No Last mammogram: never Sexually active: Yes History of STDS: None Patient concerns for STD exposure: Yes, new partner Pain with intercourse: No Postcoital bleeding: No Exercise: walking 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 History Comments: Sexual Activity: Yes; Male Contraception: Pill PAST MEDICAL HISTORY Diagnosis Date Anxiety and depression Learning disability Speech impediment PAST SURGICAL HISTORY Procedure Laterality Date PAST SURGICAL HISTORY OF extraction of wisdom teeth FAMILY HISTORY Problem Relation Age of Onset No Known Problems Mother No Known Problems Sister No Known Problems Brother SOCIAL HISTORY Social History Tobacco Use Smoking status: Never Passive exposure: Never Smokeless tobacco: Never Vaping Use Vaping Use: Never used Substance Use Topics Alcohol use: Yes Comment: ocassioanaly Drug use: Never REVIEW OF SYSTEMS Abdomen: No abdominal pain, nausea, vomiting, diarrhea, or constipation. No bloating, early satiety, indigestion, or increased flatulence. Bladder: No dysuria, gross hematuria, urinary frequency, urinary urgency + mixed incontinence Breast: No breast lumps, nipple d/c, overlying skin changes, redness or skin retraction. Allergies and current medication updated:Yes EXAM: BP 100/64 Ht 5' 7.75 (1.72m) Wt 293 lb (132.9kg) BMI 44.87 kg/(m^2). GENERAL: pleasant, female in no apparent distress HEENT: Normocephalic, atraumatic, mucus membranes moist, and no lesions NECK: Supple, full range of motion, no adenopathy, and thyroid normal DERMATOLOGY: Normal, without lesions, non-icteric, and non-hirsute + 1 cm flat brown/red lesion to left mons pubis, slightly irregular borders BREAST: soft, non-tender, symmetric, no dominant mass, normal nipple-areolar complex, no lymphadenopathy, and no nipple discharge + small random scabbed superficial skin lesions CHEST: Normal inspiratory effort ABDOMEN: soft, non-tender, and no masses PELVIC: external genitalia normal, normal Bartholin's glands, urethra, Cadiz's glands, no vulvar lesions, no cervical lesions, good vaginal support, physiologic discharge present, normal appearing perineal body and perianal region BIMANUAL: uterus normal size, shape and consistency, no adnexal masses, and non-tender RECTOVAGINAL: deferred. NEURO: alert and oriented x3,exam grossly non-focal EXTREMITIES: normal ASSESSMENT/PLAN: 1) Health maintenance: Pap done with reflex HPV. Nutrition, exercise and routine health maintenance exams reviewed. HPV vaccine: interested, literature given 2) Contraception: combined hormonal contraceptives. Contraceptive options reviewed and information provided. Denies migraines with aura, VTE history or clotting disorder, hypertension, or liver issues. Does not smoke. 3) STD screening: Accepts full STD screening 4) Follow up one year or sooner as needed PROBLEM Abnormal uterine bleeding - ICD9: 626.9, ICD10: N93.9 - Reports random episodes of heavy bleeding with large clots - US FEMALE PELVIS TRANSVAG - TSH BLD - T4 FREE/FREE THYROX - HGB A1C - CBC Mixed incontinence - ICD9: 788.33, ICD10: N39.46 - Reviewed recommended weight loss - Consult with Char Hensley CNP - CONSULT TO UROLOGY - CONSULT TO PHYSICAL THERAPY Melanocytic nevus, unspecified location - ICD9: 216.9, ICD10: D22.9 - Noted to left mons pubis - Has always been there per patient - Slightly irregular borders - Recommend dermatology follow up - Patient opts for [facility]. Declines [facility] referral. Christopher Landers APRN.CNP Medical Decision Making: Problems: Moderate: New problem with uncertain prognosis and 2+ stable chronic illnesses Data: Unique test(s) ordered: 3+ Risk: Low: Low risk from testing/treatment Medical Decision Making Level: 4 - Moderate documented in this encounter [facility] 05-24-2022 Note [facility] Pap Smear Specimen Adequacy May 24, 2022 2:33pm Comment . Satisfactory for evaluation. No endocervical component is identified. Comment on above: Satisfactory for antonieta luation. No endocervical component is identified. Evaluation note No assessment information availa ble [facility] Work Phone: Evaluation note Diagnosis Encounter for gynecological examination (general) (routine) with abnormal findings- Primary Screening for cervical cancer Screening for malignant neoplasm of the cervix Encounter for screening for human papillomavirus (HPV) Special screening examination for human papillomavirus (HPV) Abnormal uterine bleeding Unspecified disorder of menstruation and other abnormal bleeding from female genital tract Mixed incontinence Mixed incontinence urge and stress (male)(female) Screening for STD (sexually transmitted disease) Screening examination for venereal disease Melanocytic nevus, unspecified location [facility] Diagnosis Abnormal uterine bleeding Unspecified disorder of menstruation and other abnormal bleeding from female genital tract [facility] Diagnosis Mixed stress and urge urinary incontinence- Primary Mixed incontinence urge and stress (male)(female) Urinary urgency Urgency of urination [facility] Diagnosis Encounter for other contraceptive management- Primary Adenomyosis Endometriosis of uterus Need for vaccination Need for prophylactic vaccination and inoculation against unspecified single disease [facility] Encounter for IUD insertion- Primary Encounter for insertion of intrauterine contraceptive device [facility] Diagnosis BISHNU (obstructive sleep apnea)- Primary Obstructive sleep apnea (adult) (pediatric) Class 3 severe obesity with body mass index (BMI) of 45.0 to 49.9 in adult, unspecified obesity type, unspecified whether serious comorbidity present (HCC) Gastroesophageal reflux disease, unspecified whether esophagitis present Malaise and fatigue Other malaise and fatigue Dietary counseling Dietary surveillance and counseling [facility] Diagnosis Gastroesophageal reflux disease, unspecified whether esophagitis present- Primary Anxiety and depression Dysthymic disorder Vitamin D deficiency Unspecified vitamin D deficiency Class 3 severe obesity with body mass index (BMI) of 45.0 to 49.9 in adult, unspecified obesity type, unspecified whether serious comorbidity present (HCC) BISHNU (obstructive sleep apnea) Obstructive sleep apnea (adult) (pediatric) Mixed stress and urge urinary incontinence Mixed incontinence urge and stress (male)(female) [facility] Diagnosis Abnormal uterine bleeding- Primary Unspecified disorder of menstruation and other abnormal bleeding from female genital tract Skin lesion Unspecified disorder of skin and subcutaneous tissue [facility] Diagnosis Excessive daytime sleepiness- Primary Dream enactment behavior Snoring Other dyspnea and respiratory abnormality Witnessed apneic spells Apnea Frequent nocturnal awakening Other sleep disturbances RLS (restless legs syndrome) Restless legs syndrome (RLS) Class 3 severe obesity with body mass index (BMI) of 45.0 to 49.9 in adult, unspecified obesity type, unspecified whether serious comorbidity present (HCC) [facility] Diagnosis Abnormal uterine bleeding- Primary Unspecified disorder of menstruation and other abnormal bleeding from female genital tract [facility] Diagnosis Gastroesophageal reflux disease, unspecified whether esophagitis present [facility] Diagnosis Gastroesophageal reflux disease, unspecified whether esophagitis present [facility] Diagnosis Abnormal uterine bleeding Unspecified disorder of menstruation and other abnormal bleeding from female genital tract documented in this encounter [facility] note* Diagnosis Breakthrough bleeding with IUD- Primary Metrorrhagia Adenomyosis Endometriosis of uterus Class 3 severe obesity with body mass index (BMI) of 45.0 to 49.9 in adult, unspecified obesity type, unspecified whether serious comorbidity present (HCC) Melanocytic nevus, unspecified location documented in this encounter [facility] note* Diagnosis Breakthrough bleeding with IUD Metrorrhagia documented in this encounter [facility] note* Diagnosis Gastroesophageal reflux disease, unspecified whether esophagitis present documented in this encounter [facility] note* Diagnosis Abnormal uterine bleeding (AUB)- Primary documented in this encounter [facility] note* Diagnosis Mixed stress and urge urinary incontinence- Primary Mixed incontinence urge and stress (male)(female) Class 3 severe obesity with body mass index (BMI) of 45.0 to 49.9 in adult, unspecified obesity type, unspecified whether serious comorbidity present (HCC) Anxiety and depression Dysthymic disorder Insomnia, unspecified type Bedbug bite, initial encounter documented in this encounter [facility] note* Diagnosis Mixed stress and urge urinary incontinence- Primary Mixed incontinence urge and stress (male)(female) Urinary urgency Urgency of urination documented in this encounter [facility] note* Diagnosis DUB (dysfunctional uterine bleeding)- Primary Other disorder of menstruation and other abnormal bleeding from female genital tract IUD (intrauterine device) in place Presence of intrauterine contraceptive device Class 3 severe obesity with body mass index (BMI) of 45.0 to 49.9 in adult, unspecified obesity type, unspecified whether serious comorbidity present (HCC) * Assessment & Plan Note - Fox Abel MD - 06/28/2024 3:44 PM EDTAssociated Problem(s): Class 3 severe obesity with body mass index (BMI) of 45.0 to 49.9 in adult (HCC) documented in this encounter [facility] note* Diagnosis DUB (dysfunctional uterine bleeding)- Primary Other disorder of menstruation and other abnormal bleeding from female genital tract IUD (intrauterine device) in place Presence of intrauterine contraceptive device Class 3 severe obesity with body mass index (BMI) of 45.0 to 49.9 in adult, unspecified obesity type, unspecified whether serious comorbidity present (HCC) Gastroesophageal reflux disease, unspecified whether esophagitis present [facility] Diagnosis DUB (dysfunctional uterine bleeding)- Primary Other disorder of menstruation and other abnormal bleeding from female genital tract IUD (intrauterine device) in place Presence of intrauterine contraceptive device Class 3 severe obesity with body mass index (BMI) of 45.0 to 49.9 in adult, unspecified obesity type, unspecified whether serious comorbidity present Class 3 severe obesity with body mass index (BMI) of 45.0 to 49.9 in adult, unspecified obesity type, unspecified whether serious comorbidity present documented in this encounter [facility] note* Diagnosis DUB (dysfunctional uterine bleeding)- Primary Other disorder of menstruation and other abnormal bleeding from female genital tract IUD (intrauterine device) in place Presence of intrauterine contraceptive device Class 3 severe obesity with body mass index (BMI) of 45.0 to 49.9 in adult, unspecified obesity type, unspecified whether serious comorbidity present Mixed stress and urge urinary incontinence Mixed incontinence urge and stress (male)(female) Urinary urgency Urgency of urination documented in this encounter [facility] note* Diagnosis DUB (dysfunctional uterine bleeding)- Primary Other disorder of menstruation and other abnormal bleeding from female genital tract IUD (intrauterine device) in place Presence of intrauterine contraceptive device Class 3 severe obesity with body mass index (BMI) of 45.0 to 49.9 in adult, unspecified obesity type, unspecified whether serious comorbidity present DUB (dysfunctional uterine bleeding)- Primary Other disorder of menstruation and other abnormal bleeding from female genital tract IUD (intrauterine device) in place Presence of intrauterine contraceptive device Visit for pre-operative examination Preoperative examination, unspecified documented in this encounter [facility] note* Diagnosis DUB (dysfunctional uterine bleeding)- Primary Other disorder of menstruation and other abnormal bleeding from female genital tract IUD (intrauterine device) in place Presence of intrauterine contraceptive device Class 3 severe obesity with body mass index (BMI) of 45.0 to 49.9 in adult, unspecified obesity type, unspecified whether serious comorbidity present Encounter for IUD removal- Primary Encounter for removal of intrauterine contraceptive device DUB (dysfunctional uterine bleeding) Other disorder of menstruation and other abnormal bleeding from female genital tract Abnormal uterine bleeding (AUB) documented in this encounter [facility] note* Diagnosis DUB (dysfunctional uterine bleeding)- Primary Other disorder of menstruation and other abnormal bleeding from female genital tract IUD (intrauterine device) in place Presence of intrauterine contraceptive device Class 3 severe obesity with body mass index (BMI) of 45.0 to 49.9 in adult, unspecified obesity type, unspecified whether serious comorbidity present DUB (dysfunctional uterine bleeding)- Primary Other disorder of menstruation and other abnormal bleeding from female genital tract Encounter for IUD removal Encounter for removal of intrauterine contraceptive device IUD (intrauterine device) in place Presence of intrauterine contraceptive device documented in this encounter [facility] note* Diagnosis DUB (dysfunctional uterine bleeding)- Primary Other disorder of menstruation and other abnormal bleeding from female genital tract IUD (intrauterine device) in place Presence of intrauterine contraceptive device Class 3 severe obesity with body mass index (BMI) of 45.0 to 49.9 in adult, unspecified obesity type, unspecified whether serious comorbidity present DUB (dysfunctional uterine bleeding)- Primary Other disorder of menstruation and other abnormal bleeding from female genital tract documented in this encounter [facility] note* Diagnosis DUB (dysfunctional uterine bleeding)- Primary Other disorder of menstruation and other abnormal bleeding from female genital tract IUD (intrauterine device) in place Presence of intrauterine contraceptive device Class 3 severe obesity with body mass index (BMI) of 45.0 to 49.9 in adult, unspecified obesity type, unspecified whether serious comorbidity present Class 3 severe obesity with body mass index (BMI) of 45.0 to 49.9 in adult, unspecified obesity type, unspecified whether serious comorbidity present documented in this encounter [facility] note* Diagnosis DUB (dysfunctional uterine bleeding)- Primary Other disorder of menstruation and other abnormal bleeding from female genital tract IUD (intrauterine device) in place Presence of intrauterine contraceptive device Class 3 severe obesity with body mass index (BMI) of 45.0 to 49.9 in adult, unspecified obesity type, unspecified whether serious comorbidity present (HCC) Pre-op exam- Primary Preoperative examination, unspecified DUB (dysfunctional uterine bleeding) Other disorder of menstruation and other abnormal bleeding from female genital tract Class 3 severe obesity with body mass index (BMI) of 45.0 to 49.9 in adult, unspecified obesity type, unspecified whether serious comorbidity present (HCC) Anxiety and depression Dysthymic disorder Gastroesophageal reflux disease, unspecified whether esophagitis present Mixed stress and urge urinary incontinence Mixed incontinence urge and stress (male)(female) BISHNU (obstructive sleep apnea) Obstructive sleep apnea (adult) (pediatric) documented in this encounter [facility] note* Diagnosis DUB (dysfunctional uterine bleeding)- Primary Other disorder of menstruation and other abnormal bleeding from female genital tract IUD (intrauterine device) in place Presence of intrauterine contraceptive device Class 3 severe obesity with body mass index (BMI) of 45.0 to 49.9 in adult, unspecified obesity type, unspecified whether serious comorbidity present (HCC) DUB (dysfunctional uterine bleeding) Other disorder of menstruation and other abnormal bleeding from female genital tract documented in this encounter [facility] note* Diagnosis DUB (dysfunctional uterine bleeding)- Primary Other disorder of menstruation and other abnormal bleeding from female genital tract IUD (intrauterine device) in place Presence of intrauterine contraceptive device Class 3 severe obesity with body mass index (BMI) of 45.0 to 49.9 in adult, unspecified obesity type, unspecified whether serious comorbidity present (HCC) Class 3 severe obesity with body mass index (BMI) of 45.0 to 49.9 in adult, unspecified obesity type, unspecified whether serious comorbidity present (HCC) documented in this encounter [facility] note* Diagnosis DUB (dysfunctional uterine bleeding)- Primary Other disorder of menstruation and other abnormal bleeding from female genital tract IUD (intrauterine device) in place Presence of intrauterine contraceptive device Class 3 severe obesity with body mass index (BMI) of 45.0 to 49.9 in adult, unspecified obesity type, unspecified whether serious comorbidity present (HCC) DUB (dysfunctional uterine bleeding)- Primary Other disorder of menstruation and other abnormal bleeding from female genital tract Pre-op evaluation Preoperative examination, unspecified documented in this encounter [facility] for referral (narrative)* Outpatient Procedure (Routine) - Authorized Specialty Diagnoses / Procedures Referred By Leticia joy Referred To Contact [facility] Diagnoses Encounter for other contraceptive management Adenomyosis Encounter for insertion of intrauterine contraceptive device Encounter for removal of intrauterine contraceptive device Procedures INSERT INTRAUTERINE DEVICE LEVONORGESTREL IU 52MG 5 YR INSERT INTRAUTERINE DEVICE REMOVE INTRAUTERINE DEVICE Christopher Landers APRN.[employer] [address] [place] [address] [address] Referral ID Status Reason Start Date Expiration Date Visits Requested Visits Authorized [id number] Authorized Auto-Generat ed Referral 06/12/2023 03/19/[address] [facility] for referral (narrative)* Diagnostic Procedure Only (Routine) - Authorized Specialty Diagnoses / Procedures Referred By Contac t Referred To Contact [facility] Diagnoses Breakthrough bleeding with IUD Procedures PELVIC US I US PELVIC NONOBSTETRIC REAL-TIME IMAGE COMPLETE Yennifer Pruitt APRN.CNM [address] [place] [address] [address] Referral ID Status Reason Start Date Expiration Date Visits Requested Visits Authorized [id number] Authorized Auto-Generat ed Referral 01/07/[address] [facility] for visit Narrative* Diagnostic Procedure Only (Routine) - Closed Specialty Diagnoses / Procedures Referred By Contac t Referred To Contact [facility] Diagnoses Breakthrough bleeding with IUD Procedures PELVIC US I US PELVIC NONOBSTETRIC REAL-TIME IMAGE COMPLETE Yennifer Pruitt APRN.CNM [address] [place] [address] [address] Referral ID Status Reason Start Date Expiration Date V isits Requested Visits Authorized [id number] Closed Auto-Generate d Referral 01/08/2024 01/07/2025 1 1 [facility] Summary Purpose Family History No Family History Records Found Cancer Status:Active Cerebrovascular Accident Status:Active Comment s:Grandmother Diabetes Mellitus Type II Status:Active Commen ts:Grandmother Hypertension Status:Active Comments:Mother. Grandmother Osteoarthritis Status:Active Comments:Mother. Grandmother Cancer Status:Active Cerebrovascular Accident Status:Active Comment s:Grandmother Diabetes Mellitus Type II Status:Active Commen ts:Grandmother Hypertension Status:Active Comments:Mother. Grandmother Osteoarthritis Status:Active Comments:Mother. Grandmother Advance Directives No Advanced Directives Records FoundNo Advanced Directives Records FoundNo Advanced Directives Records FoundNo Advanced Directives Records FoundNo Advanced Directives Records FoundNo Advanced Directives Records Found Reason for Referral Specialty Diagnoses / Procedures Referred By Contac t Referred To Contact [facility] Diagnoses Mixed incontinence Procedures CONSULT TO PHYSICAL THERAPY PHYSICAL THERAPY EVALUATION HIGH COMPLEX 45 MINS Christopher Landers APRN.CNP [address] [place] [address] [facility] [address] [place] [address] Referral ID Status Reason Start Date Expiration Date Visits Requested Visits Authorized [id number] Pending Review Auto-Generat ed Referral 04/24/2023 04/23/2024 1 1 Specialty Diagnoses / Procedures Referred By Contac t Referred To Contact Urology Diagnoses Mixed incontinence Procedures CONSULT TO UROLOGY OFFICE/OUTPATIENT NEW HIGH MDM 60 MINUTES Christopher Landers APRN.CNP [address] [place] [address] Referral ID Status Reason Start Date Expiration Date Visits Requested Visits Authorized [id number] Authorized PCP Requested Referral 04/24/2023 04/23/2024 1 1 Specialty Diagnoses / Procedures Referred By Contac t Referred To Contact US IMAGING Diagnoses Abnormal uterine bleeding Procedures US FEMALE PELVIS TRANSVAG US TRANSVAGINAL Christopher Landers APRN.CNP [address] [place] [address] [place] [address] Referral ID Status Reason Start Date Expiration Date Visits Requested Visits Authorized [id number] Authorized Auto-Generat ed Referral 04/24/2023 05/23/2024 1 1 Specialty Diagnoses / Procedures Referred By Contac t Referred To Contact Dermatology Diagnoses Skin lesion Procedures CONSULT TO DERMATOLOGY Christopher Landers APRN.CNP [address] [place] [address] Referral ID Status Reason Start Date Expiration Date Visits Requested Visits Authorized [id number] Ref Not Required PCP Requested Referral 10/20/2023 10/19/2024 1 1 Additional Source Comments INFORMATION SOURCE (unrecogn ized section and content) DATE CREATED AUTHOR 09/13/2017 [facility] DATE CREATED AUTHOR AUTHOR'S ORGANIZ ATION 09/13/2017 [facility] DATE CREATED AUTHOR AUTHOR'S ORGANIZ ATION 01/23/2020 [facility] DATE CREATED AUTHOR AUTHOR'S ORGANIZ ATION 10/05/2024 [facility] DATE CREATED AUTHOR AUTHOR'S ORGANIZ ATION 10/09/2024 [facility] DATE CREATED AUTHOR AUTHOR'S ORGANIZ ATION 10/11/2024 [facility] Goals (unrecognized section and content) Goals may be documented in a n alternate sectionGoals may be documented in an alternate section Care Teams (unrecognized sec tion and content) Team Status: Inactive Member Role Status Dates Dr. Mack Moffett MD Attending Provider Active Dial Lathe Operator Relationship Specialty Start Date End Date Anju Rajan MD [address] [address] PCP - General Internal Medicine 09/27/23 Dial Lathe Operator Relationship Specialty Start Date End Date Anju Rajan MD [address] [address] PCP - General Internal Medicine 09/27/23 Dial Lathe Operator Relationship Specialty Start Date End Date Anju Rajan MD [address] [address] PCP - General Internal Medicine 09/27/23 Dial Lathe Operator Relationship Specialty Start Date End Date Anju Rajan MD [address] [address] PCP - General Internal Medicine 09/27/23 Dial Lathe Operator Relationship Specialty Start Date End Date Anju Rajan MD [address] [address] PCP - General Internal Medicine 09/27/23 Dial Lathe Operator Relationship Specialty Start Date End Date Anju Rajan MD [address] [address] PCP - General Internal Medicine 09/27/23 Dial Lathe Operator Relationship Specialty Start Date End Date Anju Rajan MD [address] [address] PCP - General Internal Medicine 09/27/23 Dial Lathe Operator Relationship Specialty Start Date End Date Anju Rajan MD [address] [address] PCP - General Internal Medicine 09/27/23 Dial Lathe Operator Relationship Specialty Start Date End Date Anju Rajan MD [address] [address] PCP - General Internal Medicine 09/27/23 Dial Lathe Operator Relationship Specialty Start Date End Date Anju Rajan MD [address] [address] PCP - General Internal Medicine 09/27/23 Dial Lathe Operator Relationship Specialty Start Date End Date Anju Rajan MD [address] [address] PCP - General Internal Medicine 09/27/23 Dial Lathe Operator Relationship Specialty Start Date End Date Anju Rajan MD [address] [address] PCP - General Internal Medicine 09/27/23 Dial Lathe Operator Relationship Specialty Start Date End Date Anju Rajan MD [address] [address] PCP - General Internal Medicine 09/27/23 Dial Lathe Operator Relationship Specialty Start Date End Date Anju Rajan MD [address] [address] PCP - General Internal Medicine 09/27/23 Dial Lathe Operator Relationship Specialty Start Date End Date Anju Rajan MD [address] [place] [address] PCP - General Internal Medicine 09/27/23 Dial Lathe Operator Relationship Specialty Start Date End Date Anju Rajan MD [address] [place] [address] PCP - General Internal Medicine 09/27/23 Dial Lathe Operator Relationship Specialty Start Date End Date Anju Rajan MD [address] [place] [address] PCP - General Internal Medicine 09/27/23 Dial Lathe Operator Relationship Specialty Start Date End Date Anju Rajan MD [address] [address] PCP - General Internal Medicine 09/27/23 Dial Lathe Operator Relationship Specialty Start Date End Date Anju Rajan MD [address] [address] PCP - General Internal Medicine 09/27/23 Dial Lathe Operator Relationship Specialty Start Date End Date Anju Rajan MD [address] [address] PCP - General Internal Medicine 09/27/23 Dial Lathe Operator Relationship Specialty Start Date End Date Anju Rajan MD [address] [address] PCP - General Internal Medicine 09/27/23 Dial Lathe Operator Relationship Specialty Start Date End Date Anju Rajan MD [address] [address] PCP - General Internal Medicine 09/27/23 Source Comments (unrecognize d section and content) In the event this informatio n is protected by the Federal Confidentiality of Alcohol and Drug Abuse Patient Records regulations: The Federal rules restrict any use of the information to criminally investigate or prosecute any alcohol or drug abuse patient.[facility] the event this information is protected by the Federal Confidentiality of Alcohol and Drug Abuse Patient Records regulations: The Federal rules restrict any use of the information to criminally investigate or prosecute any alcohol or drug abuse patient.[facility] CenterIn the event this information is protected by the Federal Confidentiality of Alcohol and Drug Abuse Patient Records regulations: The Federal rules restrict any use of the information to criminally investigate or prosecute any alcohol or drug abuse patient.[facility] CenterIn the event this information is protected by the Federal Confidentiality of Alcohol and Drug Abuse Patient Records regulations: The Federal rules restrict any use of the information to criminally investigate or prosecute any alcohol or drug abuse patient.[facility] CenterIn the event this information is protected by the Federal Confidentiality of Alcohol and Drug Abuse Patient Records regulations: The Federal rules restrict any use of the information to criminally investigate or prosecute any alcohol or drug abuse patient.[facility] CenterIn the event this information is protected by the Federal Confidentiality of Alcohol and Drug Abuse Patient Records regulations: The Federal rules restrict any use of the information to criminally investigate or prosecute any alcohol or drug abuse patient.[facility] CenterIn the event this information is protected by the Federal Confidentiality of Alcohol and Drug Abuse Patient Records regulations: The Federal rules restrict any use of the information to criminally investigate or prosecute any alcohol or drug abuse patient.[facility] CenterIn the event this information is protected by the Federal Confidentiality of Alcohol and Drug Abuse Patient Records regulations: The Federal rules restrict any use of the information to criminally investigate or prosecute any alcohol or drug abuse patient.[facility] CenterIn the event this information is protected by the Federal Confidentiality of Alcohol and Drug Abuse Patient Records regulations: The Federal rules restrict any use of the information to criminally investigate or prosecute any alcohol or drug abuse patient.[facility] CenterIn the event this information is protected by the Federal Confidentiality of Alcohol and Drug Abuse Patient Records regulations: The Federal rules restrict any use of the information to criminally investigate or prosecute any alcohol or drug abuse patient.[facility] CenterIn the event this information is protected by the Federal Confidentiality of Alcohol and Drug Abuse Patient Records regulations: The Federal rules restrict any use of the information to criminally investigate or prosecute any alcohol or drug abuse patient.[facility] CenterIn the event this information is protected by the Federal Confidentiality of Alcohol and Drug Abuse Patient Records regulations: The Federal rules restrict any use of the information to criminally investigate or prosecute any alcohol or drug abuse patient.[facility] CenterIn the event this information is protected by the Federal Confidentiality of Alcohol and Drug Abuse Patient Records regulations: The Federal rules restrict any use of the information to criminally investigate or prosecute any alcohol or drug abuse patient.[facility] CenterIn the event this information is protected by the Federal Confidentiality of Alcohol and Drug Abuse Patient Records regulations: The Federal rules restrict any use of the information to criminally investigate or prosecute any alcohol or drug abuse patient.[facility] CenterIn the event this information is protected by the Federal Confidentiality of Alcohol and Drug Abuse Patient Records regulations: The Federal rules restrict any use of the information to criminally investigate or prosecute any alcohol or drug abuse patient.[facility] CenterIn the event this information is protected by the Federal Confidentiality of Alcohol and Drug Abuse Patient Records regulations: The Federal rules restrict any use of the information to criminally investigate or prosecute any alcohol or drug abuse patient.[facility] CenterIn the event this information is protected by the Federal Confidentiality of Alcohol and Drug Abuse Patient Records regulations: The Federal rules restrict any use of the information to criminally investigate or prosecute any alcohol or drug abuse patient.[facility] CenterIn the event this information is protected by the Federal Confidentiality of Alcohol and Drug Abuse Patient Records regulations: The Federal rules restrict any use of the information to criminally investigate or prosecute any alcohol or drug abuse patient.[facility] CenterIn the event this information is protected by the Federal Confidentiality of Alcohol and Drug Abuse Patient Records regulations: The Federal rules restrict any use of the information to criminally investigate or prosecute any alcohol or drug abuse patient.[facility] CenterIn the event this information is protected by the Federal Confidentiality of Alcohol and Drug Abuse Patient Records regulations: The Federal rules restrict any use of the information to criminally investigate or prosecute any alcohol or drug abuse patient.[facility] CenterIn the event this information is protected by the Federal Confidentiality of Alcohol and Drug Abuse Patient Records regulations: The Federal rules restrict any use of the information to criminally investigate or prosecute any alcohol or drug abuse patient.[facility] CenterIn the event this information is protected by the Federal Confidentiality of Alcohol and Drug Abuse Patient Records regulations: The Federal rules restrict any use of the information to criminally investigate or prosecute any alcohol or drug abuse patient.[facility] CenterIn the event this information is protected by the Federal Confidentiality of Alcohol and Drug Abuse Patient Records regulations: The Federal rules restrict any use of the information to criminally investigate or prosecute any alcohol or drug abuse patient.[facility] CenterIn the event this information is protected by the Federal Confidentiality of Alcohol and Drug Abuse Patient Records regulations: The Federal rules restrict any use of the information to criminally investigate or prosecute any alcohol or drug abuse patient.[facility] CenterIn the event this information is protected by the Federal Confidentiality of Alcohol and Drug Abuse Patient Records regulations: The Federal rules restrict any use of the information to criminally investigate or prosecute any alcohol or drug abuse patient.[facility] CenterIn the event this information is protected by the Federal Confidentiality of Alcohol and Drug Abuse Patient Records regulations: The Federal rules restrict any use of the information to criminally investigate or prosecute any alcohol or drug abuse patient.[facility] CenterIn the event this information is protected by the Federal Confidentiality of Alcohol and Drug Abuse Patient Records regulations: The Federal rules restrict any use of the information to criminally investigate or prosecute any alcohol or drug abuse patient.[facility] CenterIn the event this information is protected by the Federal Confidentiality of Alcohol and Drug Abuse Patient Records regulations: The Federal rules restrict any use of the information to criminally investigate or prosecute any alcohol or drug abuse patient.[facility] CenterIn the event this information is protected by the Federal Confidentiality of Alcohol and Drug Abuse Patient Records regulations: The Federal rules restrict any use of the information to criminally investigate or prosecute any alcohol or drug abuse patient.[facility] CenterIn the event this information is protected by the Federal Confidentiality of Alcohol and Drug Abuse Patient Records regulations: The Federal rules restrict any use of the information to criminally investigate or prosecute any alcohol or drug abuse patient.[facility] CenterIn the event this information is protected by the Federal Confidentiality of Alcohol and Drug Abuse Patient Records regulations: The Federal rules restrict any use of the information to criminally investigate or prosecute any alcohol or drug abuse patient.[facility] CenterIn the event this information is protected by the Federal Confidentiality of Alcohol and Drug Abuse Patient Records regulations: The Federal rules restrict any use of the information to criminally investigate or prosecute any alcohol or drug abuse patient.[facility] CenterIn the event this information is protected by the Federal Confidentiality of Alcohol and Drug Abuse Patient Records regulations: The Federal rules restrict any use of the information to criminally investigate or prosecute any alcohol or drug abuse patient.[facility] CenterIn the event this information is protected by the Federal Confidentiality of Alcohol and Drug Abuse Patient Records regulations: The Federal rules restrict any use of the information to criminally investigate or prosecute any alcohol or drug abuse patient.[facility] CenterIn the event this information is protected by the Federal Confidentiality of Alcohol and Drug Abuse Patient Records regulations: The Federal rules restrict any use of the information to criminally investigate or prosecute any alcohol or drug abuse patient.[facility] CenterIn the event this information is protected by the Federal Confidentiality of Alcohol and Drug Abuse Patient Records regulations: The Federal rules restrict any use of the information to criminally investigate or prosecute any alcohol or drug abuse patient.[facility] CenterIn the event this information is protected by the Federal Confidentiality of Alcohol and Drug Abuse Patient Records regulations: The Federal rules restrict any use of the information to criminally investigate or prosecute any alcohol or drug abuse patient.[facility] CenterIn the event this information is protected by the Federal Confidentiality of Alcohol and Drug Abuse Patient Records regulations: The Federal rules restrict any use of the information to criminally investigate or prosecute any alcohol or drug abuse patient.[facility] CenterIn the event this information is protected by the Federal Confidentiality of Alcohol and Drug Abuse Patient Records regulations: The Federal rules restrict any use of the information to criminally investigate or prosecute any alcohol or drug abuse patient.[facility] CenterIn the event this information is protected by the Federal Confidentiality of Alcohol and Drug Abuse Patient Records regulations: The Federal rules restrict any use of the information to criminally investigate or prosecute any alcohol or drug abuse patient.[facility] CenterIn the event this information is protected by the Federal Confidentiality of Alcohol and Drug Abuse Patient Records regulations: The Federal rules restrict any use of the information to criminally investigate or prosecute any alcohol or drug abuse patient.[facility] CenterIn the event this information is protected by the Federal Confidentiality of Alcohol and Drug Abuse Patient Records regulations: The Federal rules restrict any use of the information to criminally investigate or prosecute any alcohol or drug abuse patient.[facility] CenterIn the event this information is protected by the Federal Confidentiality of Alcohol and Drug Abuse Patient Records regulations: The Federal rules restrict any use of the information to criminally investigate or prosecute any alcohol or drug abuse patient.[facility] CenterIn the event this information is protected by the Federal Confidentiality of Alcohol and Drug Abuse Patient Records regulations: The Federal rules restrict any use of the information to criminally investigate or prosecute any alcohol or drug abuse patient.[facility] CenterIn the event this information is protected by the Federal Confidentiality of Alcohol and Drug Abuse Patient Records regulations: The Federal rules restrict any use of the information to criminally investigate or prosecute any alcohol or drug abuse patient.[facility] CenterIn the event this information is protected by the Federal Confidentiality of Alcohol and Drug Abuse Patient Records regulations: The Federal rules restrict any use of the information to criminally investigate or prosecute any alcohol or drug abuse patient.[facility] CenterIn the event this information is protected by the Federal Confidentiality of Alcohol and Drug Abuse Patient Records regulations: The Federal rules restrict any use of the information to criminally investigate or prosecute any alcohol or drug abuse patient.[facility] CenterIn the event this information is protected by the Federal Confidentiality of Alcohol and Drug Abuse Patient Records regulations: The Federal rules restrict any use of the information to criminally investigate or prosecute any alcohol or drug abuse patient.[facility] CenterIn the event this information is protected by the Federal Confidentiality of Alcohol and Drug Abuse Patient Records regulations: The Federal rules restrict any use of the information to criminally investigate or prosecute any alcohol or drug abuse patient.[facility] Reason for Visit (unrecogniz ed section and content) Reason Comments Establish Care Reason Comments Results Reason Comments Radiology US Specialty Diagnoses / Procedures Referred By Contac t Referred To Contact US IMAGING Diagnoses Abnormal uterine bleeding Procedures US FEMALE PELVIS TRANSVAG US TRANSVAGINAL Christopher Landers APRN.CNP [address] [place] [address] [place] [address] Referral ID Status Reason Start Date Expiration Date V isits Requested Visits Authorized [id number] Closed Auto-Generate d Referral 04/24/2023 05/23/2024 1 1 Reason Comments New Patient Bladder leakage Reason Comments Contraception Reason Onset Date Comments Insertion Of IUD 06/20/2023 Specialty Diagnoses / Procedures Referred By Contac t Referred To Contact [facility] Diagnoses Encounter for other contraceptive management Adenomyosis Encounter for insertion of intrauterine contraceptive device Encounter for removal of intrauterine contraceptive device Procedures INSERT INTRAUTERINE DEVICE LEVONORGESTREL IU 52MG 5 YR INSERT INTRAUTERINE DEVICE REMOVE INTRAUTERINE DEVICE Christopher Landers APRN.[employer] [address] [place] [address] [facility] [address] [place] [address] Referral ID Status Reason Start Date Expiration Date Visits Requested Visits Authorized [id number] Authorized Auto-Generat ed Referral 06/12/2023 03/19/2024 2 2 Reason Comments Assessment Patient Education Specialty Diagnoses / Procedures Referred By Contac t Referred To Contact Nutrition Diagnoses Class 3 severe obesity with body mass index (BMI) of 45.0 to 49.9 in adult, unspecified obesity type, unspecified whether serious comorbidity present (HCC) Procedures CONSULT TO NUTRITION THERAPY MEDICAL NUTRITION ASSMT&IVNTJ INDIV EACH 15 CA Char Hensley APRN.[employer] [address] [place] [address] Referral ID Status Reason Start Date Expiration Date Visits Requested Visits Authorized [id number] Authorized PCP Requested Referral 06/14/2023 06/13/2024 1 4 Reason Comments Establish Care Concerns with weight Reason Comments Follow Up IUD check Reason Comments New Patient Evaluation Specialty Diagnoses / Procedures Referred By Contac t Referred To Contact Diagnoses Observed sleep apnea Loud snoring Excessive daytime sleepiness Class 3 severe obesity with body mass index (BMI) of 45.0 to 49.9 in adult, unspecified obesity type, unspecified whether serious comorbidity present (HCC) Malaise and fatigue Procedures CONSULT TO SLEEP MEDICINE - ADULT OFFICE/OUTPATIENT [facility] 60 MINUTES Char Hensley, [employer] [address] [facility] [place] [address] Referral ID Status Reason Start Date Expiration Date V isits Requested Visits Authorized [id number] Closed PCP Requested Referral 06/14/2023 06/13/2024 1 1 Reason Comments Refill Request Reason Onset Date Comments Refill Request 12/29/2023 Reason Comments Need for Pelvic u/s Reason Comments Menstrual Problem Reason Onset Date Comments Refill Request 04/04/2024 Reason Comments Appointment Reason Comments Discussion BLEEDING- STOPPED TH E BIRTHCONTROL PILL IN FEBRUARY- WAS NOT HELPING Reason Onset Date Comments Refill Request 04/29/2024 Reason Onset Date Comments Refill Request 05/27/2024 Reason Comments Weight Loss Bladder leakage Reason Comments Urinary Incontinence Mixed stress and ur ge urinary incontinence Specialty Diagnoses / Procedures Referred By Contac t Referred To Contact Urology Diagnoses Mixed stress and urge urinary incontinence Procedures CONSULT TO UROLOGY OFFICE/OUTPATIENT [facility] 60 MINUTES Marci Pulido, [employer]ER.[employer] [address] [place] [address] Phone: tel: fax: Referral ID Status Reason Start Date Expiration Date V isits Requested Visits Authorized [id number] Closed PCP Requested Referral 06/18/2024 06/18/2025 1 1 Reason Comments Follow Up Surgery Consult Reason Comments Follow Up Reason Onset Date Comments Refill Request 07/16/2024 Reason Comments Patient Update Reason Comments Pre-Op Visit Reason Comments Patient Update Reason Onset Date Comments IUD Removal 08/02/2024 Endometrial Biopsy Specialty Diagnoses / Procedures Referred By Contac t Referred To Contact [facility] Diagnoses Encounter for IUD removal Encounter for insertion of intrauterine contraceptive device Procedures REMOVE INTRAUTERINE DEVICE REMOVE INTRAUTERINE DEVICE LEVONORGESTREL IU 52MG 5 YR INSERT INTRAUTERINE DEVICE Fox Abel MD [address] [place] [address] Phone: tel: fax: [facility] [address] [place] [address] Referral ID Status Reason Start Date Expiration Date Visits Requested Visits Authorized [id number] Authorized Auto-Generat ed Referral 08/02/2024 03/19/2025 2 2 Reason Comments Contraception Reason Comments Telemedicine Reason Comments Follow Up Pre op Reason Onset Date Comments Refill Request 09/17/2024 Reason Comments Patient Question Reason Comments Off Work note for surgery Inactive Administered Medications - up to 3 most recent administrations Administered Medications (un recognized section and content) Medication Order MAR Action Action Date Dose Rate Site levonorgestrel 21 mcg/24 hours (8 yrs) 52 mg 1 Each intrauterine device (MIRENA) 1 Each, INTRAUTERINE, ONCE (UP TO 30 DAYS AMB), 1 dose, On Mon06/20/23 at 1100, Hazardous Potential Reproductive Risk Drug: Use appropriate PPE. Given 06/20/2023 10:32 AM EDT 1 Each FOR RECORDS PERTAINING TO PATIENTS WHO ARE OR HAVE BEEN ENROLLED IN A CHEMICAL DEPENDENCY/SUBSTANCEABUSE PROGRAM, SOME INFORMATION MAY BE OMITTED. This clinical summary was aggregated from multiple sources. Caution should be exercised in using it in the provision of clinical care. This summary normalizes information from multiple sources, and as a consequence, information in this document may materially change the coding, format and clinical context of patient data. In addition, data may be omitted in some cases. CLINICAL DECISIONS SHOULD BE BASED ON THE PRIMARY CLINICAL RECORDS. [employer] provides no warranty or guarantee of the accuracy or completeness of information in this document.
[2024-10-11 05:59] VITALS: BP 131/70; PULSE 80; RESP 16; TEMP 36.5; O2SAT 99; BMI 43.2
[2024-10-11 06:08] LABS: Internal QC Validated? YES +Cl - CLEAR BKGD; Pregnancy, Urine Negative Negative; Record Kit Lot#,Urine Preg 0000962302
[2024-10-11] MEDS: Magnesium 1 GM over 15 mins IV (06:15)
[2024-10-11] MEDS: Lactated Ringers 1,000 ML 40 ML IV (06:15)
--- NOTE | 2024-10-11 06:39 | PRE.ANES_ITS ---
ASA Classification* ASA Classification ASA Classification: 3 Assessment & Plan Anesthesia* Anesthesia Assessment Anesthesia Assessment: Discussed sedation and/or anesthesia options, risks, benefits, and alternatives with patient/parents/legal guardian/POA. Questions invited. The patient/parents/legal guardian/POA seems to understand and agrees to proceed with anesthesia plan. Reviewed the physical assessment, medical history, allergy history and patient home medications list prior to surgery/procedure/anesthetic and documented any changes. Performed airway and anesthesia risk assessments. Anesthesia Type Anesthesia Type: General History Source History Obtained from:: Patient and Chart Anesthesia Focused Assessment* Temperature: 97.7 F Pulse Rate: 80 Blood Pressure: 131/70 Respiratory Rate: 16 Pulse Ox: 99 Oxygen Delivery Method: Room Air Airway Assessment Mouth opens: >3 cm Mallampati Score: III Teeth Condition: Intact Neck Range of motion (ROM): Full ROM Labs Anesthesia Preop lab: CBC CHEMISTRY Glucose 86 mg/dL (74-106) 01/24/18 10:45 01/24/18 POC Glucose 106 mg/dL (74-106) 10/11/24 06:12 10/11/24 TSH 3.19 uIU/mL (0.358-3.74) 10/08/18 16:23 COAG Urine Test Negative Negative 10/11/24 05:30 10/11/24 Pre-Assessment Diagnosis/Proposed Procedure Planned Operative Procedure(s): TOTAL LAP HYSTERECTOMY BSO CYSTO Anesthesia History 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 When Was Last Pacemaker Check QUESTION #4 FULL TEXT: You/Your Family Experience fever (hyperthermia) with Anesthesia Last Oral Intake Last Oral intake: Last Oral Intake NPO since 21:40 10/11/24 05:59 Meds taken in AM with sips of No 10/11/24 05:59 water? Meds patient instructed to take am of surgery PONV PONV - [employer] supervisor: PONV - [employer] supervisor Female Yes 10/01/24 13:10 HX of Motion Sickness Yes 10/01/24 13:10 HX of N/V After Surgery No 10/01/24 13:10 Non-Smoker Yes 10/01/24 13:10 Duration of Surgery greater Yes 10/01/24 13:10 than 60 minutes Number of Risk Factors 4 10/01/24 13:10 PONV Score Severe Risk 10/01/24 13:10 Height & Weight Height & Weight: Anesthesia: Height & Weight Height 5 ft 8 in 10/11/24 05:59 Weight: 129 kg 10/11/24 05:59 Body Mass Index (BMI) 43.2 10/11/24 05:59 Respiratory Assessment Respiratory Assessment - [employer] supervisor: Respiratory Tract Infection Hx - [employer] supervisor Hx Respiratory Tract Infection No 10/01/24 13:10 STOP Sleep Apnea STOP Sleep Apnea - [employer] supervisor: STOP Sleep Apnea - [employer] supervisor Hx Hypertension No 10/01/24 13:10 Hx Sleep Apnea No 10/01/24 13:10 CPAP No: never followed up 07/19/24 13:29 BIPAP No: never followed up 07/19/24 13:29 Do you snore loudly (louder Yes 10/01/24 13:10 than talking or can be heard Do you often feel tired/ Yes 10/01/24 13:10 fatigued/ sleepy during daytime? Has anyone observed you stop Yes 10/01/24 13:10 breathing during sleep? STOP Results Positive 10/01/24 13:10 QUESTION #5 FULL TEXT : Do you snore loudly (louder than talking or can be heard through closed doors)? Tobacco Use History Tobacco Use History - [employer] supervisor: Tobacco Use History - [employer] supervisor Tobacco Use Smoking Status Never smoker 10/01/24 13:10 Hx Tobacco Use No 10/01/24 13:10 Years Smoking Packs Smoked per Day Smoking Cessation Date was within the last 15 years Hx Smoking Cessation Date Hx Smoking Cessation Counseling Hematologic Medial History Hematologic Hx - [employer] supervisor: Hematologic Medical Hx - lead ramp agent Hx of Blood Transfusion No 10/01/24 13:10 Hx of Transfusion in last 3 No 10/01/24 13:10 Months Date of Last Transfusion (if within last 3 months) Ever experience any problems No 10/01/24 13:10 with transfusion(s)? Specify any problems Hx of Preganancy in last 3 No 10/01/24 13:10 Months Nurse Filling Out Transfusion DSCHRIBER 10/01/24 13:10 & Questions: Date: 10/01/24 10/01/24 13:10 Time: 13:12 10/01/24 13:10 Patient unable to answer at this time (ie. confused, unrespo /Reproduction History /Reproductive History - [employer] supervisor: /Reproductive Hx- [employer] supervisor Hx Now No 10/01/24 13:10 Gestational Age (in weeks): EDC: Hx Hx Para Hx Section SAB No 10/01/24 13:10 Active Medications Active Medications: Current Medications Generic Name Dose Route Start Last Admin Trade Name Freq PRN Reason Stop Dose Admin Acetaminophen 1,000 mg 10/11/24 07:30 10/11/24 06:16 Acetaminophen 500 Mg Tablet PO 10/11/24 07:31 1,000 mg PREOP ONE Administration Celecoxib 400 mg 10/11/24 07:30 10/11/24 06:17 Celecoxib 200 Mg Capsule PO 10/11/24 07:31 400 mg PREOP ONE Administration Enoxaparin Sodium 40 mg 10/11/24 07:30 10/11/24 06:17 Enoxaparin 40 Mg/0.4 Ml Syringe SC 10/11/24 07:31 40 mg PREOP ONE Administration Gabapentin 600 mg 10/11/24 07:30 10/11/24 06:15 Gabapentin 600 Mg Tablet PO 10/11/24 07:31 600 mg PREOP ONE Administration Lactated Ringer's 1,000 mls @ 40 mls/hr 10/11/24 07:30 10/11/24 06:15 IV 40 mls/hr .Q25H CICI Administration Lactated Ringer's 1,000 mls @ 70 mls/hr 10/11/24 07:30 IV .[id number] CICI Magnesium Sulfate 1 gm/ 102 mls @ 408 mls/hr 10/11/24 07:30 10/11/24 06:15 Dextrose IV 10/11/24 07:44 408 mls/hr PREOP ONE Administration Insulin Human Lispro 0 unit 10/11/24 07:30 Insulin Lispro 100 Unit/Ml Insuln.Pen SC Q4H PRN PRN BG >/= 180, SEE PROTOCOL Protocol Ondansetron HCl 4 mg 10/11/24 07:30 Ondansetron 4 Mg/2 Ml Vial IV 10/11/24 07:31 INTRAOP ONE Phenazopyridine HCl 190 mg 10/11/24 07:30 10/11/24 06:17 Phenazopyridine 95 Mg Tablet PO 10/11/24 07:31 190 mg PREOP ONE Administration PFSH Medical History Loss of hearing Alcohol use Skin lesion Bladder disease Easy bruising Restless legs Back pain Migraine headache Syncope Gastric reflux Shortness of breath on exertion History of pain when walking History of edema History of use of contraceptive intrauterine device (IUD) Wears contact lenses Wears glasses Depression History of speech problem Non-smoker Grief MDD (major depressive disorder) PTSD (post-traumatic stress disorder) Home Medications ?Medication ?Instructions ?Recorded ?Last Taken ?Type omeprazole 20 mg capsule,delayed 20 mg PO QDAY 4 10/09/24 History release bupropion HCl 150 mg 24 hr tablet, 150 mg PO QAM #90 t abs 07/03/24 10/09/24 Rx extended release hydroxyzine pamoate 25 mg capsule 25 mg PO TID PRN anx iety #270 caps 07/03/24 10/09/24 Rx (Vistaril) sertraline 100 mg tablet 200 mg (2 x 100 mg) PO DAILY #180 07/03/24 10/09/24 Rx TABLETS trazodone 50 mg tablet 50 mg PO QHS PRN sleep #90 t abs 07/03/24 10/10/24 Rx phentermine 37.5 mg tablet 37.5 mg PO DAILY 07/19/24 0 10/05/24 History trospium 20 mg tablet 20 mg PO BID 07/19/24 History norethindrone acetate 5 mg tablet 5 mg PO DAILY 10/09/24 History acetaminophen 325 mg capsule 650 mg PO Q6H PRN pain 10/09/24 History Allergy/AdvReac Type Severity Reaction Status Date / Time No Known Allergies Allergy Verified 10/11/24 05:56 Family History Other Anxiety CVA (cerebral vascular accident) Cancer Depression Diabetes Hypertension Parkinson disease Thyroid disorder Surgical History Hx of wisdom tooth extraction Social History Smoking Status: Never smoker alcohol intake: never substance use type: does not use what type of physical activity do you participate in: walking Review of Systems (Anesthesia) ROS Narrative System reviewed and no additional complaints, except as documented.
[2024-10-11 06:44] VITALS: BP 131/70; PULSE 80; RESP 16; TEMP 36.5; O2SAT 99
--- NOTE | 2024-10-11 08:03 | PCM.PN.OB ---
Subjective Subjective Patient was seen in pre op. Objective Data Objective Data Vital Signs: Vital Signs Temp Pulse Resp BP Pulse Ox O2 Del Method 97.7 F L 80 16 131/70 H 99 Room Air 10/11/24 06:44 10/11/24 06:44 10/11/24 06:44 10/11/24 06:44 10/11/24 06:44 10/11/24 06:44 Oxygen Delivery Method Room Air Weight: 284 lb 6.341 oz Body Mass Index (BMI) 43.2 Lab / Micro Data Labs: Laboratory Results - last 24 hr 10/11/24 05:30: Urine Test Negative 10/11/24 06:00: Blood Type A POSITIVE, Antibody Screen NEGATIVE 10/11/24 06:12: POC Glucose 106 Assessment & Plan (1) Pre-op evaluation: PLAN: Patient seen in pre op to discuss surgery. Discussed r/b/a TLH, BS, cysto and patient desires to proceed. She understands she could never become after a hysterectomy. This is something she has considered for a long time and has researched, and she is 100% certain she never desires . Medical bioethics with [facility] has attempted to reach patient this week to discuss advanced directives. Patient has not returned the calls. 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 Recommend cancelling surgery today since patient has not had the ability to discuss and set in place advance directives prior to surgery. Patient agreeable to this. Discussed plan of care with patient's as well, who also agrees with this plan. Instructed patient to call bioethics to discuss advance directives.
== END 2024-12-09 13:39 | disposition home or self-care (01) ==
LOC: PAT 13:38
PROVIDERS: PCP Internal Medicine; Referring Provider Obstetrics & Gynecology; Visit Provider Obstetrics & Gynecology
DX: Z01.818 Encounter for other preprocedural examination (principal); K21.9 Gastro-esophageal reflux disease without esophagitis; Z53.8 Procedure and treatment not carried out for other reasons
CPT/HCPCS: 58570; 81025; 82962; 86850; 86900; 86901; J2405; J3475

== ENCOUNTER → 2024-12-12 | Outpatient (CLI) | payer OTHER, SELFPAY ==
[2024-12-14 23:07] LABS: QNTFERON TB Mitogen Value > 10.00 IU/mL (.); QNTFERON TB Nil Value 0.05 IU/mL (.); QNTFERON TB1+ Ag Value 0.05 IU/mL (.); QNTFERON TB2+ Ag Value 0.06 IU/mL (.); QNTIFERON TB Positive Criteria Negative (Negative)
== END | disposition home or self-care (01) ==
LOC: MTLAB 13:54
PROVIDERS: Physician Assistant Surgical; PCP Internal Medicine; Referring Provider Student in an Organized Health Care Education/Training Program; Visit Provider Student in an Organized Health Care Education/Training Program
DX: Z02.1 Encounter for pre-employment examination (principal); Z11.1 Encounter for screening for respiratory tuberculosis
CPT/HCPCS: 86480

== ENCOUNTER 2025-01-29 09:04 | Emergency (ER) | payer OTHER, SELFPAY ==
[2025-01-29 09:05] VITALS: BP 125/82; PULSE 109; RESP 18; TEMP 37.1; O2SAT 100; BMI 39.9
--- NOTE | 2025-01-29 09:53 | EX.ED.GENINJ ---
HPI History of Present Illness Chief Complaint: Head Injury Informant: patient Narrative Narrative: Patient is a 29-year-old female with history of PTSD, major depressive disorder, prior speech problem and migraines presenting for evaluation after head injury. 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 The elevator doors meet in the middle come down instead of [id number]. She states she hit the back of her head at her hair clip and then at the top of her head on door of the elevator. She denies any loss of conscious but no she was dazed for a little bit. Denies any acute vision changes up some mild light sensitivity. Did have some associated nausea but no vomiting. Denies any other injuries. Denies any she any bleeding disorders except for heavy vaginal bleeding (is on medication for this). Came in for further evaluation. Denies any associate numbness or tingling. [facility] Medical History Loss of hearing Alcohol use Skin lesion Bladder disease Easy bruising Restless legs Back pain Migraine headache Syncope Gastric reflux Shortness of breath on exertion History of pain when walking History of edema History of use of contraceptive intrauterine device (IUD) Wears contact lenses Wears glasses Depression History of speech problem Non-smoker Grief MDD (major depressive disorder) PTSD (post-traumatic stress disorder) Home Medications Medication Instructions Recorded Last Taken Type omeprazole 20 mg capsule,delayed 20 mg PO QDAY 12/07/23 10/09/24 History release phentermine 37.5 mg tablet 37.5 mg PO DAILY 07/19/24 10/05/24 History trospium 20 mg tablet 20 mg PO BID 07/19/24 10/09/24 History norethindrone acetate 5 mg tablet 5 mg PO DAILY 09/10/24 10/09/24 History acetaminophen 325 mg capsule 650 mg PO Q6H PRN pain 10/01/24 10/09/24 History bupropion HCl 300 mg 24 hr tablet, 300 mg PO QAM #90 tabs 12/10/24 Unknown Rx extended release hydroxyzine pamoate 25 mg capsule 25 mg PO TID PRN anxiety #270 caps 12/10/24 Unknown Rx (Vistaril) sertraline 100 mg tablet 200 mg (2 x 100 mg) PO DAILY #180 12/10/24 Unknown Rx TABLETS trazodone 50 mg tablet 50 mg PO QHS PRN sleep #90 tabs 12/16/24 Unknown Rx Allergy/AdvReac Type Severity Reaction Status Date / Time No Known Allergies Allergy Verified 01/29/25 09:05 Family History Other Anxiety CVA (cerebral vascular accident) Cancer Depression Diabetes Hypertension Parkinson disease Thyroid disorder Surgical History Hx of wisdom tooth extraction Social History Smoking Status: Never smoker alcohol intake: never substance use type: does not use what type of physical activity do you participate in: walking ROS ROS ED Constitutional Constitutional ED: Denies chills or fever(s) Eyes Eyes: Reports other Details: Mild light sensitivity ; Denies blurry vision or change in vision ENT ENT ED: Denies rhinorrhea Gastrointestinal Gastrointestinal: Reports nausea; Denies vomiting Musculoskeletal Musculoskeletal: Denies arthralgias or myalgias Neurologic Neurologic: Reports headache(s); Denies paresthesias or weakness Hematologic/Lymphatic Hematologic/Lymphatic: Denies easy bleeding or easy bruising EXAM Physical Exam Const Vital Signs: 01/29/25 09:05 01/29/25 09:31 Temperature 98.7 F Temperature Source Oral Pulse Rate 109 H Respiratory Rate 18 Respiratory Effort Normal Non-Labored Blood Pressure 125/82 H Blood Pressure Mean 96 Pulse Ox 100 Oxygen Delivery Method Room Air Positive well nourished and well developed General Appearance ED: well developed and NAD HEENT HEENT Narrative: No cephalhematoma appreciated. No ecchymosis or abrasion to the scalp appreciated. No palpable skull fracture. No signs of basilar skull fracture with no hemotympanum on the right. Cerumen impaction on the left present. atraumatic Nose: Negative for septum abnormal Eyes PERRL and EOMs intact bilaterally Neck full ROM General: Negative for tenderness Chest Wall inspection of chest normal and palpation of chest normal Resp normal respiratory effort Cardio regular rhythm Back/Spine normal to inspection Back/Spine Narrative: Normal range of motion of the back. Sitting comfortably in bed. Extremity normal to inspection and full ROM General Extremety ED: Negative for deformity General Extremity: Negative for deformity Neuro oriented x3, CN's II-XII intact bilaterally, moves all extremities, no focal motor deficits and no sensory deficits noted Neuro Narrative: Slightly childish speech pattern however patient states this is her baseline speech Zack Coma Scale: document GCS findings Spontaneous Obeys Commands Oriented 15 Sensorium / Orientation: alert Psych mental status grossly normal Skin no rashes or lesions noted and no wounds MDM MDM MDM Narrative Medical decision making narrative: Patient evaluated for close head injury at work. She appears nontoxic no acute distress. Low mechanism injury. Differential includes concussion, intracranial hemorrhage and skull fracture. Patient is low risk per [place] CT head injury/trauma rule and I do not think she requires CT imaging. Given dose of Tylenol for headache in the emergency room. Given return precautions. Workmen's Compensation is filed. Patient agreeable this plan of care. Discharged home in stable condition. Discharge Plan Triage Chief Complaint: Head Injury ED Provider: Nika Tse Dx/Rx/DC Orders Clinical Impression: CHI (closed head injury), Impacted cerumen of left ear Instructions: ED Concussion, ED Earwax Removal Prescriptions: No Action omeprazole 20 mg capsule,delayed release(DR/EC) 20 mg PO QDAY norethindrone acetate 5 mg tablet 5 mg PO DAILY hydroxyzine pamoate [Vistaril] 25 mg capsule 25 mg PO TID PRN (Reason: anxiety) Qty: 270 1RF sertraline 100 mg tablet 200 mg PO DAILY Qty: 180 1RF bupropion HCl 300 mg tablet extended release 24 hr 300 mg PO QAM Qty: 90 1RF acetaminophen 325 mg capsule 650 mg PO Q6H PRN (Reason: pain) phentermine 37.5 mg tablet 37.5 mg PO DAILY trospium 20 mg tablet 20 mg PO BID trazodone 50 mg tablet 50 mg PO QHS PRN (Reason: sleep) Qty: 90 1RF Stand Alone Forms: Work Status Form Primary Care Provider: Fannie Davis Referrals: [facility] [[facility], Medical] Fannie Davis MD [Primary Care Provider, Internal Medicine] Activity Restrictions/Additional Instructions: Alternate ibuprofen and Tylenol as needed for headache. Rest and drink plenty of fluids. Try to take it easy over the next few days and avoid strenuous tasks at work that might exacerbate your headache/concussion symptoms. Print Language: Belarusian Disposition Disposition: Home, Self Care
== END 2025-01-29 10:11 | disposition home or self-care (01) ==
LOC: ED 10:07
PROVIDERS: Emergency Provider Emergency Medicine; PCP Nurse Practitioner Family; Visit Provider Emergency Medicine
DX: S09.90XA Unspecified injury of head, initial encounter (principal); H61.22 Impacted cerumen, left ear; N93.9 Abnormal uterine and vaginal bleeding, unspecified; Z79.899 Other long term (current) drug therapy; K21.9 Gastro-esophageal reflux disease without esophagitis; W22.8XXA Striking against or struck by other objects, initial encounter; Y99.0 Civilian activity done for income or pay
CPT/HCPCS: 99282

== ENCOUNTER 2025-02-05 12:34 | Emergency (ER) | payer OTHER, SELFPAY ==
[2025-02-05 12:36] VITALS: BP 127/83; PULSE 90; RESP 18; TEMP 36.1; O2SAT 100; BMI 41.4
--- NOTE | 2025-02-05 13:00 | EDS_ITS ---
HPI History of Present Illness Chief Complaint: Headache Informant: patient Narrative Narrative: Patient is a 29-year-old female presenting with persistent headaches and visual disturbances following a head injury last week. 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 - She was evaluated in the ED at that time; imaging was not performed. - Denies prior history of headaches similar to the current one. - Headache onset was immediate post-injury and has been constant since, primarily localized to the posterior head. - Associated symptoms include photophobia and visual disturbances described as fuzzies and stars in her eyes. - Denies nausea, emesis, neck pain, back pain, or gait disturbances. - Took acetaminophen today for headache relief. - Medical history includes depression, anxiety, and weight loss, for which she is on prescription medications. [facility] Medical History Loss of hearing Alcohol use Skin lesion Bladder disease Easy bruising Restless legs Back pain Migraine headache Syncope Gastric reflux Shortness of breath on exertion History of pain when walking History of edema History of use of contraceptive intrauterine device (IUD) Wears contact lenses Wears glasses Depression History of speech problem Non-smoker Grief MDD (major depressive disorder) PTSD (post-traumatic stress disorder) Home Medications ?Medication ?Instructions ?Recorded ?Last Taken ?Type omeprazole 20 mg capsule,delayed 20 mg PO QDAY 4 10/09/24 History release phentermine 37.5 mg tablet 37.5 mg PO DAILY 07/19/24 0 10/05/24 History trospium 20 mg tablet 20 mg PO BID 07/19/24 History norethindrone acetate 5 mg tablet 5 mg PO DAILY 10/09/24 History acetaminophen 325 mg capsule 650 mg PO Q6H PRN pain 10/09/24 History bupropion HCl 300 mg 24 hr tablet, 300 mg PO QAM #90 t abs 12/10/24 Unknown Rx extended release hydroxyzine pamoate 25 mg capsule 25 mg PO TID PRN anx iety #270 caps 12/10/24 Unknown Rx (Vistaril) sertraline 100 mg tablet 200 mg (2 x 100 mg) PO DAILY #180 12/10/24 Unknown Rx TABLETS trazodone 50 mg tablet 50 mg PO QHS PRN sleep #90 t abs 12/16/24 Unknown Rx Allergy/AdvReac Type Severity Reaction Status Date / Time No Known Allergies Allergy Verified 02/05/25 12:36 Family History Other Anxiety CVA (cerebral vascular accident) Cancer Depression Diabetes Hypertension Parkinson disease Thyroid disorder Surgical History Hx of wisdom tooth extraction Social History Smoking Status: Never smoker alcohol intake: never substance use type: does not use what type of physical activity do you participate in: walking ROS ROS ED Constitutional Constitutional ED: Denies chills or fever(s) Eyes Eyes: Reports blurry vision; Denies diplopia ENT ENT ED: Denies ear pain or sore throat Cardiovascular Cardiovascular: Denies chest pain or palpitations Respiratory/Chest Respiratory/Chest: Denies cough or dyspnea Gastrointestinal Gastrointestinal: Denies abdominal pain, diarrhea, nausea or vomiting Genitourinary Genitourinary ED: Denies dysuria or urinary frequency Musculoskeletal Musculoskeletal: Denies back pain or myalgias Integumentary Denies abscess or rash Neurologic Neurologic: Reports headache(s); Denies paresthesias or weakness EXAM Physical Exam Const Vital Signs: 02/05/25 12:36 02/05/25 14:24 Temperature 96.9 F L Temperature Source Temporal Pulse Rate 90 62 Respiratory Rate 18 16 Blood Pressure 127/83 H 152/84 H Blood Pressure Mean 97 106 Pulse Ox 100 100 Oxygen Delivery Method Room Air Room Air Positive well nourished, well developed and obese General Appearance ED: well developed and NAD Nutritional Appearance: obese HEENT Reports normocephalic and moist mucous membranes HEENT Narrative: Right TM clear, left occluded by cerumen. No Matthew sign, no raccoon eyes, no CSF otorhinorrhea, no hemotympanum right ear. Mildly tender throughout occipital scalp without palpable hematoma, crepitance, or depression. atraumatic Eyes PERRL, EOMs intact bilaterally and conjunctivae normal Eyes Narrative: photophobia mild Neck no lymphadenopathy, supple and no meningeal signs Resp normal respiratory effort and clear to auscultation bilaterally GI non-tender and non-distended Palpation: soft Extremity normal to inspection and full ROM Neuro oriented x3 and CN's II-XII intact bilaterally Sensorium / Orientation: awake and alert Speech: speech normal Gait (Neuro): normal gait Motor Exam: strength 5/5 throughout Psych mental status grossly normal Skin Lesions: no lesions Rashes: no rashes MDM MDM MDM Narrative Medical decision making narrative: Assessment: The patient is a 29-year-old female with PMH of migraines, depression, and anxiety presenting for persistent global headache with photophobia and visual ?stars? one week after a minor closed head injury from a [employer]ploreter elevator frame at work. Neurologic exam today is non-focal; no external signs of trauma. Non-contrast head CT is negative for intracranial hemorrhage or skull fracture, effectively ruling out subacute bleeding. Given the normal imaging and her prior migraine history, a concussion-triggered migraine is the most likely etiology of her ongoing symptoms. Plan: - Administered IV ketorolac and metoclopramide for abortive migraine therapy. - Administered IV dihydroergotamine after inadequate relief with initial medications. - Discharge home once symptoms improve, with work-comp follow-up arranged through [employer]. Diagnostics: - Non-contrast CT head: no acute intracranial hemorrhage, no skull fracture. Independently reviewed by me, Jude Kimble. Reevaluations: - After ketorolac and metoclopramide, patient reports persistent headache; proceeded with dihydroergotamine. On reexamination she feels much better and her headache is gone, consistent with a migraine. History & Record Review Additional record(s) reviewed:: Prior ED visit Radiography Diagnostic Testing: Clinical Impression(s) from Imaging Studies Brain CT 02/05/25 13:22 IMPRESSION: No acute intracranial abnormality. Reading Location: [address] Discharge Plan Triage Chief Complaint: Headache ED Provider: Jude Kimble Dx/Rx/DC Orders Clinical Impression: Post-traumatic headache, Closed head injury without loss of consciousness Instructions: ED Head Injury (Adult) Prescriptions: No Action omeprazole 20 mg capsule,delayed release(DR/EC) 20 mg PO QDAY norethindrone acetate 5 mg tablet 5 mg PO DAILY hydroxyzine pamoate [Vistaril] 25 mg capsule 25 mg PO TID PRN (Reason: anxiety) Qty: 270 1RF sertraline 100 mg tablet 200 mg PO DAILY Qty: 180 1RF bupropion HCl 300 mg tablet extended release 24 hr 300 mg PO QAM Qty: 90 1RF acetaminophen 325 mg capsule 650 mg PO Q6H PRN (Reason: pain) phentermine 37.5 mg tablet 37.5 mg PO DAILY trospium 20 mg tablet 20 mg PO BID trazodone 50 mg tablet 50 mg PO QHS PRN (Reason: sleep) Qty: 90 1RF Primary Care Provider: Ernestine Muro Referrals: [facility]] Print Language: Upper Sorbian Disposition Disposition: Home, Self Care
[2025-02-05] MEDS: Ketorolac 30 MG/ML Syringe IV (13:08)
--- NOTE | 2025-02-05 13:22 | CT_ITS ---
PROCEDURE: BRAIN/HEAD WITHOUT CONTRAST 02/05/2025 REASON FOR EXAM: HEADACHE, TRAUMA TECHNIQUE: Procedure Code: CTBR Modality: CT Procedure: BRAIN/HEAD WITHOUT CONTRAST Coronal and Sagittal reconstruction series were provided. One or more dose reduction techniques were used (e.g., Automated exposure control, adjustment of the mA and/or kV according to patient size, use of iterative reconstruction technique. RADIATION DOSE SUMMARY: CTDlvol: 47 mGy DLP: 855 mGycm FINDINGS: The ventricles are normal in size and midline in position. No evidence of acute hemorrhage or infarction. No extra-axial blood or fluid collections. The paranasal sinuses and mastoid air cells are clear. The calvarial vault and skull base are intact. CT/Brain/Head without Contrast IMPRESSION: No acute intracranial abnormality. Reading Location: [id number]
[2025-02-05 14:24] VITALS: BP 152/84; PULSE 62; RESP 16; O2SAT 100
[2025-02-05 15:27] VITALS: BP 141/98; PULSE 89; RESP 16; TEMP 36.2; O2SAT 100
== END 2025-02-05 15:28 | disposition home or self-care (01) ==
PROVIDERS: Emergency Provider Emergency Medicine; PCP Nurse Practitioner Family; Visit Provider Emergency Medicine
DX: S09.90XA Unspecified injury of head, initial encounter (principal); G44.309 Post-traumatic headache, unspecified, not intractable; F41.9 Anxiety disorder, unspecified; F32.A Depression, unspecified; K21.9 Gastro-esophageal reflux disease without esophagitis; E66.9 Obesity, unspecified; W22.8XXA Striking against or struck by other objects, initial encounter; Y92.129 Unspecified place in nursing home as the place of occurrence of the external cause
CPT/HCPCS: 70450; 96374; 96375; 99283; A4216; J1110

== ENCOUNTER → 2025-02-21 | Outpatient (CLI) | payer OTHER, SELFPAY ==
--- NOTE | 2025-02-21 15:29 | MRI_ITS ---
PROCEDURE: BRAIN WITHOUT CONTRAST 02/21/2025 REASON FOR EXAM: 01/29/2025 [facility] W/ NEWLY APPRECIATED SLURRED SPEECH TECHNIQUE: Procedure Code: MRIBR Modality: MR Procedure: BRAIN WITHOUT CONTRAST Multiplanar and multisequence images were obtained. COMPARISON: CT head 02/05/2025. FINDINGS: Brain: Normal signal intensities. Ventricles: No ventriculomegaly. Major Intracranial Vessels: Patent Sinuses: Clear Mastoids: Clear MRI/Brain without Contrast IMPRESSION: Unremarkable brain MRI. Reading Location: [id number]
== END | disposition home or self-care (01) ==
LOC: MRI 15:28
PROVIDERS: PCP Nurse Practitioner Family; Referring Provider Physician Assistant; Visit Provider Physician Assistant
DX: S09.90XA Unspecified injury of head, initial encounter (principal); G44.309 Post-traumatic headache, unspecified, not intractable; X58.XXXA Exposure to other specified factors, initial encounter
CPT/HCPCS: 70551